=== PATIENT | female | born 1955 | race Caucasian/White ===

== ENCOUNTER 2018-06-25 13:54 | Outpatient (REF) | payer MEDICARE, MEDICAID, SELFPAY ==
[2018-06-25 14:55] LABS: ALT 45 U/L (12-78); AST 21 U/L (15-37); Albumin 3.3 g/dL (3.4-5.0); Alkaline Phosphatase 93 U/L (46-116); Anion Gap 10.5 mmol/L (3-11); BUN 16 mg/dL (7-18); Bilirubin, Total 0.2 mg/dL (0.2-1.0); CO2 22.5 mmol/L (21.0-32.0); CREATININE 0.99 mg/dL (0.55-1.02); Calcium 8.8 mg/dL (8.5-10.1); Chloride 107 mmol/L (98-107); Estimated GFR 56.84 (mL/min/1.73m2); Ferritin 245 ng/mL (8-388); Glucose 159 mg/dL (70-100); Potassium 4.2 mmol/L (3.5-5.1); Sodium 140 mmol/L (136-145); Total Protein 7.1 g/dL (6.4-8.2)
[2018-06-25 15:03] LABS: Hemoglobin A1C 7.1 % (4.5-6.2)
[2018-06-25 15:21] LABS: HCT 47.2 % (36.0-46.0); HGB 15.8 g/dL (12.0-15.5); Mean Corp. HGB Concentration 33.5 g/dL (32.0-36.0); Mean Corpuscular Volume 95.7 fL (80-95); Mean Platelet Volume 10.2 fL (8.0-11.0); Platelet Count 183 x1000/uL (130-400); RBC 4.93 m/cumm (4.00-5.20); RBC Distribution Width 14.4 % (11.7-14.6); White Blood Cell Count 6.33 k/cumm (4.4-10.8)
[2018-06-25 16:19] LABS: Iron 91 ug/dL (50-175)
[2018-06-26 10:10] LABS: Hepatitis C Ab w Rflx HCV PCR Negative (NEGAT)
== END 2018-06-25 14:14 ==
LOC: LBN 13:54
PROVIDERS: PCP Family Medicine; Visit Provider Family Medicine
DX: N39.0 Urinary tract infection, site not specified (principal); R19.7 Diarrhea, unspecified; E83.110 Hereditary hemochromatosis; R79.89 Other specified abnormal findings of blood chemistry
CPT/HCPCS: 80053; 85027; 86803; 87329; 82728; 83036; 83540; 87086; 87324

== ENCOUNTER 2018-06-27 17:35 | Outpatient (REF) | payer MEDICARE, MEDICAID, SELFPAY | END 2018-06-27 17:55 | LOC: LBN 17:35 | PROVIDERS: PCP Family Medicine; Visit Provider Family Medicine | DX: R19.7 Diarrhea, unspecified (principal) | CPT/HCPCS: 87329 ==

== ENCOUNTER 2018-09-02 11:28 | Outpatient (REF) | payer MEDICARE, MEDICAID, SELFPAY ==
[2018-09-02 13:33] LABS: Abs Immature Grans 0.01 k/cumm (0.0-0.09); Absolute Basophil Count 0.03 k/cumm (0.0-0.2); Absolute Eosinophil Count 0.15 k/cumm (0.0-0.7); Absolute Lymphocyte Count 2.46 k/cumm (1.2-3.4); Absolute Monocyte Count 0.52 k/cumm (0.11-0.7); Absolute Neutrophil Count 2.92 k/cumm (1.2-6.7); Basophils % 0.5; Eosinophils % 2.5; HCT 45.5 % (36.0-46.0); HGB 15.1 g/dL (12.0-15.5); Immature Grans % 0.2; Lymphocytes % 40.4; Mean Corp. HGB Concentration 33.2 g/dL (32.0-36.0); Mean Corpuscular Hemoglobin 31.9 pg (27.0-33.0); Mean Corpuscular Volume 96.2 fL (80-95); Monocytes % 8.5; Neutrophils % 47.9; Platelet Count 198 x1000/uL (130-400); RBC 4.73 m/cumm (4.00-5.20); RBC Distribution Width 14.2 % (11.7-14.6); White Blood Cell Count 6.09 k/cumm (4.4-10.8)
[2018-09-02 13:49] LABS: Vitamin B12 488 pg/mL (193-986)
[2018-09-02 13:57] LABS: Hemoglobin A1C 7.2 % (4.5-6.2)
== END 2018-09-02 11:48 ==
LOC: LBN 11:28
PROVIDERS: PCP Family Medicine; Visit Provider Family Medicine
DX: R53.83 Other fatigue (principal); E11.40 Type 2 diabetes mellitus with diabetic neuropathy, unspecified
CPT/HCPCS: 82607; 83036; 85025

== ENCOUNTER 2018-09-08 08:36 | Outpatient (CLI) | payer MEDICARE, MEDICAID, SELFPAY ==
--- NOTE | 2018-09-08 10:30 | DI.RAD_ITS ---
SYMPTOM/DIAGNOSIS: EVALUATE FOR ENTRAPMENT AT LOWER C SPINE. DECREASED SENSATION FINGERS CERVICAL SPINE: 09/08 Six views were obtained. The intervertebral disc spaces appear fairly well maintained. There are mild hypertrophic changes of the vertebral end plates and facet joints throughout the cervical region. Neuroforaminal appear fairly well maintained on oblique views. Mid cervical scoliosis is noted. CONCLUSION: DJD and mild cervical deformity. No other focal abnormality seen.
== END 2018-09-08 08:56 ==
PROVIDERS: PCP Family Medicine; Visit Provider Family Medicine
DX: R20.8 Other disturbances of skin sensation (principal); M47.812 Spondylosis without myelopathy or radiculopathy, cervical region; M41.82 Other forms of scoliosis, cervical region
CPT/HCPCS: 72050

== ENCOUNTER 2018-10-06 01:23 | Outpatient (CLI) | payer MEDICARE, MEDICAID, SELFPAY ==
--- NOTE | 2018-10-06 10:22 | DI.RAD_ITS ---
SYMPTOMS/DIAGNOSIS: LOW BACK PAIN LUMBAR SPINE: AP, lateral and bilateral oblique views of the lumbar spine were obtained. There is an S-type scoliosis of the thoracic and lumbar spine. There are five lumbar-type vertebral bodies. No acute fractures or subluxations are seen. Disc space narrowing is seen at L1-L2 and L2-L3. There is a vacuum disc at L4- L5. Endplate osteophytes are present throughout the lumbar spine. There are degenerative changes of the facets throughout the lumbar spine, most marked at L4-5 and L5-S1. Vascular stents are seen in the common iliac arteries bilaterally. IMPRESSION: 1. Scoliosis. 2. Moderate degenerative changes of the lumbar spine. SACROILIAC JOINTS: Three views. There are mild degenerative changes of the sacroiliac joints. No ankylosis or erosions are seen. The bones appear intact. Vascular calcifications are seen. Vascular stents are seen within the distal aorta and common iliac arteries. Surgical clips are seen in the right upper quadrant of the abdomen, likely from prior cholecystectomy. IMPRESSION: Mild degenerative changes seen at the sacroiliac joints.
== END 2018-10-06 01:43 ==
PROVIDERS: PCP Family Medicine; Visit Provider Family Medicine
DX: M54.5 Low back pain (principal); M41.35 Thoracogenic scoliosis, thoracolumbar region; M51.37 Other intervertebral disc degeneration, lumbosacral region; M53.3 Sacrococcygeal disorders, not elsewhere classified
CPT/HCPCS: 72110; 72202

== ENCOUNTER → 2018-12-10 12:08 | Outpatient (BNVA) | payer MEDICARE, MEDICAID, SELFPAY | PROVIDERS: PCP Family Medicine; Visit Provider Psychiatry & Neurology Neurology | DX: G56.03 Carpal tunnel syndrome, bilateral upper limbs (principal); G56.22 Lesion of ulnar nerve, left upper limb; J44.9 Chronic obstructive pulmonary disease, unspecified; F17.210 Nicotine dependence, cigarettes, uncomplicated | CPT/HCPCS: 95909; 99204; 99215 ==

== ENCOUNTER 2019-01-30 11:56 | Outpatient (REF) | payer MEDICARE, MEDICAID, SELFPAY ==
[2019-01-30 14:13] LABS: TSH 4.22 uIU/mL (0.358-3.74)
== END 2019-01-30 12:16 ==
LOC: LBN 11:56
PROVIDERS: PCP Family Medicine; Visit Provider Family Medicine
DX: E03.9 Hypothyroidism, unspecified (principal)
CPT/HCPCS: 84443

== ENCOUNTER 2019-02-02 10:53 | Outpatient (REF) | payer MEDICARE, MEDICAID, SELFPAY ==
[2019-02-02 16:36] LABS: T3,Free 3.2 pg/ml (2.8-5.3)
== END 2019-02-02 11:13 ==
LOC: LBN 10:53
PROVIDERS: PCP Family Medicine; Visit Provider Family Medicine
DX: E05.90 Thyrotoxicosis, unspecified without thyrotoxic crisis or storm (principal)
CPT/HCPCS: 84481

== ENCOUNTER 2019-02-04 12:33 | Outpatient (REF) | payer MEDICARE, MEDICAID, SELFPAY ==
[2019-02-04 13:23] LABS: Absolute Basophil Count 0.03 k/cumm (0.0-0.2); Absolute Eosinophil Count 0.13 k/cumm (0.0-0.7); Absolute Lymphocyte Count 2.27 k/cumm (1.2-3.4); Absolute Monocyte Count 0.37 k/cumm (0.11-0.7); Absolute Neutrophil Count 2.52 k/cumm (1.2-6.7); BUN 13 mg/dL (7-18); Basophils % 0.6; Calcium 9.4 mg/dL (8.5-10.1); Chloride 103 mmol/L (98-107); Eosinophils % 2.4; Estimated GFR 50.17 (mL/min/1.73m2); Glucose 176 mg/dL (70-100); HCT 47.5 % (36.0-46.0); HGB 15.3 g/dL (12.0-15.5); Lymphocytes % 42.7; Mean Corp. HGB Concentration 32.2 g/dL (32.0-36.0); Mean Corpuscular Hemoglobin 31.9 pg (27.0-33.0); Mean Platelet Volume 9.9 fL (8.0-11.0); Neutrophils % 47.3; Platelet Count 207 x1000/uL (130-400); Potassium 3.9 mmol/L (3.5-5.1); RBC Distribution Width 13.9 % (11.7-14.6); Sodium 140 mmol/L (136-145); White Blood Cell Count 5.32 k/cumm (4.4-10.8)
== END 2019-02-04 12:53 ==
LOC: LBN 12:33
PROVIDERS: PCP Family Medicine; Visit Provider Family Medicine
DX: K92.1 Melena (principal)
CPT/HCPCS: 80048; 85025

== ENCOUNTER → 2019-02-16 10:44 | Outpatient (BNVA) | payer MEDICARE, MEDICAID, SELFPAY | PROVIDERS: PCP Family Medicine; Referring Provider Family Medicine; Visit Provider Surgery | DX: K62.5 Hemorrhage of anus and rectum (principal); E11.9 Type 2 diabetes mellitus without complications; I10 Essential (primary) hypertension; J44.9 Chronic obstructive pulmonary disease, unspecified; F17.200 Nicotine dependence, unspecified, uncomplicated; Z79.01 Long term (current) use of anticoagulants; Z95.5 Presence of coronary angioplasty implant and graft; R45.4 Irritability and anger | CPT/HCPCS: 99203; 99214 ==

== ENCOUNTER 2019-02-23 18:03 | Outpatient (REF) | payer MEDICARE, MEDICAID, SELFPAY ==
[2019-02-23 18:34] LABS: Bilirubin Negative (Negative); Blood Negative (Negative); Clarity Clear; Glucose Negative (Negative); Ketones Negative (Negative); Leukocyte Esterase Negative (Negative); Nitrite Negative (Negative); Urobilinogen 0.2 EU/dL (Up TO 0.2); pH 7.5 (5-8)
== END 2019-02-23 18:23 ==
LOC: NCHCN 18:03
PROVIDERS: PCP Family Medicine; Visit Provider Family Medicine
DX: N39.0 Urinary tract infection, site not specified (principal)
CPT/HCPCS: 81003

== ENCOUNTER 2019-07-15 16:01 | Outpatient (REF) | payer MEDICARE, SELFPAY | END 2019-07-15 16:21 | LOC: LBN 16:01 | PROVIDERS: PCP Family Medicine; Visit Provider Family Medicine | DX: R19.7 Diarrhea, unspecified (principal) | CPT/HCPCS: 87324 ==

== ENCOUNTER 2019-07-24 12:13 | Outpatient (REF) | payer MEDICARE, SELFPAY ==
[2019-07-24 13:10] LABS: ALT 37 U/L (14-59); AST 20 U/L (15-37); Albumin 3.6 g/dL (3.4-5.0); Alkaline Phosphatase 101 U/L (46-116); Anion Gap 11.9 mmol/L (3-11); BUN 15 mg/dL (7-18); Bilirubin, Total 0.3 mg/dL (0.2-1.0); CO2 24.1 mmol/L (21.0-32.0); CREATININE 0.86 mg/dL (0.55-1.02); Chloride 106 mmol/L (98-107); Glucose 129 mg/dL (70-100); Magnesium 2.1 mg/dL (1.8-2.4); Potassium 4.1 mmol/L (3.5-5.1); Sodium 142 mmol/L (136-145); TSH (W/Ref FT4) 5.97 uIU/mL (0.36-3.74); Total Protein 7.7 g/dL (6.4-8.2)
[2019-07-24 13:40] LABS: FREE T4 0.88 ng/dL (0.76-1.46)
== END 2019-07-24 12:33 ==
LOC: LBN 12:13
PROVIDERS: PCP Family Medicine; Visit Provider Family Medicine
DX: E03.9 Hypothyroidism, unspecified (principal); E83.42 Hypomagnesemia
CPT/HCPCS: 80053; 83735; 84439; 84443

== ENCOUNTER 2019-08-07 02:15 | Outpatient (CLI) | payer MEDICARE, MEDICAID, SELFPAY ==
--- NOTE | 2019-08-07 10:20 | DI.US_ITS ---
APPROVED REPORT Conclusion Left Ventricle : The left ventricle is normal size. Borderline concentric left ventricular hypertroph y. The left ventricular ejection fraction is within the normal range. There is normal LV segmental wa ll motion. LVEF is estimated to be 60-65%. Diastolic function is indeterminate Right Ventricle : The right ventricle is normal size. Right ventricle is moderately hypokinetic. Righ t ventricle is mildly hypertrophied. Atria : The left atrium size is normal. The right atrium size is normal. Aortic Valve : Aortic valve is trileaflet. Aortic valve is mildly thickened. There is no aortic valvu lar stenosis. No aortic regurgitation is present. Mitral Valve : Mitral valve leaflets are mildly thickened. No evidence of mitral valve stenosis. Triv ial mitral regurgitation. Tricuspid Valve : The tricuspid valve is normal in structure. Mild tricuspid regurgitation. Pulmonic Valve : Pulmonic valve is not well visualized. Great Vessels : IVC is normal in size with normal collapse. Estimated RVSP is 40 mmHg Compared to echocardiogram dated 08/18/2013, the patient's estimate pulmonary artery pressures have d ecreased. EXAM: Comprehensive 2D, Doppler, and color-flow Echocardiogram Patient Location: Out-Patient Commissioner Of Conciliation: PRAFUL Villela ([place]) Rhythm: NSR Indications: pulmonary HTN i27.29 Left Ventricle The left ventricle is normal size. The left ventricular ejection fraction is within the normal range. Borderline concentric left ventricular hypertrophy. There is normal LV segmental wall motion. Diasto lic function is indeterminate LVEF is estimated to be 60-65%. Right Ventricle The right ventricle is normal size. Right ventricle is moderately hypokinetic. Right ventricle is mil dly hypertrophied. Atria The left atrium size is normal. The right atrium size is normal. Aortic Valve Aortic valve is trileaflet. Aortic valve is mildly thickened. There is no aortic valvular stenosis. N o aortic regurgitation is present. Mitral Valve Mitral valve leaflets are mildly thickened. No evidence of mitral valve stenosis. Trivial mitral regu rgitation. Tricuspid Valve The tricuspid valve is normal in structure. Mild tricuspid regurgitation. Pulmonic Valve Pulmonic valve is not well visualized. Trace pulmonic regurgitation. Great Vessels Aortic root is top normal in size. IVC is normal in size with normal collapse. Estimated RVSP is 40 m mHg Pericardium Anterior epicardial fat pad is present. 2D Dimensions IVSd 1.15 cm F: 0.6-1.0 LV EDV A2C 55.40 mL PWd 1.14 cm F: 0.6 - 1.0 LV EDV A4C 53.20 mL LVDd 4.10 cm F: 3.9 - 5.3 LA Volume Index A2C 18.21 mL/m2 LVDs 2.89 cm F: 2.2 - 3.5 LA Volume Index A4C 23.81 mL/m2 Aortic Root 3.52 cm F: 2.7 - 3.3 LA Volume Index Biplane 21.03 mL/m2 RA Area A4C 10.18 cm2 LA Area A4C 16.26 cm2 LVOT 2.11 cm (M/F) 1.5-2.5 LA Area A2C 14.08 cm2 Ascending Aorta 2.98 cm F: 2.3 - 3.1 EF AP4 67.11 % LVEF (Teich) 57.23 % EF AP2 62.64 % LVEF (Easley's) 61.02 % F: 54 - 74 EF BP 61.02 % LV Volume 41.56 mL F: 46 - 106 LV Volume Index 22.83 mL/m2 F: 29 - 61 FS 29.69 % LV Diastology E Decel Time 280.00 (160-240 msec) E/A Ratio 0.6 MED E' 0.08 (>0.07 m/s) LV E/e MED 6.84 (<14) LAT E' 0.08 (>0.1 m/s) LV E/e LAT 6.81 (<14) Aortic Valve LVOT Area 3.50 cm2 LVOT Peak Judah. 0.85 m/s LVOT Mean Judah. 0.59 m/s SATURNINO Vmax 0.00 m/s LVOT Peak Gr. 2.90 mmHg SATURNINO Vmax Index 1.31 cm2/m2 LVOT Mean Gr. 1.57 mmHg SATURNINO Mean Judah. 0.00 m/s LVOT VTI 0.19 m SATURNINO Mean Judah. Index 1.23 cm2/m2 AoV Peak Judah. 1.25 (0.5-1.3 m/s) AoV Mean Judah. 0.91 m/s AO Peak GR. 6.22 mmHg AO Mean GR. 3.56 (<5 mmHg) AO VTI 0.26 (0.18-0.25 m) SATURNINO (VTI) 2.53 (2.5-4.5 cm2) SATURNINO (VTI) Index 1.38 cm/m2 Mitral Valve MV E Max Judah. 0.56 (0.4-1.3 m/s) MV A Velocity 0.90 (0.4-1.3 m/s) E/A Ratio 0.62 MV Decel. Time 280.00 (160-240 msec) MV PHT 81.33 msec MVA PHT 2.70 cm2 Pulmonary Valve PV Peak Velocity 0.76 (0.5-1.5 m/s) Tricuspid Valve TR P. Velocity 2.92 m/s TV Regurg Vmax 2.92 m/s TR P. Gradient 34.04 mmHg
== END 2019-08-07 02:35 ==
PROVIDERS: PCP Family Medicine; Visit Provider Family Medicine
DX: I27.29 Other secondary pulmonary hypertension (principal); I51.7 Cardiomegaly; I34.8 Other nonrheumatic mitral valve disorders; I10 Essential (primary) hypertension
CPT/HCPCS: 93306

== ENCOUNTER 2019-08-25 09:50 | Outpatient (REF) | payer MEDICARE, MEDICAID, SELFPAY ==
[2019-08-25 10:57] LABS: HCT 47.6 % (36.0-46.0); HGB 15.2 g/dL (12.0-15.5); Mean Corp. HGB Concentration 31.9 g/dL (32.0-36.0); Mean Corpuscular Hemoglobin 32.1 pg (27.0-33.0); Mean Corpuscular Volume 100.4 fL (80-95); Mean Platelet Volume 9.7 fL (8.0-11.0); Platelet Count 273 x1000/uL (130-400); RBC 4.74 m/cumm (4.00-5.20); RBC Distribution Width 13.8 % (11.7-14.6); White Blood Cell Count 7.15 k/cumm (4.4-10.8)
[2019-08-25 11:13] LABS: ALT 37 U/L (14-59); AST 18 U/L (15-37); Albumin 3.4 g/dL (3.4-5.0); Alkaline Phosphatase 97 U/L (46-116); BUN 12 mg/dL (7-18); Bilirubin, Total 0.2 mg/dL (0.2-1.0); CREATININE 0.81 mg/dL (0.55-1.02); Calcium 8.9 mg/dL (8.5-10.1); Chloride 106 mmol/L (98-107); Glucose 122 mg/dL (70-100); Magnesium 2.1 mg/dL (1.8-2.4); Potassium 4.1 mmol/L (3.5-5.1); Sodium 142 mmol/L (136-145); Total Protein 7.5 g/dL (6.4-8.2)
[2019-08-25 11:30] LABS: FREE T4 0.72 ng/dL (0.76-1.46)
== END 2019-08-25 10:10 ==
LOC: LBN 09:50
PROVIDERS: PCP Family Medicine; Visit Provider Nurse Practitioner Gerontology
DX: I10 Essential (primary) hypertension (principal); E03.9 Hypothyroidism, unspecified; R53.83 Other fatigue
CPT/HCPCS: 80053; 85027; 83735; 84439; 84443

== ENCOUNTER 2019-09-01 09:11 | Outpatient (REF) | payer MEDICARE, MEDICAID, SELFPAY ==
[2019-09-01 09:45] LABS: Hemoglobin A1C 7.3 % (4.5-6.2)
== END 2019-09-01 09:31 ==
LOC: LBO 09:11
PROVIDERS: PCP Family Medicine; Visit Provider Family Medicine
DX: E11.40 Type 2 diabetes mellitus with diabetic neuropathy, unspecified (principal); E55.9 Vitamin D deficiency, unspecified; M85.80 Other specified disorders of bone density and structure, unspecified site
CPT/HCPCS: 82306; 83036

== ENCOUNTER 2020-03-02 11:20 | Outpatient (REF) | payer MEDICARE, MEDICAID, SELFPAY ==
[2020-03-02 11:55] LABS: Abs Immature Grans 0.01 k/cumm (0.0-0.09); Absolute Basophil Count 0.03 k/cumm (0.0-0.2); Absolute Eosinophil Count 0.16 k/cumm (0.0-0.7); Absolute Lymphocyte Count 2.17 k/cumm (1.2-3.4); Absolute Monocyte Count 0.51 k/cumm (0.11-0.7); Basophils % 0.5; Eosinophils % 2.6; HCT 46.2 % (36.0-46.0); HGB 15.2 g/dL (12.0-15.5); Immature Grans % 0.2 %; Lymphocytes % 35.1; Mean Corp. HGB Concentration 32.9 g/dL (32.0-36.0); Mean Corpuscular Hemoglobin 31.9 pg (27.0-33.0); Mean Corpuscular Volume 97.1 fL (80-95); Monocytes % 8.3; Neutrophils % 53.3; Platelet Count 208 x1000/uL (130-400); RBC 4.76 m/cumm (4.00-5.20); RBC Distribution Width 14.1 % (11.7-14.6); White Blood Cell Count 6.18 k/cumm (4.4-10.8)
[2020-03-02 12:08] LABS: ALT 84 U/L (14-59); AST 39 U/L (15-37); Alkaline Phosphatase 93 U/L (46-116); Anion Gap 6.9 mmol/L (3-11); BUN 9 mg/dL (7-18); Bilirubin, Total 0.3 mg/dL (0.2-1.0); CO2 27.1 mmol/L (21.0-32.0); CREATININE 1.07 mg/dL (0.55-1.02); Calcium 8.8 mg/dL (8.5-10.1); Chloride 105 mmol/L (98-107); Estimated GFR 51.63 (mL/min/1.73m2); Glucose 179 mg/dL (74-106); Sodium 139 mmol/L (136-145); TSH (W/Ref FT4) 4.24 uIU/mL (0.36-3.74)
[2020-03-02 12:30] LABS: FREE T4 0.98 ng/dL (0.76-1.46)
[2020-03-02 12:33] LABS: Hemoglobin A1C 7.9 % (3.8-5.6)
[2020-03-03 04:46] LABS: Vitamin D 25 Total 31.4 ng/ml (30-100)
== END 2020-03-02 11:40 ==
LOC: LBN 11:20
PROVIDERS: PCP Family Medicine; Visit Provider Family Medicine
DX: E11.9 Type 2 diabetes mellitus without complications (principal); E03.9 Hypothyroidism, unspecified; E55.9 Vitamin D deficiency, unspecified
CPT/HCPCS: 80053; 82306; 83036; 84439; 84443; 85025

== ENCOUNTER 2020-06-01 01:38 | Outpatient (CLI) | payer MEDICARE, MEDICAID, SELFPAY ==
--- NOTE | 2020-06-01 06:30 | DI.CTLCSR_ITS ---
EXAM: CT CHEST LUNG CANCER SCREEN CLINICAL HISTORY: Screening for lung cancer,FORMER SMOKER,Z87.891 TECHNIQUE: Imaging Protocol: Axial computed tomography images with coronal and sagittal reformatted images were created and reviewed COMPARISON: CT CHEST FOR PULMONARY EMBOLUS from 01/03/2012 CT CHEST FOR PULMONARY EMBOLUS from 09/09/2013 FINDINGS: Tracheobronchial tree: Patent where visualized. Mediastinum and Princess: Small hiatal hernia. Pulmonary parenchyma: Moderately severe centrilobular emphysema. Scarring in the right upper lobe, r ight middle lobe and lingula. Triangular density associated with the left major fissure most suggest james of of a lymph node. No focal consolidating infiltrates. Lung Nodules: None. Pleura: No effusion or pneumothorax. Heart: The heart is not dilated. Mild coronary artery calcification. No significant pericardial effu jimmie. Aorta: Thoracic aorta non-dilated.Atherosclerosis. Upper abdomen: Diffuse fatty infiltration of the liver. Bones: Minimal degenerative changes. Marked right convex scoliosis of the thoracic spine. Soft Tissues: Unremarkable. IMPRESSION: 1. No pulmonary nodules. 2. Moderately severe centrilobular emphysema. 3. Diffuse fatty infiltration of the liver. 4. Atherosclerosis and mild coronary artery disease. 5. Marked right convex scoliosis of the thoracic spine. Lung RADS Cat 1 - Negative: No nodules and definitely benign nodules Lung-RADS 1.0 CATEGORIES: Category 0 - Prior chest CT exam(s) being located for comparison. Category 1 - Annual screening in 12 months. No nodules or definitely benign nodules. Category 2 - Annual screening in 12 months. Benign appearance. Nodules with low likelihood of becomin g active cancer. Category 3 - 6-month follow-up. Probably benign. Short-term follow-up suggested. Nodules with low lik elihood of becoming active cancer. Category 4A - 3-month follow-up and CT/PET if >8 mm in size. Suspicious finding. Findings which requi re additional testing. Category 4B - Findings which require additional testing and tissue sampling. Suspicious finding. C Added to Any of the Above - History of prior lung cancer screening. S Added to Any of the Above - Significant unexpected other finding. RADIATION DOSE DELIVERED: 94.87mGy.cm Total DLP DATA REPOSITORY: All CT scans at this facility are submitted to the National Radiology Data Registry (NRDR) Dose Index Registry (DIR) with the [employer] ([employer]). RADIATION OPTIMIZATION: All CT scans at this facility use at least one of these dose optimization te chniques: automated exposure control; mA and/or kV adjustment per patient size (includes targeted exa ms where dose is matched to clinical indication); or iterative reconstruction.
--- NOTE | 2020-06-01 09:18 | DI.RAD_ITS ---
EXAM: RF BARIUM SWALLOW CLINICAL HISTORY: DYSPHAGIA,R13.10 TECHNIQUE: 2D and realtime digital imaging was performed. CONTRAST MATERIAL: Oral barium contrast was administered. COMPARISON: No exams were available for comparison FINDINGS: CHEST X-RAY: The heart is within normal limits. There is tortuosity of the thoracic aorta. The lung s are clear. No pleural effusion or pneumothorax is present. The bones are within normal limits fo th e patient's age. There is a right convex scoliosis of the thoracic spine. ESOPHAGRAM: The esophagus is patent with no evidence for erosions, fold thickening, strictures, or ma sses. With regards to the motility, there is a normal primary stripping wave. Tertiary contractions a re noted. There is a hiatal hernia present. No gastroesophageal reflux was identified during the ex amination. IMPRESSION: Small hiatal hernia without evidence of gastroesophageal reflux.
[2020-06-01] MEDS: Barium Sulfate 60% W/V 355 ML BTL PO (10:06)
== END 2020-06-01 01:58 ==
PROVIDERS: PCP Family Medicine; Visit Provider Family Medicine
DX: Z12.2 Encounter for screening for malignant neoplasm of respiratory organs (principal); Z87.891 Personal history of nicotine dependence; J43.9 Emphysema, unspecified; I25.10 Atherosclerotic heart disease of native coronary artery without angina pectoris; M41.9 Scoliosis, unspecified
CPT/HCPCS: G0297; 74221; J3490

== ENCOUNTER 2020-12-14 16:51 | Outpatient (REF) | payer MEDICARE, MEDICAID, SELFPAY ==
[2020-12-14 18:08] LABS: Abs Immature Grans 0.01 10^3/uL (0.0-0.06); Absolute Basophil Count 0.07 10^3/uL (0.0-0.2); Absolute Eosinophil Count 0.19 10^3/uL (0.0-0.7); Absolute Lymphocyte Count 2.95 10^3/uL (1.2-3.4); Absolute Monocyte Count 0.59 10^3/uL (0.1-0.8); Absolute Neutrophil Count 3.35 10^3/uL (1.2-6.7); Eosinophils % 2.7; HGB 16.8 g/dL (11.2-15.7); Immature Grans % 0.1; Lymphocytes % 41.2; MCH 32.2 pg (27.0-33.0); MCHC 33.6 % (32.0-36.0); MPV 10.5 fL (8.0-11.0); Monocytes % 8.2; Neutrophils % 46.8; Nucleated RBC 0 %; Platelet Count 177 10^3/uL (130-400); RBC 5.21 10^6/uL (3.93-5.22); RDW 13.4 % (11.7-14.6); RDW-SD 47.8 fL; WBC 7.16 10^3/uL (4.4-10.8)
[2020-12-14 18:27] LABS: ALT 100 U/L (14-59); AST 45 U/L (15-37); Albumin 3.6 g/dL (3.4-5.0); Alkaline Phosphatase 124 U/L (46-116); Anion Gap 9.1 mmol/L (3-11); BUN 15 mg/dL (7-18); Bilirubin, Total 0.4 mg/dL (0.2-1.0); CO2 25.9 mmol/L (21.0-32.0); Calcium 9.6 mg/dL (8.5-10.1); Chloride 100 mmol/L (98-107); Estimated GFR 55.64 (mL/min/1.73m2); Glucose 302 mg/dL (74-106); Potassium 4.2 mmol/L (3.5-5.1); Sodium 135 mmol/L (136-145); TSH (W/Ref FT4) 7.33 uIU/mL (0.36-3.74); Total Protein 7.9 g/dL (6.4-8.2)
[2020-12-14 19:23] LABS: Hemoglobin A1C 13.2 % (<5.7)
[2020-12-15 04:44] LABS: Vitamin D 25 Total 29.2 ng/ml (30-100)
== END 2020-12-14 16:52 | disposition home or self-care (01) ==
LOC: LBN 16:51
PROVIDERS: PCP Family Medicine; Visit Provider Family Medicine
DX: E11.9 Type 2 diabetes mellitus without complications (principal); E03.9 Hypothyroidism, unspecified; E55.9 Vitamin D deficiency, unspecified; E78.5 Hyperlipidemia, unspecified
CPT/HCPCS: 80053; 82306; 83036; 84439; 84443; 85025

== ENCOUNTER 2021-03-07 15:39 | Outpatient (REF) | payer MEDICARE, MEDICAID, SELFPAY ==
[2021-03-07 17:34] LABS: Hemoglobin A1C 7.3 % (<5.7)
== END 2021-03-07 15:40 | disposition home or self-care (01) ==
LOC: NCHCN 15:39
PROVIDERS: PCP Family Medicine; Visit Provider Family Medicine
DX: E11.9 Type 2 diabetes mellitus without complications (principal)
CPT/HCPCS: 83036

== ENCOUNTER → 2021-06-08 13:00 | Outpatient (BNVA) | payer MEDICARE, MEDICAID, SELFPAY | PROVIDERS: PCP Family Medicine; Referring Provider Family Medicine; Visit Provider Surgery | DX: R19.5 Other fecal abnormalities (principal); Z53.29 Procedure and treatment not carried out because of patient's decision for other reasons; D75.1 Secondary polycythemia; E11.9 Type 2 diabetes mellitus without complications; I10 Essential (primary) hypertension; J44.9 Chronic obstructive pulmonary disease, unspecified; Z87.891 Personal history of nicotine dependence | CPT/HCPCS: 99213; 99215 ==

== ENCOUNTER 2021-08-04 17:38 | Outpatient (REF) | payer MEDICARE, MEDICAID, SELFPAY ==
[2021-08-04 19:00] LABS: Bilirubin Negative (Negative); Blood Negative (Negative); Clarity Clear (Clear); Glucose Negative (Negative); Ketones Negative (Negative); Leukocyte Esterase Negative (Negative); Nitrite Negative (Negative); Specific Gravity 1.015 (1.005-1.025); Urobilinogen 0.2 EU/dL (Up TO 0.2)
== END 2021-08-04 17:39 | disposition home or self-care (01) ==
LOC: LBN 17:38
PROVIDERS: PCP Family Medicine; Visit Provider Family Medicine
DX: N39.0 Urinary tract infection, site not specified (principal)
CPT/HCPCS: 81003

== ENCOUNTER 2021-09-06 10:36 | Outpatient (CLI) | payer MEDICARE, SELFPAY ==
[2021-09-06 14:44] LABS: HCT 51.8 % (36.0-46.0); HGB 16.8 g/dL (11.2-15.7); MCH 31.2 pg (27.0-33.0); MCHC 32.4 % (32.0-36.0); MCV 96.3 fL (80-95); MPV 9.3 fL (8.0-11.0); Platelet Count 242 10^3/uL (130-400); RBC 5.38 10^6/uL (3.93-5.22); RDW 13.6 % (11.7-14.6); RDW-SD 48.5 fL; WBC 7.78 10^3/uL (4.4-10.8)
[2021-09-06 15:03] LABS: Hemoglobin A1C 7.2 % (<5.7)
[2021-09-06 15:54] LABS: ALT 32 U/L (14-59); AST 19 U/L (15-37); Alkaline Phosphatase 96 U/L (46-116); Anion Gap 10.3 mmol/L (3-11); BUN 14 mg/dL (7-18); Bilirubin, Total 0.3 mg/dL (0.2-1.0); CO2 27.7 mmol/L (21.0-32.0); CREATININE 0.9 mg/dL (0.55-1.02); Calcium 9.9 mg/dL (8.5-10.1); Chloride 105 mmol/L (98-107); Glucose 161 mg/dL (74-106); Potassium 4.1 mmol/L (3.5-5.1); Sodium 143 mmol/L (136-145); TSH (W/Ref FT4) 1.53 uIU/mL (0.36-3.74); Total Protein 8.4 g/dL (6.4-8.2)
== END 2021-09-06 10:37 | disposition home or self-care (01) ==
LOC: LBO 10:39
PROVIDERS: PCP Family Medicine; Visit Provider Family Medicine
DX: E11.9 Type 2 diabetes mellitus without complications; I10 Essential (primary) hypertension; E78.5 Hyperlipidemia, unspecified; J44.9 Chronic obstructive pulmonary disease, unspecified; F31.30 Bipolar disorder, current episode depressed, mild or moderate severity, unspecified; D75.1 Secondary polycythemia
CPT/HCPCS: 36415; 80053; 82306; 85027; 83036; 84443

== ENCOUNTER 2021-12-11 01:36 | Outpatient (CLI) | payer MEDICARE, MEDICAID, SELFPAY ==
--- NOTE | 2021-12-11 08:15 | DI.RAD_ITS ---
Exam(s) XR HIP PELVIS ADULT BL EXAM: XR HIP PELVIS ADULT BL CLINICAL HISTORY: b/l hip pain,M25.551,M25.552. TECHNIQUE: 2D digital imaging was performed. COMPARISON: Prior x-rays September 2018. FINDINGS: There is no evidence of pelvic nor hip fracture. There are minimal if any significant degenerative c hanges in the hips and hips appear unchanged from 2018. No osseous lesions. Stents are again noted in the common iliac arteries. IMPRESSION: DATA REPOSITORY: RADIATION DOSE DELIVERED:
== END 2021-12-11 01:56 ==
PROVIDERS: PCP Family Medicine; Visit Provider Family Medicine
DX: M25.551 Pain in right hip (principal); M25.552 Pain in left hip
CPT/HCPCS: 73521

== ENCOUNTER 2021-12-11 14:35 | Inpatient (IN) | payer MEDICARE, MEDICAID, SELFPAY ==
[2021-12-11] VITALS (40 sets, daily range): BP systolic 124–159; BP diastolic 66–106; PULSE 70–93; RESP 11–26; TEMP 35.8–36.6; O2SAT 82–94
--- NOTE | 2021-12-11 14:45 | RT.EKG_ITS ---
APPROVED REPORT Exam: Resting ECG Reason for Exam: dizzy Patient Location: E HR:88 bpm ECG Measurements Heart Rate 88 AXIS ME 147 P 47 QRSd 89 QRS 84 QT 388 T 44 QTc 469 Conclusion Sinus rhythm...normal P axis, V-rate 60- 99 Multiple ventricular premature complexes...V complexes w/ short R-R intervls Nonspecific T abnormalities, anterior leads...T <-0.10mV, V2-V4. Sinus. Normal axis. T wave inversion in anterior leads seen in previous EKG and seen new in V3. No ST KJ. I have reviewed and interpreted ECG and agree with software generated interpretation.
--- NOTE | 2021-12-11 15:06 | W.ED.GENAD ---
Discharge Plan Disposition Patient Disposition: [facility] INPATIENT Condition: Stable Discharge Details Clinical Impression: Chronic hip pain, bilateral, Ambulatory dysfunction, Abdominal pain, vomiting, and diarrhea, Pneumonia, Hypoxia Admit Date/Time: 12/11/21 20:45 Admit Provider: Ehsan Graff Attending Provider: Ehsan Graff Primary Care Provider: Ghada Henderson ED Provider: Lilliana Grider Medical Decision Making 66-year-old female with a history of COPD with oxygen saturation in the mid 80s on room air at baseline recently started on home nasal cannula oxygen of unknown liters per patient, diabetes, hypertension, hyperlipidemia, anxiety and depression presents from the [facility] for multiple complaints including bilateral hip pain and watery brown diarrhea for the past 6 months, vomiting that occurs nightly the past 2 weeks and increasing weakness with ambulating today due to hip pain. She had an outpatient hip x-ray today which noted minimal degenerative changes that do not appear significantly changed compared to imaging from 2018 per radiology. Her oxygen saturation was noted to be 75% on room air during my evaluation. Patient is repositioned on bed and her O2 sat increased to 90% on 1 L. She denies any complaint of shortness of breath and her lung sounds are clear bilaterally. Abdomen is tender throughout but she appears nontoxic without rigidity or guarding. She has normal range of motion of her bilateral lower extremities and is otherwise neurovascularly intact. Patient is seen Dr. Henderson for her pain and was concerned that her hip pain is secondary to her stent in her lower extremities as she has a history of endovascular iliac and femoral stents. Her bilateral femoral and distal lower extremity pulses are intact and her skin appears warm and pink unlikely. Discussed with patient that her hip pain can be secondary to arthritis that may be in her back or hips. Records from Dr. Henderson notes that it could potentially also be due to deconditioning. Secondary to patient's multiple complaints, will obtain screening labs, urinalysis, CT chest abdomen pelvis secondary to her hypoxia and generalized weakness and dizziness to rule out pneumonia, colitis, UTI, electrolyte abnormality, etc. Will give IV fluids, Zofran and IV Tylenol and reassess. CT chest: IMPRESSION: 1. There is heterogeneous attenuation of the pulmonary parenchyma, consistent with air trapping from underlying small airways disease. 2. There are diffuse interstitial infiltrates present. This may represent cardiogenic versus noncardiogenic edema. An acute inflammatory process and/or infectious process/pneumonia are not excluded. 3. Focal lobar consolidative changes within the right middle lobe of the lung highly suspicious for lobar pneumonia. 4. Scarring and or mass present within the lingula measuring 3 x 2.7 cm. 5. Scarring and/or atelectasis measuring 2.2 x 2.2 cm within the right lower lobe of the lung anteriorly. These findings were in not present on the prior study of 05/16/2018. For both low risk and high risk patients, consider CT Chest at 3 months, PET/CT, or biopsy. (Reference: Francoise). 6. The pulmonary artery is enlarged measuring 3.2 cm. Consider early pulmonary hypertension. 7. There is no evidence of filling defects within the pulmonary arterial circulation to suggest pulmonary embolism. CT abdomen and pelvis: IMPRESSION: There are diffuse fluid filled loops of small bowel and colon with scattered air fluid levels. The bowel loops are mildly distended. No associated bowel wall thickening or inflammatory changes. No evidence of obstruction. Findings most consistent with diffuse enterocolitis. Attempted to ambulate patient and she was able to use assistance from wheelchair to ambulate but complained of significant pain. She had difficulty transferring out of the bed start ambulation. Patient states she has not felt comfortable going home. Patient does report that she has had a cough with dorsey sputum. As patient has had lower oxygen saturation in the comparison to her baseline on arrival in addition to right lobar pneumonia, will treat with antibiotics and plan for admission. Although she lives in assisted living, will cover her for community-acquired pneumonia at this time. This was discussed with hospitalist who accepts patient for admission. Medical Records Medical records reviewed: Yes I reviewed the patient's medical records. Imaging Data Radiologic Study: Radiologist's impression: CTA Chest With Contrast Exam date and time: 12/11/2021 3:26 PM Age: 66 years old Clinical indication: Other: Dizziness, vomitting, diarrhea, hypoxic TECHNIQUE: Imaging protocol: Computed tomographic angiography of the chest with contrast. 3D rendering (Not supervised by radiologist): MIP and/or 3D reconstructed images were created by the technologist. Radiation optimization: All CT scans at this facility use at least one of these dose optimization techniques: automated exposure control; mA and/or kV adjustment per patient size (includes targeted exams where dose is matched to clinical indication); or iterative reconstruction. Contrast material: OMNIPAQUE 350; Contrast volume: 100 ml; Contrast route: INTRAVENOUS (IV);? COMPARISON: CT ABD PELVIS WITH CONTRAST 05/16/2018 10:51 AM FINDINGS: Pulmonary arteries: The pulmonary artery is enlarged measuring 3.2 cm. Consider early pulmonary hypertension. There is no evidence of filling defects within the pulmonary arterial circulation to suggest pulmonary embolism. Aorta: Unremarkable. No aortic aneurysm. No aortic dissection. Lungs: Moderate centrilobular emphysematous changes are present. There is heterogeneous attenuation of the pulmonary parenchyma, consistent with air trapping from underlying small airways disease. There are diffuse interstitial infiltrates present. This may represent cardiogenic versus noncardiogenic edema. An acute inflammatory process and/or infectious process/pneumonia are not excluded. Focal lobar consolidative changes within the right middle lobe of the lung highly suspicious for lobar pneumonia. Scarring and or mass present within the lingula measuring 3 x 2.7 cm. Scarring and/or atelectasis measuring 2.2 x 2.2 cm within the right lower lobe of the lung anteriorly. These findings were in not present on the prior study of 05/16/2018. For both low risk and high risk patients, consider CT Chest at 3 months, PET/CT, or biopsy. (Reference: Francoise). Pleural spaces: Unremarkable. No pneumothorax. No pleural effusion. Heart: No evidence of reflux of contrast into the inferior vena cava or hepatic veins to suggest right heart strain or pulmonary hypertension. There is thickening of the pericardium versus small pericardial effusion. The right ventricular to left ventricular ratio is approximately 1.0. No significant coronary calcifications are identified. Lymph nodes: Epicardial mass/adenopathy present measuring 2.3 x 11 mm. Diaphragm: A small to moderate hiatal hernia is present. Intraperitoneal space: Please see CT of the abdomen and pelvis. Bones/joints: The spine, sternum, ribs, pectoral girdle skeletal structures show no evidence of acute fracture or other acute processes. Kyphoscoliosis of the thoracolumbar spine stable compared to 06/01/2020. Soft tissues: The soft tissues of the extrathoracic region are unremarkable. The associated extrathoracic soft tissues are unremarkable. IMPRESSION: 1. There is heterogeneous attenuation of the pulmonary parenchyma, consistent with air trapping from underlying small airways disease. 2. There are diffuse interstitial infiltrates present. This may represent cardiogenic versus noncardiogenic edema. An acute inflammatory process and/or infectious process/pneumonia are not excluded. 3. Focal lobar consolidative changes within the right middle lobe of the lung highly suspicious for lobar pneumonia. 4. Scarring and or mass present within the lingula measuring 3 x 2.7 cm. 5. Scarring and/or atelectasis measuring 2.2 x 2.2 cm within the right lower lobe of the lung anteriorly. These findings were in not present on the prior study of 05/16/2018. For both low risk and high risk patients, consider CT Chest at 3 months, PET/CT, or biopsy. (Reference: Francoise). 6. The pulmonary artery is enlarged measuring 3.2 cm. Consider early pulmonary hypertension. 7. There is no evidence of filling defects within the pulmonary arterial circulation to suggest pulmonary embolism. REFERENCES: Francoise Smith et al. Guidelines for Management of Incidental Pulmonary Nodules Detected on CT Images: From the Fleischner Society 2017. Radiology. 2017;284(1):228-243. CT Abdomen And Pelvis With Contrast Exam date and time: 12/11/2021 3:26 PM Age: 66 years old Clinical indication: Other: Dizziness, vomitting, diarrhea, hypoxic TECHNIQUE: Imaging protocol: Computed tomography of the abdomen and pelvis with contrast. Radiation optimization: All CT scans at this facility use at least one of these dose optimization techniques: automated exposure control; mA and/or kV adjustment per patient size (includes targeted exams where dose is matched to clinical indication); or iterative reconstruction. Contrast material: OMNIPAQUE 350; Contrast volume: 100 ml; Contrast route: INTRAVENOUS (IV);? COMPARISON: CT ABD PELVIS WITH CONTRAST 05/16/2018 10:51 AM FINDINGS: Lungs: Please see CT of the chest and lungs. Diaphragm: A moderate hiatal hernia is present. Liver: There is a diffuse decrease in hepatic parenchymal density, consistent with moderate fatty infiltration. There are no focal liver lesions present. Gallbladder and bile ducts: There has been a cholecystectomy. There is no evidence of intrahepatic or extrahepatic biliary ductal dilation. Pancreas: The pancreas is normal. Spleen: Calcifications within the splenic parenchyma consistent with old granulomatous exposure. The spleen is otherwise normal. Adrenal glands: There is an 18 mm left adrenal adenoma unchanged compared 06/01/2020. Kidneys and ureters: The left and right kidneys are normal. No evidence of renal calculi. No hydronephrosis. Stomach and bowel: There is no evidence of intestinal obstruction. There are diffuse fluid filled loops of small bowel and colon with scattered air fluid levels. The bowel loops are mildly distended. No associated bowel wall thickening or inflammatory changes. No evidence of obstruction. Findings most consistent with diffuse enterocolitis. Colonic fatty mural change present, most often a normal variation but sometimes seen in patients with chronic inflammatory process such as ulcerative colitis or Crohn's disease. Appendix: There is no evidence of appendicitis. Intraperitoneal space: There is no free intraperitoneal air. There is no evidence of free intraperitoneal or pelvic fluid. Vasculature: The portal, mesenteric and splenic veins are patent.The inferior venacava appears normal. Severe atherosclerotic plaquing of the abdominal aorta and iliac arteries. Endovascular stents are present within the distal aorta extending into the right and left common iliac arteries. These appear widely patent. Lymph nodes: There is no evidence of lymphadenopathy. Urinary bladder: Unremarkable as visualized. Reproductive: Unremarkable as visualized. Bones/joints: Moderate to severe degenerative changes of the lumbosacral spine. Soft tissues: There is a fat-containing umbilical hernia. The extra-abdominal soft tissues are normal. IMPRESSION: There are diffuse fluid filled loops of small bowel and colon with scattered air fluid levels. The bowel loops are mildly distended. No associated bowel wall thickening or inflammatory changes. No evidence of obstruction. Findings most consistent with diffuse enterocolitis. Lab Data Lab results reviewed: Yes I reviewed the patient's lab results. Labs: Laboratory Tests Range/Units 12/11/21 12/11/21 12/11/21 15:05 15:05 16:15 WBC (4.4-10.8) 10^3/uL 6.46 RBC (3.93-5.22) 10^6/uL 5.15 Hgb (11.2-15.7) g/dL 16.1 H Hct (36.0-46.0) % 49.6 H MCV (80-95) fL 96.3 H MCH (27.0-33.0) pg 31.3 MCHC (32.0-36.0) % 32.5 RDW (11.7-14.6) % 14.1 Plt Count (130-400) 10^3/uL 195 MPV (8.0-11.0) fL 9.5 Immature Gran % 0.3 Neutrophils % 52.1 Lymphocytes % 35.6 Monocytes % 9.1 Eosinophils % 2.3 Basophils % 0.6 Nucleated RBC % % 0 Absolute Neutrophils (1.2-6.7) 10^3/uL 3.36 Absolute Lymphocytes (1.2-3.4) 10^3/uL 2.30 Absolute Monocytes (0.1-0.8) 10^3/uL 0.59 Absolute Eosinophils (0.0-0.7) 10^3/uL 0.15 Absolute Basophils (0.0-0.2) 10^3/uL 0.04 VBG Lactate (0.6-1.4) mmol/L Sodium (136-145) mmol/L 139 Potassium (3.5-5.1) mmol/L 3.5 Chloride (98-107) mmol/L 103 Carbon Dioxide (21.0-32.0) mmol/L 27.7 Anion Gap (3-11) mmol/L 8.3 BUN (7-18) mg/dL 13 Creatinine (0.55-1.02) mg/dL 1.0 Estimated GFR/1.73 m2 (mL/min/1.73m2) 55.47 Glucose (74-106) mg/dL 259 H Calcium (8.5-10.1) mg/dL 9.5 Total Bilirubin (0.2-1.0) mg/dL 0.3 AST (15-37) U/L 21 ALT (14-59) U/L 35 Alkaline Phosphatase (46-116) U/L 93 Total Protein (6.4-8.2) g/dL 8.2 Albumin (3.4-5.0) g/dL 3.3 L Lipase (73-393) U/L 91 Procalcitonin ng/mL Urine Color (Yellow) Urine Clarity (Clear) Urine pH (5-8) Ur Specific [place] (1.005-1.025) Urine Protein (Negative) mg/dL Urine Ketones (Negative) mg/dL Urine Blood (Negative) Urine Nitrite (Negative) Urine Bilirubin (Negative) Urine Urobilinogen (Up TO 0.2) EU/dL Ur Leukocyte Esterase (Negative) Urine Glucose (Negative) mg/dL COVID-19 Source Not Applicable SARS-CoV-2 (PCR) (Negative) Negative Influenza Type A (PCR) (Negative) Negative Influenza Type B (PCR) (Negative) Negative RSV (PCR) (Negative) Negative Range/Units 12/11/21 12/11/21 17:30 19:15 WBC (4.4-10.8) 10^3/uL RBC (3.93-5.22) 10^6/uL Hgb (11.2-15.7) g/dL Hct (36.0-46.0) % MCV (80-95) fL MCH (27.0-33.0) pg MCHC (32.0-36.0) % RDW (11.7-14.6) % Plt Count (130-400) 10^3/uL MPV (8.0-11.0) fL Immature Gran % Neutrophils % Lymphocytes % Monocytes % Eosinophils % Basophils % Nucleated RBC % % Absolute Neutrophils (1.2-6.7) 10^3/uL Absolute Lymphocytes (1.2-3.4) 10^3/uL Absolute Monocytes (0.1-0.8) 10^3/uL Absolute Eosinophils (0.0-0.7) 10^3/uL Absolute Basophils (0.0-0.2) 10^3/uL VBG Lactate (0.6-1.4) mmol/L 1.3 Sodium (136-145) mmol/L Potassium (3.5-5.1) mmol/L Chloride (98-107) mmol/L Carbon Dioxide (21.0-32.0) mmol/L Anion Gap (3-11) mmol/L BUN (7-18) mg/dL Creatinine (0.55-1.02) mg/dL Estimated GFR/1.73 m2 (mL/min/1.73m2) Glucose (74-106) mg/dL Calcium (8.5-10.1) mg/dL Total Bilirubin (0.2-1.0) mg/dL AST (15-37) U/L ALT (14-59) U/L Alkaline Phosphatase (46-116) U/L Total Protein (6.4-8.2) g/dL Albumin (3.4-5.0) g/dL Lipase (73-393) U/L Procalcitonin ng/mL < 0.1 Urine Color (Yellow) Yellow Urine Clarity (Clear) Clear Urine pH (5-8) 6.0 Ur Specific [place] (1.005-1.025) 1.025 Urine Protein (Negative) mg/dL Negative Urine Ketones (Negative) mg/dL Negative Urine Blood (Negative) Negative Urine Nitrite (Negative) Negative Urine Bilirubin (Negative) Negative Urine Urobilinogen (Up TO 0.2) EU/dL 0.2 Ur Leukocyte Esterase (Negative) Negative Urine Glucose (Negative) mg/dL Negative COVID-19 Source SARS-CoV-2 (PCR) (Negative) Influenza Type A (PCR) (Negative) Influenza Type B (PCR) (Negative) RSV (PCR) (Negative) ECG Data Attestation: I personally reviewed and interpreted this ECG (s) as follows: Interpretation: rate of 88, sinus, PVCs, T wave inversion in V1 to V3. T wave inversions in V1 and V2 seen previously. No significant acute change. No STEMI. HPI General Mode of arrival: wheelchair. Date/Time Provider Initiated Documentation: 12/11/21 14:37. Limitations to Documentation: physical limitation. Information obtained by: patient. HPI Narrative: Patient is a 56-year-old female with a history of COPD recently placed on nasal cannula oxygen with baseline saturations on room air in the mid 80s, diabetes, hypertension, hyperlipidemia, hypothyroidism, anxiety, depression presents from the [facility] where she lives in her living for multiple complaints including bilateral hip pain and diarrhea for the past 6 months, vomiting occurring only at night over the past 2 weeks and increased pain in her hips today with walking causing difficulty ambulating and a sensation of feeling like she was going to fall and causing generalized weakness. Patient states she receives assistance with her medications and food at the [facility] but otherwise lives independently. Patient states she has seen Dr. Henderson for her chronic hip pain recently and was referred for outpatient x-rays which she had in the hospital here today. She states she has asked Dr. Henderson to provide her with a walker with a seat so that she can rest in between walking but she states Dr. Henderson won't give me this. States she has not been taking any pain medication for her hip pain. He states that mainly occurs when walking and radiates from both hips down her thighs into her knees. She states the pain does resolve with rest. She denies any recent injury or fall. She states today she was walking to the truck to come here and felt like her legs are going to give out due to the hip pain. She denies any fall with this. She also states that she has had watery brown diarrhea occurring every day for the past 6 months. She states she had 4 episodes this morning which is more than usual. She admits to occasional blood in her stool. She also states for the past 2 weeks she has had vomiting that occurs in the middle the night and awakes her from sleep. She states the vomit is mainly like phlegm and denies any bloody or biliary emesis. She states she has had not much appetite for the past couple weeks. She denies any known fever or urinary symptoms other than decreased amount of urine. She states she has had diffuse abdominal pain over the last few weeks but only endorses this when asked. She denies any chest pain or shortness of breath at this time. She denies any significant fever, cough or known exposure to coronavirus. She states she is fully vaccinated for COVID. Related Data Home Medications Medication Instructions Recorded Confirmed acetaminophen 325 mg capsule 650 mg PO Q4H PRN cap 10/28/19 12/11/21 (Tylenol) bismuth subsalicylate 262 mg/15 mL 524 mg PO QID PRN ml 10/28/19 12/11/21 oral suspension (Bismatrol) aspirin-sod bicarb-citric acid 325 1 tab PO BID PRN tab 01/06/21 12/05/21 mg-1,916 mg-1,000 mg efferves tab (Tesha-Jeannie Original) docusate sodium 100 mg capsule 300 mg PO DAILY PRN cap 01/06/21 12/11/21 famotidine 20 mg tablet 20 mg PO BID #180 tab 01/10/21 12/11/21 guaifenesin 600 mg tablet, 600 mg PO Q12H PRN #60 tab 06/22/21 12/11/21 extended release 12 hr (Mucinex) melatonin 10 mg tablet 10 mg PO HS PRN #90 tab 07/24/21 12/11/21 clopidogrel 75 mg tablet (Plavix) 75 mg PO DAILY #90 tab-cap 09/11/21 12/11/21 glipizide 10 mg tablet, extended 10 mg PO DAILY #90 tab 09/11/21 12/11/21 release 24 hr levothyroxine 112 mcg tablet 112 mcg PO DAILY #90 tab 09/11/21 12/11/21 loperamide 2 mg tablet 2 mg PO QID PRN #10 tab 09/11/21 12/11/21 lorazepam 0.5 mg tablet (Ativan) 0.5 mg PO QID #120 tab 09/11/21 12/05/21 ondansetron 4 mg disintegrating 4 mg PO Q4H PRN #30 tab 09/11/21 12/11/21 tablet quetiapine 200 mg tablet,extended 200 mg PO HS #90 tab 11/09/21 12/11/21 release 24 hr (Seroquel XR) sertraline 100 mg tablet 100 mg PO DAILY #90 tab 11/09/21 12/11/21 sertraline 25 mg tablet 25 mg PO DAILY #90 tab MDD 175 11/09/21 12/11/21 sertraline 50 mg tablet 50 mg PO DAILY #90 tab 11/09/21 12/11/21 amoxicillin 500 mg tablet 500 mg PO QID #28 tab 11/27/21 12/05/21 clonazepam 1 mg tablet 1 mg PO TID 12/11/21 12/11/21 Previous Rx's Medication Instructions Recorded famotidine 20 mg tablet 20 mg PO BID #180 tab 01/10/21 guaifenesin 600 mg tablet, 600 mg PO Q12H PRN #60 tab 06/22/21 extended release 12 hr (Mucinex) melatonin 10 mg tablet 10 mg PO HS PRN #90 tab 07/24/21 clopidogrel 75 mg tablet (Plavix) 75 mg PO DAILY #90 tab-cap 09/11/21 glipizide 10 mg tablet, extended 10 mg PO DAILY #90 tab 09/11/21 release 24 hr levothyroxine 112 mcg tablet 112 mcg PO DAILY #90 tab 09/11/21 loperamide 2 mg tablet 2 mg PO QID PRN #10 tab 09/11/21 lorazepam 0.5 mg tablet (Ativan) 0.5 mg PO QID #120 tab 09/11/21 ondansetron 4 mg disintegrating 4 mg PO Q4H PRN #30 tab 09/11/21 tablet quetiapine 200 mg tablet,extended 200 mg PO HS #90 tab 11/09/21 release 24 hr (Seroquel XR) sertraline 100 mg tablet 100 mg PO DAILY #90 tab 11/09/21 sertraline 25 mg tablet 25 mg PO DAILY #90 tab MDD 175 11/09/21 sertraline 50 mg tablet 50 mg PO DAILY #90 tab 11/09/21 amoxicillin 500 mg tablet 500 mg PO QID #28 tab 11/27/21 Allergies Allergy/AdvReac Type Severity Reaction Status Date / Time latex Allergy Other (See Unverified 12/11/21 15:17 Comment) alendronate sodium AdvReac Intermediate Nausea Verified 06/22/21 13:27 [From Fosamax] General Stated Complaint: Nausea/Vomit/Diar LELA: 3 Review of Systems All systems reviewed & are unremarkable except as noted in HPI and below Constitutional Constitutional: Reports as per HPI, Denies chills, Reports fatigue, Denies fever(s) and Reports poor appetite Eyes Eyes: Denies blurry vision ENT Ears, Nose, Mouth, and Throat: Denies dizziness, Denies sore throat and Denies throat swelling Cardiovascular Cardiovascular: Denies chest pain and Denies dyspnea Respiratory Respiratory: Denies cough and Denies dyspnea Gastrointestinal Gastrointestinal: Reports abdominal pain, Reports diarrhea and Reports vomiting Genitourinary Genitourinary: Denies hematuria and Denies dysuria Musculoskeletal Musculoskeletal: Denies back pain, Denies numbness and Reports other (b/l hip pain) Integumentary/Breasts Skin/Breast: Denies lesions and Denies rash Neurologic Neurologic: Denies behavioral changes, Denies confusion, Denies dizziness, Denies localized weakness and Denies numbness Psychiatric Psychiatric: Denies behavioral changes, Denies confusion and Denies depression Endocrine Endocrine: Reports fatigue Hematologic/Lymphatic Hematologic/Lymphatic: Denies easy bruising and Denies lymphadenopathy Allergic/Immunologic Allergic/Immunologic: Denies throat swelling PFSH All Active Problems (Updated 12/11/21 @ 22:21 by Lilliana Grider DO) Pneumonia (Acute) Hypoxia (Acute) Pneumonia (Acute) Chronic hip pain, bilateral (Acute) Ambulatory dysfunction (Acute) Abdominal pain, vomiting, and diarrhea (Acute) Hip pain, bilateral (Acute) Bipolar affect, depressed (Acute) Skin tag (Acute) Phlegm in throat (Acute) COPD (chronic obstructive pulmonary disease) (Chronic) Positive colorectal cancer screening using Cologuard test (Acute) I scheduled 4 appts for gen surgery. She has cancelled or refuses RCT/ etc. or goes to the appt and then gets upset History of smoking (Acute) Dysphagia (Acute) Nasal mass (Acute) Dr. 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 Hyperlipidemia (Chronic) Polycythemia (Chronic) Hypothyroid (Chronic) Diabetes (Chronic) Type 2, controlled HTN (hypertension) (Chronic) Depression (Chronic) Mixed conductive and sensorineural hearing loss (Acute 01/29/14) Mixed hearing loss, bilateral (Acute 01/19/16) Sciatica (Acute 07/01/14) Sensorineural hearing loss (Acute 01/29/14) Total perforation of right tympanic membrane (Acute 01/19/16) Medical History Adrenal mass Anxiety disorder generalized Bipolar disorder Bulimia Chronic low back pain Chronic obstructive lung disease Chronic post-traumatic stress disorder Coronary arteriosclerosis Dehydration Depression Diabetes Type 2, controlled Diffuse abdominal pain Hearing loss HTN (hypertension) Hyperlipidemia Hypokalemia Hypomagnesemia Hypothyroid Interstitial lung disease Lumbar spine scoliosis Mixed conductive and sensorineural hearing loss (01/29/14) Mixed hearing loss, bilateral (01/19/16) Narcotic abuse episodic opioid dependence Osteoporosis Panic disorder Peripheral vascular disease Polycythemia Post traumatic stress disorder Pulmonary hypertension Sciatica (07/01/14) Tachycardia Tobacco abuse Total perforation of right tympanic membrane (01/19/16) Weight loss Surgical History History of tympanoplasty of right ear Failed x2 S/P cholecystectomy Spinal Surgery Laminectomies at T12/L1 due to an angioma Stent placement Bilateral iliac and femoral Family History Mother Heart disease Paternal Grandfather Kidney disease Social History Smoking/Tobacco Use Status: Former Tobacco Use Smoking risk assessment performed?: Yes Alcohol Intake: never Drug use: Current Sobriety Substance use type: former substance user Housing: senior living Additional Social history: Lives at [facility]. Exam Const General: cooperative and ill appearing chronically Orientation: alert and awake HENNC Head: normal to inspection Ears: hearing grossly normal bilaterally, external ears normal and TM's normal bilaterally General nose exam: external nose normal Face and sinus: normal facial exam Mouth: oral mucosae normal Teeth and gingiva: dentition normal Throat: posterior oropharynx normal Eyes General: appearance normal, both eyes and all related structures Eyelids: eyelids normal Pupils: PERRL EOM: EOM intact bilaterally Neck Neck: normal visual inspection Lymphatic: no lymphadenopathy noted Chest Chest: normal inspection of the chest Resp Effort & Inspection: normal respiratory effort and able to speak in complete sentences Auscultation: clear to auscultation bilaterally Cardio Rate: regular rate Rhythm: regular rhythm GI Inspection: normal to inspection and obesity Palpation: soft, not firm, no guarding, no hepatosplenomegaly, no masses and tender (diffuse) Auscultation: hypoactive bowel sounds Back/Spine/Pelvis Thoracic/Lumbar Spine: thoracic and lumbar spine normal to inspection, No thoracic spinal tenderness and No lumbar spinal tenderness Skin General skin exam: no rashes or lesions noted Neuro General: patient alert and patient awake Cognition: normal cognition Speech: speech normal Gait: normal gait Motor: muscle tone normal throughout Sensory Exam: no sensory deficits noted Extrem Other: No significant pain in hips with range of motion including internal/external rotation. Bilateral DP pulses intact. Psych Appearance: grossly normal Mental Status: mental status grossly normal Speech and Movement: speech and movement normal Affect: normal affect Thought Process: normal Course Vital Signs Vital signs: Vital Signs Temperature 97.9 F 12/11/21 14:52 Pulse 88 12/11/21 14:52 Respiratory Rate 18 12/11/21 14:52 Blood Pressure 149/97 H 12/11/21 14:52 Temperature 97.9 F 12/11/21 14:52 Temperature Source Oral 12/11/21 14:52 Pulse 88 12/11/21 14:52 Respiratory Rate 18 12/11/21 14:52 Respiratory Effort Non-Labored 12/11/21 14:58 Blood Pressure 149/97 H 12/11/21 14:52 Blood Pressure Position Sitting 12/11/21 14:52
[2021-12-11 15:26] LABS: Abs Immature Grans 0.02 10^3/uL (0.0-0.06); Absolute Basophil Count 0.04 10^3/uL (0.0-0.2); Absolute Eosinophil Count 0.15 10^3/uL (0.0-0.7); Absolute Monocyte Count 0.59 10^3/uL (0.1-0.8); Absolute Neutrophil Count 3.36 10^3/uL (1.2-6.7); Basophils % 0.6; Eosinophils % 2.3; HCT 49.6 % (36.0-46.0); HGB 16.1 g/dL (11.2-15.7); Immature Grans % 0.3; Lymphocytes % 35.6; MCH 31.3 pg (27.0-33.0); MCHC 32.5 % (32.0-36.0); MCV 96.3 fL (80-95); MPV 9.5 fL (8.0-11.0); Monocytes % 9.1; Neutrophils % 52.1; Nucleated RBC 0 %; Platelet Count 195 10^3/uL (130-400); RBC 5.15 10^6/uL (3.93-5.22); RDW 14.1 % (11.7-14.6); RDW-SD 50.5 fL; WBC 6.46 10^3/uL (4.4-10.8)
[2021-12-11] MEDS: Normal Saline 500 ML IV ×2 (15:52→17:15)
[2021-12-11] MEDS: ACETAMINOPHEN 1,000 MG/100 ML BTL 400 MG IVPB (15:53)
[2021-12-11] MEDS: Ondansetron 4 MG/2 ML VIAL IVP (15:53)
[2021-12-11 15:54] LABS: ALT 35 U/L (14-59); AST 21 U/L (15-37); Albumin 3.3 g/dL (3.4-5.0); Alkaline Phosphatase 93 U/L (46-116); Anion Gap 8.3 mmol/L (3-11); BUN 13 mg/dL (7-18); Bilirubin, Total 0.3 mg/dL (0.2-1.0); CO2 27.7 mmol/L (21.0-32.0); Calcium 9.5 mg/dL (8.5-10.1); Chloride 103 mmol/L (98-107); Estimated GFR 55.47 (mL/min/1.73m2); Glucose 259 mg/dL (74-106); Lipase 91 U/L (73-393); Potassium 3.5 mmol/L (3.5-5.1); Sodium 139 mmol/L (136-145); Total Protein 8.2 g/dL (6.4-8.2)
[2021-12-11 17:09] LABS: COVID-19 PCR Negative (Negative); Influenza A PCR Negative (Negative); Influenza B PCR Negative (Negative); RSV PCR Negative (Negative)
[2021-12-11 17:43] LABS: Bilirubin Negative (Negative); Blood Negative (Negative); Clarity Clear (Clear); Glucose Negative (Negative); Ketones Negative (Negative); Leukocyte Esterase Negative (Negative); Nitrite Negative (Negative); Specific Gravity 1.025 (1.005-1.025); Urobilinogen 0.2 EU/dL (Up TO 0.2)
[2021-12-11] MEDS: Omnipaque 350 MG/ML 100 ML BTL IJ (18:08)
[2021-12-11] MEDS: Normal Saline Flush 10 ML SYR IVP ×2 (18:10→22:37)
--- NOTE | 2021-12-11 18:11 | DI.CT_ITS ---
Exam(s) CT CHEST PE ABD PELVIS W EXAM: CT CHEST PE ABD PELVIS W CLINICAL HISTORY: dizziness, vomiting, diarrhea, hypoxic TECHNIQUE: CT examination of the chest, abdomen, and pelvis was performed with intravenous infusion of 100 cc of Omnipaque 350. COMPARISON: CT ABD PELVIS WITH CONTRAST from 05/16/2018 FINDINGS: There is diffuse septal prominence in the lungs. There are areas of atelectasis, consolidation, or m ass present in right middle lobe and lingula with areas of atelectasis also present along the minor f issure on. There is mild mosaic attenuation which is nonspecific. No gross pleural effusion seen.. No gross mediastinal or hilar adenopathy. Question of epicardial node seen anteriorly at the cardiac base period. . There is mild ectasia of the main pulmonary artery at 32 millimeters, consider pulmonary hypertension . No evidence of pulmonary embolic disease. No evidence of pulmonary embolic disease. Thoracic aorta and major branches appear intact as visualized with no evidence of aneurysm or dissect ion. No acute bony abnormality seen in the thorax. Diffuse hepatic steatosis noted. Prior cholecystectomy noted. No biliary dilatation.. No abnormality seen involving the spleen except for a couple of incidental calcifications.. Pancreas appears intact. Previously noted 18 millimeter left adrenal mass, unchanged from prior examination of May 2020.. The kidneys appear intact with no evidence of hydronephrosis or nephrolithiasis. Aortoiliac stents are noted. No abdominal aortic aneurysm. No gross occlusion of visceral branches of abdominal aorta although there is moderate atheromatous change period. No significant abdominal wall hernia seen. No significant abdominal or pelvic adenopathy. No focal bowel pathology. Appendix is not identified but there is no evidence of appendicitis or div erticulitis. Colon is essentially empty and the colonic wall is difficult to evaluate as result, mil d wall thickening not excluded, please correlate regarding any possibility enterocolitis.. IMPRESSION: Pulmonary findings which may represent areas of mass, consolidation, and/or atelectasis. Follow-up c hest CT recommended in 3-4 weeks to evaluate for acuity of these findings. If the findings do not re solve, biopsy may be considered to exclude malignancy associated with lingular and right middle lobe findings as described above. No evidence of pulmonary embolic disease. No acute intra-abdominal process. RADIATION DOSE DELIVERED: 1,518.34mGy.cm Total DLP 1,518.34mGy.cm Total DLP !Error CTDIvol
--- NOTE | 2021-12-11 18:54 | DI.VRAD_ITS ---
PROCEDURE INFORMATION: Exam: CTA Chest With Contrast Exam date and time: 12/11/2021 3:26 PM Age: 66 years old Clinical indication: Other: Dizziness, vomitting, diarrhea, hypoxic TECHNIQUE: Imaging protocol: Computed tomographic angiography of the chest with contrast. 3D rendering (Not supervised by radiologist): MIP and/or 3D reconstructed images were created by the technologist. Radiation optimization: All CT scans at this facility use at least one of these dose optimization techniques: automated exposure control; mA and/or kV adjustment per patient size (includes targeted exams where dose is matched to clinical indication); or iterative reconstruction. Contrast material: OMNIPAQUE 350; Contrast volume: 100 ml; Contrast route: INTRAVENOUS (IV); COMPARISON: CT ABD PELVIS WITH CONTRAST 05/16/2018 10:51 AM FINDINGS: Pulmonary arteries: The pulmonary artery is enlarged measuring 3.2 cm. Consider early pulmonary hypertension. There is no evidence of filling defects within the pulmonary arterial circulation to suggest pulmonary embolism. Aorta: Unremarkable. No aortic aneurysm. No aortic dissection. Lungs: Moderate centrilobular emphysematous changes are present. There is heterogeneous attenuation of the pulmonary parenchyma, consistent with air trapping from underlying small airways disease. There are diffuse interstitial infiltrates present. This may represent cardiogenic versus noncardiogenic edema. An acute inflammatory process and/or infectious process/pneumonia are not excluded. Focal lobar consolidative changes within the right middle lobe of the lung highly suspicious for lobar pneumonia. Scarring and or mass present within the lingula measuring 3 x 2.7 cm. Scarring and/or atelectasis measuring 2.2 x 2.2 cm within the right lower lobe of the lung anteriorly. These findings were in not present on the prior study of 05/16/2018. For both low risk and high risk patients, consider CT Chest at 3 months, PET/CT, or biopsy. (Reference: [facility]). Pleural spaces: Unremarkable. No pneumothorax. No pleural effusion. Heart: No evidence of reflux of contrast into the inferior vena cava or hepatic veins to suggest right heart strain or pulmonary hypertension. There is thickening of the pericardium versus small pericardial effusion. The right ventricular to left ventricular ratio is approximately 1.0. No significant coronary calcifications are identified. Lymph nodes: Epicardial mass/adenopathy present measuring 2.3 x 11 mm. Diaphragm: A small to moderate hiatal hernia is present. Intraperitoneal space: Please see CT of the abdomen and pelvis. Bones/joints: The spine, sternum, ribs, pectoral girdle skeletal structures show no evidence of acute fracture or other acute processes. Kyphoscoliosis of the thoracolumbar spine stable compared to 06/01/2020. Soft tissues: The soft tissues of the extrathoracic region are unremarkable. The associated extrathoracic soft tissues are unremarkable. IMPRESSION: 1. There is heterogeneous attenuation of the pulmonary parenchyma, consistent with air trapping from underlying small airways disease. 2. There are diffuse interstitial infiltrates present. This may represent cardiogenic versus noncardiogenic edema. An acute inflammatory process and/or infectious process/pneumonia are not excluded. 3. Focal lobar consolidative changes within the right middle lobe of the lung highly suspicious for lobar pneumonia. 4. Scarring and or mass present within the lingula measuring 3 x 2.7 cm. 5. Scarring and/or atelectasis measuring 2.2 x 2.2 cm within the right lower lobe of the lung anteriorly. These findings were in not present on the prior study of 05/16/2018. For both low risk and high risk patients, consider CT Chest at 3 months, PET/CT, or biopsy. (Reference: Francoise). 6. The pulmonary artery is enlarged measuring 3.2 cm. Consider early pulmonary hypertension. 7. There is no evidence of filling defects within the pulmonary arterial circulation to suggest pulmonary embolism. REFERENCES: Francoise Smith, et al. Guidelines for Management of Incidental Pulmonary Nodules Detected on CT Images: From the Fleischner Society 2017. Radiology. 2017;284(1):228-243. PROCEDURE INFORMATION: Exam: CT Abdomen And Pelvis With Contrast Exam date and time: 12/11/2021 3:26 PM Age: 66 years old Clinical indication: Other: Dizziness, vomitting, diarrhea, hypoxic TECHNIQUE: Imaging protocol: Computed tomography of the abdomen and pelvis with contrast. Radiation optimization: All CT scans at this facility use at least one of these dose optimization techniques: automated exposure control; mA and/or kV adjustment per patient size (includes targeted exams where dose is matched to clinical indication); or iterative reconstruction. Contrast material: OMNIPAQUE 350; Contrast volume: 100 ml; Contrast route: INTRAVENOUS (IV); COMPARISON: CT ABD PELVIS WITH CONTRAST 05/16/2018 10:51 AM FINDINGS: Lungs: Please see CT of the chest and lungs. Diaphragm: A moderate hiatal hernia is present. Liver: There is a diffuse decrease in hepatic parenchymal density, consistent with moderate fatty infiltration. There are no focal liver lesions present. Gallbladder and bile ducts: There has been a cholecystectomy. There is no evidence of intrahepatic or extrahepatic biliary ductal dilation. Pancreas: The pancreas is normal. Spleen: Calcifications within the splenic parenchyma consistent with old granulomatous exposure. The spleen is otherwise normal. Adrenal glands: There is an 18 mm left adrenal adenoma unchanged compared 06/01/2020. Kidneys and ureters: The left and right kidneys are normal. No evidence of renal calculi. No hydronephrosis. Stomach and bowel: There is no evidence of intestinal obstruction. There are diffuse fluid filled loops of small bowel and colon with scattered air fluid levels. The bowel loops are mildly distended. No associated bowel wall thickening or inflammatory changes. No evidence of obstruction. Findings most consistent with diffuse enterocolitis. Colonic fatty mural change present, most often a normal variation but sometimes seen in patients with chronic inflammatory process such as ulcerative colitis or Crohn's disease. Appendix: There is no evidence of appendicitis. Intraperitoneal space: There is no free intraperitoneal air. There is no evidence of free intraperitoneal or pelvic fluid. Vasculature: The portal, mesenteric and splenic veins are patent.The inferior venacava appears normal. Severe atherosclerotic plaquing of the abdominal aorta and iliac arteries. Endovascular stents are present within the distal aorta extending into the right and left common iliac arteries. These appear widely patent. Lymph nodes: There is no evidence of lymphadenopathy. Urinary bladder: Unremarkable as visualized. Reproductive: Unremarkable as visualized. Bones/joints: Moderate to severe degenerative changes of the lumbosacral spine. Soft tissues: There is a fat-containing umbilical hernia. The extra-abdominal soft tissues are normal. IMPRESSION: There are diffuse fluid filled loops of small bowel and colon with scattered air fluid levels. The bowel loops are mildly distended. No associated bowel wall thickening or inflammatory changes. No evidence of obstruction. Findings most consistent with diffuse enterocolitis. Dictated and Authenticated by: Pito Issa MD. Ordering:TABATHA Tijerina MD
[2021-12-11 19:26] LABS: Lactate 1.3 mmol/L (0.6-1.4)
[2021-12-11] MEDS: cefTRIAXone 1 GM/50 ML BAG IVPB (19:49)
[2021-12-11 19:59] LABS: Procalcitonin < 0.1 ng/mL
[2021-12-11] MEDS: AZITHROMYCIN 500 MG in Normal Saline 250 ML 250 MG IVPB (20:27)
--- NOTE | 2021-12-11 20:53 | W.PM.HP.N ---
Assessment and Plan Assessment and plan (1) Chronic hip pain, bilateral: Status: Acute (2) Ambulatory dysfunction: Status: Acute Assessment and plan: He is not clear why she cannot walk. Her labs appear normal. I did not get her up to walk in the room today. (3) Abdominal pain, vomiting, and diarrhea: Status: Acute Assessment and plan: Abdominal CT scan did not show enterocolitis. Studies are pending on her stool. (4) Pneumonia: Status: Acute Assessment and plan: She has had an infiltrate on her chest CT. She will be started on ceftriaxone and azithromycin. Her oxygen will be continued at this time. I do not think she needs steroids or inhalers currently. History of Present Illness History of Present Illness Chief Complaint: Vomiting.Weakness, diarrhea Narrative: This 66-year-old female came to the emergency department today complaining of weakness, diarrhea and vomiting. She says she has been falling frequently. She tells me she was having a problem with falling saw specialist about 15 years ago who prescribed some stents which improved her walking. She says she can walk and all her legs feel like to get a. She presented today with low oxygen saturations in the 70s with a new cough. She was found to have a pneumonia in the emergency department and admission was recommended. She does live in assisted living at the [facility] in [place] but says she cannot take care of herself now because of her weakness of her legs. She has had chronic hip pain and she is known to have arthritis. She says she has had colon cancer that was diagnosed with a Cologuard but I do not believe she has had any biopsy but I could be wrong about this. She says she has had diarrhea for 6 months and has been having vomiting every night for the last 2 weeks. She complains of chest pain back pain and abdominal pain. She amoxicillin on her record for her medicines but I am not sure why she is taking that. She says that she had 3 children and her sons only live. She had a daughter murdered and a another daughter of pneumonia. Her lives at [facility] and she has been living at the [facility]. She said she has been immunized for Covid. She said she not been around anyone else that has been sick. She did quit smoking about 6 years ago and quit drinking alcohol about 10 years ago. Review of Systems Constitutional Constitutional: Denies chills, Denies fever(s), Denies headache(s), Reports lethargy and Reports weakness ENT Ears, Nose, Mouth, and Throat: Reports dizziness, Denies headache(s) and Reports disequilibrium Cardiovascular Cardiovascular: Denies chest pain, Denies leg edema, Denies radiating jaw, neck or arm pain, Denies palpitations and Reports dyspnea Respiratory Respiratory: Reports cough and Reports dyspnea Gastrointestinal Gastrointestinal: Reports abdominal pain, Reports diarrhea, Reports loose stools, Reports nausea and Reports vomiting Genitourinary Genitourinary: Denies hematuria, Denies difficulty voiding and Denies dysuria Neurologic Neurologic: Reports dizziness, Denies headache(s), Denies localized weakness, Denies sensory deficit, Reports disequilibrium and Reports weakness Endocrine Endocrine: Denies palpitations PFSH All Active Problems (Updated 12/11/21 @ 21:06 by Ehsan Graff MD) Pneumonia (Acute) Chronic hip pain, bilateral (Acute) Ambulatory dysfunction (Acute) Abdominal pain, vomiting, and diarrhea (Acute) Hip pain, bilateral (Acute) Bipolar affect, depressed (Acute) Skin tag (Acute) Phlegm in throat (Acute) COPD (chronic obstructive pulmonary disease) (Chronic) Positive colorectal cancer screening using Cologuard test (Acute) I scheduled 4 appts for gen surgery. She has cancelled or refuses RCT/ etc. or goes to the appt and then gets upset History of smoking (Acute) Dysphagia (Acute) Nasal mass (Acute) Dr. 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 Hyperlipidemia (Chronic) Polycythemia (Chronic) Hypothyroid (Chronic) Diabetes (Chronic) Type 2, controlled HTN (hypertension) (Chronic) Depression (Chronic) Mixed conductive and sensorineural hearing loss (Acute 01/29/14) Mixed hearing loss, bilateral (Acute 01/19/16) Sciatica (Acute 07/01/14) Sensorineural hearing loss (Acute 01/29/14) Total perforation of right tympanic membrane (Acute 01/19/16) Medical History Adrenal mass Anxiety disorder generalized Bipolar disorder Bulimia Chronic low back pain Chronic obstructive lung disease Chronic post-traumatic stress disorder Coronary arteriosclerosis Dehydration Depression Diabetes Type 2, controlled Diffuse abdominal pain Hearing loss HTN (hypertension) Hyperlipidemia Hypokalemia Hypomagnesemia Hypothyroid Interstitial lung disease Lumbar spine scoliosis Mixed conductive and sensorineural hearing loss (01/29/14) Mixed hearing loss, bilateral (01/19/16) Narcotic abuse episodic opioid dependence Osteoporosis Panic disorder Peripheral vascular disease Polycythemia Post traumatic stress disorder Pulmonary hypertension Sciatica (07/01/14) Tachycardia Tobacco abuse Total perforation of right tympanic membrane (01/19/16) Weight loss Surgical History History of tympanoplasty of right ear Failed x2 S/P cholecystectomy Spinal Surgery Laminectomies at T12/L1 due to an angioma Stent placement Bilateral iliac and femoral Family History Mother Heart disease Paternal Grandfather Kidney disease Social History Smoking/Tobacco Use Status: Former Tobacco Use Smoking risk assessment performed?: Yes Alcohol Intake: never Drug use: Current Sobriety Substance use type: former substance user Housing: care home Additional Social history: Lives at [facility]. Meds Allergies and Home Medications Allergies Allergy/AdvReac Type Severity Reaction Status Date / Time latex Allergy Other (See Unverified 12/11/21 15:17 Comment) alendronate sodium AdvReac Intermediate Nausea Verified 06/22/21 13:27 [From Fosamax] Home Medications Medication Instructions Recorded Confirmed Type acetaminophen 325 mg capsule 650 mg PO Q4H PRN cap 10/28/19 12/11/21 History (Tylenol) bismuth subsalicylate 262 mg/15 mL 524 mg PO QID PRN ml 10/28/19 12/11/21 History oral suspension (Bismatrol) aspirin-sod bicarb-citric acid 325 1 tab PO BID PRN tab 01/06/21 12/05/21 History mg-1,916 mg-1,000 mg efferves tab ([place] Original) docusate sodium 100 mg capsule 300 mg PO DAILY PRN cap 01/06/21 12/11/21 History famotidine 20 mg tablet 20 mg PO BID #180 tab 01/10/21 12/11/21 Rx guaifenesin 600 mg tablet, 600 mg PO Q12H PRN #60 tab 06/22/21 12/11/21 Rx extended release 12 hr (Mucinex) melatonin 10 mg tablet 10 mg PO HS PRN #90 tab 07/24/21 12/11/21 Rx clopidogrel 75 mg tablet (Plavix) 75 mg PO DAILY #90 tab-cap 09/11/21 12/11/21 Rx glipizide 10 mg tablet, extended 10 mg PO DAILY #90 tab 09/11/21 12/11/21 Rx release 24 hr levothyroxine 112 mcg tablet 112 mcg PO DAILY #90 tab 09/11/21 12/11/21 Rx loperamide 2 mg tablet 2 mg PO QID PRN #10 tab 09/11/21 12/11/21 Rx lorazepam 0.5 mg tablet (Ativan) 0.5 mg PO QID #120 tab 09/11/21 12/05/21 Rx ondansetron 4 mg disintegrating 4 mg PO Q4H PRN #30 tab 09/11/21 12/11/21 Rx tablet quetiapine 200 mg tablet,extended 200 mg PO HS #90 tab 11/09/21 12/11/21 Rx release 24 hr (Seroquel XR) sertraline 100 mg tablet 100 mg PO DAILY #90 tab 11/09/21 12/11/21 Rx sertraline 25 mg tablet 25 mg PO DAILY #90 tab MDD 175 11/09/21 12/11/21 Rx sertraline 50 mg tablet 50 mg PO DAILY #90 tab 11/09/21 12/11/21 Rx amoxicillin 500 mg tablet 500 mg PO QID #28 tab 11/27/21 12/05/21 Rx clonazepam 1 mg tablet 1 mg PO TID 12/11/21 12/11/21 History Exam Const General: cooperative, comfortable, no acute distress, not disheveled and not ill appearing Orientation: alert, awake and oriented x3 Neck Neck: normal visual inspection, no lymphadenopathy and no meningeal signs Thyroid: thyroid normal Resp Auscultation: clear to auscultation bilaterally, no crackles, no rales and no wheezes Cardio Rate: regular rate Rhythm: regular rhythm Heart Sounds: S1 normal, S2 normal, no gallops and no murmurs GI Palpation: soft, hepatosplenomegaly present, not firm, no masses and nontender Neuro General: patient alert, patient awake, patient oriented x3, no focal motor deficits, CN's II-XI intact bilaterally and unable to assess gait Motor: strength 5/5 throughout Coordination: [id number] test normal Extrem General: normal to inspection, no cyanosis and no edema Results Labs Result diagrams: 12/11/21 15:05 12/11/21 15:05 Labs: Laboratory Results - last 24 hr 12/11/21 12/11/21 12/11/21 15:05 15:05 16:15 WBC 6.46 RBC 5.15 Hgb 16.1 H Hct 49.6 H MCV 96.3 H MCH 31.3 MCHC 32.5 RDW 14.1 Plt Count 195 MPV 9.5 Immature Gran % 0.3 Neutrophils % 52.1 Lymphocytes % 35.6 Monocytes % 9.1 Eosinophils % 2.3 Basophils % 0.6 Nucleated RBC % 0 Absolute Neutrophils 3.36 Absolute Lymphocytes 2.30 Absolute Monocytes 0.59 Absolute Eosinophils 0.15 Absolute Basophils 0.04 VBG Lactate Sodium 139 Potassium 3.5 Chloride 103 Carbon Dioxide 27.7 Anion Gap 8.3 BUN 13 Creatinine 1.0 Estimated GFR/1.73 m2 55.47 Glucose 259 H Calcium 9.5 Total Bilirubin 0.3 AST 21 ALT 35 Alkaline Phosphatase 93 Total Protein 8.2 Albumin 3.3 L Lipase 91 Procalcitonin Urine Color Urine Clarity Urine pH Ur Specific [place] Urine Protein Urine Ketones Urine Blood Urine Nitrite Urine Bilirubin Urine Urobilinogen Ur Leukocyte Esterase Urine Glucose COVID-19 Source Not Applicable SARS-CoV-2 (PCR) Negative Influenza Type A (PCR) Negative Influenza Type B (PCR) Negative RSV (PCR) Negative 12/11/21 12/11/21 17:30 19:15 WBC RBC Hgb Hct MCV MCH MCHC RDW Plt Count MPV Immature Gran % Neutrophils % Lymphocytes % Monocytes % Eosinophils % Basophils % Nucleated RBC % Absolute Neutrophils Absolute Lymphocytes Absolute Monocytes Absolute Eosinophils Absolute Basophils VBG Lactate 1.3 Sodium Potassium Chloride Carbon Dioxide Anion Gap BUN Creatinine Estimated GFR/1.73 m2 Glucose Calcium Total Bilirubin AST ALT Alkaline Phosphatase Total Protein Albumin Lipase Procalcitonin < 0.1 Urine Color Yellow Urine Clarity Clear Urine pH 6.0 Ur Specific [place] 1.025 Urine Protein Negative Urine Ketones Negative Urine Blood Negative Urine Nitrite Negative Urine Bilirubin Negative Urine Urobilinogen 0.2 Ur Leukocyte Esterase Negative Urine Glucose Negative COVID-19 Source SARS-CoV-2 (PCR) Influenza Type A (PCR) Influenza Type B (PCR) RSV (PCR) Last Vital Signs Temp 35.8 C L 12/11/21 18:42 Pulse 81 12/11/21 19:15 Resp 26 H 12/11/21 18:50 BP 142/75 H 12/11/21 18:46 Pulse Ox 89 L 12/11/21 19:15
[2021-12-11] MEDS: Melatonin 3 MG TAB 9 MG PO (22:36)
[2021-12-11] MEDS: Enoxaparin 40 MG/0.4 ML SYR SC (22:40)
[2021-12-12] VITALS (8 sets, daily range): BP systolic 120–140; BP diastolic 74–96; PULSE 73–95; RESP 16–20; TEMP 36–37.3; O2SAT 89–93
--- NOTE | 2021-12-12 | DI.US_ITS ---
APPROVED REPORT EXAM: Comprehensive 2D, Doppler, and color-flow Echocardiogram Patient Location: In-Patient Room/Bed: [address] Cutter: Doreen Hughes RDCS (AE) Indications: Dyspnea,PA Enlargement on CTA, Evaluate for PHTN Other Information Study Quality: Fair. Technically limited study due to body habitus. Conclusion Mild concentric left ventricular hypertrophy. Estimated ejection fraction is 60%. Wall motion is norm al Normal right ventricular size and systolic function Both atria are normal in size There is no structural or hemodynamically significant valvular disease Estimated right ventricular systolic pressure is 22.8 mmHg Wall motion Left Ventricle The left ventricle is normal size. The left ventricular systolic function is normal. The left ventric ular ejection fraction is within the normal range. Mild concentric left ventricular hypertrophy. Ther e is normal LV segmental wall motion. There is no ventricular septal defect visualized. LVEF is 60%. Right Ventricle The right ventricle is normal size. The right ventricular systolic function is normal. The RVSP is 22 .8 mmHg. Atria The left atrium size is normal. The right atrium size is normal. The interatrial septum is intact wit h no evidence for an atrial septal defect. Aortic Valve The aortic valve is normal in structure. Aortic valve is trileaflet. There is no aortic valvular sten osis. No aortic regurgitation is present. Mitral Valve The mitral valve is normal in structure. No evidence of mitral valve stenosis. Trace mitral regurgita tion. Tricuspid Valve The tricuspid valve is normal in structure. There is no tricuspid valve stenosis. Trace tricuspid reg urgitation. Pulmonic Valve The pulmonary valve is normal in structure. There is no pulmonic valvular stenosis. There is no pulmo salome valvular regurgitation. Great Vessels The aortic root is normal in size. The ascending aorta is normal in size. Aortic arch is not well vis ualized. Due to poor image quality, the IVC could not be assessed. Pericardium Prominent anterior epicardial fat pad is present. 2D Dimensions IVSD d PLAX 1.11 cm F: 0.6-1.0 LV Vol A2C d MOD 45.6 mL LVPW d PLAX 1.11 cm F: 0.6 - 1.0 LV Vol A4C d MOD 46.1 mL LVID d PLAX 4.20 cm F: 3.8 - 5.2 LA vol/ BSA A2C s A-L 12.6 mL/m2 LVDs 2.75 cm F: 2.2 - 3.5 LA vol/ BSA A4C s A-L 15.5 mL/m2 Ao Root d 3.26 cm F: 2.7 - 3.3 LA Vol/ BSA Biplane s A-L 14.4 mL/m2 RA Area A4C 11.84 cm2 LA Area A4C s MOD 11.38 cm2 RA Vol/ BSA A4C s A-L 16.6 mL/m2 LA Area A2C s MOD 10.62 cm2 Ao Asc Diam d 3.14 cm F: 2.3 - 3.1 LV EF A4C MOD 60.7 % LV EF Teichholz 62.9 % LV EF A2C MOD 59.4 % LVEF (Easley's) 59.93 % F: 54 - 74 LV EF Biplane MOD 59.9 % LV Volume 35.52 mL F: 46 - 106 SV 27.65 mL LV Volume Index 19.20 mL/m2 F: 29 - 61 SV Index 14.92 mL/m2 LV Vol Biplane MOD 46.1 mL FS 33.70 % M-Mode TAPSE 2.36 cm (M/F) >1.7 LV Diastology MV E' medial 0.062 (>0.07 m/s) E/A Ratio 0.7 LV E/e MED 8.25 (<14) MV E Vmax 0.51 (0.4-1.3 m/s) MV E' lateral 0.051 (>0.1 m/s) MV A Vmax 0.75 (0.4-1.3 m/s) LV E/e LAT 10.10 (<14) MV E/A Ratio 0.67 MV E/E' medial 8.26 MV E/E' lateral 10.12 Aortic Valve LVOT Area 3.02 cm2 AoV Area Vmax 2.60 cm2 LVOT Vmax 0.81 m/s AoV Area/ BSA (Vmax) 1.40 cm2/m2 LVOT Mean Judah. 0.55 m/s SATURNINO Mean Judah. 2.36 cm2 LVOT Peak Grad 2.6 mmHg SATURNINO Mean Judah. Index 1.27 cm2/m2 LVOT Mean Grad 1.4 mmHg LVOT VTI 0.138 m LVOT Diam s 1.95 cm AoV Vmax 0.94 m/s Velocity Ratio 0.86 AoV Mean Judah. 0.70 m/s AoV Peak Grad 3.6 mmHg LVOT SV 41.79 mL AoV Mean Grad 2.1 mmHg AoV VTI 0.162 m AoV Area VTI 2.57 cm2 AoV Area/ BSA (VTI) 1.39 cm/m2 Mitral Valve MV DT 322 (160-240 msec) MV PHT 93 msec MV Area PHT 2.36 cm2 MV VTI 0.230 m MV Area VTI 1.81 (4.0-6.0 cm2) Pulmonary Valve PV Vmax 0.68 (0.5-1.5 m/s) RVOT Peak Gr. 1.18 mmHg PV Peak Grad 1.8 mmHg RVOT Mean Gr. 0.70 mmHg PV Mean Grad 1.0 mmHg RVOT VTI 0.111 m PV VTI 0.116 m RVOT Vmax 0.54 m/s Tricuspid Valve TR Peak Grad 19.7 mmHg TR Vmax 2.22 m/s RA Pressure 3.00 mmHg RVSP (TR) 22.8 mmHg
[2021-12-12] MEDS: Levothyroxine 112 MCG TAB PO (05:35)
--- NOTE | 2021-12-12 06:30 | DI.RAD_ITS ---
Exam(s) XR PORTABLE CHEST AP EXAM: XR PORTABLE CHEST AP CLINICAL HISTORY: decreased saturations TECHNIQUE: COMPARISON: CR,RF RF BARIUM SWALLOW from 06/01/2020 FINDINGS: The heart is not enlarged. There are streaky and patchy increased radiodensities at the lung bases, no gross consolidation seen. Please note, however, that on last night's chest CT, there were areas o f apparent consolidation, atelectasis, or possible mass lesions. Appropriate follow-up films request ed. IMPRESSION: RADIATION DOSE DELIVERED: Total DLP
[2021-12-12 06:54] LABS: Abs Immature Grans 0.01 10^3/uL (0.0-0.06); Absolute Basophil Count 0.03 10^3/uL (0.0-0.2); Absolute Lymphocyte Count 3.06 10^3/uL (1.2-3.4); Absolute Monocyte Count 0.54 10^3/uL (0.1-0.8); Absolute Neutrophil Count 2.94 10^3/uL (1.2-6.7); Basophils % 0.4; Eosinophils % 2.9; HCT 46.4 % (36.0-46.0); Immature Grans % 0.1; Lymphocytes % 45.1; MCH 31.2 pg (27.0-33.0); MCHC 32.3 % (32.0-36.0); MCV 96.5 fL (80-95); MPV 9.4 fL (8.0-11.0); Neutrophils % 43.5; Nucleated RBC 0 %; Platelet Count 195 10^3/uL (130-400); RBC 4.81 10^6/uL (3.93-5.22); RDW 14.3 % (11.7-14.6); RDW-SD 51.2 fL; WBC 6.78 10^3/uL (4.4-10.8)
[2021-12-12 07:06] LABS: Creatine Kinase 50 U/L (26-192)
[2021-12-12 07:15] LABS: NT-proBNP 92 pg/mL (<300); Troponin I < 50 ng/L (<or=60)
[2021-12-12 07:18] LABS: ALT 30 U/L (14-59); AST 19 U/L (15-37); Alkaline Phosphatase 77 U/L (46-116); Anion Gap 8.1 mmol/L (3-11); BUN 9 mg/dL (7-18); Bilirubin, Total 0.3 mg/dL (0.2-1.0); CO2 25.9 mmol/L (21.0-32.0); CREATININE 0.8 mg/dL (0.55-1.02); Chloride 107 mmol/L (98-107); Glucose 150 mg/dL (74-106); Potassium 3.8 mmol/L (3.5-5.1); Sodium 141 mmol/L (136-145); TSH (W/Ref FT4) 5.72 uIU/mL (0.36-3.74); Total Protein 7.4 g/dL (6.4-8.2)
--- NOTE | 2021-12-12 07:22 | DI.VRAD_ITS ---
PROCEDURE INFORMATION: Exam: XR Chest Exam date and time: 12/12/2021 6:43 AM Age: 66 years old Clinical indication: Other: Decreased sat TECHNIQUE: Imaging protocol: XR of the chest. Views: 1 view. COMPARISON: CT CHEST PE ABD PELVIS W 12/11/2021 6:08 PM FINDINGS: Lungs: Mild interstitial prominence. No consolidation. Pleural spaces: No pleural effusion. No pneumothorax. Heart/Mediastinum: Grossly stable. Bones/joints: Grossly stable scoliosis. IMPRESSION: No focal consolidation Grossly stable interstitial prominence Dictated and Authenticated by: Behzad Gonzalez MD. Ordering:JOSE ALEJANDRO Moser MD
[2021-12-12 07:24] LABS: ESR 56 mm/hr (0-30)
[2021-12-12 07:35] LABS: FREE T4 0.86 ng/dL (0.76-1.46)
[2021-12-12] MEDS: Clopidogrel 75 MG TAB PO (07:47)
[2021-12-12] MEDS: Famotidine 20 MG TAB PO ×2 (07:47→19:31)
[2021-12-12] MEDS: clonazePAM 1 MG TAB PO ×3 (07:47→19:31)
[2021-12-12] MEDS: Sertraline 50 MG TAB 100 MG PO (07:49)
[2021-12-12] MEDS: Sertraline 25 MG TAB PO (07:50)
[2021-12-12] MEDS: Sertraline 50 MG TAB PO (07:50)
[2021-12-12 08:37] LABS: BE 1 mmol/L (-2-3); HCO3 26 mmol/L (22-26); pCO2 42 mmHg (35-45); pO2 48 mmHg (80-105); sO2 85 % (95-98); tCO2 23 mmol/L (23-27)
[2021-12-12 08:46] LABS: FIO2L 5 L; Site Right Radial
--- NOTE | 2021-12-12 09:05 | IN_ITS ---
Date of service: 12/12/21 Time of Service: 09:05 PT Notes Visit Reasons: Pneumonia,Weakness,Diarrhea Physical Therapy Inpatient Initial Evaluation Date: 12/12/2021 Referring Doctor: Ehsan Riddle MD PT Orders: PT CONSULT: Eval/treat Precautions: Fall. Standard. Activity as tolerated. Patient Profile/Admitting Diagnosis: Celia is a 66-year-old female who presented to the ED on 12/11/2021 from the assisted living facility at the [facility] in [place], [place] due to watery brown diarrhea that has happened for the past 6 months, vomiting, increasing bilateral lower extremity weakness and bilateral hip pain. Patient is diagnosed with pneumonia, frequent falls, chronic hip pain, ambulatory dysfunction, abdominal pain, vomiting, and diarrhea. PMHX: All Active Problems?(Updated 12/11/21 @ 21:06 by Ehsan Graff MD) Pneumonia (Acute) Chronic hip pain, bilateral (Acute) Ambulatory dysfunction (Acute) Abdominal pain, vomiting, and diarrhea (Acute) Hip pain, bilateral (Acute) Bipolar affect, depressed (Acute) Skin tag (Acute) Phlegm in throat (Acute) COPD (chronic obstructive pulmonary disease) (Chronic) Positive colorectal cancer screening using Cologuard test (Acute) I scheduled 4 appts for gen surgery. ? She has cancelled or refuses RCT/ etc. or goes to the appt and then gets upsetHistory of smoking (Acute) Dysphagia (Acute) Nasal mass (Acute) Dr. 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 Adrenal mass Anxiety disorder generalizedBipolar disorder Bulimia Chronic low back pain Chronic obstructive lung disease Chronic post-traumatic stress disorder Coronary arteriosclerosis Dehydration Depression Diabetes Type 2, controlledDiffuse abdominal pain Hearing loss HTN (hypertension) Hyperlipidemia Hypokalemia Hypomagnesemia Hypothyroid Interstitial lung disease Lumbar spine scoliosis Mixed conductive and sensorineural hearing loss (01/29/14) Mixed hearing loss, bilateral (01/19/16) Narcotic abuse episodic opioid dependenceOsteoporosis Panic disorder Peripheral vascular disease Polycythemia Post traumatic stress disorder Pulmonary hypertension Sciatica (07/01/14) Tachycardia Tobacco abuse Total perforation of right tympanic membrane (01/19/16) Weight loss Surgical History? History of tympanoplasty of right ear Failed x2S/P cholecystectomy Spinal Surgery Laminectomies at T12/L1 due to an angiomaStent placement Bilateral iliac and femoral Social History/Home Situation: Lives in the assisted living facility at the [facility] for over 3 years now. Independent with the use of a front wheeled walker but then states that for the past several weeks has had lower extremity weakness and has not been walking. Equipment Owned/DME: [employer] Subjective: I want a wheelchair, I have a 45 degree scoliosis and it is really making my hips hurt that I cannot walk Objective: General Observation: [place] sitting (B legs and feet crossed)on the edge of the bed with no complaint of pain in B hips and back Mental Status: Alert and oriented as to person, place, time, and purpose. Able to pay attention, focus, and respond appropriately. Pain: Did not report any pain during PT consult Vital Signs: Desatuarted to 85% with just bed to chair transfer. ROM: Right Upper Extremity: Shoulder Flexion WFL. Shoulder abduction WFL. Elbow flexion WFL. Wrist flexion WFL. Functional opening and closing of hand WFL. Left Upper Extremity: Shoulder Flexion WFL. Shoulder abduction WFL. Elbow flexion WFL. Wrist flexion WFL. Functional opening and closing of hand WFL. Right Lower Extremity: Hip flexion WFL. Hip abduction WFL. Knee flexion WFL. Ankle dorsiflexion WFL. Ankle plantarflexion WFL. Left Lower Extremity: Hip flexion WFL. Hip abduction WFL. Knee flexion WFL. Ankle dorsiflexion WFL. Ankle plantarflexion WFL. Strength: Right Upper Extremity: Shoulder flexors 4/5. Shoulder abductors 4/5. Elbow flexors 4/5. Elbow extensors 5/5. Bundling Machine Operator strong. Left Upper Extremity: Shoulder flexors 4/5. Shoulder abductors 4/5. Elbow flexors 4/5. Elbow extensors 5/5. Bundling Machine Operator strong. Right Lower Extremity: Hip flexors 4-/5. Hip abductors 4-/5. Knee flexors 4-/5. Knee extensors 4-/5. Ankle dorsiflexors 4-/5. Ankle plantarflexors 4-/5. Left Lower Extremity: Hip flexors 4-/5. Hip abductors 4-/5. Knee flexors 4-/5. Knee extensors 4-/5. Ankle dorsiflexors 4-/5. Ankle plantarflexors 4-/5. Sensation: Denies numbness and tingling in B LE. Bed Mobility/Transfers: Sit to stand with contact-guard assist Stand to sit with standby assist Bed to reclining chair contact-guard assist Reclining chair to transfer chair contact-guard assist Gait: Tolerated short distance ambulation of 5 feet +5 feet using front wheel walker with full weight bearing on BLE requiring contact-guard assist. Small hesitant steps. Anxious about falling. Did not report increasing pain. No loss of balance. Minimal shortness of breath with desaturation to 85% with oxygen supplementation. Balance: Static Sitting: Normal Dynamic Sitting: Normal Static Standing: Fair Dynamic Standing: Fair Special Tests: Mobility Limitations Standardized Measure [facility] 6 clicks Basic Mobility Inpatient Short Form: Raw Score: 18 CMS Score: 47% deficit 4-Stage balance test: Unable to do any of the 4 positions signifying high risk for falls. Informed Consent/Education: Patient was instructed in purpose of PT consult and plan of care. Agreeable to proceed with established PT POC to achieve personal goals. Assessment: Repeated falls. Anxious about falling. May benefit from physical therapy services in order to work on strengthening B LE, may not need a wheelchair as of yet. Patient presents with clinical signs and symptoms consistent with current/admitting diagnoses that have resulted to mobility limitations, gait instability, generalized weakness, and overall ADL decline as demonstrated by the following impairment level findings: 1. Decreased strength to BLEmajor muscle groups 2. Impaired standing balance 3. Impaired activity tolerance 4. Shortness of breath 5. Fearfulness of falling Impairments are contributing to the following functional limitations: 1. Decline in bed mobility skills 2. Decline in transfer skills 3. Difficulty with ambulation without assistive device and physical assistance 4. Increased completion time for mobility ADL performance 5. Increased risk for falls 6. Difficulty with managing steps alone safely Patient is assessed as a 62627 moderate complexity based on the following: History: 66-year-old femalewith past medical history as indicated above Examination: Demonstrable impairment in strength, balance, and mobility level with underlying impairments and functional limitations as exhibited above as well as deficit score of 47% utilizing the [facility] Mobility Inpatient Short Form Presentation: Evolving Decision Makin moderatecomplexity Goals: Goals X1 week 1. Supine-Sit independent 2. Sit-Supine independent 3. Sit-Stand independent 4. Stand-Sit independent with FWW 5. Bed-Chair independent with FWW 6. Chair-Bed independent with FWW 7. Independent gait on level surface with use of FWW for at least 50 feet without report of pain nor dyspnea 8. Good static and dynamic standing balance/tolerance Plan of Care/Treatment Plan: 1-2x/day, 7 days/week x 1 week. Plan of care has been reviewed with the NOTCHING PRESS OPERATOR providing the service under Physical Therapy direction. Initiate Physical Therapy intervention for pain management as needed, strengthening, bed mobility, transfers, gait, stairs, balance training, and use of assistive device. DISCHARGE RECOMMENDATIONS: [] Home with no services [] [] Home with services [specify] [] Home with outpatient PT [] [X] SNF for continued rehabilitation. Patient will benefit [facility] for continued skilled physical therapy services in order to progress mobility level, strength, and balance in preparation for a safe discharge to home. [] [facility] [] [] SNF versus LTC based on ability to participate and progress [] TREATMENT CODE/TIME: 40197 x 20 minutes, 60729 x 23 minutes beginning at 9:05 AM. Thank you for the opportunity to participate in the care of this patient. Iris Murray PT, DPT, CLT [facility] [place], [place]
--- NOTE | 2021-12-12 09:16 | W.PULMCON ---
General Date Of Service Date of service: 12/12/21 Time of Service: 14:30 Reason for Consult: Hypoxia, Pneumonia Assessment and Plan Assessment and plan (1) Pneumonia: Status: Acute (2) Respiratory failure with hypoxia: Status: Acute (3) COPD (chronic obstructive pulmonary disease): Status: Chronic (4) History of smoking: Status: Acute Assessment and plan: This is a 66 yo female with COPD and who was recently started on oxygen is admitted with a multilobar pneumonia seen on chest CT. He is not being treated for her COPD, and although not in exacerbation will benefit from LABA.LAMA therapy with Stiolto and prn albuterol. She clearly has infiltrates on her chest CT involving multiple lobes, despite her procalcitonin being negative. She had an ABG which found hypoxemia, no further ABG testing is necessary. I will also set her up to see me in follow up for her COPD. She should be enrolled in LDCT for lung cancer screening. Multilobar Pneumonia - PO Levaquin for 5 days recommended - recommend incentive spirometry COPD - recommend Stiolto - recommend prn albuterol - will set up follow up with me as an outpatient Hypoxic respiratory failure - titration as able to sat goal of 88-92% - IS as above History of Present Illness Narrative: This is a 66 yo female with COPD and former smoking (quit 6 years ago, 50 pack years) [facility] who is [facility] for hypoxia. Her chest CT obtained in the ED is concerning for multilobar pneumonia. She tells me that she was just started on oxygen 1 week prior to her admission. She is not on any inhalers for her COPD. She tell mes that she used to be but that she stopped them because she didnt like them. She had an echocardiogram today as well that was normal with no signs of pulmonary hypertension. She tells me she is not having a hard time breathing now but prior to admission she was having difficulty. She denies pain, rashes or leg swelling. Review of Systems All systems reviewed & are unremarkable except as noted in HPI and below PFSH All Active Problems (Updated 12/12/21 @ 17:58 by Julia Willett MD) Respiratory failure with hypoxia (Acute) Pneumonia (Acute) Chronic hip pain, bilateral (Chronic) Ambulatory dysfunction (Acute) Abdominal pain, vomiting, and diarrhea (Acute) Hip pain, bilateral (Acute) Bipolar affect, depressed (Acute) Skin tag (Acute) Phlegm in throat (Acute) COPD (chronic obstructive pulmonary disease) (Chronic) Positive colorectal cancer screening using Cologuard test (Acute) I scheduled 4 appts for gen surgery. She has cancelled or refuses RCT/ etc. or goes to the appt and then gets upset History of smoking (Acute) Dysphagia (Acute) Nasal mass (Acute) Dr. 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 Hyperlipidemia (Chronic) Polycythemia (Chronic) Hypothyroid (Chronic) Diabetes (Chronic) Type 2, controlled HTN (hypertension) (Chronic) Depression (Chronic) Mixed conductive and sensorineural hearing loss (Acute 01/29/14) Mixed hearing loss, bilateral (Acute 01/19/16) Sciatica (Acute 07/01/14) Sensorineural hearing loss (Acute 01/29/14) Total perforation of right tympanic membrane (Acute 01/19/16) Medical History (Updated 12/12/21 @ 17:58 by Julia Willett MD) Adrenal mass Bulimia Chronic low back pain Chronic obstructive lung disease Chronic post-traumatic stress disorder Coronary arteriosclerosis Dehydration Diffuse abdominal pain Hearing loss Hypokalemia Hypomagnesemia Hypoxia Interstitial lung disease Lumbar spine scoliosis Narcotic abuse episodic opioid dependence Osteoporosis Panic disorder Peripheral vascular disease Pneumonia Post traumatic stress disorder Pulmonary hypertension Tachycardia Tobacco abuse Weight loss Surgical History History of tympanoplasty of right ear Failed x2 S/P cholecystectomy Spinal Surgery Laminectomies at T12/L1 due to an angioma Stent placement Bilateral iliac and femoral Family History Mother Heart disease Paternal Grandfather Kidney disease Social History Smoking/Tobacco Use Status: Former Tobacco Use Smoking risk assessment performed?: Yes Alcohol Intake: never Drug use: Current Sobriety Substance use type: former substance user Housing: skilled nursing Additional Social history: Lives at [facility]. Visit Medication and Allergies Active Medications Generic Name Dose Route Start Last Admin Trade Name Freq PRN Reason Stop Dose Admin Acetaminophen 650 mg 12/11/21 21:47 Acetaminophen 325 Mg Tab PO Q4H PRN PRN Clonazepam 1 mg 12/12/21 08:30 12/12/21 07:47 Clonazepam 1 Mg Tab PO 1 mg TID DANI Administration Clopidogrel Bisulfate 75 mg 12/12/21 08:30 12/12/21 07:47 Clopidogrel 75 Mg Tab PO 75 mg DAILY DANI Administration Dextrose 0 gm 12/11/21 20:45 Glucose 40% Oral Solution 15 Gm/37.5 Gm Tube PO DIRECTED PRN Dextrose/Water 0 gm 12/11/21 20:45 Dextrose 50%-Water 25 Gm/50 Ml Syr IVP DIRECTED PRN Dimethicone/Zinc Oxide 0 gm 12/11/21 20:45 Marifer Protect Cream 142 Gm Tube TP PRN PRN Docusate Sodium 300 mg 12/11/21 20:50 Docusate Sodium 100 Mg Cap PO DAILY PRN Enoxaparin Sodium 40 mg 12/11/21 22:00 12/11/21 22:40 Enoxaparin 40 Mg/0.4 Ml Syr SC 40 mg Q24H DANI Administration Famotidine 20 mg 12/12/21 08:30 12/12/21 07:47 Famotidine 20 Mg Tab PO 20 mg BID [facility] Administration Glipizide 10 mg 12/12/21 08:30 12/12/21 07:48 Glipizide Cr 10 Mg Tabcr PO 10 mg DAILY [facility] Administration IV Miscellaneous Supplies 1 each 12/11/21 15:15 Iv Access IV DIRECTED [facility] Insulin Aspart 0 units 12/12/21 08:00 12/12/21 07:48 Insulin Aspart 300 Units/3 Ml Pen SC Not Given 0800,1200,1700 [facility] Protocol Levothyroxine Sodium 112 mcg 12/12/21 06:00 12/12/21 05:35 Levothyroxine 112 Mcg Tab PO 112 mcg 0600 [facility] Administration Loperamide HCl 2 mg 12/11/21 21:48 Loperamide 2 Mg Cap PO QID PRN Melatonin 9 mg 12/11/21 21:48 12/11/21 22:36 Melatonin 3 Mg Tab PO 9 mg HS PRN Administration sleep Ondansetron HCl 4 mg 12/11/21 20:50 Ondansetron O.D.T. 4 Mg Tabef PO Q4H PRN nausea and vomiting Quetiapine Fumarate 200 mg 12/11/21 22:00 12/11/21 22:36 Quetiapine 50 Mg Tabcr PO 200 mg HS DANI Administration Sertraline HCl 100 mg 12/12/21 08:30 12/12/21 07:49 Sertraline 50 Mg Tab PO 100 mg DAILY DANI Administration Sertraline HCl 25 mg 12/12/21 08:30 12/12/21 07:50 Sertraline 25 Mg Tab PO 25 mg DAILY DANI Administration Sertraline HCl 50 mg 12/12/21 08:30 12/12/21 07:50 Sertraline 50 Mg Tab PO 50 mg DAILY DANI Administration Sodium Chloride 0 ml 12/11/21 18:10 12/11/21 22:37 Normal Saline Flush 10 Ml Syr IVP 10 ml PRN PRN Administration Allergies latex Allergy (Unverified 12/11/21 15:17) Other (See Comment) alendronate sodium [From Fosamax] Adverse Reaction (Intermediate, Verified 06/22/21 13:27) Nausea Exam Narrative Exam Narrative: Gen: NAD, normal respiratory effort, obese HENT: PERRL, nasal turbinates normal without erythema or inflammation, moist oral mucosa, Mallampati 2, No LAD or JVD Chest: No respiratory distress, normal appearance of chest, bibasilar crackles, normal inspiratory effort Heart: regular rate and rhythym, no murmurs, rubs or gallops Abdomen: Non-distended, soft, non tender Extremities: No clubbing, edema, cyanosis, rashes Neuro: AAOx3 , non focal Psych: cooperative, appropriate mental affect Results Last Vital Signs Temp 36.6 C 12/12/21 08:16 Pulse 73 12/12/21 08:16 Resp 20 12/12/21 08:16 BP 137/79 12/12/21 08:16 Pulse Ox 90 L 12/12/21 08:16 Labs Result diagrams: 12/12/21 06:30 12/12/21 06:30 Labs: Laboratory Results - last 24 hr 12/11/21 12/11/21 12/11/21 15:05 15:05 16:15 WBC 6.46 RBC 5.15 Hgb 16.1 H Hct 49.6 H MCV 96.3 H MCH 31.3 MCHC 32.5 RDW 14.1 Plt Count 195 MPV 9.5 Immature Gran % 0.3 Neutrophils % 52.1 Lymphocytes % 35.6 Monocytes % 9.1 Eosinophils % 2.3 Basophils % 0.6 Nucleated RBC % 0 Absolute Neutrophils 3.36 Absolute Lymphocytes 2.30 Absolute Monocytes 0.59 Absolute Eosinophils 0.15 Absolute Basophils 0.04 ESR VBG Lactate Sodium 139 Potassium 3.5 Chloride 103 Carbon Dioxide 27.7 Anion Gap 8.3 BUN 13 Creatinine 1.0 Estimated GFR/1.73 m2 55.47 Glucose 259 H Calcium 9.5 Total Bilirubin 0.3 AST 21 ALT 35 Alkaline Phosphatase 93 Creatine Kinase Troponin I C-Reactive Protein NT-Pro-B Natriuret Pep Total Protein 8.2 Albumin 3.3 L Lipase 91 Procalcitonin TSH Free T4 Urine Color Urine Clarity Urine pH Ur Specific [place] Urine Protein Urine Ketones Urine Blood Urine Nitrite Urine Bilirubin Urine Urobilinogen Ur Leukocyte Esterase Urine Glucose COVID-19 Source Not Applicable SARS-CoV-2 (PCR) Negative Influenza Type A (PCR) Negative Influenza Type B (PCR) Negative RSV (PCR) Negative 12/11/21 12/11/21 12/12/21 17:30 19:15 06:30 WBC RBC Hgb Hct MCV MCH MCHC RDW Plt Count MPV Immature Gran % Neutrophils % Lymphocytes % Monocytes % Eosinophils % Basophils % Nucleated RBC % Absolute Neutrophils Absolute Lymphocytes Absolute Monocytes Absolute Eosinophils Absolute Basophils ESR VBG Lactate 1.3 Sodium 141 Potassium 3.8 Chloride 107 Carbon Dioxide 25.9 Anion Gap 8.1 BUN 9 Creatinine 0.8 Estimated GFR/1.73 m2 >= 60.00 Glucose 150 H D Calcium 9.0 Total Bilirubin 0.3 AST 19 ALT 30 Alkaline Phosphatase 77 Creatine Kinase Troponin I C-Reactive Protein NT-Pro-B Natriuret Pep Total Protein 7.4 Albumin 3.0 L Lipase Procalcitonin < 0.1 TSH 5.72 H Free T4 0.86 Urine Color Yellow Urine Clarity Clear Urine pH 6.0 Ur Specific [place] 1.025 Urine Protein Negative Urine Ketones Negative Urine Blood Negative Urine Nitrite Negative Urine Bilirubin Negative Urine Urobilinogen 0.2 Ur Leukocyte Esterase Negative Urine Glucose Negative COVID-19 Source SARS-CoV-2 (PCR) Influenza Type A (PCR) Influenza Type B (PCR) RSV (PCR) 12/12/21 12/12/21 12/12/21 06:30 06:30 06:30 WBC 6.78 RBC 4.81 Hgb 15.0 Hct 46.4 H MCV 96.5 H MCH 31.2 MCHC 32.3 RDW 14.3 Plt Count 195 MPV 9.4 Immature Gran % 0.1 Neutrophils % 43.5 Lymphocytes % 45.1 Monocytes % 8.0 Eosinophils % 2.9 Basophils % 0.4 Nucleated RBC % 0 Absolute Neutrophils 2.94 Absolute Lymphocytes 3.06 Absolute Monocytes 0.54 Absolute Eosinophils 0.20 Absolute Basophils 0.03 ESR 56 H VBG Lactate Sodium Potassium Chloride Carbon Dioxide Anion Gap BUN Creatinine Estimated GFR/1.73 m2 Glucose Calcium Total Bilirubin AST ALT Alkaline Phosphatase Creatine Kinase 50 Troponin I C-Reactive Protein 0.90 H NT-Pro-B Natriuret Pep Total Protein Albumin Lipase Procalcitonin TSH Free T4 Urine Color Urine Clarity Urine pH Ur Specific [place] Urine Protein Urine Ketones Urine Blood Urine Nitrite Urine Bilirubin Urine Urobilinogen Ur Leukocyte Esterase Urine Glucose COVID-19 Source SARS-CoV-2 (PCR) Influenza Type A (PCR) Influenza Type B (PCR) RSV (PCR) 12/12/21 06:30 WBC RBC Hgb Hct MCV MCH MCHC RDW Plt Count MPV Immature Gran % Neutrophils % Lymphocytes % Monocytes % Eosinophils % Basophils % Nucleated RBC % Absolute Neutrophils Absolute Lymphocytes Absolute Monocytes Absolute Eosinophils Absolute Basophils ESR VBG Lactate Sodium Potassium Chloride Carbon Dioxide Anion Gap BUN Creatinine Estimated GFR/1.73 m2 Glucose Calcium Total Bilirubin AST ALT Alkaline Phosphatase Creatine Kinase Troponin I < 50 C-Reactive Protein NT-Pro-B Natriuret Pep 92 Total Protein Albumin Lipase Procalcitonin TSH Free T4 Urine Color Urine Clarity Urine pH Ur Specific [place] Urine Protein Urine Ketones Urine Blood Urine Nitrite Urine Bilirubin Urine Urobilinogen Ur Leukocyte Esterase Urine Glucose COVID-19 Source SARS-CoV-2 (PCR) Influenza Type A (PCR) Influenza Type B (PCR) RSV (PCR) Imaging Chest x-ray: image reviewed Abdomen CT scan report/results: image reviewed EKG: report reviewed Additional studies: Echo report reviwed
--- NOTE | 2021-12-12 11:18 | PDOC.CMIN ---
- If Service Date Differs Date of service: 12/12/21 Time of Service: 11:18 Care Management Initial Assess REASON FOR HOSPITALIZATION:: Pneumonia, weakness, and diarrhea. PAST MEDICAL HISTORY/PAST SURGICAL HISTORY:: All Active Problems: Pneumonia (Acute), Chronic hip pain, bilateral (Acute), Ambulatory dysfunction (Acute), Abdominal pain, vomiting, and diarrhea (Acute), Hip pain, bilateral (Acute), Bipolar affect, depressed (Acute), Skin tag (Acute), Phlegm in throat (Acute), COPD (chronic obstructive pulmonary disease) (Chronic), Positive colorectal cancer screening using Cologuard test (Acute) - I scheduled 4 appts for gen surgery. She has cancelled or refuses RCT/ etc. or goes to the appt and then gets upset, History of smoking (Acute), Dysphagia (Acute), Nasal mass (Acute) - Dr. Casillas-The right perceived nasal mass represents a bow in her nasal cartilage., Hyperlipidemia (Chronic), Polycythemia (Chronic), Hypothyroid (Chronic), Diabetes (Chronic) - Type 2, controlled,. HTN (hypertension) (Chronic), Depression (Chronic), Mixed conductive and sensorineural hearing loss (Acute 01/29/14), Mixed hearing loss, bilateral (Acute 01/19/16), Sciatica (Acute 07/01/14), Sensorineural hearing loss (Acute 01/29/14), and Total perforation of right tympanic membrane (Acute 01/19/16). Medical History: Adrenal mass, Anxiety disorder - generalized, Bipolar disorder, Bulimia, Chronic low back pain, Chronic obstructive lung disease,. Chronic post-traumatic stress disorder, Coronary arteriosclerosis,. Dehydration, Depression, Diabetes - Type 2, controlled, Diffuse abdominal pain, Hearing loss, HTN (hypertension), Hyperlipidemia, Hypokalemia,. Hypomagnesemia, Hypothyroid, Interstitial lung disease, Lumbar spine scoliosis, Mixed conductive and sensorineural hearing loss (01/29/14),. Mixed hearing loss, bilateral (01/19/16), Narcotic abuse - episodic opioid dependence, Osteoporosis, Panic disorder, Peripheral vascular disease,. Polycythemia, Post traumatic stress disorder, Pulmonary hypertension,. Sciatica (07/01/14), Tachycardia, Tobacco abuse, Total perforation of right tympanic membrane (01/19/16), and Weight loss. Surgical History: History of tympanoplasty of right ear - Failed x2,. S/P cholecystectomy, Spinal Surgery - Laminectomies at T12/L1 due to an angioma, and Stent placement - Bilateral iliac and femoral. PREVIOUS FUNCTIONAL STATUS/SOCIAL/FAMILY SUPPORTS:: Celia is a 66-year-old female who resides in assisted living at the [facility] and [facility] in [place]. She has three children; two of whom are . 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 CURRENT FUNCTIONAL STATUS:: Celia is laying in bed when CM comes to meet with her. She is pleasant, talkative, and she shares at great length some of the difficulties she is experiencing with staff at the [facility]. ADVANCE DIRECTIVES:: On file; Lilliana Murguia ( daughter) is appointed as Health Care Agent and Jim Guadalupe (son) as Alternate Agent. Has patient been provided with info about the portal/API?: No Did the patient sign up for the portal?: No CODE STATUS:: DNR/DNI INSURANCE COVERAGE / FINANCIAL ISSUES:: Medicare and Medicaid. CURRENT HOME/COMMUNITY SERVICES/EQUIPMENT:: Celia has a rollator walker with seat and she lives in an assisted living facility ([facility]). She also reports being on 1L of O2 at baseline. PRIMARY CARE PHYSICIAN:: Ghada Henderson MD ([facility]). POTENTIAL DISCHARGE NEEDS:: Follow up appointment with PCP, skilled physical therapy services, and plan of care. PATIENT/FAMILY EDUCATION NEEDS:: Review discharge instructions including limitations, medications, and follow up plan of care; discuss Ask Me Three and self management. ANTICIPATED BARRIERS TO DISCHARGE:: No anticipated barriers to discharge at this time. TRANSPORTATION:: Via [facility]; may require wheelchair van if she continues to have difficulty walking. PLAN:: Celia will discharge back to the [facility] when medically cleared by provider. She will follow up with her PCP and discharge plan of care as instructed. She will be transported by [facility] and may require a wheelchair van when ready, if she continues to have difficulty walking. CM will continue to follow.
--- NOTE | 2021-12-12 11:24 | DM INPTCON_ITS ---
Date of service: 12/12/21 Time of Service: 11:24 Diabetes Inpatient Consult Reason for Visit: Diabetes DESCRIPTION/ASSESSMENT: Celia is a resident of [facility] admitted with PNA, weakness with hx of diarrhea/vomitting. PMH: DM2, COPD, class 1 obesity. Most recent A1C: 09/06/21: 7.2% indicating good glycemic control. DM meds while in house: glipizide 10 mg qd, aspart meal correction per sliding scale. Blood sugars well controlled. Following diabetic diet with adequate po intake. INTERVENTION: Diabetic Diet PLAN: No education needed at this time in view of well controlled DM, will continue to follow and support. Time Spent in Nutritional Counseling and Treatment: 0
[2021-12-12] MEDS: Insulin Aspart 300 UNITS/3 ML PEN SC ×2 (12:34→17:03)
[2021-12-12 13:11] LABS: C Diff PCR Negative (Negative)
--- NOTE | 2021-12-12 13:32 | PT.INTREAT ---
PT Notes Visit Reasons: Pneumonia,Weakness,Diarrhea 12/12/2021 SUBJECTIVE: Does not want to walk anymore due to pain. She states she falls a lot at the [place] and gets dizzy with ambulation and just doesn't want to be an ambulater. She wants a wheel chair. OBJECTIVE: TRANSFERS Sit to stand: SBA Stand to sit: SBA GAIT: declines. THEREX: Standing hip exercises performed. Stands in place for greater than 5 minutes discussing her medical problems. She also performs seated LE strengthening exercises . ASSESSMENT: Pt initially sways when standing up but when talking with her and she is distracted she stands perfectly steady. We discuss goals of short distance ambulation to perform functional tasks such as going to the bathroom and she is in agreement with this. PLAN: Continue LE strengthening, short distance ambulation as she tolerates. Treatment time: [id number] Patti Ray PTA Clinic location: [facility] [place], [place]
--- NOTE | 2021-12-12 16:17 | CHAPLAIN ---
I have visited Celia a few times at the [facility] where she lives, so we know each other. Right away she told me about how much she doesn't like living at the [facility], and violations she said she has seen there. She calls the [facility] to report these things. She said she is here because she can't walk. She did not want to talk about PT, she told me. If PT is so good, why are so many people in wheelchairs, she said. Celia had three children. Her two daughters have , one was murdered. She is currently estranged from her son. She said she wrote him a letter, tried to be supportive but also gave him some advice and he has since not communicated with her, and he has blocked Celia on his phone. Celia said Dr. Henderson, her PCP, said she would try and help Celia find another place to live.
--- NOTE | 2021-12-12 16:32 | W.PM.PROGNOT ---
Date of Service Date of service: 12/12/21 Time of Service: 16:32 Assessment and Plan Assessment and plan (1) Hypoxia: Start date: 12/12/21 Start time: 16:40 Status: Acute Assessment and plan: Patient came in hypoxic. Xray with no focal consolidation. Seen by pulmonology, recommends levaquin, likely bronchitis. Continue oxygen admits perez sputum updrafts prn IS (2) Bronchitis: Start date: 12/12/21 Start time: 16:52 Status: Acute Assessment and plan: as above. Clinically no signs of pnuemonia, not febrile, no leukocytosis, no cough (3) Chronic hip pain, bilateral: Start date: 12/12/21 Start time: 16:53 Status: Chronic Assessment and plan: PT nucynta for pain (4) Ambulatory dysfunction: Start date: 12/12/21 Start time: 16:53 Status: Acute Assessment and plan: He is not clear why she cannot walk. Her labs appear normal. As above PT (5) Abdominal pain, vomiting, and diarrhea: Start date: 12/12/21 Start time: 16:54 Status: Acute Assessment and plan: Abdominal CT scan did not show enterocolitis. Studies are pending on her stool. discussed with Dr. Santa Subjective Subjective Patient reports: no new complaints Interval history since last seen: patient resting in bed no new complaints. 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 patient did admit to having sputum that was perez colored however she states no longer having this issue. Likely bronchitis as she is afebrile no white count. no wheezing. Oxygen dependent. Exam Const General: cooperative, comfortable, no acute distress, not disheveled and not ill appearing Orientation: alert, awake and oriented x3 Neck Neck: normal visual inspection, no lymphadenopathy and no meningeal signs Thyroid: thyroid normal Resp Auscultation: clear to auscultation bilaterally, no crackles, no rales and no wheezes Cardio Rate: regular rate Rhythm: regular rhythm Heart Sounds: S1 normal, S2 normal, no gallops and no murmurs GI Palpation: soft, hepatosplenomegaly present, not firm, no masses and nontender Neuro General: patient alert, patient awake, patient oriented x3, no focal motor deficits, CN's II-XI intact bilaterally and unable to assess gait Motor: strength 5/5 throughout Coordination: [id number] test normal Extrem General: normal to inspection, no cyanosis and no edema Objective Last Vital Signs Temp 36.5 C 12/12/21 15:13 Pulse 81 12/12/21 15:13 Resp 18 12/12/21 15:13 BP 123/79 12/12/21 15:13 Pulse Ox 89 L 12/12/21 15:13 Laboratory Results - last 24 hr 12/11/21 12/11/21 12/11/21 16:15 17:30 19:15 WBC RBC Hgb Hct MCV MCH MCHC RDW Plt Count MPV Immature Gran % Neutrophils % Lymphocytes % Monocytes % Eosinophils % Basophils % Nucleated RBC % Absolute Neutrophils Absolute Lymphocytes Absolute Monocytes Absolute Eosinophils Absolute Basophils ESR ABG Sample Site ABG pH ABG pCO2 ABG pO2 ABG HCO3 ABG Total CO2 ABG O2 Saturation ABG Base Excess VBG Lactate 1.3 Oxygen Liter Flow Sodium Potassium Chloride Carbon Dioxide Anion Gap BUN Creatinine Estimated GFR/1.73 m2 Glucose Calcium Total Bilirubin AST ALT Alkaline Phosphatase Creatine Kinase Troponin I C-Reactive Protein NT-Pro-B Natriuret Pep Total Protein Albumin Procalcitonin < 0.1 TSH Free T4 Urine Color Yellow Urine Clarity Clear Urine pH 6.0 Ur Specific [place] 1.025 Urine Protein Negative Urine Ketones Negative Urine Blood Negative Urine Nitrite Negative Urine Bilirubin Negative Urine Urobilinogen 0.2 Ur Leukocyte Esterase Negative Urine Glucose Negative Stl C.difficile Tox PCR COVID-19 Source Not Applicable SARS-CoV-2 (PCR) Negative Influenza Type A (PCR) Negative Influenza Type B (PCR) Negative RSV (PCR) Negative 12/12/21 12/12/21 12/12/21 06:30 06:30 06:30 WBC 6.78 RBC 4.81 Hgb 15.0 Hct 46.4 H MCV 96.5 H MCH 31.2 MCHC 32.3 RDW 14.3 Plt Count 195 MPV 9.4 Immature Gran % 0.1 Neutrophils % 43.5 Lymphocytes % 45.1 Monocytes % 8.0 Eosinophils % 2.9 Basophils % 0.4 Nucleated RBC % 0 Absolute Neutrophils 2.94 Absolute Lymphocytes 3.06 Absolute Monocytes 0.54 Absolute Eosinophils 0.20 Absolute Basophils 0.03 ESR ABG Sample Site ABG pH ABG pCO2 ABG pO2 ABG HCO3 ABG Total CO2 ABG O2 Saturation ABG Base Excess VBG Lactate Oxygen Liter Flow Sodium 141 Potassium 3.8 Chloride 107 Carbon Dioxide 25.9 Anion Gap 8.1 BUN 9 Creatinine 0.8 Estimated GFR/1.73 m2 >= 60.00 Glucose 150 H D Calcium 9.0 Total Bilirubin 0.3 AST 19 ALT 30 Alkaline Phosphatase 77 Creatine Kinase 50 Troponin I C-Reactive Protein 0.90 H NT-Pro-B Natriuret Pep Total Protein 7.4 Albumin 3.0 L Procalcitonin TSH 5.72 H Free T4 0.86 Urine Color Urine Clarity Urine pH Ur Specific [place] Urine Protein Urine Ketones Urine Blood Urine Nitrite Urine Bilirubin Urine Urobilinogen Ur Leukocyte Esterase Urine Glucose Stl C.difficile Tox PCR COVID-19 Source SARS-CoV-2 (PCR) Influenza Type A (PCR) Influenza Type B (PCR) RSV (PCR) 12/12/21 12/12/21 12/12/21 06:30 06:30 08:30 WBC RBC Hgb Hct MCV MCH MCHC RDW Plt Count MPV Immature Gran % Neutrophils % Lymphocytes % Monocytes % Eosinophils % Basophils % Nucleated RBC % Absolute Neutrophils Absolute Lymphocytes Absolute Monocytes Absolute Eosinophils Absolute Basophils ESR 56 H ABG Sample Site Right Radial ABG pH 7.40 ABG pCO2 42 ABG pO2 48 L ABG HCO3 26 ABG Total CO2 23 ABG O2 Saturation 85 L ABG Base Excess 1 VBG Lactate Oxygen Liter Flow 5 Sodium Potassium Chloride Carbon Dioxide Anion Gap BUN Creatinine Estimated GFR/1.73 m2 Glucose Calcium Total Bilirubin AST ALT Alkaline Phosphatase Creatine Kinase Troponin I < 50 C-Reactive Protein NT-Pro-B Natriuret Pep 92 Total Protein Albumin Procalcitonin TSH Free T4 Urine Color Urine Clarity Urine pH Ur Specific [place] Urine Protein Urine Ketones Urine Blood Urine Nitrite Urine Bilirubin Urine Urobilinogen Ur Leukocyte Esterase Urine Glucose Stl C.difficile Tox PCR COVID-19 Source SARS-CoV-2 (PCR) Influenza Type A (PCR) Influenza Type B (PCR) RSV (PCR) 12/12/21 11:49 WBC RBC Hgb Hct MCV MCH MCHC RDW Plt Count MPV Immature Gran % Neutrophils % Lymphocytes % Monocytes % Eosinophils % Basophils % Nucleated RBC % Absolute Neutrophils Absolute Lymphocytes Absolute Monocytes Absolute Eosinophils Absolute Basophils ESR ABG Sample Site ABG pH ABG pCO2 ABG pO2 ABG HCO3 ABG Total CO2 ABG O2 Saturation ABG Base Excess VBG Lactate Oxygen Liter Flow Sodium Potassium Chloride Carbon Dioxide Anion Gap BUN Creatinine Estimated GFR/1.73 m2 Glucose Calcium Total Bilirubin AST ALT Alkaline Phosphatase Creatine Kinase Troponin I C-Reactive Protein NT-Pro-B Natriuret Pep Total Protein Albumin Procalcitonin TSH Free T4 Urine Color Urine Clarity Urine pH Ur Specific [place] Urine Protein Urine Ketones Urine Blood Urine Nitrite Urine Bilirubin Urine Urobilinogen Ur Leukocyte Esterase Urine Glucose Stl C.difficile Tox PCR Negative COVID-19 Source SARS-CoV-2 (PCR) Influenza Type A (PCR) Influenza Type B (PCR) RSV (PCR)
[2021-12-12] MEDS: levoFLOXacin 500 MG, levoFLOXacin 250 MG 750 MG PO (17:04)
[2021-12-12] MEDS: Melatonin 3 MG TAB 9 MG PO (20:56)
[2021-12-12] MEDS: Normal Saline Flush 10 ML SYR IVP (20:57)
[2021-12-12] MEDS: Enoxaparin 40 MG/0.4 ML SYR SC (20:57)
[2021-12-13] VITALS (8 sets, daily range): BP systolic 105–130; BP diastolic 72–87; PULSE 65–88; RESP 8–20; TEMP 36.2–36.6; O2SAT 83–91
--- NOTE | 2021-12-13 | DI.RAD_ITS ---
Exam(s) XR PORTABLE CHEST AP EXAM: XR PORTABLE CHEST AP CLINICAL HISTORY: dropping sats. TECHNIQUE: 2D digital imaging was performed. COMPARISON: CR,XR XR PORTABLE CHEST AP from 12/12/2021 FINDINGS: Heart size normal. Mediastinum is not widened. Scoliosis again noted. Increased interstitial markings are again noted. There is some infiltrate in the right lateral right lung now evident. No obvious pleural effusions. IMPRESSION: Peripheral right lung infiltrate DATA REPOSITORY: RADIATION DOSE DELIVERED: All CT scans at this facility use at least one of these dose optimization techniques: automated exposure control; mA and/or kV adjustment per patient size (includes targeted e xams where dose is matched to clinical indication); or iterative reconstruction.
--- NOTE | 2021-12-13 03:17 | NUR.NOTE ---
received pt at 1909, pt called and went for rounds, pt asking for pain medicine. outgoing RN prepared the medicine and informed pt that the outgoing RN is getting the medicine to be given to her immediately, while I monitor her O2 saturations on O2 at 4L via high flow NC. 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 me and the outgoing nurse gave the medication and explained to her fully each of the medications given to her to prevent her from complaining that meds were not given to her on time florencia the pain meds. Pt asked for coffee at 2129, I explained to her that I just gave her her sleeping meds and would refrain from taking anymore coffee, but pt insisted, so I gave a decaffeinated coffee upon her request despite telling her that we need her to rest so that in the morning she will have the strength to do PT exercises and meet the doctors in the morning. She said that she does not care if she rested or not because she has insomnia, and again asked for another cup of coffee. I hesitated to give in to another cup of coffee and told her that she should be sleeping since it is 130 in the morning and it is not advisable to have coffee at this hour. but then pt refused to listen and demanded for another cup. I gave her another cup of decaf coffee at 2am and told her that this will be her last cup since she has not rested yet. pt complained about me not giving in to her request and need to call back to be able to get it, she does not care if she does not sleep and all and seems to be fixated on she being upset about me of not giving her coffee at all and claimed it was just a warner request and I could not give in to her. I explained the rationale but she does not seem to understand and claimed that I dont know her and understand her and don't care about her at all. I explained to her that even if I dont know her that much, I do care for her because I was the one who monitored her sats since last night, informing the DR that I was worried of her oxygenation that was why the MD ordered for a stat xray at 6am, given her all of her meds and making sure that she has pain meds on time upon her request. pt stated that I am too over the edge, and told stories about that she has complained and fired a number of employees in [facility] because of their attitude. Charge nurse was informed of the incident
[2021-12-13] MEDS: Levothyroxine 112 MCG TAB PO (06:06)
[2021-12-13] MEDS: Insulin Aspart 300 UNITS/3 ML PEN SC ×3 (08:19→17:10)
[2021-12-13] MEDS: Sertraline 25 MG TAB PO (08:20)
[2021-12-13] MEDS: Acetaminophen 325 MG TAB 650 MG PO ×2 (08:20→21:20)
[2021-12-13] MEDS: Clopidogrel 75 MG TAB PO (08:20)
[2021-12-13] MEDS: Famotidine 20 MG TAB PO ×2 (08:20→21:06)
[2021-12-13] MEDS: Sertraline 50 MG TAB PO (08:20)
[2021-12-13] MEDS: clonazePAM 1 MG TAB PO ×3 (08:21→21:06)
[2021-12-13] MEDS: levoFLOXacin 500 MG, levoFLOXacin 250 MG 750 MG PO (08:21)
[2021-12-13] MEDS: Sertraline 50 MG TAB 100 MG PO (08:22)
--- NOTE | 2021-12-13 10:03 | W.PULMPROG ---
Assessment and Plan Assessment and plan (1) Pneumonia: Status: Acute (2) Respiratory failure with hypoxia: Status: Acute (3) COPD (chronic obstructive pulmonary disease): Status: Chronic (4) History of smoking: Status: Acute Assessment and plan: This is a 66 yo female with COPD and who was recently started on oxygen is admitted with a multilobar pneumonia seen on chest CT. He is not being treated for her COPD, and although not in exacerbation will benefit from LABA.LAMA therapy with Stiolto and prn albuterol. She clearly has infiltrates on her chest CT involving multiple lobes, despite her procalcitonin being negative. She had an ABG which found hypoxemia, no further ABG testing is necessary. Multilobar Pneumonia - PO Levaquin for 5 days - incentive spirometry COPD - continue Stiolto - continue prn albuterol - patient unable to come to outpatient f/u visit so will cancel it Hypoxic respiratory failure - titration as able to sat goal of 88-92% - IS as above General Date Of Service Date of service: 12/13/21 Time of Service: 08:10 Reason for Consult: Hypoxi, pneumonia Subjective Note Note: Celia is doing well today. She is up in the chair at the time of our encounter. She feels as though she is getting better with time. I discussed with her seeing me in clinic and she told me that she is agoraphobic and will not go to my clinic. She says she spends all her time in her room at the [facility]. Exam Narrative Exam Narrative: Gen:?NAD, normal respiratory effort, obese HENT:?PERRL, nasal turbinates normal without erythema or inflammation, moist oral? mucosa, Mallampati 2, No LAD or JVD Chest:?No respiratory distress, normal appearance of chest, bibasilar crackles, normal inspiratory effort Heart:?regular rate and rhythym, no murmurs, rubs or gallops Abdomen:?Non-distended, soft, non tender Extremities:?No clubbing, edema, cyanosis, rashes Neuro:?AAOx3 , non focal Psych:?cooperative, appropriate mental affect Objective Last Vital Signs Temp 36.2 C L 12/13/21 08:13 Pulse 77 12/13/21 08:13 Resp 20 12/13/21 08:13 BP 128/72 12/13/21 08:13 Pulse Ox 91 L 12/13/21 08:13 Laboratory Results - last 24 hr 12/12/21 12/12/21 08:30 11:49 ABG Sample Site Right Radial ABG pH 7.40 ABG pCO2 42 ABG pO2 48 L ABG HCO3 26 ABG Total CO2 23 ABG O2 Saturation 85 L ABG Base Excess 1 Oxygen Liter Flow 5 Stl C.difficile Tox PCR Negative Results Medications Medications: Active Medications Generic Name Dose Route Start Last Admin Trade Name Freq PRN Reason Stop Dose Admin Acetaminophen 650 mg 12/11/21 21:47 12/13/21 08:20 Acetaminophen 325 Mg Tab PO 650 mg Q4H PRN PRN Administration Clonazepam 1 mg 12/12/21 08:30 12/13/21 08:21 Clonazepam 1 Mg Tab PO 1 mg TID DANI Administration Clopidogrel Bisulfate 75 mg 12/12/21 08:30 12/13/21 08:20 Clopidogrel 75 Mg Tab PO 75 mg DAILY DANI Administration Dextrose 0 gm 12/11/21 20:45 Glucose 40% Oral Solution 15 Gm/37.5 Gm Tube PO DIRECTED PRN Dextrose/Water 0 gm 12/11/21 20:45 Dextrose 50%-Water 25 Gm/50 Ml Syr IVP DIRECTED PRN Dimethicone/Zinc Oxide 0 gm 12/11/21 20:45 Marifer Protect Cream 142 Gm Tube TP PRN PRN Docusate Sodium 300 mg 12/11/21 20:50 Docusate Sodium 100 Mg Cap PO DAILY PRN Enoxaparin Sodium 40 mg 12/11/21 22:00 12/12/21 20:57 Enoxaparin 40 Mg/0.4 Ml Syr SC 40 mg Q24H DANI Administration Famotidine 20 mg 12/12/21 08:30 12/13/21 08:20 Famotidine 20 Mg Tab PO 20 mg BID DANI Administration Glipizide 10 mg 12/12/21 08:30 12/13/21 08:20 Glipizide Cr 10 Mg Tabcr PO 10 mg DAILY DANI Administration IV Miscellaneous Supplies 1 each 12/11/21 15:15 Iv Access IV DIRECTED [facility] Insulin Aspart 0 units 12/12/21 08:00 12/13/21 08:19 Insulin Aspart 300 Units/3 Ml Pen SC 2 units 0800,1200,1700 DANI Administration Protocol Levofloxacin 500 mg/ 750 mg 12/12/21 16:25 12/13/21 08:21 Levofloxacin 250 mg PO 750 mg QAM DANI Administration Levothyroxine Sodium 112 mcg 12/12/21 06:00 12/13/21 06:06 Levothyroxine 112 Mcg Tab PO 112 mcg 0600 DANI Administration Loperamide HCl 2 mg 12/11/21 21:48 Loperamide 2 Mg Cap PO QID PRN Melatonin 9 mg 12/11/21 21:48 12/12/21 20:56 Melatonin 3 Mg Tab PO 9 mg HS PRN Administration sleep Ondansetron HCl 4 mg 12/11/21 20:50 Ondansetron O.D.T. 4 Mg Tabef PO Q4H PRN nausea and vomiting Quetiapine Fumarate 200 mg 12/11/21 22:00 12/12/21 20:56 Quetiapine 50 Mg Tabcr PO 200 mg HS DANI Administration Sertraline HCl 100 mg 12/12/21 08:30 12/13/21 08:22 Sertraline 50 Mg Tab PO 100 mg DAILY DANI Administration Sertraline HCl 25 mg 12/12/21 08:30 12/13/21 08:20 Sertraline 25 Mg Tab PO 25 mg DAILY DANI Administration Sertraline HCl 50 mg 12/12/21 08:30 12/13/21 08:20 Sertraline 50 Mg Tab PO 50 mg DAILY DANI Administration Sodium Chloride 0 ml 12/11/21 18:10 12/12/21 20:57 Normal Saline Flush 10 Ml Syr IVP 10 ml PRN PRN Administration Tapentadol 50 mg 12/12/21 11:26 12/13/21 00:21 Tapentadol I.R. 50 Mg Tab PO 50 mg Q4H PRN PRN Administration Allergies latex Allergy (Unverified 12/11/21 15:17) Other (See Comment) alendronate sodium [From Fosamax] Adverse Reaction (Intermediate, Verified 06/22/21 13:27) Nausea Labs Result Diagrams: 12/12/21 06:30 12/12/21 06:30 Labs: 12/11/21 21:05 Nose MRSA Screen - Final Laboratory Tests Range/Units 12/11/21 12/11/21 12/11/21 15:05 15:05 16:15 WBC (4.4-10.8) 10^3/uL 6.46 RBC (3.93-5.22) 10^6/uL 5.15 Hgb (11.2-15.7) g/dL 16.1 H Hct (36.0-46.0) % 49.6 H MCV (80-95) fL 96.3 H MCH (27.0-33.0) pg 31.3 MCHC (32.0-36.0) % 32.5 RDW (11.7-14.6) % 14.1 Plt Count (130-400) 10^3/uL 195 MPV (8.0-11.0) fL 9.5 Immature Gran % 0.3 Neutrophils % 52.1 Lymphocytes % 35.6 Monocytes % 9.1 Eosinophils % 2.3 Basophils % 0.6 Nucleated RBC % % 0 Absolute Neutrophils (1.2-6.7) 10^3/uL 3.36 Absolute Lymphocytes (1.2-3.4) 10^3/uL 2.30 Absolute Monocytes (0.1-0.8) 10^3/uL 0.59 Absolute Eosinophils (0.0-0.7) 10^3/uL 0.15 Absolute Basophils (0.0-0.2) 10^3/uL 0.04 ESR (0-30) mm/hr ABG Sample Site ABG pH (7.35-7.45) ABG pCO2 (35-45) mmHg ABG pO2 (80-105) mmHg ABG HCO3 (22-26) mmol/L ABG Total CO2 (23-27) mmol/L ABG O2 Saturation (95-98) % ABG Base Excess (-2-3) mmol/L VBG Lactate (0.6-1.4) mmol/L Oxygen Liter Flow L Sodium (136-145) mmol/L 139 Potassium (3.5-5.1) mmol/L 3.5 Chloride (98-107) mmol/L 103 Carbon Dioxide (21.0-32.0) mmol/L 27.7 Anion Gap (3-11) mmol/L 8.3 BUN (7-18) mg/dL 13 Creatinine (0.55-1.02) mg/dL 1.0 Estimated GFR/1.73 m2 (mL/min/1.73m2) 55.47 Glucose (74-106) mg/dL 259 H Calcium (8.5-10.1) mg/dL 9.5 Total Bilirubin (0.2-1.0) mg/dL 0.3 AST (15-37) U/L 21 ALT (14-59) U/L 35 Alkaline Phosphatase (46-116) U/L 93 Creatine Kinase (26-192) U/L Troponin I (<or=60) ng/L C-Reactive Protein (0.0-0.3) mg/dL NT-Pro-B Natriuret Pep (<300) pg/mL Total Protein (6.4-8.2) g/dL 8.2 Albumin (3.4-5.0) g/dL 3.3 L Lipase (73-393) U/L 91 Procalcitonin ng/mL TSH (0.36-3.74) uIU/mL Free T4 (0.76-1.46) ng/dL Urine Color (Yellow) Urine Clarity (Clear) Urine pH (5-8) Ur Specific [place] (1.005-1.025) Urine Protein (Negative) mg/dL Urine Ketones (Negative) mg/dL Urine Blood (Negative) Urine Nitrite (Negative) Urine Bilirubin (Negative) Urine Urobilinogen (Up TO 0.2) EU/dL Ur Leukocyte Esterase (Negative) Urine Glucose (Negative) mg/dL Stl C.difficile Tox PCR (Negative) COVID-19 Source Not Applicable SARS-CoV-2 (PCR) (Negative) Negative Influenza Type A (PCR) (Negative) Negative Influenza Type B (PCR) (Negative) Negative RSV (PCR) (Negative) Negative Range/Units 12/11/21 12/11/21 12/12/21 17:30 19:15 06:30 WBC (4.4-10.8) 10^3/uL RBC (3.93-5.22) 10^6/uL Hgb (11.2-15.7) g/dL Hct (36.0-46.0) % MCV (80-95) fL MCH (27.0-33.0) pg MCHC (32.0-36.0) % RDW (11.7-14.6) % Plt Count (130-400) 10^3/uL MPV (8.0-11.0) fL Immature Gran % Neutrophils % Lymphocytes % Monocytes % Eosinophils % Basophils % Nucleated RBC % % Absolute Neutrophils (1.2-6.7) 10^3/uL Absolute Lymphocytes (1.2-3.4) 10^3/uL Absolute Monocytes (0.1-0.8) 10^3/uL Absolute Eosinophils (0.0-0.7) 10^3/uL Absolute Basophils (0.0-0.2) 10^3/uL ESR (0-30) mm/hr ABG Sample Site ABG pH (7.35-7.45) ABG pCO2 (35-45) mmHg ABG pO2 (80-105) mmHg ABG HCO3 (22-26) mmol/L ABG Total CO2 (23-27) mmol/L ABG O2 Saturation (95-98) % ABG Base Excess (-2-3) mmol/L VBG Lactate (0.6-1.4) mmol/L 1.3 Oxygen Liter Flow L Sodium (136-145) mmol/L 141 Potassium (3.5-5.1) mmol/L 3.8 Chloride (98-107) mmol/L 107 Carbon Dioxide (21.0-32.0) mmol/L 25.9 Anion Gap (3-11) mmol/L 8.1 BUN (7-18) mg/dL 9 Creatinine (0.55-1.02) mg/dL 0.8 Estimated GFR/1.73 m2 (mL/min/1.73m2) >= 60.00 Glucose (74-106) mg/dL 150 H D Calcium (8.5-10.1) mg/dL 9.0 Total Bilirubin (0.2-1.0) mg/dL 0.3 AST (15-37) U/L 19 ALT (14-59) U/L 30 Alkaline Phosphatase (46-116) U/L 77 Creatine Kinase (26-192) U/L Troponin I (<or=60) ng/L C-Reactive Protein (0.0-0.3) mg/dL NT-Pro-B Natriuret Pep (<300) pg/mL Total Protein (6.4-8.2) g/dL 7.4 Albumin (3.4-5.0) g/dL 3.0 L Lipase (73-393) U/L Procalcitonin ng/mL < 0.1 TSH (0.36-3.74) uIU/mL 5.72 H Free T4 (0.76-1.46) ng/dL 0.86 Urine Color (Yellow) Yellow Urine Clarity (Clear) Clear Urine pH (5-8) 6.0 Ur Specific [place] (1.005-1.025) 1.025 Urine Protein (Negative) mg/dL Negative Urine Ketones (Negative) mg/dL Negative Urine Blood (Negative) Negative Urine Nitrite (Negative) Negative Urine Bilirubin (Negative) Negative Urine Urobilinogen (Up TO 0.2) EU/dL 0.2 Ur Leukocyte Esterase (Negative) Negative Urine Glucose (Negative) mg/dL Negative Stl C.difficile Tox PCR (Negative) COVID-19 Source SARS-CoV-2 (PCR) (Negative) Influenza Type A (PCR) (Negative) Influenza Type B (PCR) (Negative) RSV (PCR) (Negative) Range/Units 12/12/21 12/12/21 12/12/21 06:30 06:30 06:30 WBC (4.4-10.8) 10^3/uL 6.78 RBC (3.93-5.22) 10^6/uL 4.81 Hgb (11.2-15.7) g/dL 15.0 Hct (36.0-46.0) % 46.4 H MCV (80-95) fL 96.5 H MCH (27.0-33.0) pg 31.2 MCHC (32.0-36.0) % 32.3 RDW (11.7-14.6) % 14.3 Plt Count (130-400) 10^3/uL 195 MPV (8.0-11.0) fL 9.4 Immature Gran % 0.1 Neutrophils % 43.5 Lymphocytes % 45.1 Monocytes % 8.0 Eosinophils % 2.9 Basophils % 0.4 Nucleated RBC % % 0 Absolute Neutrophils (1.2-6.7) 10^3/uL 2.94 Absolute Lymphocytes (1.2-3.4) 10^3/uL 3.06 Absolute Monocytes (0.1-0.8) 10^3/uL 0.54 Absolute Eosinophils (0.0-0.7) 10^3/uL 0.20 Absolute Basophils (0.0-0.2) 10^3/uL 0.03 ESR (0-30) mm/hr 56 H ABG Sample Site ABG pH (7.35-7.45) ABG pCO2 (35-45) mmHg ABG pO2 (80-105) mmHg ABG HCO3 (22-26) mmol/L ABG Total CO2 (23-27) mmol/L ABG O2 Saturation (95-98) % ABG Base Excess (-2-3) mmol/L VBG Lactate (0.6-1.4) mmol/L Oxygen Liter Flow L Sodium (136-145) mmol/L Potassium (3.5-5.1) mmol/L Chloride (98-107) mmol/L Carbon Dioxide (21.0-32.0) mmol/L Anion Gap (3-11) mmol/L BUN (7-18) mg/dL Creatinine (0.55-1.02) mg/dL Estimated GFR/1.73 m2 (mL/min/1.73m2) Glucose (74-106) mg/dL Calcium (8.5-10.1) mg/dL Total Bilirubin (0.2-1.0) mg/dL AST (15-37) U/L ALT (14-59) U/L Alkaline Phosphatase (46-116) U/L Creatine Kinase (26-192) U/L 50 Troponin I (<or=60) ng/L C-Reactive Protein (0.0-0.3) mg/dL 0.90 H NT-Pro-B Natriuret Pep (<300) pg/mL Total Protein (6.4-8.2) g/dL Albumin (3.4-5.0) g/dL Lipase (73-393) U/L Procalcitonin ng/mL TSH (0.36-3.74) uIU/mL Free T4 (0.76-1.46) ng/dL Urine Color (Yellow) Urine Clarity (Clear) Urine pH (5-8) Ur Specific [place] (1.005-1.025) Urine Protein (Negative) mg/dL Urine Ketones (Negative) mg/dL Urine Blood (Negative) Urine Nitrite (Negative) Urine Bilirubin (Negative) Urine Urobilinogen (Up TO 0.2) EU/dL Ur Leukocyte Esterase (Negative) Urine Glucose (Negative) mg/dL Stl C.difficile Tox PCR (Negative) COVID-19 Source SARS-CoV-2 (PCR) (Negative) Influenza Type A (PCR) (Negative) Influenza Type B (PCR) (Negative) RSV (PCR) (Negative) Range/Units 12/12/21 12/12/21 12/12/21 06:30 08:30 11:49 WBC (4.4-10.8) 10^3/uL RBC (3.93-5.22) 10^6/uL Hgb (11.2-15.7) g/dL Hct (36.0-46.0) % MCV (80-95) fL MCH (27.0-33.0) pg MCHC (32.0-36.0) % RDW (11.7-14.6) % Plt Count (130-400) 10^3/uL MPV (8.0-11.0) fL Immature Gran % Neutrophils % Lymphocytes % Monocytes % Eosinophils % Basophils % Nucleated RBC % % Absolute Neutrophils (1.2-6.7) 10^3/uL Absolute Lymphocytes (1.2-3.4) 10^3/uL Absolute Monocytes (0.1-0.8) 10^3/uL Absolute Eosinophils (0.0-0.7) 10^3/uL Absolute Basophils (0.0-0.2) 10^3/uL ESR (0-30) mm/hr ABG Sample Site Right Radial ABG pH (7.35-7.45) 7.40 ABG pCO2 (35-45) mmHg 42 ABG pO2 (80-105) mmHg 48 L ABG HCO3 (22-26) mmol/L 26 ABG Total CO2 (23-27) mmol/L 23 ABG O2 Saturation (95-98) % 85 L ABG Base Excess (-2-3) mmol/L 1 VBG Lactate (0.6-1.4) mmol/L Oxygen Liter Flow L 5 Sodium (136-145) mmol/L Potassium (3.5-5.1) mmol/L Chloride (98-107) mmol/L Carbon Dioxide (21.0-32.0) mmol/L Anion Gap (3-11) mmol/L BUN (7-18) mg/dL Creatinine (0.55-1.02) mg/dL Estimated GFR/1.73 m2 (mL/min/1.73m2) Glucose (74-106) mg/dL Calcium (8.5-10.1) mg/dL Total Bilirubin (0.2-1.0) mg/dL AST (15-37) U/L ALT (14-59) U/L Alkaline Phosphatase (46-116) U/L Creatine Kinase (26-192) U/L Troponin I (<or=60) ng/L < 50 C-Reactive Protein (0.0-0.3) mg/dL NT-Pro-B Natriuret Pep (<300) pg/mL 92 Total Protein (6.4-8.2) g/dL Albumin (3.4-5.0) g/dL Lipase (73-393) U/L Procalcitonin ng/mL TSH (0.36-3.74) uIU/mL Free T4 (0.76-1.46) ng/dL Urine Color (Yellow) Urine Clarity (Clear) Urine pH (5-8) Ur Specific [place] (1.005-1.025) Urine Protein (Negative) mg/dL Urine Ketones (Negative) mg/dL Urine Blood (Negative) Urine Nitrite (Negative) Urine Bilirubin (Negative) Urine Urobilinogen (Up TO 0.2) EU/dL Ur Leukocyte Esterase (Negative) Urine Glucose (Negative) mg/dL Stl C.difficile Tox PCR (Negative) Negative COVID-19 Source SARS-CoV-2 (PCR) (Negative) Influenza Type A (PCR) (Negative) Influenza Type B (PCR) (Negative) RSV (PCR) (Negative)
[2021-12-13 11:06] LABS: Campylobacter PCR Negative (Negative); Salmonella PCR Negative (Negative); Shiga Toxin PCR Negative (Negative); Shigella/Enteroinvasive Ecoli Negative (Negative)
[2021-12-13] MEDS: Tiotropium/Olodaterol 10 PUFF INHALER 2 PUFF IH (12:19)
--- NOTE | 2021-12-13 13:44 | PTTR_ITS ---
Date of service: 12/13/21 Time of Service: 13:44 PT Notes Visit Reasons: Pneumonia,Weakness,Diarrhea Physical Therapy Inpatient Treatment Note Date: 12/13/2021 SUBJECTIVE: Agreeable to both AM and PM sessions. Did report some mild increase in low back pain with ambulation. Hopeful that she could continue to have PT at the [facility]. She is agreeable to going to the SNF before going back to the [facility] at the [facility]. Did verbalize that she does not care whether she loses the function of her B LE by sticking with the wheelchair if she is not working with the PT at the [facility] but is willing to improve on the safety of her walking. OBJECTIVE: Pain: Reports 3-4/10 pain in her low back with ambulation TRANSFERS: Supine to sit: Independent Sit to supine: Independent Sit to stand: Standby assist Stand to sit: Standby assist Bed to chair. Standby assist GAIT: Instructed patient with level surface ambulation of 5 steps in the morning and 40 feet +40 feet in the afternoon using front wheeled walker with wheelchair follow. Patient desaturated to 82% on 4 L but desaturated back up to 90% on 6 L. Mildly unsteady towards the end requiring seated rest. Continues to be anxious of falling. Step height and length diminished. THEREX: Continued with seated level exercises to increase knee flexion and extension, ankle DF and PF, and hip flexion. ASSESSMENT: Patient has the potential to improve bilateral lower extremity strength as well as mobility level using front wheeled walker with continued PT services. May only benefit from the use of wheelchair for ambulation of more than 50 feet. DISCHARGE RECOMMENDATIONS: [] Home with no services [] [] Home with services [specify] [] Home with outpatient PT [] [X] SNF for continued rehabilitation. Discharge when medically cleared by hospitalist. Patient will benefit from long-term facility placement for continued skilled physical therapy services in order to progress mobility level, strength, and balance risk for re-hospitalization. [] [facility] Care [] [] SNF versus LTC based on ability to participate and progress [] Treatment Time/Code: Session 1??60605 x 15 minutes beginning at 11:57 AM. Session 2??33050 x 30 minutes, 55179 x 16 minutes beginning at 13:44 PM.
--- NOTE | 2021-12-13 14:20 | PGE_ITS ---
Date of Service Date of service: 12/13/21 Time of Service: 14:20 Assessment and Plan Assessment and plan (1) Hypoxia: Assessment and plan: Patient came in hypoxic. Xray with no focal consolidation. Seen by pulmonology, recommends krisaquin, likely bronchitis. Continue oxygen admits perez sputum updrafts prn IS (2) Bronchitis: Status: Deleted Assessment and plan: as above. Clinically no signs of pnuemonia, not febrile, no leukocytosis, no cough (3) Chronic hip pain, bilateral: Status: Chronic Assessment and plan: PT nucynta for pain (4) Ambulatory dysfunction: Status: Acute Assessment and plan: likely at her baseline (5) Abdominal pain, vomiting, and diarrhea: Status: Resolved Assessment and plan: no further symptoms (6) Discharge planning issues: Status: Acute Assessment and plan: plan to discharge back to the [facility] tomorrow. discussed with Dr. Santa Subjective Subjective Patient reports: no new complaints, tolerating liquids well, tolerating a regular diet and afebrile; denies shortness of breath Exam Const General: cooperative, comfortable and no acute distress Orientation: alert, awake and oriented x3 Neck Neck: normal visual inspection Resp Auscultation: clear to auscultation bilaterally, no crackles, no rales and no wheezes Cardio Rate: regular rate Rhythm: regular rhythm GI Palpation: soft and nontender Neuro General: patient alert, patient awake, patient oriented x3, no focal motor deficits and CN's II-XI intact bilaterally Motor: strength 5/5 throughout Extrem General: normal to inspection, no cyanosis and no edema Objective Last Vital Signs Temp 36.5 C 12/13/21 11:33 Pulse 75 12/13/21 11:33 Resp 16 12/13/21 11:33 BP 105/72 12/13/21 11:33 Pulse Ox 90 L 12/13/21 11:33
--- NOTE | 2021-12-13 16:37 | PDOC.CMPRO ---
- If Service Date Differs Date of service: 12/13/21 Time of Service: 16:37 Care Management Progress Note S/O: Celia was sitting in her chair when CM met with her. She reported that she is feeling ok. CM asked if she understood her plan of care, and how long she would likely remain at [facility], to which she replied the people at the hospital should know that. CM reviewed her plan, stating that per provider, she will likely return to the [facility] in the next day or two, if she continues to improve. CM will continue to follow. A: Celia is a 66 year old female admitted to [facility] on 12/11/21 for pneumonia, weakness, diarrhea. P: Celia will discharge back to the [facility] when medically cleared by provider. She will follow up with her PCP and discharge plan of care as instructed. She will be transported by [facility] and may require a wheelchair van when ready, if she continues to have difficulty walking. CM will continue to follow.
[2021-12-13] MEDS: Albuterol HFA 8 GM 60 PUFF INH IH (21:01)
[2021-12-13] MEDS: Melatonin 3 MG TAB 9 MG PO (21:03)
[2021-12-13] MEDS: Enoxaparin 40 MG/0.4 ML SYR SC (21:09)
[2021-12-13 21:33] LABS: Legionella Ag Detection Urine Negative (Negative)
[2021-12-13] MEDS: Albuterol/Ipratropium 3 ML UPD VIAL UPD (23:13)
[2021-12-13] MEDS: methylPREDNISolone SUCC 125 MG VIAL 80 MG IVP (23:23)
--- NOTE | 2021-12-13 23:27 | DI.VRAD_ITS ---
PROCEDURE INFORMATION: Exam: XR Chest Exam date and time: 12/13/2021 22:33 Age: 66 years old Clinical indication: Other: Dropping sats TECHNIQUE: Imaging protocol: XR of the chest. Views: 1 view. COMPARISON: XR PORTABLE CHEST AP 12/12/2021 06:44 FINDINGS: Lungs: The basilar predominant interstitial thickening is mild to moderate in similar. The lungs appear hyperinflated similar to prior. Pleural spaces: No pleural effusion. No pneumothorax. Heart/Mediastinum: No significant cardiomegaly. Vasculature: Tortuous aorta. Bones/joints: Thoracic dextroscoliosis again seen. No displaced fracture. IMPRESSION: Stable interstitial disease may reflect bronchitis, atypical infection and or fibrosis. Dictated and Authenticated by: Jeanna Man MD. Ordering:SNOW Yost MD
--- NOTE | 2021-12-13 23:37 | W.PM.PROGNOT ---
Date of Service Date of service: 12/13/21 Time of Service: 23:38 Subjective Subjective Interval history since last seen: Called for declining O2 sats. Case reviewed. briefly, patient with COPD exacerbation with pneumonitis (by CT) or clinical bronchitis, on Levaquin. Recent sats 80s-low 90s. Staff note sats approx 80 (I confirm with separate oximeters in separate locations). Patient denies SOB. Exam shows few wheezes, diminished BS. CXR unchanged from earlier in day. A/P: I think this is likely continued COPD exacerbation, perhaps some element of mucus plugging as well. I have ordered Duoneb now and scheduled q6; single dose Solumedrol 80 now; Acapella; and increase O2 6L (immediate increase sats mid 80s noted). No change antibiotics. Objective Last Vital Signs Temp 36.4 C L 12/13/21 20:30 Pulse 85 12/13/21 20:30 Resp 16 12/13/21 20:30 BP 130/83 12/13/21 20:30 Pulse Ox 84 L 12/13/21 21:23 Laboratory Results - last 24 hr 12/12/21 11:49 Stool Campylobacter PCR Negative Stool Salmonella PCR Negative Stool Shigella PCR Negative Shiga Toxin (PCR) Negative
[2021-12-14] MEDS: Melatonin 3 MG TAB 9 MG PO (02:11)
[2021-12-14] MEDS: Acetaminophen 325 MG TAB 650 MG PO (02:11)
[2021-12-14] MEDS: Albuterol/Ipratropium 3 ML UPD VIAL UPD ×2 (04:11→11:37)
[2021-12-14] MEDS: Levothyroxine 112 MCG TAB PO (06:18)
[2021-12-14 07:14] VITALS: BP 139/81; PULSE 96; RESP 18; TEMP 36.2; O2SAT 91
[2021-12-14] MEDS: Tiotropium/Olodaterol 10 PUFF INHALER 2 PUFF IH (07:25)
[2021-12-14] MEDS: Sertraline 25 MG TAB PO (08:49)
[2021-12-14] MEDS: clonazePAM 1 MG TAB PO ×2 (08:49→13:52)
[2021-12-14] MEDS: Famotidine 20 MG TAB PO (08:49)
[2021-12-14] MEDS: Sertraline 50 MG TAB 100 MG PO (08:49)
[2021-12-14] MEDS: Clopidogrel 75 MG TAB PO (08:50)
[2021-12-14] MEDS: Sertraline 50 MG TAB PO (08:50)
[2021-12-14] MEDS: levoFLOXacin 500 MG, levoFLOXacin 250 MG 750 MG PO (08:50)
[2021-12-14] MEDS: Insulin Aspart 300 UNITS/3 ML PEN SC ×2 (08:55→12:00)
[2021-12-14 11:11] VITALS: BP 115/71; PULSE 91; RESP 14; TEMP 36; O2SAT 92
[2021-12-14 11:37] VITALS: PULSE 89; RESP 18; RESP 8; O2SAT 94
--- NOTE | 2021-12-14 14:09 | DSE_ITS ---
Date of service: 12/14/21 Time of Service: 14:09 DS: Diagnosis Discharge Diagnosis (1) Pneumonia: Status: Acute Asessment and Plan: multilobar pneumonia seen on chest CT - PO Levaquin for 5 days - incentive spirometry (2) COPD (chronic obstructive pulmonary disease): Status: Chronic Asessment and Plan: - continue Stiolto - continue prn albuterol (3) Chronic hip pain, bilateral: Status: Chronic Asessment and Plan: per outpatient team (4) Ambulatory dysfunction: Status: Acute Asessment and Plan: PT/OT (5) Abdominal pain, vomiting, and diarrhea: Status: Resolved Asessment and Plan: resolved. Discharge Plan Disposition Patient Disposition: SNF (LEVEL 1) [facility] Condition: Stable Discharge Details Reason For Visit: Pneumonia,Weakness,Diarrhea Admit Date/Time: 12/11/21 20:45 Admit Provider: Ehsan Graff Attending Provider: Ehsan Graff Primary Care Provider: Ghada Henderson [facility] Hospital Course: This is a Home Meds and New Rx's Prescriptions: New levofloxacin 750 mg Tablet 750 mg PO QAM Qty: 3 0RF Stiolto Respimat 2.5-2.5 mcg/actuation Mist 2 puff inhalation DAILY Qty: 4 0RF Continued guaifenesin [Mucinex] 600 mg tablet extended release 12hr 600 mg PO Q12H PRN (Reason: congestion) Qty: 60 4RF acetaminophen [Tylenol] 325 mg capsule 650 mg PO Q4H PRN0RF bismuth subsalicylate [Bismatrol] 262 mg/15 mL suspension 524 mg PO QID PRN0RF Tes[place] Original 325-1,916-1,000 mg tablet, effervescent 1 tab PO BID PRN0RF docusate sodium 100 mg capsule 300 mg PO DAILY PRN0RF famotidine 20 mg tablet 20 mg PO BID Qty: 180 4RF melatonin 10 mg tablet 10 mg PO HS PRN (Reason: sleep) Qty: 90 5RF ondansetron 4 mg tablet,disintegrating 4 mg PO Q4H PRN (Reason: nausea and vomiting) Qty: 30 1RF clopidogrel [Plavix] 75 mg tablet 75 mg PO DAILY Qty: 90 12RF glipizide 10 mg tablet extended release 24hr 10 mg PO DAILY Qty: 90 4RF levothyroxine 112 mcg tablet 112 mcg PO DAILY Qty: 90 12RF loperamide 2 mg tablet 2 mg PO QID PRN (Reason: loose stool) Qty: 10 0RF Rx Instructions: Take one tablet by mouth after each loose stool not to exceed 8mg/24 hrs lorazepam [Ativan] 0.5 mg tablet 0.5 mg PO QID Qty: 120 5RF sertraline 100 mg tablet 100 mg PO DAILY Qty: 90 12RF Rx Instructions: total 175mg daily sertraline 50 mg tablet 50 mg PO DAILY Qty: 90 5RF sertraline 25 mg tablet 25 mg PO DAILY MDD 175 Qty: 90 12RF quetiapine [Seroquel XR] 200 mg tablet extended release 24 hr 200 mg PO HS Qty: 90 12RF clonazepam 1 mg Tablet 1 mg PO TID 0RF Discontinued amoxicillin 500 mg tablet 500 mg PO QID Qty: 28 0RF Discharge Instructions Instructions: Pneumonia (DC) Stand Alone Forms: Nursing Discharge Form Referrals: Julia Willett MD [ [facility] STAFF PHYSICIAN] - 03/02/22 10:30 am Activity:: Activity as Tolerated Equipment/Supplies:: Oxygen (L/min Below) Diet:: Carb Counting Discharge Orders Discharge Orders: Discharge Order (Routine); Ordered 12/14/21 Ordered By: Stephie Bonilla Discharge Data Discharge Date/Time-TO BE ENTERED AT DEPARTURE: 12/14/21 15:20 DS: Summary Time Spent with Patient providing and/or coordinating discharge services: Less than 30 minutes Status at Discharge Functional status at discharge: uses cane/walker Overall status at discharge: patient is not back to baseline Mental Status: mental status grossly normal Speech and Movement: speech and movement normal Mood: congruent mood Affect: normal affect Exam Const General: cooperative, comfortable and no acute distress Orientation: alert, awake and oriented x3 Neck Neck: normal visual inspection Resp Auscultation: clear to auscultation bilaterally, no crackles, no rales and no wheezes Cardio Rate: regular rate Rhythm: regular rhythm GI Palpation: soft and nontender Neuro General: patient alert, patient awake, patient oriented x3, no focal motor deficits and CN's II-XI intact bilaterally Motor: strength 5/5 throughout Extrem General: normal to inspection, no cyanosis and no edema Psych Mental Status: mental status grossly normal Speech and Movement: speech and movement normal Mood: congruent mood Affect: normal affect DS: Data Vitals/I&O Vitals and I&O: Vital Signs Temperature 36 C L 12/14/21 11:11 Temperature Source Tympanic 12/14/21 11:11 Pulse 89 12/14/21 11:37 Pulse Rhythm Regular 12/14/21 09:15 Pulse 72 12/11/21 19:00 Respiratory Rate 18 12/14/21 11:37 Respiratory Effort Non-Labored 12/14/21 09:15 Respiratory Depth Normal 12/14/21 09:15 Respiratory Pattern Normal 12/14/21 09:15 Blood Pressure 115/71 12/14/21 11:11 Blood Pressure Mean 135 12/11/21 19:15 Blood Pressure Position Sitting 12/11/21 14:52 Pulse Oximetry 94 12/14/21 11:37 Oxygen Delivery Method Nasal Cannula 12/14/21 11:37 Oxygen Flow Rate 6 12/14/21 11:37 Fraction of Inspired Oxygen (FIO2) 24 12/11/21 16:41 Pain Level 0 12/14/21 11:11 Comment 12/14/21 00:28 Intake & Output 12/13/21 12/14/21 12/14/21 23:59 11:59 23:59 Intake Total 420 / 880 720 / 720 Output Total 1400 / 1800 1450 / 1675 225 / 1675 Balance -980 / -920 -730 / -955 -225 / -955 Intake: Oral 420 / 870 720 / 720 Output: Urine 1400 / 1800 1450 / 1675 225 / 1675 Other: Urine Color Yellow Yellow Yellow Urine Appearance Clear Clear Clear Urine Odor Normal Normal None Comment unmeasured Voiding Methods Toilet Bedside Commode Toilet Data Completed and Pending Labs on day of discharge: Labs from last 24 hours 12/13/21 12/12/21 11:30 11:49 Stool Campylobacter PCR Negative Stool Salmonella PCR Negative Stool Shigella PCR Negative Urine Legionella Ag Negative Shiga Toxin (PCR) Negative PFSH All Active Problems (Updated 12/13/21 @ 16:42 by Stephie Bonilla NP) Discharge planning issues (Acute) Respiratory failure with hypoxia (Acute) Pneumonia (Acute) Chronic hip pain, bilateral (Chronic) Ambulatory dysfunction (Acute) Hip pain, bilateral (Acute) Bipolar affect, depressed (Acute) Skin tag (Acute) Phlegm in throat (Acute) COPD (chronic obstructive pulmonary disease) (Chronic) Positive colorectal cancer screening using Cologuard test (Acute) I scheduled 4 appts for gen surgery. She has cancelled or refuses RCT/ etc. or goes to the appt and then gets upset History of smoking (Acute) Dysphagia (Acute) Nasal mass (Acute) Dr. 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 Hyperlipidemia (Chronic) Polycythemia (Chronic) Hypothyroid (Chronic) Diabetes (Chronic) Type 2, controlled HTN (hypertension) (Chronic) Depression (Chronic) Mixed conductive and sensorineural hearing loss (Acute 01/29/14) Mixed hearing loss, bilateral (Acute 01/19/16) Sciatica (Acute 07/01/14) Sensorineural hearing loss (Acute 01/29/14) Total perforation of right tympanic membrane (Acute 01/19/16) Medical History (Updated 12/13/21 @ 16:42 by Stephie Bonilla NP) Adrenal mass Bulimia Chronic low back pain Chronic obstructive lung disease Chronic post-traumatic stress disorder Coronary arteriosclerosis Dehydration Diffuse abdominal pain Hearing loss Hypokalemia Hypomagnesemia Hypoxia Interstitial lung disease Lumbar spine scoliosis Narcotic abuse episodic opioid dependence Osteoporosis Panic disorder Peripheral vascular disease Pneumonia Post traumatic stress disorder Pulmonary hypertension Tachycardia Tobacco abuse Weight loss Surgical History History of tympanoplasty of right ear Failed x2 S/P cholecystectomy Spinal Surgery Laminectomies at T12/L1 due to an angioma Stent placement Bilateral iliac and femoral Family History Mother Heart disease Paternal Grandfather Kidney disease Social History Smoking/Tobacco Use Status: Former Tobacco Use Smoking risk assessment performed?: Yes Alcohol Intake: never Drug use: Current Sobriety Substance use type: former substance user Housing: [facility] Additional Social history: Lives at [facility].
--- NOTE | 2021-12-14 14:43 | CMDISCH_ITS ---
- If Service Date Differs Date of service: 12/14/21 Time of Service: 15:28 LACE Index Scoring Tool - Questions: Length of Stay (in days): 3 Acuity (Admit via E.D.?): Yes Comorbidities: Diabetes w/o Complication, Chronic Pulmonary Disease, Any Tumor E.D. Visits: 1 - Answers: Total Score: 12 Risk of Readmission: High Risk Care Management Discharge Reason for Hospitalization: Pneumonia, weakness, and diarrhea. Discharge Plan: Celia will return to the [facility] to have short term rehab prior to transitioning back to level three at the [facility]. She was transported via [facility] wheelchair van, coordinated by CM. She will follow up with facility providers and her discharge plan of care. Patient/Family Education Needs: Review discharge instructions regarding activity levels and medications, discussion of self care needs including ask me three. Services Needed at Discharge: [facility] Facility ([facility]), Transportation ([facility] w/c van)
--- NOTE | 2021-12-14 15:46 | CHAPLAIN ---
I had a long visit with Celia this afternoon. She had complaints about being treated poorly and disrespectfully by a nurse last night, she also didn't like being woken up for finger sticks during the night. Celia said that PT has encouraged her to walk and she doesn't want to want to walk, she said she is fine with just using a wheelchair. She talked about her children, a daughter who was killed (from sounded like domestic violence), another , and her son who is 38 is very paranoid and tells Celia that the government is after him and things like that. Celia believes that he is a paranoid schizophrenic and thinks he needs counseling for his mental health, but he refused to speak to anyone. She recently wrote him a letter, and he has not responded. Celia worries about her grandchildren as well. She said she is often anxious and doesn't like people, and wants to just stay in her room. She was told she would be discharged today or tomorrow, and was upset that she was told two different things. She will return to the [facility] when she is discharged.
--- NOTE | 2021-12-14 16:41 | INDS_ITS ---
Date of service: 12/14/21 PT Notes Visit Reasons: Pneumonia,Weakness,Diarrhea Physical Therapy Discharge Summary Date: 12/14/2021 Referring Doctor: Ehsan Graff MD PT Orders: PT CONSULT: Eval/treat Precautions: Fall. Standard. Activity as tolerated.? Patient Profile/Admitting Diagnosis: Celia is a 66-year-old female who presented to the ED on 12/11/2021 from the assisted living facility at the [facility] in [place], [place] due to watery brown diarrhea that has happened for the past 6 months, vomiting, increasing bilateral lower extremity weakness and bilateral hip pain.? Patient is diagnosed with pneumonia, frequent falls, chronic hip pain, ambulatory dysfunction, abdominal pain, vomiting, and diarrhea. PMHX: All Active Problems?(Updated 12/11/21 @ 21:06 by Ehsan Graff MD) Pneumonia (Acute) Chronic hip pain, bilateral (Acute) Ambulatory dysfunction (Acute) Abdominal pain, vomiting, and diarrhea (Acute) Hip pain, bilateral (Acute) Bipolar affect, depressed (Acute) Skin tag (Acute) Phlegm in throat (Acute) COPD (chronic obstructive pulmonary disease) (Chronic) Positive colorectal cancer screening using Cologuard test (Acute) I scheduled 4 appts for gen surgery. ? She has cancelled or refuses RCT/ etc. or goes to the appt and then gets upsetHistory of smoking (Acute) Dysphagia (Acute) Nasal mass (Acute) Dr. 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 Adrenal mass Anxiety disorder generalizedBipolar disorder Bulimia Chronic low back pain Chronic obstructive lung disease Chronic post-traumatic stress disorder Coronary arteriosclerosis Dehydration Depression Diabetes Type 2, controlledDiffuse abdominal pain Hearing loss HTN (hypertension) Hyperlipidemia Hypokalemia Hypomagnesemia Hypothyroid Interstitial lung disease Lumbar spine scoliosis Mixed conductive and sensorineural hearing loss (01/29/14) Mixed hearing loss, bilateral (01/19/16) Narcotic abuse episodic opioid dependenceOsteoporosis Panic disorder Peripheral vascular disease Polycythemia Post traumatic stress disorder Pulmonary hypertension Sciatica (07/01/14) Tachycardia Tobacco abuse Total perforation of right tympanic membrane (01/19/16) Weight loss Surgical History? History of tympanoplasty of right ear Failed x2S/P cholecystectomy Spinal Surgery Laminectomies at T12/L1 due to an angiomaStent placement Bilateral iliac and femoral Social History/Home Situation: Lives in the assisted living facility at the [facility] for over 3 years now.? Independent with the use of a front wheeled walker but then states that for the past several weeks has had lower extremity weakness and has not been walking. Equipment Owned/DME: [facility] Subjective: NT. See most recent [facility]FFER notes. Objective: General Observation: NT. See most recent [facility]FFER notes. Mental Status: NT. See most recent [facility]FFER notes. Pain: NT. See most recent [facility]FFER notes. Vital Signs: NT. See most recent [facility]FFER notes. ROM: Right Upper Extremity: ? Shoulder Flexion WFL. Shoulder abduction WFL. Elbow flexion WFL. Wrist flexion WFL. Functional opening and closing of hand WFL. Left Upper Extremity:? Shoulder Flexion WFL. Shoulder abduction WFL. Elbow flexion WFL. Wrist flexion WFL. Functional opening and closing of hand WFL. Right Lower Extremity: Hip flexion WFL. Hip abduction WFL. Knee flexion WFL. Ankle dorsiflexion WFL. Ankle plantarflexion WFL. Left Lower Extremity: Hip flexion WFL. Hip abduction WFL. Knee flexion WFL. Ankle dorsiflexion WFL. Ankle plantarflexion WFL. Strength: Right Upper Extremity: Shoulder flexors 4/5. Shoulder abductors 4/5. Elbow flexors 4/5. Elbow extensors 5/5. Box Blank Machine Feeder strong. Left Upper Extremity: Shoulder flexors 4/5. Shoulder abductors 4/5. Elbow flex ors 4/5. Elbow extensors 5/5. Box Blank Machine Feeder strong. Right Lower Extremity: Hip flexors 4-/5. Hip abductors 4-/5. Knee flexors 4-/5. Knee extensors 4-/5. Ankle dorsiflexors 4-/5. Ankle plantarflexors 4-/5. Left Lower Extremity: Hip flexors 4-/5. Hip abductors 4-/5. Knee flexors 4-/5. Knee extensors 4-/5. Ankle dorsiflexors 4-/5. Ankle plantarflexors 4-/5. Sensation: Denies numbness and tingling in B LE. Bed Mobility/Transfers: Sit to stand with contact-guard assist Stand to sit with standby assist Bed to reclining chair contact-guard assist Reclining chair to transfer chair contact-guard assist Gait: Up to 40 feet + 40 feet with report of back pain at 5-03/30 using front wheel walker with full weight bearing on BLE requiring contact-guard assist.? Small hesitant steps.? Anxious about falling.? Did not report increasing pain.? No loss of balance.? Minimal shortness of breath with desaturation to 85% with oxygen supplementation. Balance: Static Sitting: Normal Dynamic Sitting: Normal Static Standing: Fair Dynamic Standing: Fair Assessment: Repeated falls.? Anxious about falling.? May benefit from physical therapy services at the SNF in order to work on strengthening B LE, may not need a wheelchair as of yet. ? Patient presents with clinical signs and symptoms consistent with current/admitting diagnoses that have resulted to mobility limitations, gait instability, generalized weakness, and overall ADL decline as demonstrated by the following impairment level findings: 1.? Decreased strength to BLEmajor muscle groups 2.? Impaired standing balance 3.? Impaired activity tolerance 4.? Shortness of breath 5.? Fearfulness of falling Impairments are contributing to the following functional limitations: 1.? Decline in bed mobility skills 2.? Decline in transfer skills 3.? Difficulty with ambulation without assistive device and physical assistance 4.? Increased completion time for mobility ADL performance 5.? Increased risk for falls 6.? Difficulty with managing steps alone safely Goals: Goals X1 week 1. Supine-Sit independent 2. Sit-Supine independent 3. Sit-Stand independent 4. Stand-Sit independent with FWW 5. Bed-Chair independent with FWW 6. Chair-Bed independent with FWW 7. Independent gait on level surface with use of FWW for at least 50 feet without report of pain nor dyspnea 8. Good static and dynamic standing balance/tolerance DISCHARGE RECOMMENDATIONS: [] ? Home with no services [] [] ? Home with services [specify] [] ? Home with outpatient PT [] [X] ? SNF for continued rehabilitation.? Patient will benefit [facility] for continued skilled physical therapy services in order to progress mobility level, strength, and balance in preparation for a safe discharge to home. [] ? Detention Care [] [] ? SNF versus LTC based on ability to participate and progress [] TREATMENT CODE/TIME: [place] Thank you for the opportunity to participate in the care of this patient. Iris Murray PT, DPT, CLT [facility] [place], [place]
== END 2021-12-14 15:20 | disposition skilled nursing facility (03) | DRG 193 ==
LOC: ER 20:58 → MS 21:18
PROVIDERS: Internal Medicine; Admitting Provider Family Medicine; Emergency Provider Physician Assistant; PCP Family Medicine; Visit Provider Family Medicine
DX: J18.9 Pneumonia, unspecified organism (principal); J96.01 Acute respiratory failure with hypoxia; J44.0 Chronic obstructive pulmonary disease with (acute) lower respiratory infection; J84.9 Interstitial pulmonary disease, unspecified; J44.1 Chronic obstructive pulmonary disease with (acute) exacerbation; G89.29 Other chronic pain; M25.552 Pain in left hip; M25.551 Pain in right hip; R26.2 Difficulty in walking, not elsewhere classified; R10.9 Unspecified abdominal pain; R19.7 Diarrhea, unspecified; R11.10 Vomiting, unspecified; F31.9 Bipolar disorder, unspecified; Z87.891 Personal history of nicotine dependence; E78.5 Hyperlipidemia, unspecified; D75.1 Secondary polycythemia; E03.9 Hypothyroidism, unspecified; E11.9 Type 2 diabetes mellitus without complications; I10 Essential (primary) hypertension; I25.10 Atherosclerotic heart disease of native coronary artery without angina pectoris; F11.10 Opioid abuse, uncomplicated; I27.20 Pulmonary hypertension, unspecified; F41.0 Panic disorder [episodic paroxysmal anxiety]; R29.6 Repeated falls; F43.12 Post-traumatic stress disorder, chronic; M54.40 Lumbago with sciatica, unspecified side
CPT/HCPCS: 36415; 71275; 73521; 74177; 80053; 82550; 82805; 83690; 84145; 85652; 87081; 87449; 87493; 87505; 87637; 93005; 93306; 94640; 96361; 96365; 96367; 96375; 97110; 97162; 97530; 99285; J1650; 36600; 71045; 81003; 83605; 83880; 84439; 84443; 84484; 85025; 86140; 93010; 99222; 99233; 99238; J0131; J0456; J0696; J2405; J2930; J3490; J7620

== ENCOUNTER 2021-12-19 14:24 | Outpatient (REF) | payer MEDICARE, MEDICAID, SELFPAY ==
[2021-12-19 15:53] LABS: Abs Immature Grans 0.05 10^3/uL (0.0-0.06); Absolute Basophil Count 0.05 10^3/uL (0.0-0.2); Absolute Eosinophil Count 0.17 10^3/uL (0.0-0.7); Absolute Lymphocyte Count 3.53 10^3/uL (1.2-3.4); Absolute Monocyte Count 0.75 10^3/uL (0.1-0.8); Absolute Neutrophil Count 3.45 10^3/uL (1.2-6.7); Basophils % 0.6; Eosinophils % 2.1; HCT 50.6 % (36.0-46.0); HGB 16.3 g/dL (11.2-15.7); Immature Grans % 0.6; Lymphocytes % 44.1; MCH 30.7 pg (27.0-33.0); MCHC 32.2 % (32.0-36.0); MCV 95.3 fL (80-95); MPV 9.9 fL (8.0-11.0); Monocytes % 9.4; Neutrophils % 43.2; Nucleated RBC 0 %; Platelet Count 233 10^3/uL (130-400); RBC 5.31 10^6/uL (3.93-5.22); RDW 14.6 % (11.7-14.6); RDW-SD 51.1 fL
[2021-12-19 16:00] LABS: Iron 79 ug/dL (50-170)
[2021-12-19 16:27] LABS: Hemoglobin A1C 9.6 % (<5.7)
[2021-12-19 16:40] LABS: ALT 30 U/L (14-59); AST 20 U/L (15-37); Albumin 3.6 g/dL (3.4-5.0); Alkaline Phosphatase 81 U/L (46-116); Anion Gap 10.1 mmol/L (3-11); BUN 12 mg/dL (7-18); Bilirubin, Total 0.4 mg/dL (0.2-1.0); CO2 24.9 mmol/L (21.0-32.0); CREATININE 1.1 mg/dL (0.55-1.02); Calcium 9.5 mg/dL (8.5-10.1); Chloride 103 mmol/L (98-107); Estimated GFR 49.69 (mL/min/1.73m2); Ferritin 315 ng/mL (8-252); Folate 9.4 ng/mL (8.6-20.0); Glucose 164 mg/dL (74-106); Magnesium 2.2 mg/dL (1.8-2.4); Potassium 4.1 mmol/L (3.5-5.1); Sodium 138 mmol/L (136-145); TSH (W/Ref FT4) 4.32 uIU/mL (0.36-3.74); Total Protein 7.8 g/dL (6.4-8.2); Vitamin B12 451 pg/mL (193-986)
[2021-12-19 17:00] LABS: FREE T4 1.08 ng/dL (0.76-1.46)
[2021-12-21 05:48] LABS: Vitamin D 25 Total 72.9 ng/mL (30-100)
== END 2021-12-19 14:25 | disposition home or self-care (01) ==
LOC: LBN 14:24
PROVIDERS: PCP Family Medicine; Visit Provider Internal Medicine
DX: E11.9 Type 2 diabetes mellitus without complications (principal); E03.9 Hypothyroidism, unspecified; J96.91 Respiratory failure, unspecified with hypoxia
CPT/HCPCS: 80053; 82306; 82607; 82728; 82746; 83036; 83540; 83735; 84439; 84443; 85025

== ENCOUNTER 2022-01-30 16:02 | Outpatient (REF) | payer MEDICARE, MEDICAID, SELFPAY ==
[2022-01-30 19:19] LABS: Abs Immature Grans 0.02 10^3/uL (0.0-0.06); Absolute Basophil Count 0.05 10^3/uL (0.0-0.2); Absolute Eosinophil Count 0.07 10^3/uL (0.0-0.7); Absolute Lymphocyte Count 2.89 10^3/uL (1.2-3.4); Absolute Neutrophil Count 5.41 10^3/uL (1.2-6.7); Basophils % 0.6; Eosinophils % 0.8; HCT 49.7 % (36.0-46.0); HGB 15.8 g/dL (11.2-15.7); Immature Grans % 0.2; MCH 31.6 pg (27.0-33.0); MCHC 31.8 % (32.0-36.0); MCV 99.4 fL (80-95); MPV 10.3 fL (8.0-11.0); Monocytes % 6.6; Neutrophils % 59.8; Nucleated RBC 0 %; Platelet Count 252 10^3/uL (130-400); RDW 15.9 % (11.7-14.6); RDW-SD 57.9 fL; WBC 9.04 10^3/uL (4.4-10.8)
[2022-01-30 19:55] LABS: ALT 29 U/L (14-59); AST 22 U/L (15-37); Albumin 3.8 g/dL (3.4-5.0); Alkaline Phosphatase 101 U/L (46-116); Anion Gap 9.8 mmol/L (3-11); BUN 15 mg/dL (7-18); Bilirubin, Total 0.4 mg/dL (0.2-1.0); CO2 29.2 mmol/L (21.0-32.0); Calcium 9.6 mg/dL (8.5-10.1); Chloride 102 mmol/L (98-107); Estimated GFR 55.47 (mL/min/1.73m2); Glucose 158 mg/dL (74-106); Potassium 4.4 mmol/L (3.5-5.1); Sodium 141 mmol/L (136-145); Total Protein 8.3 g/dL (6.4-8.2)
[2022-01-31 10:08] LABS: Lab Add On Test DONE
[2022-01-31 10:31] LABS: FREE T4 1.14 ng/dL (0.76-1.46)
[2022-01-31 12:40] LABS: Hemoglobin A1C 8.6 % (<5.7)
[2022-02-01 05:39] LABS: Vitamin D 25 Total 55.3 ng/mL (30-100)
== END 2022-01-30 16:03 | disposition home or self-care (01) ==
LOC: LBN 16:02
PROVIDERS: PCP Family Medicine; Visit Provider Family Medicine
DX: E03.9 Hypothyroidism, unspecified (principal); I10 Essential (primary) hypertension; E11.9 Type 2 diabetes mellitus without complications; Z79.84 Long term (current) use of oral hypoglycemic drugs; J18.9 Pneumonia, unspecified organism; R53.1 Weakness
CPT/HCPCS: 80053; 82306; 83036; 84439; 84443; 85025

== ENCOUNTER 2022-02-26 16:21 | Emergency (ER) | payer MEDICARE, MEDICAID, SELFPAY ==
[2022-02-26] VITALS (34 sets, daily range): BP systolic 114–151; BP diastolic 52–104; PULSE 75–105; RESP 14–32; TEMP 36.9; O2SAT 85–94
[2022-02-26] MEDS: Ondansetron 4 MG/2 ML VIAL (16:49)
[2022-02-26] MEDS: Normal Saline 1,000 ML 1000 ML IV ×2 (17:28→18:59)
[2022-02-26] MEDS: MORPHine 4 MG/ML SYR (17:39)
[2022-02-26 17:40] LABS: Abs Immature Grans 0.05 10^3/uL (0.0-0.06); Absolute Basophil Count 0.05 10^3/uL (0.0-0.2); Absolute Lymphocyte Count 0.55 10^3/uL (1.2-3.4); Absolute Monocyte Count 0.31 10^3/uL (0.1-0.8); Basophils % 0.4; Eosinophils % 0.3; HCT 56.8 % (36.0-46.0); HGB 18.3 g/dL (11.2-15.7); Immature Grans % 0.4; Lymphocytes % 4.7; MCH 32.2 pg (27.0-33.0); MCHC 32.2 % (32.0-36.0); MCV 100 fL (80-95); Monocytes % 2.7; Neutrophils % 91.5; Platelet Count 200 10^3/uL (130-400); RBC 5.69 10^6/uL (3.93-5.22); RDW 14.7 % (11.7-14.6); RDW-SD 55.3 fL; WBC 11.65 10^3/uL (4.4-10.8)
[2022-02-26 17:50] LABS: Absolute Eosinophil Count 0.03 10^3/uL (0.0-0.7); Absolute Neutrophil Count 10.66 10^3/uL (1.2-6.7)
[2022-02-26 17:52] LABS: ALT 30 U/L (14-59); AST 17 U/L (15-37); Albumin 3.6 g/dL (3.4-5.0); Alkaline Phosphatase 103 U/L (46-116); Anion Gap 9.9 mmol/L (3-11); BUN 24 mg/dL (7-18); Bilirubin, Total 0.4 mg/dL (0.2-1.0); CO2 24.1 mmol/L (21.0-32.0); CREATININE 1.3 mg/dL (0.55-1.02); Calcium 8.9 mg/dL (8.5-10.1); Chloride 102 mmol/L (98-107); Estimated GFR 40.98 (mL/min/1.73m2); Glucose 204 mg/dL (74-106); Lipase 76 U/L (73-393); Potassium 4.3 mmol/L (3.5-5.1); Sodium 136 mmol/L (136-145); Total Protein 8.7 g/dL (6.4-8.2)
--- NOTE | 2022-02-26 17:57 | ED.GENADUL_ITS ---
Discharge Plan Disposition Patient Disposition: SNF (LEVEL 1) [facility] Condition: Improving Discharge Details Clinical Impression: Abdominal pain, Nausea vomiting and diarrhea Primary Care Provider: Ghada Henderson ED Provider: Rolando Rowe [place] Meds and New Rx's Prescriptions: New cephalexin 500 mg capsule 500 mg PO BID Qty: 14 0RF Continued acetaminophen [Tylenol] 325 mg capsule 650 mg PO Q4H PRN0RF lorazepam [Ativan] 0.5 mg tablet 0.5 mg PO BID PRN (Reason: anxiety) Qty: 60 5RF Tesha-Santaquin Original 325-1,916-1,000 mg tablet, effervescent 2 tab PO BID PRN (Reason: indigestion) Qty: 60 3RF bismuth subsalicylate 262 mg/15 mL suspension 524 mg PO QID PRN (Reason: diarrhea) Qty: 30 3RF clonazepam 1 mg tablet 1 mg PO TID Qty: 270 5RF clopidogrel [Plavix] 75 mg tablet 75 mg PO DAILY Qty: 90 12RF docusate sodium 100 mg capsule 300 mg PO DAILY PRN (Reason: constipation) Qty: 30 3RF famotidine 20 mg tablet 20 mg PO BID Qty: 180 4RF guaifenesin [Mucinex] 600 mg tablet extended release 12hr 600 mg PO Q12H PRN (Reason: congestion) Qty: 60 4RF loperamide 2 mg tablet 2 mg PO QID PRN (Reason: loose stool) Qty: 10 0RF Rx Instructions: Take one tablet by mouth after each loose stool not to exceed 8mg/24 hrs melatonin 10 mg tablet 10 mg PO HS PRN (Reason: sleep) Qty: 90 5RF ondansetron 4 mg tablet,disintegrating 4 mg PO Q4H PRN (Reason: nausea and vomiting) Qty: 30 1RF sertraline 25 mg tablet 25 mg PO DAILY MDD 175 Qty: 90 12RF Anoro Ellipta 62.5-25 mcg/actuation blister with device 1 inh inhalation Q24H Qty: 90 4RF Rx Instructions: dispense Anoro sertraline 100 mg tablet 100 mg PO DAILY Qty: 90 3RF Rx Instructions: total 175mg daily sertraline 50 mg tablet 50 mg PO DAILY Qty: 90 3RF levothyroxine 112 mcg tablet 112 mcg PO DAILY Qty: 90 3RF Jardiance 25 mg tablet 25 mg PO QAM Qty: 90 5RF glipizide 10 mg tablet extended release 24hr 10 mg PO DAILY Qty: 90 4RF quetiapine [Seroquel XR] 200 mg tablet extended release 24 hr 200 mg PO HS Qty: 90 12RF Discharge Instructions Instructions: Urinary Tract Infection in Women (ED), Acute Nausea and Vomiting (ED), Acute Diarrhea (ED), Abdominal Pain (ED) Additional Instructions: Keflex as directed. Zofran and Percocet as directed, remember Percocet may cause drowsiness and/or constipation. Plenty of fluids to avoid dehydration. Please watch for new or worsening symptoms and return to the ER for any concerns. Lastly, I would like you to reach out to your primary care provider tomorrow to discuss your ER visit, ongoing symptoms, need for outpatient reevaluation. Medical Decision Making 66-year-old female, palliative care patient, DNR, DNI, presents for acute on chronic abdominal pain, nausea, vomiting, diarrhea started around noon today. Clinically she appears chronically ill but nontoxic. Abdomen with diffuse mild discomfort but certainly nonsurgical. She has chronic hypoxemia, chooses not to be compliant with any oxygen requirements. She states that she was recently diagnosed with some sort of GI cancer but is chosen not to pursue therapy or treatment. She would like to overall feel better but does not want excessive work-up. Plan is to obtain IV access, give IV Zofran, fluids, morphine and obtain routine screening laboratories Laboratory values reveal that she does appear slightly dry, white blood cell count of 11.5 hemoglobin 18.3 hematocrit 56.8 platelet count 200, electrolytes unremarkable but her creatinine is 1.3, GFR of 40.98. Glucose 204 LFTs are unremarkable, lipase 76. Overall patient reports that she is feeling improvement but would like another dose of IV pain medication and IV fluid. She is tolerating p.o. intake without difficulty. Clinically she appears well, nontoxic. Urinalysis reveals positive nitrates, 5-10 white cells, many bacteria. Given this, will treat for UTI. Her C. difficile test is negative. COVID and flu also negative. Patient was able to stand and pivot to get to the commode, reports this is her baseline. We discussed her overall presentation, work-up, and response to medications. She is tolerating p.o. intake and overall feels better, would prefer to be discharged home. I did reach out to the provider on-call, opal it is Dr. Snow. I made her aware of the patient's ER visit and need for close outpatient follow-up. Her palliative care provider appears to be Dr. Henderson, and given the patient's diagnosis of GI cancer, ongoing acute on chronic abdominal pain, nausea, vomiting, diarrhea I do believe it would be in the patient's best interest to be seen by her in the very near future. Prior to discharge we rechecked her vital signs 1 last time, O2 sat went as high as 89% on room air when she was taking deep breaths. Standard discharge and return precautions were provided. Patient understands, is agreeable to this plan, and has no additional questions or concerns upon discharge. This documentation was generated using [employer] system, please disregard any oddities of phrase or misspellings. Plan is to provide her a first dose of Keflex now, a prescription for Keflex, and a take-home pack for Zofran and hydrocodone. Medical Records Medical records reviewed: Yes I reviewed the patient's medical records. Lab Data Lab results reviewed: Yes I reviewed the patient's lab results. Labs: 02/26/22 20:12 Urine - Reflex from Ua Urine Culture - Pending Laboratory Tests Range/Units 02/26/22 02/26/22 02/26/22 17:26 17:26 17:28 WBC (4.4-10.8) 10^3/uL 11.65 H RBC (3.93-5.22) 10^6/uL 5.69 H Hgb (11.2-15.7) g/dL 18.3 H Hct (36.0-46.0) % 56.8 H MCV (80-95) fL 100 H MCH (27.0-33.0) pg 32.2 MCHC (32.0-36.0) % 32.2 RDW (11.7-14.6) % 14.7 H Plt Count (130-400) 10^3/uL 200 MPV (8.0-11.0) fL 10.0 Immature Gran % 0.4 Neutrophils % 91.5 Lymphocytes % 4.7 Monocytes % 2.7 Eosinophils % 0.3 Basophils % 0.4 Nucleated RBC % (0.0-0.3) % 0.0 Absolute Neutrophils (1.2-6.7) 10^3/uL 10.66 H Absolute Lymphocytes (1.2-3.4) 10^3/uL 0.55 L Absolute Monocytes (0.1-0.8) 10^3/uL 0.31 Absolute Eosinophils (0.0-0.7) 10^3/uL 0.03 Absolute Basophils (0.0-0.2) 10^3/uL 0.05 Sodium (136-145) mmol/L 136 Potassium (3.5-5.1) mmol/L 4.3 Chloride (98-107) mmol/L 102 Carbon Dioxide (21.0-32.0) mmol/L 24.1 Anion Gap (3-11) mmol/L 9.9 BUN (7-18) mg/dL 24 H Creatinine (0.55-1.02) mg/dL 1.3 H Estimated GFR/1.73 m2 (mL/min/1.73m2) 40.98 Glucose (74-106) mg/dL 204 H Calcium (8.5-10.1) mg/dL 8.9 Total Bilirubin (0.2-1.0) mg/dL 0.4 AST (15-37) U/L 17 ALT (14-59) U/L 30 Alkaline Phosphatase (46-116) U/L 103 Total Protein (6.4-8.2) g/dL 8.7 H Albumin (3.4-5.0) g/dL 3.6 Lipase (73-393) U/L 76 Urine Color (Yellow) Urine Clarity (Clear) Urine pH (5-8) Ur Specific [place] (1.005-1.025) Urine Protein (Negative) mg/dL Urine Ketones (Negative) mg/dL Urine Blood (Negative) Urine Nitrite (Negative) Urine Bilirubin (Negative) Urine Urobilinogen (Up TO 0.2) EU/dL Ur Leukocyte Esterase (Negative) Urine RBC (0-2) HPF Urine WBC (0-5) HPF Ur Epithelial Cells (Negative) HPF Urine Crystals (Negative) HPF Urine Bacteria (Negative) HPF Urine Casts (Negative) LPF Urine Mucus (Negative) Urine Other (Negative) Ur Culture Indicated? Urine Glucose (Negative) mg/dL Stl C.difficile Tox PCR (Negative) COVID-19 Source Nasopharynx SARS-CoV-2 (PCR) (Negative) Negative Influenza Type A (PCR) (Negative) Negative Influenza Type B (PCR) (Negative) Negative RSV (PCR) (Negative) Negative Range/Units 02/26/22 02/26/22 18:48 20:12 WBC (4.4-10.8) 10^3/uL RBC (3.93-5.22) 10^6/uL Hgb (11.2-15.7) g/dL Hct (36.0-46.0) % MCV (80-95) fL MCH (27.0-33.0) pg MCHC (32.0-36.0) % RDW (11.7-14.6) % Plt Count (130-400) 10^3/uL MPV (8.0-11.0) fL Immature Gran % Neutrophils % Lymphocytes % Monocytes % Eosinophils % Basophils % Nucleated RBC % (0.0-0.3) % Absolute Neutrophils (1.2-6.7) 10^3/uL Absolute Lymphocytes (1.2-3.4) 10^3/uL Absolute Monocytes (0.1-0.8) 10^3/uL Absolute Eosinophils (0.0-0.7) 10^3/uL Absolute Basophils (0.0-0.2) 10^3/uL Sodium (136-145) mmol/L Potassium (3.5-5.1) mmol/L Chloride (98-107) mmol/L Carbon Dioxide (21.0-32.0) mmol/L Anion Gap (3-11) mmol/L BUN (7-18) mg/dL Creatinine (0.55-1.02) mg/dL Estimated GFR/1.73 m2 (mL/min/1.73m2) Glucose (74-106) mg/dL Calcium (8.5-10.1) mg/dL Total Bilirubin (0.2-1.0) mg/dL AST (15-37) U/L ALT (14-59) U/L Alkaline Phosphatase (46-116) U/L Total Protein (6.4-8.2) g/dL Albumin (3.4-5.0) g/dL Lipase (73-393) U/L Urine Color (Yellow) Yellow Urine Clarity (Clear) Sl Cloudy Urine pH (5-8) 5.5 Ur Specific [place] (1.005-1.025) 1.025 Urine Protein (Negative) mg/dL 30 H Urine Ketones (Negative) mg/dL Negative Urine Blood (Negative) Negative Urine Nitrite (Negative) Positive H Urine Bilirubin (Negative) Negative Urine Urobilinogen (Up TO 0.2) EU/dL 0.2 Ur Leukocyte Esterase (Negative) Negative Urine RBC (0-2) HPF Negative Urine WBC (0-5) HPF 5-10 Ur Epithelial Cells (Negative) HPF Negative Urine Crystals (Negative) HPF Negative Urine Bacteria (Negative) HPF Many Urine Casts (Negative) LPF Negative Urine Mucus (Negative) Negative Urine Other (Negative) Negative Ur Culture Indicated? Yes Urine Glucose (Negative) mg/dL >=1000 H Stl C.difficile Tox PCR (Negative) Negative COVID-19 Source SARS-CoV-2 (PCR) (Negative) Influenza Type A (PCR) (Negative) Influenza Type B (PCR) (Negative) RSV (PCR) (Negative) HPI General Mode of arrival: EMS . Date/Time Provider Initiated Documentation: 02/26/22 17:06 . Limitations to Documentation: no limitations . Information obtained by: patient and EMS . HPI Narrative: This is a 66-year-old female palliative care patient, DNR, DNI, presenting to the ER via the [facility] via EMS, past medical history that includes ambulatory dysfunction, chronic low back pain, COPD, reports supposed to use O2 but chooses not to, as a result of chronic hypoxia, anxiety, PVD, pulmonary hypertension, current smoker, anxiety, depression, hypertension, diabetes, hypothyroidism, bipolar disorder, with a chief complaint of nausea, vomiting, diarrhea that began around noon today, associated with generalized weakness. Patient reports that she was feeling well prior to that. Denies any bad food exposure or recent sick contacts. Patient states that she would prefer to go home if at all possible and avoid any hospitalizations. She tells me that most recently she was diagnosed with some sort of GI cancer, has chosen not to pursue therapy or potential treatment, and does not want any excessive treatment this evening. Her O2 sat was noted to be 78% via EMS however here in the ER I have removed her 4 L nasal cannula, had her take good deep breaths, and her O2 sat hovered between 87 and 92% and when reviewing previous records this would appear near her baseline. She denies any fever, chest pain, worsening cough or shortness of breath this evening. Related Data Home Medications Medication Instructions Recorded Confirmed acetaminophen 325 mg capsule 650 mg PO Q4H PRN cap 10/28/19 02/26/22 (Tylenol) lorazepam 0.5 mg tablet (Ativan) 0.5 mg PO BID PRN #60 tab 12/21/21 02/26/22 aspirin-sod bicarb-citric acid 325 2 tab PO BID PRN #60 tab 01/15/22 02/26/22 mg-1,916 mg-1,000 mg efferves tab (Tesha-Santaquin Original) bismuth subsalicylate 262 mg/15 mL 524 mg (30 mL) PO QID PRN #30 ml 01/15/22 02/26/22 oral suspension clonazepam 1 mg tablet 1 mg PO TID #270 tab 01/15/22 02/26/22 clopidogrel 75 mg tablet (Plavix) 75 mg PO DAILY #90 tab-cap 01/15/22 02/26/22 docusate sodium 100 mg capsule 300 mg PO DAILY PRN #30 cap 01/15/22 02/26/22 famotidine 20 mg tablet 20 mg PO BID #180 tab 01/15/22 02/26/22 guaifenesin 600 mg tablet, 600 mg PO Q12H PRN #60 tab 01/15/22 02/26/22 extended release 12 hr (Mucinex) loperamide 2 mg tablet 2 mg PO QID PRN #10 tab 01/15/22 02/26/22 melatonin 10 mg tablet 10 mg PO HS PRN #90 tab 01/15/22 02/26/22 ondansetron 4 mg disintegrating 4 mg PO Q4H PRN #30 tab 01/15/22 02/26/22 tablet sertraline 25 mg tablet 25 mg PO DAILY #90 tab MDD 175 01/15/22 02/26/22 umeclidinium 62.5 mcg-vilanterol 1 inh INHALATION Q24H #90 ea 01/18/22 02/26/22 25 mcg/actuation powdr for inhalation (Anoro Ellipta) empagliflozin 25 mg tablet 25 mg PO QAM #90 tab 02/19/22 02/26/22 (Jardiance) glipizide 10 mg tablet, extended 10 mg PO DAILY #90 tab 02/19/22 02/26/22 release 24 hr levothyroxine 112 mcg tablet 112 mcg PO DAILY #90 tab 02/19/22 02/26/22 quetiapine 200 mg tablet,extended 200 mg PO HS #90 tab 02/19/22 02/26/22 release 24 hr (Seroquel XR) sertraline 100 mg tablet 100 mg PO DAILY #90 tab 02/19/22 02/26/22 sertraline 50 mg tablet 50 mg PO DAILY #90 tab 02/19/22 02/26/22 cephalexin 500 mg capsule 500 mg PO BID #14 cap 02/26/22 Previous Rx's Medication Instructions Recorded lorazepam 0.5 mg tablet (Ativan) 0.5 mg PO BID PRN #60 tab 12/21/21 aspirin-sod bicarb-citric acid 325 2 tab PO BID PRN #60 tab 01/15/22 mg-1,916 mg-1,000 mg efferves tab (Tesha-Santaquin Original) bismuth subsalicylate 262 mg/15 mL 524 mg (30 mL) PO QID PRN #30 ml 01/15/22 oral suspension clonazepam 1 mg tablet 1 mg PO TID #270 tab 01/15/22 clopidogrel 75 mg tablet (Plavix) 75 mg PO DAILY #90 tab-cap 01/15/22 docusate sodium 100 mg capsule 300 mg PO DAILY PRN #30 cap 01/15/22 famotidine 20 mg tablet 20 mg PO BID #180 tab 01/15/22 guaifenesin 600 mg tablet, 600 mg PO Q12H PRN #60 tab 01/15/22 extended release 12 hr (Mucinex) loperamide 2 mg tablet 2 mg PO QID PRN #10 tab 01/15/22 melatonin 10 mg tablet 10 mg PO HS PRN #90 tab 01/15/22 ondansetron 4 mg disintegrating 4 mg PO Q4H PRN #30 tab 01/15/22 tablet sertraline 25 mg tablet 25 mg PO DAILY #90 tab MDD 175 01/15/22 umeclidinium 62.5 mcg-vilanterol 1 inh INHALATION Q24H #90 ea 01/18/22 25 mcg/actuation powdr for inhalation (Anoro Ellipta) empagliflozin 25 mg tablet 25 mg PO QAM #90 tab 02/19/22 (Jardiance) glipizide 10 mg tablet, extended 10 mg PO DAILY #90 tab 02/19/22 release 24 hr levothyroxine 112 mcg tablet 112 mcg PO DAILY #90 tab 02/19/22 quetiapine 200 mg tablet,extended 200 mg PO HS #90 tab 02/19/22 release 24 hr (Seroquel XR) sertraline 100 mg tablet 100 mg PO DAILY #90 tab 02/19/22 sertraline 50 mg tablet 50 mg PO DAILY #90 tab 02/19/22 cephalexin 500 mg capsule 500 mg PO BID #14 cap 02/26/22 Allergies Allergy/AdvReac Type Severity Reaction Status Date / Time latex Allergy Other (See Unverified 02/26/22 19:17 Comment) alendronate sodium AdvReac Intermediate Nausea Verified 02/26/22 19:17 [From Fosamax] General Stated Complaint: Nausea/Vomit/Diar LELA: 3 Review of Systems Constitutional Constitutional: Denies fatigue, Denies fever(s), Denies headache(s) and Reports weakness (Generalized) Eyes Eyes: Denies change in vision ENT Ears, Nose, Mouth, and Throat: Denies headache(s) and Denies neck pain Cardiovascular Cardiovascular: Denies chest pain and Reports dyspnea (Chronic, baseline) Respiratory Respiratory: Reports cough (Chronic, baseline) and Reports dyspnea (Chronic, baseline) Gastrointestinal Gastrointestinal: Denies abdominal pain, Denies melena, Denies hematochezia, Reports diarrhea, Reports nausea and Reports vomiting Genitourinary Genitourinary: Denies dysuria Musculoskeletal Musculoskeletal: Reports back pain (Chronic) and Denies neck pain Integumentary/Breasts Skin/Breast: Denies rash Neurologic Neurologic: Denies headache(s) and Reports weakness (Generalized) Endocrine Endocrine: Denies fatigue Hematologic/Lymphatic Hematologic/Lymphatic: Reports easy bleeding and Reports easy bruising PFSH All Active Problems Abdominal pain (Acute) Nausea vomiting and diarrhea (Acute) Pneumonia (Acute) Hip pain, bilateral (Acute) Bipolar affect, depressed (Acute) Skin tag (Acute) Phlegm in throat (Acute) Positive colorectal cancer screening using Cologuard test (Acute) I scheduled 4 appts for gen surgery. She has cancelled or refuses RCT/ etc. or goes to the appt and then gets upset Dysphagia (Acute) Nasal mass (Acute) Dr. 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 Hyperlipidemia (Chronic) Polycythemia (Chronic) Hypothyroid (Chronic) Diabetes (Chronic) Type 2, controlled HTN (hypertension) (Chronic) Depression (Chronic) Mixed conductive and sensorineural hearing loss (Acute 01/29/14) Mixed hearing loss, bilateral (Acute 01/19/16) Sciatica (Acute 07/01/14) Sensorineural hearing loss (Acute 01/29/14) Total perforation of right tympanic membrane (Acute 01/19/16) Medical History Adrenal mass Ambulatory dysfunction Bulimia Chronic hip pain, bilateral Chronic low back pain Chronic obstructive lung disease Chronic post-traumatic stress disorder COPD (chronic obstructive pulmonary disease) Coronary arteriosclerosis Dehydration Diffuse abdominal pain Hearing loss History of smoking Hypokalemia Hypomagnesemia Hypoxia Interstitial lung disease Lumbar spine scoliosis Narcotic abuse episodic opioid dependence Osteoporosis Panic disorder Peripheral vascular disease Pneumonia Post traumatic stress disorder Pulmonary hypertension Tachycardia Tobacco abuse Weight loss Surgical History History of tympanoplasty of right ear Failed x2 S/P cholecystectomy Spinal Surgery Laminectomies at T12/L1 due to an angioma Stent placement Bilateral iliac and femoral Family History Mother Heart disease Paternal Grandfather Kidney disease Social History Smoking/Tobacco Use Status: Current every day Smoking risk assessment performed?: Yes Alcohol Intake: never Drug use: Current Sobriety Substance use type: former substance user Housing: long-term Additional Social history: Lives at [facility]. Exam Const General: cooperative, comfortable, no acute distress and ill appearing chronically Orientation: alert, awake and oriented x3 HENMT Head: normal to inspection, normocephalic and atraumatic Face and sinus: normal facial exam Mouth: moist mucous membranes abnormal (Slightly dry) Eyes General: appearance normal, both eyes and all related structures Conjunctivae: conjunctivae normal Neck Neck: normal visual inspection, full ROM, no meningeal signs, trachea midline and supple Resp Effort & Inspection: normal respiratory effort and able to speak in complete sentences Auscultation: diminished lung sounds bilaterally in the lower lung jean Cardio Rate: regular rate Rhythm: regular rhythm GI Inspection: normal to inspection and obesity Palpation: soft, not firm, no guarding, no pulsatile masses and tender (Diffuse, mild) Negative for with no rebound tenderness Auscultation: normal bowel sounds Back/Spine/Pelvis Back: back tenderness (Diffuse, mild lumbar) Skin General skin exam: no rashes or lesions noted Neuro General: patient alert, patient awake, moves all extremities and no focal motor deficits Cognition: normal cognition Speech: speech normal Motor: muscle tone normal throughout Sensory Exam: no sensory deficits noted Extrem General: normal to inspection, full ROM and capillary refill normal Psych Appearance: grossly normal Mental Status: mental status grossly normal Course Vital Signs Vital signs: Vital Signs Temperature 36.9 C 02/26/22 16:39 Pulse 92 H 02/26/22 16:39 Respiratory Rate 32 H 02/26/22 16:39 Blood Pressure 151/89 H 02/26/22 16:39 Pulse Oximetry 90 L 02/26/22 16:39 Temperature 36.9 C 02/26/22 16:39 Temperature Source Temporal Artery Scan 02/26/22 16:39 Pulse 92 H 02/26/22 16:39 Respiratory Rate 32 H 02/26/22 16:39 Respiratory Effort 02/26/22 16:39 Blood Pressure 151/89 H 02/26/22 16:39 Blood Pressure Position Supine 02/26/22 16:39 Pulse Oximetry 90 L 02/26/22 16:39 Oxygen Delivery Method Nasal Cannula 02/26/22 16:39 Oxygen Flow Rate 4 02/26/22 16:39 Pain Level 5 02/26/22 17:39 Lab/Test Results Lab/Test Results: Laboratory Tests Range/Units 02/26/22 17:26 WBC (4.4-10.8) 10^3/uL 11.65 H RBC (3.93-5.22) 10^6/uL 5.69 H Hgb (11.2-15.7) g/dL 18.3 H Hct (36.0-46.0) % 56.8 H MCV (80-95) fL 100 H MCH (27.0-33.0) pg 32.2 MCHC (32.0-36.0) % 32.2 RDW (11.7-14.6) % 14.7 H Plt Count (130-400) 10^3/uL 200 MPV (8.0-11.0) fL 10.0 Immature Gran % 0.4 Neutrophils % 91.5 Lymphocytes % 4.7 Monocytes % 2.7 Eosinophils % 0.3 Basophils % 0.4 Nucleated RBC % (0.0-0.3) % 0.0 Absolute Neutrophils (1.2-6.7) 10^3/uL 10.66 H Absolute Lymphocytes (1.2-3.4) 10^3/uL 0.55 L Absolute Monocytes (0.1-0.8) 10^3/uL 0.31 Absolute Eosinophils (0.0-0.7) 10^3/uL 0.03 Absolute Basophils (0.0-0.2) 10^3/uL 0.05
[2022-02-26 18:18] LABS: COVID-19 PCR Negative (Negative); Influenza A PCR Negative (Negative); Influenza B PCR Negative (Negative); RSV PCR Negative (Negative)
[2022-02-26 18:20] LABS: Source Nasopharynx
[2022-02-26 19:46] LABS: C Diff PCR Negative (Negative)
[2022-02-26] MEDS: MORPHine 4 MG/ML SYR IVP (20:00)
[2022-02-26] MEDS: Ondansetron 4 MG/2 ML VIAL IVP (20:00)
[2022-02-26] MEDS: Ondansetron O.D.T. 4 MG TABEF, 3 TABS/BTL PO (20:33)
[2022-02-26 20:40] LABS: Bilirubin Negative (Negative); Blood Negative (Negative); Clarity Sl Cloudy (Clear); Glucose >=1000 mg/dL (Negative); Ketones Negative (Negative); Leukocyte Esterase Negative (Negative); Nitrite Positive (Negative); Specific Gravity 1.025 (1.005-1.025); Urobilinogen 0.2 EU/dL (Up TO 0.2); pH 5.5 (5-8)
[2022-02-26 20:49] LABS: Bacteria Many HPF (Negative); C & S Indicated? Yes; Casts Negative LPF (Negative); Crystals Negative HPF (Negative); Epithelial Cells Negative HPF (Negative); Mucus Negative (Negative); Other Cells Negative (Negative); RBC Negative HPF (0-2)
[2022-02-26] MEDS: Cephalexin 500 MG CAP PO (21:38)
[2022-02-27 23:10] LABS: Campylobacter PCR Negative (Negative); Salmonella PCR Negative (Negative); Shiga Toxin PCR Negative (Negative); Shigella/Enteroinvasive Ecoli Negative (Negative)
== END 2022-02-26 21:47 | disposition skilled nursing facility (03) ==
PROVIDERS: Emergency Provider Physician Assistant; PCP Family Medicine
DX: R11.2 Nausea with vomiting, unspecified (principal); R10.9 Unspecified abdominal pain; N39.0 Urinary tract infection, site not specified; B96.89 Other specified bacterial agents as the cause of diseases classified elsewhere
CPT/HCPCS: 80053; 83690; 87077; 87493; 87505; 87637; 99283; 81003; 81015; 85025; 87086; 87186; J2270; J2405

== ENCOUNTER 2022-03-05 16:21 | Emergency (ER) | payer MEDICARE, MEDICAID, SELFPAY ==
[2022-03-05] VITALS (21 sets, daily range): BP systolic 106–146; BP diastolic 58–99; PULSE 62–88; RESP 18–21; TEMP 37.1; O2SAT 73–92
--- NOTE | 2022-03-05 17:15 | DI.CT_ITS ---
Exam(s) CT ABDOMEN PELVIS WO EXAM: CT ABDOMEN PELVIS WO CLINICAL HISTORY: hx of colon cancer, abd pain, constipation. TECHNIQUE: Imaging Protocol: Axial computed tomography images with coronal and sagittal reformatted images were created and reviewed CONTRAST MATERIAL: Intravenous: none Oral: None COMPARISON: CT CT CHEST PE ABD PELVIS W from 12/11/2021 FINDINGS: VISUALIZED LUNG BASES: Uppermost images of this abdominal study reveal persist infiltrate in the medi al segment of the right middle lobe as well as in the basal segments of the left lower lobe. No pleu ral effusions. Scoliosis noted. ABDOMEN: There is no ascites. LIVER: There are no obvious focal hepatic lesions evident of this noninfused study. GALLBLADDER/BILIARY: Gallbladder surgically absent. CBD is not dilated. PANCREAS: No evidence of pancreatic mass nor dilatation of the pancreatic duct. SPLEEN: Spleen size is normal. Splenic calcified granulomas again noted. ADRENALS: Right adrenal gland unremarkable. There is a solid nodule again noted in the left adrenal gland which measures 1.9 by 1.0 cm, unchanged KIDNEYS:No cysts evident. No solid renal masses. No calculi nor hydronephrosis. . ABDOMINAL AORTA: There are endovascular stents again noted extending across the aortic bifurcation in to the common iliac arteries. Mild aneurysmal dilatation of the distal abdominal aorta is again note d, unchanged. Maximum diameter 2.5 cm. No aneurysmal dilatation of the iliac arteries. LYMPH NODES: There is no retroperitoneal nor paraaortic adenopathy. ABDOMINAL WALL: There are few anterior abdominal wall supraumbilical hernias again noted. These cont ain fat and no bowel loops. There are no anterior abdominal hernia is below the level of umbilicus a nd is no inguinal hernia. GI: There is no evidence of bowel obstruction, free air, nor abscess. Cecum is mobile, in the midline. Some fluid-filled but not significantly dilated jejunal loops are n oted in left side of the abdomen. PELVIS: LYMPH NODES: There is no intrapelvic nor inguinal adenopathy. GI: Appendix not identified. No evidence of acute appendicitis.No evidence of sigmoid diverticulitis . URINARY BLADDER: No calculi nor obvious masses evident REPRODUCTIVE: Uterus is surgically absent. There are no abnormal adnexal masses nor free fluid in th e pelvis OSSEOUS: No significant osseous lesions. Scoliosis noted. T9 compression fracture again noted. Compression fractures predominantly on the le ft side of this vertebral body. No new fractures evident the field of view of this study. IMPRESSION: 1. There are fluid-filled but not significantly dilated small bowel loops in left side of the abdomen , mostly jejunal. No obvious bowel obstruction. 2. Fat containing anterior abdominal wall hernias again noted. No bowel loops therein. No bowel obs truction. No free air. 3. Gallbladder surgically absent. The biliary tree is not dilated. There are kissing endovascular stents across the aortic bifurcation again noted. RADIATION DOSE DELIVERED: 1,022.59mGy.cm Total DLP DATA REPOSITORY: All CT scans at this facility are submitted to the National Radiology Data Registry (NRDR) Dose Index Registry (DIR) with the [employer] (ACR). RADIATION OPTIMIZATION: All CT scans at this facility use at least one of these dose optimization te chniques: automated exposure control; mA and/or kV adjustment per patient size (includes targeted exa ms where dose is matched to clinical indication); or iterative reconstruction.
--- NOTE | 2022-03-05 17:29 | ED.GENADUL_ITS ---
Discharge Plan Disposition Patient Disposition: HOME Condition: Improving Discharge Details Chief Complaint: Abd Prob Clinical Impression: Enteritis, Ileus Primary Care Provider: Ghada Henderson ED Provider: Kai Salomon Home Meds and New Rx's Prescriptions: No Action acetaminophen [Tylenol] 325 mg capsule 650 mg PO Q4H PRN lorazepam [Ativan] 0.5 mg tablet 0.5 mg PO BID PRN (Reason: anxiety) Qty: 60 5RF Tesha-Anaconda Original 325-1,916-1,000 mg tablet, effervescent 2 tab PO BID PRN (Reason: indigestion) Qty: 60 3RF bismuth subsalicylate 262 mg/15 mL suspension 524 mg PO QID PRN (Reason: diarrhea) Qty: 30 3RF clonazepam 1 mg tablet 1 mg PO TID Qty: 270 5RF clopidogrel [Plavix] 75 mg tablet 75 mg PO DAILY Qty: 90 12RF docusate sodium 100 mg capsule 300 mg PO DAILY PRN (Reason: constipation) Qty: 30 3RF famotidine 20 mg tablet 20 mg PO BID Qty: 180 4RF guaifenesin [Mucinex] 600 mg tablet extended release 12hr 600 mg PO Q12H PRN (Reason: congestion) Qty: 60 4RF loperamide 2 mg tablet 2 mg PO QID PRN (Reason: loose stool) Qty: 10 0RF Rx Instructions: Take one tablet by mouth after each loose stool not to exceed 8mg/24 hrs melatonin 10 mg tablet 10 mg PO HS PRN (Reason: sleep) Qty: 90 5RF sertraline 25 mg tablet 25 mg PO DAILY MDD 175 Qty: 90 12RF Anoro Ellipta 62.5-25 mcg/actuation blister with device 1 inh inhalation Q24H Qty: 90 4RF Rx Instructions: dispense Anoro sertraline 100 mg tablet 100 mg PO DAILY Qty: 90 3RF Rx Instructions: total 175mg daily sertraline 50 mg tablet 50 mg PO DAILY Qty: 90 3RF levothyroxine 112 mcg tablet 112 mcg PO DAILY Qty: 90 3RF Jardiance 25 mg tablet 25 mg PO QAM Qty: 90 5RF glipizide 10 mg tablet extended release 24hr 10 mg PO DAILY Qty: 90 4RF quetiapine [Seroquel XR] 200 mg tablet extended release 24 hr 200 mg PO HS Qty: 90 12RF ondansetron 4 mg tablet,disintegrating 4 mg PO Q4H PRN (Reason: nausea and vomiting) Qty: 30 1RF cephalexin 500 mg capsule 500 mg PO BID Qty: 14 0RF Discharge Instructions Instructions: Ileus (ED) Additional Instructions: Please ensure that you are eating and drinking appropriately, please return to emergency department if you have any worsening abdominal pain distention vomiting Medical Decision Making 66-year-old female history of diabetes COPD, GI malignancy, no current radiation or chemotherapy, presents with nausea abdominal distention constipation abdominal pain over the past several days, tympanic distended abdomen nonperitoneal, appears slightly dry on examination, oxygen saturation ranging from 78% to 87% on room air, speaking full sentences no cyanosis no respiratory distress, patient refusing supplemental oxygen use, concern for small bowel obstruction versus constipation versus gas versus less likely perforation versus unlikely colitis or enteritis. Screening labs imaging close reassessment 19: 41 patient resting comfortably no vomiting department abdomen soft, passing flatus, evidence less likely enteritis with ileus, will be discharged home, given return precautions HPI General Date/Time Provider Initiated Documentation: 03/05/22 16:28 . HPI Narrative: 66-year-old female history of colon cancer no chemotherapy or radiation, history of prior bowel obstructions, presents with abdominal discomfort distention nausea and constipation for the past 5 days, endorses passing flatus without issue no vomiting. Chronic COPD is not on home oxygen however endorses that she run low and does not need/want supplemental oxygen. Denies outpatient pain medi cation use at this time. Related Data Home Medications Medication Instructions Recorded Confirmed acetaminophen 325 mg capsule 650 mg PO Q4H PRN 10/28/19 03/05/22 (Tylenol) lorazepam 0.5 mg tablet (Ativan) 0.5 mg PO BID PRN anxiety #60 tabs 12/21/21 03/05/22 aspirin-sod bicarb-citric acid 325 2 tab PO BID PRN indigestion #60 01/15/22 03/05/22 mg-1,916 mg-1,000 mg efferves tab tabs (Tesha-Anaconda Original) bismuth subsalicylate 262 mg/15 mL 524 mg (30 mL) PO QID PRN diarrhea 01/15/22 03/05/22 oral suspension #30 mL clonazepam 1 mg tablet 1 mg PO TID #270 tabs 01/15/22 03/05/22 clopidogrel 75 mg tablet (Plavix) 75 mg PO DAILY #90 tab-caps 01/15/22 03/05/22 docusate sodium 100 mg capsule 300 mg PO DAILY PRN constipation 01/15/22 03/05/22 #30 caps famotidine 20 mg tablet 20 mg PO BID #180 tabs 01/15/22 03/05/22 guaifenesin 600 mg tablet, 600 mg PO Q12H PRN congestion #60 01/15/22 03/05/22 extended release 12 hr (Mucinex) tabs loperamide 2 mg tablet 2 mg PO QID PRN loose stool #10 01/15/22 03/05/22 tabs melatonin 10 mg tablet 10 mg PO HS PRN sleep #90 tabs 01/15/22 03/05/22 sertraline 25 mg tablet 25 mg PO DAILY #90 tabs 01/15/22 03/05/22 umeclidinium 62.5 mcg-vilanterol 1 inh inhalation Q24H #90 ea 01/18/22 03/05/22 25 mcg/actuation powdr for inhalation (Anoro Ellipta) empagliflozin 25 mg tablet 25 mg PO QAM #90 tabs 02/19/22 03/05/22 (Jardiance) glipizide 10 mg tablet, extended 10 mg PO DAILY #90 tabs 02/19/22 03/05/22 release 24 hr levothyroxine 112 mcg tablet 112 mcg PO DAILY #90 tabs 02/19/22 03/05/22 quetiapine 200 mg tablet,extended 200 mg PO HS #90 tabs 02/19/22 03/05/22 release 24 hr (Seroquel XR) sertraline 100 mg tablet 100 mg PO DAILY #90 tabs 02/19/22 03/05/22 sertraline 50 mg tablet 50 mg PO DAILY #90 tabs 02/19/22 03/05/22 cephalexin 500 mg capsule 500 mg PO BID #14 caps 02/26/22 03/05/22 ondansetron 4 mg disintegrating 4 mg PO Q4H PRN nausea and 03/02/22 03/05/22 tablet vomiting #30 tabs Previous Rx's Medication Instructions Recorded lorazepam 0.5 mg tablet (Ativan) 0.5 mg PO BID PRN anxiety #60 tabs 12/21/21 aspirin-sod bicarb-citric acid 325 2 tab PO BID PRN indigestion #60 01/15/22 mg-1,916 mg-1,000 mg efferves tab tabs (Tesha-Anaconda Original) bismuth subsalicylate 262 mg/15 mL 524 mg (30 mL) PO QID PRN diarrhea 01/15/22 oral suspension #30 mL clonazepam 1 mg tablet 1 mg PO TID #270 tabs 01/15/22 clopidogrel 75 mg tablet (Plavix) 75 mg PO DAILY #90 tab-caps 01/15/22 docusate sodium 100 mg capsule 300 mg PO DAILY PRN constipation 01/15/22 #30 caps famotidine 20 mg tablet 20 mg PO BID #180 tabs 01/15/22 guaifenesin 600 mg tablet, 600 mg PO Q12H PRN congestion #60 01/15/22 extended release 12 hr (Mucinex) tabs loperamide 2 mg tablet 2 mg PO QID PRN loose stool #10 01/15/22 tabs melatonin 10 mg tablet 10 mg PO HS PRN sleep #90 tabs 01/15/22 sertraline 25 mg tablet 25 mg PO DAILY #90 tabs 01/15/22 umeclidinium 62.5 mcg-vilanterol 1 inh inhalation Q24H #90 ea 01/18/22 25 mcg/actuation powdr for inhalation (Anoro Ellipta) empagliflozin 25 mg tablet 25 mg PO QAM #90 tabs 02/19/22 (Jardiance) glipizide 10 mg tablet, extended 10 mg PO DAILY #90 tabs 02/19/22 release 24 hr levothyroxine 112 mcg tablet 112 mcg PO DAILY #90 tabs 02/19/22 quetiapine 200 mg tablet,extended 200 mg PO HS #90 tabs 02/19/22 release 24 hr (Seroquel XR) sertraline 100 mg tablet 100 mg PO DAILY #90 tabs 02/19/22 sertraline 50 mg tablet 50 mg PO DAILY #90 tabs 02/19/22 cephalexin 500 mg capsule 500 mg PO BID #14 caps 02/26/22 ondansetron 4 mg disintegrating 4 mg PO Q4H PRN nausea and 03/02/22 tablet vomiting #30 tabs Allergies Allergy/AdvReac Type Severity Reaction Status Date / Time latex Allergy Other (See Unverified 02/26/22 19:17 Comment) alendronate sodium AdvReac Intermediate Nausea Verified 02/26/22 19:17 [From Fosamax] General Stated Complaint: Abd Prob LELA: 3 Review of Systems Narrative: Review of Systems Constitutional: negative Eyes: negative ENT: negative Cardiovascular: negative Respiratory: negative Gastrointestinal: Abdominal pain, nausea, distention, constipation : negative Musculoskeletal: negative Skin: negative Neurologic: negative Psych: negative PFSH All Active Problems (Updated 03/05/22 @ 19:43 by Kai Salomon MD) Abdominal pain (Acute) Nausea vomiting and diarrhea (Acute) Enteritis (Acute) Ileus (Acute) Pneumonia (Acute) Hip pain, bilateral (Acute) Bipolar affect, depressed (Acute) Skin tag (Acute) Phlegm in throat (Acute) Positive colorectal cancer screening using Cologuard test (Acute) I scheduled 4 appts for gen surgery. She has cancelled or refuses RCT/ etc. or goes to the appt and then gets upset Dysphagia (Acute) Nasal mass (Acute) Dr. 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 Hyperlipidemia (Chronic) Polycythemia (Chronic) Hypothyroid (Chronic) Diabetes (Chronic) Type 2, controlled HTN (hypertension) (Chronic) Depression (Chronic) Mixed conductive and sensorineural hearing loss (Acute 01/29/14) Mixed hearing loss, bilateral (Acute 01/19/16) Sciatica (Acute 07/01/14) Sensorineural hearing loss (Acute 01/29/14) Total perforation of right tympanic membrane (Acute 01/19/16) Medical History Adrenal mass Ambulatory dysfunction Bulimia Chronic hip pain, bilateral Chronic low back pain Chronic obstructive lung disease Chronic post-traumatic stress disorder COPD (chronic obstructive pulmonary disease) Coronary arteriosclerosis Dehydration Diffuse abdominal pain Hearing loss History of smoking Hypokalemia Hypomagnesemia Hypoxia Interstitial lung disease Lumbar spine scoliosis Narcotic abuse episodic opioid dependence Osteoporosis Panic disorder Peripheral vascular disease Pneumonia Post traumatic stress disorder Pulmonary hypertension Tachycardia Tobacco abuse Weight loss Surgical History History of tympanoplasty of right ear Failed x2 S/P cholecystectomy Spinal Surgery Laminectomies at T12/L1 due to an angioma Stent placement Bilateral iliac and femoral Family History Mother Heart disease Paternal Grandfather Kidney disease Social History Smoking/Tobacco Use Status: Current every day Smoking risk assessment performed?: Yes Alcohol Intake: never Drug use: Current Sobriety Substance use type: former substance user Housing: care home Do you feel safe at home: Yes Do you feel safe in your relationship?: Yes Additional Social history: Lives at [facility]. Exam Narrative Exam Narrative: Physical Examination General: alert, awake, cooperative, resting comfortably, no acute distress HEENT: Slight drying of oral mucosa; normocephalic, atraumatic; PERRL, EOM intact, conjunctiva normal; no nasal discharge Neck: supple, trachea midline; full ROM Chest: normal to inspection Respiratory: normal respiratory effort, speaking in full sentences, clear to auscultation, no wheezing, rales or rhonchi Cardiac: regular rate, regular rhythm, S1S2 intact, no murmurs rubs or gallops GI: Distended slightly tympanic abdomen, nontender nonperitoneal Skin: no lesions, rashes or trauma appreciated Neuro: AAOx3, normal speech, moving all extremities Extremities: Warm well perfused no edema Psych: Appropriate mood and affect Course Vital Signs Vital signs: Vital Signs Temperature 37.1 C 03/05/22 16:26 Pulse 88 03/05/22 16:26 Respiratory Rate 18 03/05/22 16:26 Blood Pressure 127/58 L 03/05/22 16:26 Pulse Oximetry 78 L 03/05/22 16:26 Temperature 37.1 C 03/05/22 16:26 Temperature Source Tympanic 03/05/22 16:26 Pulse 88 03/05/22 16:26 Respiratory Rate 18 03/05/22 16:26 Respiratory Effort 03/05/22 16:33 Blood Pressure 127/58 L 03/05/22 16:26 Blood Pressure Position Supine 03/05/22 16:26 Pulse Oximetry 78 L 03/05/22 16:26 Oxygen Delivery Method Room Air 03/05/22 16:26 Oxygen Flow Rate 0 03/05/22 16:26 Pain Level 8 03/05/22 16:26
[2022-03-05 17:37] LABS: HGB 17.1 g/dL (11.2-15.7); Immature Grans % 0.3; MCHC 32.9 % (32.0-36.0); MCV 97 fL (80-95); MPV 9.5 fL (8.0-11.0); Platelet Count 221 10^3/uL (130-400); RBC 5.35 10^6/uL (3.93-5.22); RDW-SD 53.7 fL; WBC 7.58 10^3/uL (4.4-10.8)
[2022-03-05 17:49] LABS: ALT 37 U/L (14-59); AST 18 U/L (15-37); Albumin 3.3 g/dL (3.4-5.0); Alkaline Phosphatase 102 U/L (46-116); Anion Gap 8.5 mmol/L (3-11); BUN 10 mg/dL (7-18); Bilirubin, Total 0.3 mg/dL (0.2-1.0); CO2 28.5 mmol/L (21.0-32.0); CREATININE 0.8 mg/dL (0.55-1.02); Calcium 8.9 mg/dL (8.5-10.1); Chloride 106 mmol/L (98-107); Glucose 76 mg/dL (74-106); Potassium 3.1 mmol/L (3.5-5.1); Sodium 143 mmol/L (136-145); Total Protein 8.1 g/dL (6.4-8.2)
[2022-03-05 17:52] LABS: Absolute Eosinophil Count 0.15 10^3/uL (0.0-0.7); Absolute Lymphocyte Count 2.43 10^3/uL (1.2-3.4); Absolute Monocyte Count 0.61 10^3/uL (0.1-0.8); Diff Comment Manual Differential; RBC Morphology Normal
--- NOTE | 2022-03-05 19:01 | DI.VRAD_ITS ---
PROCEDURE INFORMATION: Exam: CT Abdomen And Pelvis Without Contrast Exam date and time: 03/05/2022 6:20 PM Age: 66 years old Clinical indication: Other: HX of colon cancer, abd pain, constipation TECHNIQUE: Imaging protocol: Computed tomography of the abdomen and pelvis without contrast. COMPARISON: CT CHEST PE ABD PELVIS W 12/11/2021 6:08 PM FINDINGS: Lungs: Again noted are regions of subpleural ground-glass opacity within both lung bases suggesting mild interstitial pulmonary fibrosis. There are more focal airspace opacities within both lung bases, which appear overall improved, suggesting multifocal atelectasis. Diaphragm: There is a small sliding hiatal hernia, as on prior study. Liver: The liver parenchyma demonstrates diffusely decreased attenuation, suggesting fatty infiltration. Gallbladder and bile ducts: There has been a cholecystectomy. Pancreas: The pancreas is moderately atrophic but appears otherwise unremarkable without focal lesion or evidence of acute inflammation. Spleen: The spleen demonstrates punctate calcifications, consistent with remote granulomatous organism exposure. Adrenal glands: There is a 1.9 x 1.2 cm left adrenal nodule, stable since 12/11/2021, which demonstrates a density less than 0 Hounsfield units, consistent with a benign adenoma. Kidneys and ureters: No renal or ureteral stones are identified. There is no hydronephrosis or hydroureter. Stomach and bowel: There are a few mildly dilated loops of proximal small bowel with multiple prominent fluid-filled loops of distal small bowel, increased from prior study. There is no transition point. Findings suggest mild fat stranding around some of the jejunal loops, as seen around image 329, series 5. Overall, findings are suggestive of ileus associated with mild enteritis. Colon appears unremarkable with a moderate amount of stool within the proximal colon, increased from prior study. Appendix: No evidence of appendicitis. Intraperitoneal space: Unremarkable. No free air. No significant fluid collection. Vasculature: The aorta and iliac arteries demonstrate severe atherosclerotic calcification without aneurysm formation. Again noted is an aorto bi-iliac stent in place, without change since prior study. Lymph nodes: Unremarkable. No enlarged lymph nodes. Urinary bladder: No bladder stones are identified. Reproductive: There has been a hysterectomy. Bones/joints: There is moderate to severe facet arthrosis of the lower lumbar spine as well as moderate spondylosis at L3-L4 with more mild spondylosis at other levels. There is moderate lumbar levoscoliosis. Soft tissues: Again noted is a 2.0 x 2.9 cm fat containing anterior midline abdominal wall hernia superior to the umbilicus as well as a smaller fat containing umbilical hernia, without change. IMPRESSION: 1. Findings suggest mild enteritis involving loops of proximal small bowel. There are a few mildly dilated loops of proximal small bowel with multiple prominent fluid-filled loops more distal small bowel, without transition point, increased from prior study, suggesting ileus. 2. Multiple stable incidental findings as described above. Dictated and Authenticated by: Ehsan Portillo MD. Ordering:OLIVER Quinn MD
== END 2022-03-05 19:50 | disposition home or self-care (01) ==
PROVIDERS: Emergency Provider Emergency Medicine; PCP Family Medicine
DX: K52.9 Noninfective gastroenteritis and colitis, unspecified (principal); K56.7 Ileus, unspecified; K59.00 Constipation, unspecified
CPT/HCPCS: 80053; 99284; 74176; 85025

== ENCOUNTER → 2022-04-24 00:55 | Outpatient (CLI) | payer MEDICARE, MEDICAID, SELFPAY ==
--- NOTE | 2022-04-24 10:26 | DI.RAD_ITS ---
Exam(s) XR LUMBAR SPINE COMPLETE EXAM: XR LUMBAR SPINE COMPLETE CLINICAL HISTORY: low back pain on right side,m54.9. TECHNIQUE: 2D digital imaging was performed. COMPARISON: CT CT ABDOMEN PELVIS WO from 03/05/2022 FINDINGS: Five views There is a scoliosis convex left. [place] of the scoliosis is on the right side of the L3-4 disc space where there is asymmetric narrowing. No evidence of acute fracture or listhesis. Other disc spaces exhibit relatively normal height with the exception of mild narrowing of the right side of L2-3 disc space. Sacroiliac joints appear unremarkable. Kissing endovascular stents at the level of the aortic bifurcation and common iliac arteries are note d. IMPRESSION: Degenerative scoliosis convex left. Kissing aortic bifurcation common iliac artery stents evident DATA REPOSITORY: RADIATION DOSE DELIVERED:
== END ==
PROVIDERS: PCP Family Medicine; Visit Provider Family Medicine
DX: M41.86 Other forms of scoliosis, lumbar region (principal); Z95.820 Peripheral vascular angioplasty status with implants and grafts
CPT/HCPCS: 72110

== ENCOUNTER 2022-05-16 15:16 | Outpatient (REF) | payer MEDICARE, MEDICAID, SELFPAY ==
[2022-05-16 17:34] LABS: Hemoglobin A1C 7.8 % (<5.7)
== END 2022-05-16 15:17 | disposition home or self-care (01) ==
LOC: LBN 15:16
PROVIDERS: PCP Family Medicine; Visit Provider Family Medicine
DX: E11.9 Type 2 diabetes mellitus without complications (principal); E03.9 Hypothyroidism, unspecified
CPT/HCPCS: 83036

== ENCOUNTER → 2022-06-12 01:32 | Outpatient (CLI) | payer MEDICARE, MEDICAID, SELFPAY ==
--- NOTE | 2022-06-12 13:20 | DI.MRI_ITS ---
Exam(s) MR LUMBAR SPINE WO EXAM: MR LUMBAR SPINE WO CLINICAL HISTORY: low back pain,m54.50. TECHNIQUE: Multiplanar multisequence MRI was performed. COMPARISON: MR MRI - LUMBAR SPINE WO CONTRAST from 09/03/2014 FINDINGS: MR examination lumbosacral spine was performed according to the usual protocol. There is a moderate to severe left convex lumbar scoliosis. There are Gita discal vertebral signal c hanges at multiple levels, most marked at L3-4 and L5-S1. There is apparent neural foraminal narrowi ng at the L3-4 level on the right secondary to spinal curvature and secondary hypertrophic degenerati ve changes. No significant findings at T12-L1, L1-2, or L2-3. No central canal spinal stenosis, neural foraminal stenosis, or disc herniation at these levels. At L3-4, there is the aforementioned right-sided neural foraminal narrowing. No significant central canal spinal stenosis. Moderate disc bulge without focal disc herniation. At L4-5, there is no evidence of central canal spinal stenosis, neural foraminal stenosis, or disc he rniation. At L5-S1, there is a small left lateral disc herniation which may impinge the exiting left S1 nerve r oot. There is mild left-sided neural foraminal narrowing. No central canal spinal stenosis. IMPRESSION: Right-sided neural foraminal narrowing at L3-4. Left lateral disc herniation, possibly impinging left S1 nerve root, and left neural foraminal stenos is at L5-S1. DATA REPOSITORY:
== END ==
PROVIDERS: PCP Family Medicine; Visit Provider Family Medicine
DX: M48.061 Spinal stenosis, lumbar region without neurogenic claudication (principal); M48.07 Spinal stenosis, lumbosacral region
CPT/HCPCS: 72148

== ENCOUNTER 2022-07-10 01:30 | Outpatient (CLI) | payer MEDICARE, MEDICAID, SELFPAY ==
[2022-07-10 12:33] LABS: HCT 56.2 % (36.0-46.0); HGB 17.8 g/dL (11.2-15.7); MCH 31.8 pg (27.0-33.0); MCHC 31.7 % (32.0-36.0); MCV 100 fL (80-95); MPV 10.4 fL (8.0-11.0); Platelet Count 217 10^3/uL (130-400); RDW 16.6 % (11.7-14.6); WBC 7.84 10^3/uL (4.4-10.8)
[2022-07-10 13:04] LABS: ALT 18 U/L (14-59); AST 8 U/L (15-37); Albumin 3.4 g/dL (3.4-5.0); Alkaline Phosphatase 109 U/L (46-116); Anion Gap 10.6 mmol/L (3-11); BUN 20 mg/dL (7-18); Bilirubin, Total 0.3 mg/dL (0.2-1.0); CO2 24.4 mmol/L (21.0-32.0); CREATININE 0.9 mg/dL (0.55-1.02); Calcium 9.4 mg/dL (8.5-10.1); Calculated LDL 179 mg/dL (<100); Chloride 105 mmol/L (98-107); Cholesterol 272 mg/dL (<200); Estimated GFR 70.51 (mL/min/1.73m2); Glucose 185 mg/dL (74-106); HDL Cholesterol 53 mg/dL (40-60); Potassium 4.2 mmol/L (3.5-5.1); Sodium 140 mmol/L (136-145); Total Protein 8.4 g/dL (6.4-8.2); Triglyceride 203 mg/dL (<150)
== END 2022-07-10 01:31 | disposition home or self-care (01) ==
LOC: LOS 01:30
PROVIDERS: PCP Family Medicine; Visit Provider Family Medicine
DX: D75.1 Secondary polycythemia (principal); E03.9 Hypothyroidism, unspecified; E11.9 Type 2 diabetes mellitus without complications; E78.5 Hyperlipidemia, unspecified; I10 Essential (primary) hypertension
CPT/HCPCS: 36415; 80053; 80061; 85027; 83036; 84443

== ENCOUNTER 2022-07-25 09:53 | Outpatient (CLI) | payer MEDICARE, MEDICAID, SELFPAY ==
--- NOTE | 2022-07-25 06:00 | DI.RAD_ITS ---
Exam(s) XR PAIN CLINIC LUMBAR SP 2V EXAM: XR PAIN CLINIC LUMBAR SP 2V CLINICAL HISTORY: Dx: Lumbar Radiculopathy. TECHNIQUE: Fluoroscopy was provided for the referring physician for guidance with performing pain cl inic injection procedure. COMPARISON: No exams were available for comparison FINDINGS: Please see procedure note for details. Fluoro time: 21.2 seconds RADIATION DOSE DELIVERED: Ka,r=10.2 mGy
[2022-07-25 09:52] VITALS: BP 122/71; PULSE 90; RESP 20; TEMP 36.9; O2SAT 70
--- NOTE | 2022-07-25 10:27 | PDOC.PAIN ---
Pain Clinic Procedure Note Procedure Note Procedure Note: Lumbar Epidural Steroid Injection Procedure Note COMMENTS: She is currently seeing Dr. Berrios. She has low back pain radiating down the right leg (lateral and anterior thigh). She has a recent lumbar spine MRI revealing foraminal compression at L3-L4. Pre-procedure pain VAS was 9/10 Dx: Lumbosacral radiculopathy Celia Rg has been referred to the [facility] for lumbar epidural steroid injection. The patient was greeted by the nurse who verified patients name and . Patient was then taken to the fluoroscopy suite. The patient was interviewed and the medial record reviewed. There were no medical, pharmacologic, radiographic, or other structural contraindications to attempting fluoroscopically guided lumbar epidural steroid injection. Risks and expected side effects as well as potential benefits of the procedure were reviewed and voiced concerns expressed. The patient consent form was signed and witnessed. Standard patient time-out procedure was performed. The patient was placed in the prone position on the fluoroscopy table and automated blood pressure cuff and pulse oximeter applied. The skin entry point for entering/approaching the epidural space at L5-S1 and marked. Following thorough chlorhexadine preparation of the skin and draping and 1% lidocaine infiltration of the skin entry point and subcutaneous tissues, a 18 gauge Touhy needle was placed under fluoroscopic guidance and with loss of resistance technique into the epidural space. Needle tip placement and depth were aided and confirmed by fluoroscopy. There was no paresthesia or return of blood or CSF through the needle. 1 cc's of Omnipaque 240 was injected with clear epidural spread confirmed with fluoroscopy. 40mg depomedrol was injected. There was not any unusual discomfort expressed by Celia Rg. Patient's vital signs were stable throughout the procedure and were as recorded in nursing records. Follow up plans and appointments were discussed with patient. Post procedure instruction was given as documented in nursing records and having met discharge criteria and was discharged from the [facility] Management [facility]. COMMENTS: If this procedure is helpful, it can be completed up to 3 times per 12 months. Post-procedure pain VAS was 3/10. Priyank Sage DO, MPH [facility]-Pain Management [facility]
[2022-07-25] MEDS: methylPREDNISolone ACETATE 40 MG/ML VIAL (10:30)
[2022-07-25] MEDS: Omnipaque 240 MG/ML 50 ML BTL IJ (10:30)
[2022-07-25 10:38] VITALS: BP 114/93; PULSE 89; RESP 14; O2SAT 88
== END 2022-07-25 09:54 | disposition home or self-care (01) ==
LOC: PC 09:54
PROVIDERS: PCP Family Medicine; Visit Provider Preventive Medicine Occupational Medicine
DX: M54.17 Radiculopathy, lumbosacral region (principal); M54.50 Low back pain, unspecified
CPT/HCPCS: 62323; 72100; J1030; Q9967

== ENCOUNTER 2022-08-14 09:15 | Inpatient (IN) | payer MEDICARE, MEDICAID, SELFPAY ==
[2022-08-14] VITALS (22 sets, daily range): BP systolic 99–125; BP diastolic 59–73; PULSE 69–87; RESP 8–24; TEMP 36.1–37; O2SAT 70–93
--- NOTE | 2022-08-14 08:45 | RT.EKG_ITS ---
APPROVED REPORT Exam: Resting ECG Reason for Exam: sob Patient Location: E HR:82 bpm ECG Measurements Heart Rate 82 AXIS MD 155 P 51 QRSd 97 QRS 104 QT 379 T 62 QTc 443 Conclusion Sinus rhythm...normal P axis, V-rate 60- 99 Right axis deviation...QRS axis ( 91,269) Abnormal T, consider ischemia, anterior leads...T <-0.20mV, V2-V4. Sinus. Normal axis. T wave inversion and Less than 1mm ST depression in anterior leads, seen in previ ous EKG. No STEMI. I have reviewed and interpreted ECG and agree with software generated interpretation.
--- NOTE | 2022-08-14 09:00 | DI.CT_ITS ---
Exam(s) CT CHEST PE CTA EXAM: CT CHEST PE CTA CLINICAL HISTORY: Hemoptysis. TECHNIQUE: Imaging Protocol: CT angiography of the chest was performed using pulmonary embolus mikal col. Multi planar reconstructions were performed. CONTRAST MATERIAL: Intravenous: Omnipaque 350 Contrast volume: 100 cc COMPARISON: CR,XR XR PORTABLE CHEST AP from 12/13/[address] ABDOMEN PELVIS WO from 03/05/2022 FINDINGS: CHEST: PULMONARY ARTERIES: Somewhat less than optimal bolus injection. However, there are no obvious intral uminal filling defects to suggest acute pulmonary emboli. LUNGS: COPD findings again noted.. However, there is also prominent area of infiltrate in the right upper lobe and extending into the right lower lobe, with some involvement of the basal segments also noted. There is some milder infiltrate in the posterior basal segment of the opposite-left lower lob e. There are no pleural effusions on either side. No significant focal findings in trachea and main stem bronchi. MEDIASTINUM: There is no hilar nor mediastinal adenopathy. Visualized thyroid unremarkable. CARDIAC: Heart size is enlarged. There is no pericardial effusion.Caliber of the thoracic aorta is w ithin normal limits. No dissection. LV/RV ratio is 1/1. PARTIALLY VISUALIZED UPPERMOST ABDOMEN: No contrast reflux into the intrahepatic IVC. The gallbladde r is noted to be surgically absent. Right adrenal gland unremarkable. There is a nodule in the left adrenal gland measuring 2.7 by 1.3 cm. This is unchanged from CT scan of 03/05/2022. Calcified spl enic granulomas noted. OSSEOUS: No significant osseous lesions.Bidirectional thoracolumbar scoliosis.. IMPRESSION: 1. No evidence of obvious acute pulmonary emboli. However, there is large infiltrate in the right nader ng involving the right upper and right lower lobes and there is small amount of infiltrate in the opp osite-left lung in the left lower lobe..There are no pleural effusions. No adenopathy. 2. Left adrenal gland mass again noted, unchanged 3. RADIATION DOSE DELIVERED: 381.25mGy.cm Total DLP DATA REPOSITORY: All CT scans at this facility are submitted to the National Radiology Data Registry (NRDR) Dose Index Registry (DIR) with the [employer] ([employer]). RADIATION OPTIMIZATION: All CT scans at this facility use at least one of these dose optimization te chniques: automated exposure control; mA and/or kV adjustment per patient size (includes targeted exa ms where dose is matched to clinical indication); or iterative reconstruction.
--- NOTE | 2022-08-14 09:30 | W.ED.GENAD ---
Discharge Plan Disposition Patient Disposition: [facility] INPATIENT Condition: Stable Discharge Details Chief Complaint: RespSymp Clinical Impression: Pneumonia, Chronic pain Primary Care Provider: Martínez Berrios ED Provider: Rolando Rowe Home Meds and New Rx's Prescriptions: No Action omeprazole 40 mg capsule,delayed release(DR/EC) 40 mg PO DAILY Qty: 90 3RF aspirin 81 mg tablet,delayed release (DR/EC) 81 mg PO DAILY Qty: 90 3RF Fleet Bisacodyl 10 mg/30 mL enema 10 mg MA DAILY PRN (Reason: constipation) Qty: 37 2RF bupropion HCl 150 mg tablet extended release 24 hr 150 mg PO QAM Qty: 90 4RF [place] Original 325-1,916-1,000 mg tablet, effervescent 2 tab PO BID PRN (Reason: indigestion) Qty: 60 3RF bismuth subsalicylate 262 mg/15 mL suspension 524 mg PO QID PRN (Reason: diarrhea) Qty: 30 3RF docusate sodium 100 mg capsule 300 mg PO DAILY PRN (Reason: constipation) Qty: 30 3RF guaifenesin [Mucinex] 600 mg tablet extended release 12hr 600 mg PO Q12H PRN (Reason: congestion) Qty: 60 4RF loperamide 2 mg tablet 2 mg PO QID PRN (Reason: loose stool) Qty: 10 0RF Rx Instructions: Take one tablet by mouth after each loose stool not to exceed 8mg/24 hrs melatonin 10 mg tablet 10 mg PO HS PRN (Reason: sleep) Qty: 90 5RF sertraline 25 mg tablet 25 mg PO DAILY MDD 175 Qty: 90 12RF Anoro Ellipta 62.5-25 mcg/actuation blister with device 1 inh inhalation Q24H Qty: 90 4RF Rx Instructions: dispense Anoro sertraline 100 mg tablet 100 mg PO DAILY Qty: 90 3RF Rx Instructions: total 175mg daily sertraline 50 mg tablet 50 mg PO DAILY Qty: 90 3RF levothyroxine 112 mcg tablet 112 mcg PO DAILY Qty: 90 3RF Jardiance 25 mg tablet 25 mg PO QAM Qty: 90 5RF glipizide 10 mg tablet extended release 24hr 10 mg PO DAILY Qty: 90 4RF quetiapine [Seroquel XR] 200 mg tablet extended release 24 hr 200 mg PO HS Qty: 90 12RF ondansetron 4 mg tablet,disintegrating 4 mg PO Q4H PRN (Reason: nausea and vomiting) Qty: 30 1RF lorazepam [Ativan] 0.5 mg tablet 0.5 mg PO BID PRN (Reason: anxiety) Qty: 60 5RF clonazepam 1 mg tablet 1 mg PO TID Qty: 270 5RF varenicline 0.5 mg (11)- 1 mg (42) tablets,dose pack See Rx Instructions PO PER PKG DIR Qty: 53 0RF Rx Instructions: PO PER PKG DIR gabapentin 300 mg capsule 300 mg PO TID Qty: 90 4RF Rx Instructions: dose increase 06/04/22 Rybelsus 7 mg tablet 7 mg PO DAILY Qty: 30 2RF Rx Instructions: start after 3mg Rx finishes Rybelsus 3 mg tablet 3 mg PO DAILY 30 Days Qty: 30 0RF atorvastatin 20 mg tablet 20 mg PO QPM Qty: 90 3RF famotidine 20 mg tablet 20 mg PO BID Qty: 180 4RF meloxicam 7.5 mg tablet 7.5 mg PO DAILY Qty: 30 5RF Medical Decision Making 67-year-old female DNR, DNI, palliative care patient, past medical history of COPD, refuses to wear home O2, continues to smoke, presents to the ER reporting right-sided chest pain when coughing, worsening cough over the past few days, hemoptysis. Also reports acute on chronic right hip pain. Patient tells me that she would like to have a procedure to help with her chronic hip pain. Clinically she appears chronically ill, O2 sats in the 70s but when looking at her baseline from previous visits this is not far from her baseline. She is agreeable to wearing O2, fibrinogen nasal cannula given, O2 sats now in the high 80s, low 90s. I did have respiratory therapy come speak with the patient as well. Plan is to initiate a cardiac work-up and will obtain a CTA of her chest given her hemoptysis. Laboratory values do not reveal any obvious leukocytosis. Hemoglobin 18.8 hematocrit 58.2 which is slightly elevated when compared to her baseline. She is receiving IV fluid. D-dimer was elevated at 956. Lactate 1.0. Electrolytes unremarkable. Creatinine 0.9 with a GFR of 70.07. Troponin less than 50, BNP 119. Procalcitonin less than 0.01. COVID, flu negative. Patient received a DuoNeb and albuterol neb, subjectively reports some improvement, O2 sats now in the low 90s, we were able to lower her 5 L nasal cannula down to 3 L nasal cannula. CTA reveals no PE. Multifocal pneumonia present Patient given 2 g IV Rocephin and 500 mg IV azithromycin. Given her multiple comorbidities, O2 sats in the 70s, and multifocal pneumonia, will discuss the case with our hospitalist team for admission. Case discussed with Dr. Santa and [employer]PERATIONS [employer] Chad who are agreeable for admission and will write admission orders. This documentation was generated using [employer] system, please disregard any oddities of phrase or misspellings. Medical Records Medical records reviewed: Yes I reviewed the patient's medical records. Imaging Data Radiologic Study: Attestation: I personally reviewed and interpreted this imaging study as follows: Imaging: CT Scan Radiologist's impression: Exam(s) CT CHEST PE CTA EXAM: CT CHEST PE CTA CLINICAL HISTORY: Hemoptysis. TECHNIQUE: Imaging Protocol: CT angiography of the chest was performed using pulmonary embolus protocol. Multi planar reconstructions were performed. CONTRAST MATERIAL: Intravenous: Omnipaque 350 Contrast volume: 100 cc COMPARISON: CR,XR XR PORTABLE CHEST AP from 12/13/[address] ABDOMEN PELVIS WO from 03/05/2022 FINDINGS: CHEST: PULMONARY ARTERIES: Somewhat less than optimal bolus injection. However, there are no obvious intraluminal filling defects to suggest acute pulmonary emboli. LUNGS: COPD findings again noted.. However, there is also prominent area of infiltrate in the right upper lobe and extending into the right lower lobe, with some involvement of the basal segments also noted. There is some milder infiltrate in the posterior basal segment of the opposite-left lower lobe. There are no pleural effusions on either side. No significant focal findings in trachea and mainstem bronchi. MEDIASTINUM: There is no hilar nor mediastinal adenopathy. Visualized thyroid unremarkable. CARDIAC: Heart size is enlarged. There is no pericardial effusion.Caliber of the thoracic aorta is within normal limits. No dissection. LV/RV ratio is 1/1. PARTIALLY VISUALIZED UPPERMOST ABDOMEN: No contrast reflux into the intrahepatic IVC. The gallbladder is noted to be surgically absent. Right adrenal gland unremarkable. There is a nodule in the left adrenal gland measuring 2.7 by 1.3 cm. This is unchanged from CT scan of 03/05/2022. Calcified splenic granulomas noted. OSSEOUS: No significant osseous lesions.Bidirectional thoracolumbar scoliosis.. IMPRESSION: 1. No evidence of obvious acute pulmonary emboli. However, there is large infiltrate in the right lung involving the right upper and right lower lobes and there is small amount of infiltrate in the opposite-left lung in the left lower lobe..There are no pleural effusions. No adenopathy. 2. Left adrenal gland mass again noted, unchanged Lab Data Lab results reviewed: Yes I reviewed the patient's lab results. Labs: 08/14/22 11:12 Blood Blood Culture - Pending 08/14/22 10:49 Blood Blood Culture - Pending Laboratory Tests Range/Units 08/14/22 08/14/22 08/14/22 09:33 09:33 09:33 WBC (4.4-10.8) 10^3/uL RBC (3.93-5.22) 10^6/uL Hgb (11.2-15.7) g/dL Hct (36.0-46.0) % MCV (80-95) fL MCH (27.0-33.0) pg MCHC (32.0-36.0) % RDW (11.7-14.6) % Plt Count (130-400) 10^3/uL MPV (8.0-11.0) fL Immature Gran % Neutrophils % Lymphocytes % Monocytes % Eosinophils % Basophils % Nucleated RBC % (0.0-0.3) % Absolute Neutrophils (1.2-6.7) 10^3/uL Absolute Lymphocytes (1.2-3.4) 10^3/uL Absolute Monocytes (0.1-0.8) 10^3/uL Absolute Eosinophils (0.0-0.7) 10^3/uL Absolute Basophils (0.0-0.2) 10^3/uL PT (9.3-11.0) sec 11.1 H INR (0.9-1.1) 1.1 APTT (21.0-27.5) sec 24.6 D-Dimer (<500) ng/mlFEU 956 H VBG Lactate (0.6-1.4) mmol/L Sodium (136-145) mmol/L 139 Potassium (3.5-5.1) mmol/L 4.1 Chloride (98-107) mmol/L 103 Carbon Dioxide (21.0-32.0) mmol/L 26.4 Anion Gap (3-11) mmol/L 9.6 BUN (7-18) mg/dL 17 Creatinine (0.55-1.02) mg/dL 0.9 Est GFR (CKD-EPI 2020) (mL/min/1.73m2) 70.07 Glucose (74-106) mg/dL 152 H Calcium (8.5-10.1) mg/dL 9.9 Magnesium (1.8-2.4) mg/dL 1.9 Total Bilirubin (0.2-1.0) mg/dL 0.6 AST (15-37) U/L 13 L ALT (14-59) U/L 15 Alkaline Phosphatase (46-116) U/L 103 Troponin I (<or=60) ng/L < 50 NT-Pro-B Natriuret Pep (<300) pg/mL 119 Total Protein (6.4-8.2) g/dL 9.2 H Albumin (3.4-5.0) g/dL 3.9 COVID-19 Source SARS-CoV-2 (PCR) (Negative) Influenza Type A (PCR) (Negative) Influenza Type B (PCR) (Negative) RSV (PCR) (Negative) Range/Units 08/14/22 08/14/22 08/14/22 09:33 09:33 11:12 WBC (4.4-10.8) 10^3/uL 10.61 RBC (3.93-5.22) 10^6/uL 5.86 H Hgb (11.2-15.7) g/dL 18.8 H Hct (36.0-46.0) % 58.2 H* MCV (80-95) fL 99 H MCH (27.0-33.0) pg 32.1 MCHC (32.0-36.0) % 32.3 RDW (11.7-14.6) % 15.0 H Plt Count (130-400) 10^3/uL 172 MPV (8.0-11.0) fL 10.1 Immature Gran % 0.3 Neutrophils % 78.8 Lymphocytes % 13.3 Monocytes % 5.8 Eosinophils % 1.2 Basophils % 0.6 Nucleated RBC % (0.0-0.3) % 0.0 Absolute Neutrophils (1.2-6.7) 10^3/uL 8.36 H Absolute Lymphocytes (1.2-3.4) 10^3/uL 1.41 Absolute Monocytes (0.1-0.8) 10^3/uL 0.62 Absolute Eosinophils (0.0-0.7) 10^3/uL 0.13 Absolute Basophils (0.0-0.2) 10^3/uL 0.06 PT (9.3-11.0) sec INR (0.9-1.1) APTT (21.0-27.5) sec D-Dimer (<500) ng/mlFEU VBG Lactate (0.6-1.4) mmol/L 1.0 Sodium (136-145) mmol/L Potassium (3.5-5.1) mmol/L Chloride (98-107) mmol/L Carbon Dioxide (21.0-32.0) mmol/L Anion Gap (3-11) mmol/L BUN (7-18) mg/dL Creatinine (0.55-1.02) mg/dL Est GFR (CKD-EPI 2020) (mL/min/1.73m2) Glucose (74-106) mg/dL Calcium (8.5-10.1) mg/dL Magnesium (1.8-2.4) mg/dL Total Bilirubin (0.2-1.0) mg/dL AST (15-37) U/L ALT (14-59) U/L Alkaline Phosphatase (46-116) U/L Troponin I (<or=60) ng/L NT-Pro-B Natriuret Pep (<300) pg/mL Total Protein (6.4-8.2) g/dL Albumin (3.4-5.0) g/dL COVID-19 Source Not Applicable SARS-CoV-2 (PCR) (Negative) Negative Influenza Type A (PCR) (Negative) Negative Influenza Type B (PCR) (Negative) Negative RSV (PCR) (Negative) Negative ECG Data Attestation: I personally reviewed and interpreted this ECG (s) as follows: Interpretation: Sinus rhythm, ventricular rate of 82. Nonspecific T wave changes. No STEMI. No dynamic changes when compared to EKG on 12-11-2021 HPI General Mode of arrival: EMS. Date/Time Provider Initiated Documentation: 08/14/22 09:30. Limitations to Documentation: no limitations. Information obtained by: patient and EMS. HPI Narrative: This is a 67-year-old female presenting from the [facility] via EMS, past medical history of COPD, refuses to wear any supplemental oxygen, hypertension, hyperlipidemia, polycythemia, bipolar disorder, continues to smoke, chronic back and hip pain, diabetes, anxiety, depression, presents to the ER with multiple complaints, worsening cough, hemoptysis, x5 days, right-sided chest pain when coughing, and worsening back pain-hip pain for the past 9 months, denies trauma. Patient states that initially her PCP told her to take Tylenol for her right hip so she fired her. She has subsequently followed up with a new PCP and pain specialist for injections although this is not really helping. Patient states that she has a tough time with ambulation at baseline given her chronic shortness of breath however now with her increase in chronic hip pain ambulation is even more challenging. Patient is a palliative care, DNR, DNI patient. Patient is very adamant that she will not wear oxygen long-term. Related Data Home Medications Medication Instructions Recorded Confirmed aspirin-sod bicarb-citric acid 325 2 tab PO BID PRN indigestion #60 01/15/22 08/14/22 mg-1,916 mg-1,000 mg efferves tab tabs (T[place]ha-[place] Original) bismuth subsalicylate 262 mg/15 mL 524 mg (30 mL) PO QID PRN diarrhea 01/15/22 08/14/22 oral suspension #30 mL docusate sodium 100 mg capsule 300 mg PO DAILY PRN constipation 01/15/22 08/14/22 #30 caps guaifenesin 600 mg tablet, 600 mg PO Q12H PRN congestion #60 01/15/22 08/14/22 extended release 12 hr (Mucinex) tabs loperamide 2 mg tablet 2 mg PO QID PRN loose stool #10 01/15/22 08/14/22 tabs melatonin 10 mg tablet 10 mg PO HS PRN sleep #90 tabs 01/15/22 08/14/22 sertraline 25 mg tablet 25 mg PO DAILY #90 tabs 01/15/22 08/14/22 umeclidinium 62.5 mcg-vilanterol 1 inh inhalation Q24H #90 ea 01/18/22 08/14/22 25 mcg/actuation powdr for inhalation (Anoro Ellipta) empagliflozin 25 mg tablet 25 mg PO QAM #90 tabs 02/19/22 08/14/22 (Jardiance) glipizide 10 mg tablet, extended 10 mg PO DAILY #90 tabs 02/19/22 08/14/22 release 24 hr levothyroxine 112 mcg tablet 112 mcg PO DAILY #90 tabs 02/19/22 08/14/22 quetiapine 200 mg tablet,extended 200 mg PO HS #90 tabs 02/19/22 08/14/22 release 24 hr (Seroquel XR) sertraline 100 mg tablet 100 mg PO DAILY #90 tabs 02/19/22 08/14/22 sertraline 50 mg tablet 50 mg PO DAILY #90 tabs 02/19/22 08/14/22 ondansetron 4 mg disintegrating 4 mg PO Q4H PRN nausea and 03/02/22 08/14/22 tablet vomiting #30 tabs bisacodyl 10 mg/30 mL enema (Fleet 10 mg (30 mL) MA DAILY PRN 03/22/22 08/14/22 Bisacodyl) constipation #37 mL bupropion HCl 150 mg 24 hr tablet, 150 mg PO QAM #90 tabs 03/22/22 08/14/22 extended release lorazepam 0.5 mg tablet (Ativan) 0.5 mg PO BID PRN anxiety #60 tabs 03/27/22 08/14/22 clonazepam 1 mg tablet 1 mg PO TID #270 tabs 04/18/22 08/14/22 varenicline 0.5 mg (11)-1 mg (42) See Rx Instructions PO PER PKG DIR 04/26/22 08/14/22 tablets in a dose pack #53 dose pk gabapentin 300 mg capsule 300 mg PO TID #90 caps 06/04/22 08/14/22 aspirin 81 mg tablet,delayed 81 mg PO DAILY #90 tabs 06/19/22 08/14/22 release omeprazole 40 mg capsule,delayed 40 mg PO DAILY #90 caps 06/19/22 08/14/22 release atorvastatin 20 mg tablet 20 mg PO QPM #90 tabs 07/18/22 08/14/22 semaglutide 3 mg tablet (Rybelsus) 3 mg PO DAILY 30 days #30 tabs 07/18/22 08/14/22 semaglutide 7 mg tablet (Rybelsus) 7 mg PO DAILY #30 tabs 07/18/22 08/14/22 famotidine 20 mg tablet 20 mg PO BID #180 tabs 08/10/22 08/14/22 meloxicam 7.5 mg tablet 7.5 mg PO DAILY #30 tabs 08/11/22 08/14/22 Previous Rx's Medication Instructions Recorded aspirin-sod bicarb-citric acid 325 2 tab PO BID PRN indigestion #60 01/15/22 mg-1,916 mg-1,000 mg efferves tab tabs ([place]ha-[place] Original) bismuth subsalicylate 262 mg/15 mL 524 mg (30 mL) PO QID PRN diarrhea 01/15/22 oral suspension #30 mL docusate sodium 100 mg capsule 300 mg PO DAILY PRN constipation 01/15/22 #30 caps guaifenesin 600 mg tablet, 600 mg PO Q12H PRN congestion #60 01/15/22 extended release 12 hr (Mucinex) tabs loperamide 2 mg tablet 2 mg PO QID PRN loose stool #10 01/15/22 tabs melatonin 10 mg tablet 10 mg PO HS PRN sleep #90 tabs 01/15/22 sertraline 25 mg tablet 25 mg PO DAILY #90 tabs 01/15/22 umeclidinium 62.5 mcg-vilanterol 1 inh inhalation Q24H #90 ea 01/18/22 25 mcg/actuation powdr for inhalation (Anoro Ellipta) empagliflozin 25 mg tablet 25 mg PO QAM #90 tabs 02/19/22 (Jardiance) glipizide 10 mg tablet, extended 10 mg PO DAILY #90 tabs 02/19/22 release 24 hr levothyroxine 112 mcg tablet 112 mcg PO DAILY #90 tabs 02/19/22 quetiapine 200 mg tablet,extended 200 mg PO HS #90 tabs 02/19/22 release 24 hr (Seroquel XR) sertraline 100 mg tablet 100 mg PO DAILY #90 tabs 02/19/22 sertraline 50 mg tablet 50 mg PO DAILY #90 tabs 02/19/22 ondansetron 4 mg disintegrating 4 mg PO Q4H PRN nausea and 03/02/22 tablet vomiting #30 tabs bisacodyl 10 mg/30 mL enema (Fleet 10 mg (30 mL) MA DAILY PRN 03/22/22 Bisacodyl) constipation #37 mL bupropion HCl 150 mg 24 hr tablet, 150 mg PO QAM #90 tabs 03/22/22 extended release lorazepam 0.5 mg tablet (Ativan) 0.5 mg PO BID PRN anxiety #60 tabs 03/27/22 clonazepam 1 mg tablet 1 mg PO TID #270 tabs 04/18/22 varenicline 0.5 mg (11)-1 mg (42) See Rx Instructions PO PER PKG DIR 04/26/22 tablets in a dose pack #53 dose pk gabapentin 300 mg capsule 300 mg PO TID #90 caps 06/04/22 aspirin 81 mg tablet,delayed 81 mg PO DAILY #90 tabs 06/19/22 release omeprazole 40 mg capsule,delayed 40 mg PO DAILY #90 caps 06/19/22 release atorvastatin 20 mg tablet 20 mg PO QPM #90 tabs 07/18/22 semaglutide 3 mg tablet (Rybelsus) 3 mg PO DAILY 30 days #30 tabs 07/18/22 semaglutide 7 mg tablet (Rybelsus) 7 mg PO DAILY #30 tabs 07/18/22 famotidine 20 mg tablet 20 mg PO BID #180 tabs 08/10/22 meloxicam 7.5 mg tablet 7.5 mg PO DAILY #30 tabs 08/11/22 Allergies Allergy/AdvReac Type Severity Reaction Status Date / Time alendronate sodium AdvReac Intermediate Nausea Verified 08/14/22 09:12 [From Fosamax] General Stated Complaint: RespSymp LELA: 3 Review of Systems Constitutional Constitutional: Denies fatigue, Denies fever(s), Denies headache(s) and Reports weakness (Generalized) Eyes Eyes: Denies change in vision ENT Ears, Nose, Mouth, and Throat: Denies headache(s) and Denies neck pain Cardiovascular Cardiovascular: Reports chest pain and Reports dyspnea Respiratory Respiratory: Reports cough and Reports dyspnea Gastrointestinal Gastrointestinal: Denies abdominal pain, Denies nausea and Denies vomiting Musculoskeletal Musculoskeletal: Reports back pain, Denies neck pain, Denies numbness and Denies tingling Integumentary/Breasts Skin/Breast: Denies rash Neurologic Neurologic: Denies headache(s), Denies numbness, Denies tingling and Reports weakness (Generalized) Endocrine Endocrine: Denies fatigue Hematologic/Lymphatic Hematologic/Lymphatic: Denies easy bleeding and Denies easy bruising PFSH All Active Problems GERD with esophagitis (Acute) Low back pain (Acute) Pneumonia (Acute) Hip pain, bilateral (Acute) Bipolar affect, depressed (Acute) Skin tag (Acute) Phlegm in throat (Acute) Positive colorectal cancer screening using Cologuard test (Acute) I scheduled 4 appts for gen surgery. She has cancelled or refuses RCT/ etc. or goes to the appt and then gets upset Dysphagia (Acute) Nasal mass (Acute) Dr. 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 Hyperlipidemia (Chronic) Polycythemia (Chronic) Hypothyroid (Chronic) Diabetes (Chronic) Type 2, controlled HTN (hypertension) (Chronic) Depression (Chronic) Mixed conductive and sensorineural hearing loss (Acute 01/29/14) Mixed hearing loss, bilateral (Acute 01/19/16) Sciatica (Acute 07/01/14) Sensorineural hearing loss (Acute 01/29/14) Total perforation of right tympanic membrane (Acute 01/19/16) Medical History Adrenal mass Ambulatory dysfunction Bulimia Chronic hip pain, bilateral Chronic low back pain Chronic obstructive lung disease Chronic post-traumatic stress disorder COPD (chronic obstructive pulmonary disease) Coronary arteriosclerosis Dehydration Diffuse abdominal pain Hearing loss History of smoking Hypokalemia Hypomagnesemia Hypoxia Interstitial lung disease Lumbar spine scoliosis Narcotic abuse episodic opioid dependence Osteoporosis Panic disorder Peripheral vascular disease Pneumonia Post traumatic stress disorder Pulmonary hypertension Tachycardia Tobacco abuse Weight loss Surgical History History of tympanoplasty of right ear Failed x2 S/P cholecystectomy Spinal Surgery Laminectomies at T12/L1 due to an angioma Stent placement Bilateral iliac and femoral Family History Mother Heart disease Paternal Grandfather Kidney disease Social History Smoking/Tobacco Use Status: Current every day Tobacco Type: cigarettes Smoking risk assessment performed?: Yes Alcohol Intake: never Drug use: Current Sobriety Substance use type: former substance user Housing: [facility] Do you feel safe at home: Yes Do you feel safe in your relationship?: Yes Additional Social history: Lives at [facility]. Exam Const General: cooperative, comfortable, no acute distress and ill appearing chronically Orientation: alert, awake and oriented x3 HENMT Head: normal to inspection, normocephalic and atraumatic Face and sinus: normal facial exam Mouth: moist mucous membranes abnormal (dry) Throat: posterior oropharynx normal Eyes General: appearance normal, both eyes and all related structures Conjunctivae: conjunctivae normal Neck Neck: normal visual inspection, full ROM, no meningeal signs, trachea midline, supple and nontender Resp Effort & Inspection: normal respiratory effort, able to speak in complete sentences and cough Auscultation: diminished lung sounds bilaterally throughout and wheezes (Scattered throughout, partially clear with cough) Cardio Rate: regular rate Rhythm: regular rhythm GI Palpation: soft, not firm, no guarding and nontender Auscultation: normal bowel sounds Back/Spine/Pelvis Back: no CVA tenderness and back tenderness (Diffuse lumbar) Skin General skin exam: no rashes or lesions noted Neuro General: patient alert, patient awake, patient oriented x3, moves all extremities and no focal motor deficits Cognition: normal cognition Speech: speech normal Gait: antalgic Motor: muscle tone normal throughout Sensory Exam: no sensory deficits noted Extrem General: normal to inspection, full ROM, capillary refill normal, no pedal edema and no calf tenderness Other: Diffuse right hip discomfort to palpation Psych Appearance: grossly normal Mental Status: mental status grossly normal Course Vital Signs Vital signs: Vital Signs Temperature 36.1 C L 08/14/22 09:05 Pulse 84 08/14/22 09:05 Respiratory Rate 24 08/14/22 09:05 Blood Pressure 103/68 08/14/22 09:05 Pulse Oximetry 70 L 08/14/22 09:05 Temperature 36.1 C L 08/14/22 09:05 Temperature Source Tympanic 08/14/22 09:05 Pulse 84 08/14/22 09:05 Respiratory Rate 24 08/14/22 09:05 Blood Pressure 103/68 08/14/22 09:05 Blood Pressure Position Supine 08/14/22 09:05 Pulse Oximetry 70 L 08/14/22 09:05 Oxygen Delivery Method Room Air 08/14/22 09:05 Oxygen Flow Rate 0 08/14/22 09:05
[2022-08-14 09:47] LABS: Abs Immature Grans 0.03 10^3/uL (0.0-0.06); Absolute Basophil Count 0.06 10^3/uL (0.0-0.2); Absolute Eosinophil Count 0.13 10^3/uL (0.0-0.7); Absolute Lymphocyte Count 1.41 10^3/uL (1.2-3.4); Absolute Monocyte Count 0.62 10^3/uL (0.1-0.8); Absolute Neutrophil Count 8.36 10^3/uL (1.2-6.7); Basophils % 0.6; Eosinophils % 1.2; HGB 18.8 g/dL (11.2-15.7); Immature Grans % 0.3; Lymphocytes % 13.3; MCH 32.1 pg (27.0-33.0); MCHC 32.3 % (32.0-36.0); MCV 99 fL (80-95); MPV 10.1 fL (8.0-11.0); Monocytes % 5.8; Neutrophils % 78.8; Platelet Count 172 10^3/uL (130-400); RBC 5.86 10^6/uL (3.93-5.22); RDW-SD 55.7 fL; WBC 10.61 10^3/uL (4.4-10.8)
[2022-08-14] MEDS: Normal Saline - Diluent 50 ML VIAL IJ (09:47)
[2022-08-14] MEDS: Omnipaque 350 MG/ML 500 ML BTL-Imaging package IJ (09:48)
[2022-08-14] MEDS: Normal Saline Flush 10 ML SYR IVP ×2 (09:49→13:19)
[2022-08-14 09:58] LABS: INR 1.1 (0.9-1.1); PTT Activated 24.6 sec (21.0-27.5); Prothrombin Time 11.1 sec (9.3-11.0)
[2022-08-14 10:02] LABS: ALT 15 U/L (14-59); AST 13 U/L (15-37); Albumin 3.9 g/dL (3.4-5.0); Alkaline Phosphatase 103 U/L (46-116); Anion Gap 9.6 mmol/L (3-11); BUN 17 mg/dL (7-18); Bilirubin, Total 0.6 mg/dL (0.2-1.0); CO2 26.4 mmol/L (21.0-32.0); CREATININE 0.9 mg/dL (0.55-1.02); Calcium 9.9 mg/dL (8.5-10.1); Chloride 103 mmol/L (98-107); Estimated GFR 70.07 (mL/min/1.73m2); Glucose 152 mg/dL (74-106); Magnesium 1.9 mg/dL (1.8-2.4); Potassium 4.1 mmol/L (3.5-5.1); Sodium 139 mmol/L (136-145); Total Protein 9.2 g/dL (6.4-8.2); Troponin I < 50 ng/L (<or=60)
[2022-08-14 10:09] LABS: NT-proBNP 119 pg/mL (<300)
[2022-08-14 10:11] LABS: HCT 58.2 % (36.0-46.0)
[2022-08-14 10:27] LABS: COVID-19 PCR Negative (Negative); Influenza A PCR Negative (Negative); Influenza B PCR Negative (Negative); RSV PCR Negative (Negative)
[2022-08-14 10:30] LABS: D-Dimer 956 ng/mlFEU (<500)
[2022-08-14] MEDS: Normal Saline 1,000 ML 1000 ML IV (11:18)
[2022-08-14] MEDS: Albuterol 2.5 MG/3 ML INH SOLN VIAL UPD (11:18)
[2022-08-14] MEDS: Albuterol/Ipratropium 3 ML UPD VIAL UPD ×3 (11:18→19:23)
[2022-08-14] MEDS: AZITHROMYCIN 500 MG in Normal Saline 250 ML 250 MG IVPB (11:33)
[2022-08-14] MEDS: cefTRIAXone 2 GM/50 ML BAG IVPB (11:50)
[2022-08-14] MEDS: cefTRIAXone 2 GM/50 ML BAG 100 GM (11:50)
--- NOTE | 2022-08-14 11:51 | SUR.PHASEI ---
pt o2 saturation 95% on 5 liters pt o2 decreased to 3l
[2022-08-14 11:53] LABS: Procalcitonin < 0.1 ng/mL
--- NOTE | 2022-08-14 11:58 | W.PM.HP.N ---
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 (7) Discharge planning issues: Status: Acute Assessment and plan: plan to discharge back to the [facility] when medically stable discussed with DR Santa History of Present Illness History of Present Illness Chief Complaint: shortness of breath Narrative: 67 year old who resides at the [facility], COPD history, refuses oxygen who presents with respiratory distress and hypoxia with room air sats in the 70's. PE is ruled out and patient is found to have bilateral pneumonia. she is given rocephin and azithromycin in the ED. she is agreeable to wearing oxygen at this time and sats improved to high 80's which is her baseline. she is being admitted for further management PFSH All Active Problems (Updated 08/14/22 @ 12:06 by Stephie Bonilla NP) Discharge planning issues (Acute) DVT prophylaxis (Acute) GERD with esophagitis (Acute) Low back pain (Acute) Pneumonia (Acute) Hip pain, bilateral (Acute) Bipolar affect, depressed (Acute) Skin tag (Acute) Phlegm in throat (Acute) Positive colorectal cancer screening using Cologuard test (Acute) I scheduled 4 appts for gen surgery. She has cancelled or refuses RCT/ etc. or goes to the appt and then gets upset Dysphagia (Acute) Nasal mass (Acute) Dr. 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 Hyperlipidemia (Chronic) Polycythemia (Chronic) Hypothyroid (Chronic) Diabetes (Chronic) Type 2, controlled HTN (hypertension) (Chronic) Depression (Chronic) Mixed conductive and sensorineural hearing loss (Acute 01/29/14) Mixed hearing loss, bilateral (Acute 01/19/16) Sciatica (Acute 07/01/14) Sensorineural hearing loss (Acute 01/29/14) Total perforation of right tympanic membrane (Acute 01/19/16) Medical History Adrenal mass Ambulatory dysfunction Bulimia Chronic hip pain, bilateral Chronic low back pain Chronic obstructive lung disease Chronic post-traumatic stress disorder COPD (chronic obstructive pulmonary disease) Coronary arteriosclerosis Dehydration Diffuse abdominal pain Hearing loss History of smoking Hypokalemia Hypomagnesemia Hypoxia Interstitial lung disease Lumbar spine scoliosis Narcotic abuse episodic opioid dependence Osteoporosis Panic disorder Peripheral vascular disease Pneumonia Post traumatic stress disorder Pulmonary hypertension Tachycardia Tobacco abuse Weight loss Surgical History History of tympanoplasty of right ear Failed x2 S/P cholecystectomy Spinal Surgery Laminectomies at T12/L1 due to an angioma Stent placement Bilateral iliac and femoral Family History Mother Heart disease Paternal Grandfather Kidney disease Social History Smoking/Tobacco Use Status: Current every day Tobacco Type: cigarettes Smoking risk assessment performed?: Yes Alcohol Intake: never Drug use: Current Sobriety Substance use type: former substance user [facility] Do you feel safe at home: Yes Do you feel safe in your relationship?: Yes Additional Social history: Lives at [facility]. Meds Allergies and Home Medications Allergies Allergy/AdvReac Type Severity Reaction Status Date / Time alendronate sodium AdvReac Intermediate Nausea Verified 08/14/22 09:12 [From Fosamax] Home Medications Medication Instructions Recorded Confirmed Type aspirin-sod bicarb-citric acid 325 2 tab PO BID PRN indigestion #60 01/15/22 08/14/22 Rx mg-1,916 mg-1,000 mg efferves tab tabs (Tesha-Jeannie Original) bismuth subsalicylate 262 mg/15 mL 524 mg (30 mL) PO QID PRN diarrhea 01/15/22 08/14/22 Rx oral suspension #30 mL docusate sodium 100 mg capsule 300 mg PO DAILY PRN constipation 01/15/22 08/14/22 Rx #30 caps guaifenesin 600 mg tablet, 600 mg PO Q12H PRN congestion #60 01/15/22 08/14/22 Rx extended release 12 hr (Mucinex) tabs loperamide 2 mg tablet 2 mg PO QID PRN loose stool #10 01/15/22 08/14/22 Rx tabs melatonin 10 mg tablet 10 mg PO HS PRN sleep #90 tabs 01/15/22 08/14/22 Rx sertraline 25 mg tablet 25 mg PO DAILY #90 tabs 01/15/22 08/14/22 Rx umeclidinium 62.5 mcg-vilanterol 1 inh inhalation Q24H #90 ea 01/18/22 08/14/22 Rx 25 mcg/actuation powdr for inhalation (Anoro Ellipta) empagliflozin 25 mg tablet 25 mg PO QAM #90 tabs 02/19/22 08/14/22 Rx (Jardiance) glipizide 10 mg tablet, extended 10 mg PO DAILY #90 tabs 02/19/22 08/14/22 Rx release 24 hr levothyroxine 112 mcg tablet 112 mcg PO DAILY #90 tabs 02/19/22 08/14/22 Rx quetiapine 200 mg tablet,extended 200 mg PO HS #90 tabs 02/19/22 08/14/22 Rx release 24 hr (Seroquel XR) sertraline 100 mg tablet 100 mg PO DAILY #90 tabs 02/19/22 08/14/22 Rx sertraline 50 mg tablet 50 mg PO DAILY #90 tabs 02/19/22 08/14/22 Rx ondansetron 4 mg disintegrating 4 mg PO Q4H PRN nausea and 03/02/22 08/14/22 Rx tablet vomiting #30 tabs bisacodyl 10 mg/30 mL enema (Fleet 10 mg (30 mL) AL DAILY PRN 03/22/22 08/14/22 Rx Bisacodyl) constipation #37 mL bupropion HCl 150 mg 24 hr tablet, 150 mg PO QAM #90 tabs 03/22/22 08/14/22 Rx extended release lorazepam 0.5 mg tablet (Ativan) 0.5 mg PO BID PRN anxiety #60 tabs 03/27/22 08/14/22 Rx clonazepam 1 mg tablet 1 mg PO TID #270 tabs 04/18/22 08/14/22 Rx varenicline 0.5 mg (11)-1 mg (42) See Rx Instructions PO PER PKG DIR 04/26/22 08/14/22 Rx tablets in a dose pack #53 dose pk gabapentin 300 mg capsule 300 mg PO TID #90 caps 06/04/22 08/14/22 Rx aspirin 81 mg tablet,delayed 81 mg PO DAILY #90 tabs 06/19/22 08/14/22 Rx release omeprazole 40 mg capsule,delayed 40 mg PO DAILY #90 caps 06/19/22 08/14/22 Rx release atorvastatin 20 mg tablet 20 mg PO QPM #90 tabs 07/18/22 08/14/22 Rx semaglutide 3 mg tablet (Rybelsus) 3 mg PO DAILY 30 days #30 tabs 07/18/22 08/14/22 Rx semaglutide 7 mg tablet (Rybelsus) 7 mg PO DAILY #30 tabs 07/18/22 08/14/22 Rx famotidine 20 mg tablet 20 mg PO BID #180 tabs 08/10/22 08/14/22 Rx meloxicam 7.5 mg tablet 7.5 mg PO DAILY #30 tabs 08/11/22 08/14/22 Rx amoxicillin 875 mg-potassium 1 tab PO BID #7 tabs 08/15/22 Rx clavulanate 125 mg tablet Results Labs Result diagrams: 08/15/22 06:25 08/15/22 06:25 Labs: Laboratory Results - last 24 hr 08/14/22 08/14/22 08/14/22 09:33 09:33 09:33 WBC RBC Hgb Hct MCV MCH MCHC RDW Plt Count MPV Immature Gran % Neutrophils % Lymphocytes % Monocytes % Eosinophils % Basophils % Nucleated RBC % Absolute Neutrophils Absolute Lymphocytes Absolute Monocytes Absolute Eosinophils Absolute Basophils PT 11.1 H INR 1.1 APTT 24.6 D-Dimer 956 H VBG Lactate Sodium 139 Potassium 4.1 Chloride 103 Carbon Dioxide 26.4 Anion Gap 9.6 BUN 17 Creatinine 0.9 Est GFR (CKD-EPI 2020) 70.07 Glucose 152 H Calcium 9.9 Magnesium 1.9 Total Bilirubin 0.6 AST 13 L ALT 15 Alkaline Phosphatase 103 Troponin I < 50 NT-Pro-B Natriuret Pep 119 Total Protein 9.2 H Albumin 3.9 Procalcitonin COVID-19 Source SARS-CoV-2 (PCR) Influenza Type A (PCR) Influenza Type B (PCR) RSV (PCR) 08/14/22 08/14/22 08/14/22 09:33 09:33 11:12 WBC 10.61 RBC 5.86 H Hgb 18.8 H Hct 58.2 H* MCV 99 H MCH 32.1 MCHC 32.3 RDW 15.0 H Plt Count 172 MPV 10.1 Immature Gran % 0.3 Neutrophils % 78.8 Lymphocytes % 13.3 Monocytes % 5.8 Eosinophils % 1.2 Basophils % 0.6 Nucleated RBC % 0.0 Absolute Neutrophils 8.36 H Absolute Lymphocytes 1.41 Absolute Monocytes 0.62 Absolute Eosinophils 0.13 Absolute Basophils 0.06 PT INR APTT D-Dimer VBG Lactate 1.0 Sodium Potassium Chloride Carbon Dioxide Anion Gap BUN Creatinine Est GFR (CKD-EPI 2020) Glucose Calcium Magnesium Total Bilirubin AST ALT Alkaline Phosphatase Troponin I NT-Pro-B Natriuret Pep Total Protein Albumin Procalcitonin < 0.1 COVID-19 Source Not Applicable SARS-CoV-2 (PCR) Negative Influenza Type A (PCR) Negative Influenza Type B (PCR) Negative RSV (PCR) Negative Last Vital Signs Temp 36.1 C L 08/14/22 09:05 Pulse 79 08/14/22 11:45 Resp 18 08/14/22 10:01 BP 99/59 L 08/14/22 11:45 Pulse Ox 90 L 08/14/22 11:46
[2022-08-14] MEDS: Gabapentin 300 MG CAP PO ×2 (14:28→19:22)
[2022-08-14] MEDS: clonazePAM 1 MG TAB PO ×2 (14:28→19:22)
[2022-08-14 16:38] LABS: Troponin I < 50 ng/L (<or=60)
[2022-08-14] MEDS: Tiotropium/Olodaterol 10 PUFF INHALER 2 PUFF IH (17:05)
[2022-08-14] MEDS: Lidocaine 5% Patch 1 PATCH TP (17:30)
[2022-08-14] MEDS: Atorvastatin 20 MG TAB PO (19:22)
[2022-08-14] MEDS: Amoxicillin 875/Clav. 125 TAB PO (19:22)
[2022-08-14] MEDS: Famotidine 20 MG TAB PO (19:22)
[2022-08-15] MEDS: Lidocaine Patch Removal 1 EACH TP (06:39)
[2022-08-15 07:07] VITALS: BP 102/63; PULSE 79; RESP 18; TEMP 36.6; O2SAT 86
[2022-08-15 07:07] LABS: Abs Immature Grans 0.02 10^3/uL (0.0-0.06); Absolute Basophil Count 0.05 10^3/uL (0.0-0.2); Absolute Eosinophil Count 0.24 10^3/uL (0.0-0.7); Absolute Monocyte Count 0.66 10^3/uL (0.1-0.8); Absolute Neutrophil Count 4.67 10^3/uL (1.2-6.7); Basophils % 0.6; HCT 55.1 % (36.0-46.0); HGB 18.4 g/dL (11.2-15.7); Immature Grans % 0.3; MCH 32.8 pg (27.0-33.0); MCHC 33.4 % (32.0-36.0); MCV 98 fL (80-95); MPV 9.5 fL (8.0-11.0); Monocytes % 8.3; Neutrophils % 58.8; Platelet Count 170 10^3/uL (130-400); RBC 5.61 10^6/uL (3.93-5.22); RDW-SD 55.3 fL; WBC 7.94 10^3/uL (4.4-10.8)
[2022-08-15 07:21] LABS: Anion Gap 8.5 mmol/L (3-11); BUN 13 mg/dL (7-18); CO2 27.5 mmol/L (21.0-32.0); CREATININE 0.9 mg/dL (0.55-1.02); Calcium 9.7 mg/dL (8.5-10.1); Chloride 104 mmol/L (98-107); Estimated GFR 70.07 (mL/min/1.73m2); Glucose 113 mg/dL (74-106); Potassium 3.9 mmol/L (3.5-5.1); Sodium 140 mmol/L (136-145)
[2022-08-15 08:05] VITALS: PULSE 79; RESP 18; RESP 8; O2SAT 86
[2022-08-15] MEDS: Albuterol/Ipratropium 3 ML UPD VIAL UPD ×2 (08:05→12:03)
[2022-08-15] MEDS: Enoxaparin 40 MG/0.4 ML SYR SC (08:05)
[2022-08-15] MEDS: Omeprazole 20 MG CAPCR 40 MG PO (08:06)
[2022-08-15] MEDS: Amoxicillin 875/Clav. 125 TAB PO (08:06)
[2022-08-15] MEDS: buPROPion-XL 150 MG TABCR PO (08:06)
[2022-08-15] MEDS: Acetaminophen 500 MG TAB 1000 MG PO (08:06)
[2022-08-15] MEDS: Sertraline 25 MG TAB PO (08:06)
[2022-08-15] MEDS: clonazePAM 1 MG TAB PO (08:07)
[2022-08-15] MEDS: Empaglifozin 25 MG TAB PO (08:07)
[2022-08-15] MEDS: Sertraline 50 MG TAB PO (08:07)
[2022-08-15] MEDS: Sertraline 100 MG TAB PO (08:07)
[2022-08-15] MEDS: Meloxicam 15 MG TAB 7.5 MG PO (08:07)
[2022-08-15] MEDS: Aspirin E.C. 81 MG TABEC PO (08:07)
[2022-08-15] MEDS: Gabapentin 300 MG CAP PO (08:07)
[2022-08-15] MEDS: Famotidine 20 MG TAB PO (08:07)
[2022-08-15] MEDS: Levothyroxine 112 MCG TAB PO (08:07)
[2022-08-15 08:35] VITALS: RESP 18; RESP 8; O2SAT 92
--- NOTE | 2022-08-15 08:44 | PDOC.CMIN ---
- If Service Date Differs Date of service: 08/15/22 Time of Service: 08:44 Care Management Initial Assess REASON FOR HOSPITALIZATION:: Pneumonia PAST MEDICAL HISTORY/PAST SURGICAL HISTORY:: All Active Problems (Updated 08/14/22 @ 12:06 by Stephie Bonilla NP). Discharge planning issues (Acute). DVT prophylaxis (Acute). GERD with esophagitis (Acute). Low back pain (Acute). Pneumonia (Acute). Hip pain, bilateral (Acute). Bipolar affect, depressed (Acute). Skin tag (Acute). Phlegm in throat (Acute). Positive colorectal cancer screening using Cologuard test (Acute). I scheduled 4 appts for gen surgery. She has cancelled or refuses RCT/ etc. or goes to the appt and then gets upset. Dysphagia (Acute). Nasal mass (Acute). Dr. 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 Hyperlipidemia (Chronic). Polycythemia (Chronic). Hypothyroid (Chronic). Diabetes (Chronic). Type 2, controlled. HTN (hypertension) (Chronic). Depression (Chronic). Mixed conductive and sensorineural hearing loss (Acute 01/29/14). Mixed hearing loss, bilateral (Acute 01/19/16). Sciatica (Acute 07/01/14). Sensorineural hearing loss (Acute 01/29/14). Total perforation of right tympanic membrane (Acute 01/19/16). Medical History . Adrenal mass. Ambulatory dysfunction. Bulimia. Chronic hip pain, bilateral. Chronic low back pain. Chronic obstructive lung disease. Chronic post-traumatic stress disorder. COPD (chronic obstructive pulmonary disease). Coronary arteriosclerosis. Dehydration. Diffuse abdominal pain. Hearing loss. History of smoking. Hypokalemia. Hypomagnesemia. Hypoxia. Interstitial lung disease. Lumbar spine scoliosis. Narcotic abuse. episodic opioid dependence. Osteoporosis. Panic disorder. Peripheral vascular disease. Pneumonia. Post traumatic stress disorder. Pulmonary hypertension. Tachycardia. Tobacco abuse. Weight loss. Surgical History . History of tympanoplasty of right ear. Failed x2. S/P cholecystectomy. Spinal Surgery. Laminectomies at T12/L1 due to an angioma. Stent placement. Bilateral iliac and femoral PREVIOUS FUNCTIONAL STATUS/SOCIAL/FAMILY SUPPORTS:: Celia is a 67-year-old female who resides in assisted living at the [facility] in [place]. She has three children; two of whom are . 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 CURRENT FUNCTIONAL STATUS:: Celia was lying in bed when CM met with her. She is alert and oriented and easily engages in conversation. She c/o SOB with exertion and chronic right hip pain. Celia shares that her O2 sats usually run low. ADVANCE DIRECTIVES:: On file; Jim Guadalupe (son) is Alternate Agent. (Lilliana Murguia ( daughter) is appointed as Health Care Agent) Has patient been provided with info about the portal/API?: Yes Did the patient sign up for the portal?: No CODE STATUS:: DNR/DNI INSURANCE COVERAGE / FINANCIAL ISSUES:: Medicare and Medicaid. CURRENT HOME/COMMUNITY SERVICES/EQUIPMENT:: Celia has a rollator walker with seat and she lives in an assisted living facility ([facility]). PRIMARY CARE PHYSICIAN:: Dr. Berrios POTENTIAL DISCHARGE NEEDS:: Follow up appointment with PCP, skilled physical therapy services, and plan of care. PATIENT/FAMILY EDUCATION NEEDS:: Review discharge instructions including limitations, medications, and follow up plan of care; discuss Ask Me Three and self management. TRANSPORTATION:: Via RCT; may require wheelchair van depending on mobility. PLAN:: Celia will discharge back to the [facility] when medically cleared by provider. She will follow up with her PCP and discharge plan of care as instructed. She will be transported by [facility] and may require a wheelchair van depending on mobility. CM will continue to follow.
[2022-08-15] MEDS: LORazepam 0.5 MG TAB PO (09:00)
[2022-08-15 11:20] VITALS: O2SAT 67
[2022-08-15 11:25] VITALS: O2SAT 82
[2022-08-15 11:40] VITALS: O2SAT 80
--- NOTE | 2022-08-15 11:47 | DSE_ITS ---
Date of service: 08/15/22 Time of Service: 11:47 DS: Diagnosis Discharge Diagnosis (1) Pneumonia: Status: Acute Asessment and Plan: patient refuses oxygen no cough or shortness of breath complete 5 day course of augmentin was trying to set her up for home oxygen and she abruptly refused walk test and demanded to be discharged back to the [facility]. AMA paperwork completed. 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 will defer further intervention to outpatient team. prescription for augmentin sent to pharmacy. (2) Diabetes: Status: Chronic (3) Hypothyroid: Status: Chronic (4) Bipolar disorder: Status: None (5) Anxiety disorder: Status: None Discharge Plan Disposition Patient Disposition: SNF (LEVEL 1) [facility] Condition: Stable Discharge Details Reason For Visit: Pneumonia Admit Date/Time: 08/14/22 11:46 Admit Provider: Rolando Santa Attending Provider: Rolando Santa Primary Care Provider: Martínez Berrios Home Meds and New Rx's Prescriptions: New amoxicillin-pot clavulanate 875-125 mg Tablet 1 tab PO BID Qty: 7 0RF Continued omeprazole 40 mg capsule,delayed release(DR/EC) 40 mg PO DAILY Qty: 90 3RF aspirin 81 mg tablet,delayed release (DR/EC) 81 mg PO DAILY Qty: 90 3RF Fleet Bisacodyl 10 mg/30 mL enema 10 mg [place] DAILY PRN (Reason: constipation) Qty: 37 2RF bupropion HCl 150 mg tablet extended release 24 hr 150 mg PO QAM Qty: 90 4RF Tesha-Bolivar Original 325-1,916-1,000 mg tablet, effervescent 2 tab PO BID PRN (Reason: indigestion) Qty: 60 3RF bismuth subsalicylate 262 mg/15 mL suspension 524 mg PO QID PRN (Reason: diarrhea) Qty: 30 3RF docusate sodium 100 mg capsule 300 mg PO DAILY PRN (Reason: constipation) Qty: 30 3RF guaifenesin [Mucinex] 600 mg tablet extended release 12hr 600 mg PO Q12H PRN (Reason: congestion) Qty: 60 4RF loperamide 2 mg tablet 2 mg PO QID PRN (Reason: loose stool) Qty: 10 0RF Rx Instructions: Take one tablet by mouth after each loose stool not to exceed 8mg/24 hrs melatonin 10 mg tablet 10 mg PO HS PRN (Reason: sleep) Qty: 90 5RF sertraline 25 mg tablet 25 mg PO DAILY MDD 175 Qty: 90 12RF Anoro Ellipta 62.5-25 mcg/actuation blister with device 1 inh inhalation Q24H Qty: 90 4RF Rx Instructions: dispense Anoro sertraline 100 mg tablet 100 mg PO DAILY Qty: 90 3RF Rx Instructions: total 175mg daily sertraline 50 mg tablet 50 mg PO DAILY Qty: 90 3RF levothyroxine 112 mcg tablet 112 mcg PO DAILY Qty: 90 3RF Jardiance 25 mg tablet 25 mg PO QAM Qty: 90 5RF glipizide 10 mg tablet extended release 24hr 10 mg PO DAILY Qty: 90 4RF quetiapine [Seroquel XR] 200 mg tablet extended release 24 hr 200 mg PO HS Qty: 90 12RF ondansetron 4 mg tablet,disintegrating 4 mg PO Q4H PRN (Reason: nausea and vomiting) Qty: 30 1RF lorazepam [Ativan] 0.5 mg tablet 0.5 mg PO BID PRN (Reason: anxiety) Qty: 60 5RF clonazepam 1 mg tablet 1 mg PO TID Qty: 270 5RF varenicline 0.5 mg (11)- 1 mg (42) tablets,dose pack See Rx Instructions PO PER PKG DIR Qty: 53 0RF Rx Instructions: PO PER PKG DIR gabapentin 300 mg capsule 300 mg PO TID Qty: 90 4RF Rx Instructions: dose increase 06/04/22 Rybelsus 7 mg tablet 7 mg PO DAILY Qty: 30 2RF Rx Instructions: start after 3mg Rx finishes Rybelsus 3 mg tablet 3 mg PO DAILY 30 Days Qty: 30 0RF atorvastatin 20 mg tablet 20 mg PO QPM Qty: 90 3RF famotidine 20 mg tablet 20 mg PO BID Qty: 180 4RF meloxicam 7.5 mg tablet 7.5 mg PO DAILY Qty: 30 5RF Discharge Instructions Referrals: Martínez Berrios MD [Primary Care Provider] - Activity:: Activity as Tolerated Equipment/Supplies:: No Equipment Needed Diet:: As Tolerated Discharge Orders Discharge Orders: Discharge Order (Routine); Ordered 08/15/22 Ordered By: Stephie Bonilla Discharge Data Discharge Date/Time-TO BE ENTERED AT DEPARTURE: 08/15/22 12:45 Discharge Comment: NEETA DS: Summary Time Spent with Patient providing and/or coordinating discharge services: Less than 30 minutes Status at Discharge Functional status at discharge: independent ambulation Overall status at discharge: patient is back to baseline Mental Status: mental status grossly normal Speech and Movement: speech and movement normal Mood: labile mood and irritable mood Affect: irritable affect Exam Const General: cooperative, comfortable, no acute distress and ill appearing chronically Orientation: alert, awake and oriented x3 HENMT Head: normal to inspection, normocephalic and atraumatic Face and sinus: normal facial exam Mouth: moist mucous membranes abnormal (dry) Eyes General: appearance normal, both eyes and all related structures Conjunctivae: conjunctivae normal Neck Neck: normal visual inspection, full ROM, trachea midline, supple and nontender Resp Effort & Inspection: normal respiratory effort, able to speak in complete sentences and cough Auscultation: diminished lung sounds bilaterally throughout and wheezes (Scattered throughout, partially clear with cough) Cardio Rate: regular rate Rhythm: regular rhythm GI Palpation: soft and nontender Auscultation: normal bowel sounds Back/Spine/Pelvis Back: back tenderness (Diffuse lumbar) Skin General skin exam: no rashes or lesions noted Neuro General: patient alert, patient awake, patient oriented x3, moves all extremities and no focal motor deficits Cognition: normal cognition Speech: speech normal Motor: muscle tone normal throughout Sensory Exam: no sensory deficits noted Extrem General: normal to inspection, full ROM, capillary refill normal, no pedal edema and no calf tenderness Other: Diffuse right hip discomfort to palpation Psych Appearance: grossly normal Mental Status: mental status grossly normal Speech and Movement: speech and movement normal Mood: labile mood and irritable mood Affect: irritable affect DS: Data Vitals/I&O Vitals and I&O: Vital Signs Temperature 36.6 C 08/15/22 07:07 Temperature Source Tympanic 08/15/22 07:07 Pulse 79 08/15/22 08:05 Pulse Rhythm Regular 08/15/22 09:11 Pulse 73 08/14/22 10:01 Respiratory Rate 18 08/15/22 08:35 Respiratory Effort 08/15/22 09:11 Respiratory Depth Normal 08/15/22 09:11 Respiratory Pattern Normal 08/15/22 09:11 Blood Pressure 102/63 08/15/22 07:07 Blood Pressure Mean 68 08/14/22 11:45 Blood Pressure Position Supine 08/14/22 09:05 Pulse Oximetry 92 08/15/22 08:35 Oxygen Delivery Method Nasal Cannula 08/15/22 08:05 Oxygen Flow Rate 2 08/15/22 08:05 Pain Level 5 08/15/22 09:06 Comment 08/15/22 07:07 Intake & Output 08/14/22 08/14/22 08/15/22 11:59 23:59 11:59 Intake Total 1800 / 1800 Balance 1800 / 1800 Weight 78 kg Intake: IV 1300 / 1300 Oral 500 / 500 Other: Urine Appearance Clear Clear Comment Patient using toilet independently Voiding Methods Toilet Data Completed and Pending Labs on day of discharge: Labs from last 24 hours 08/15/22 08/15/22 08/14/22 06:25 06:25 15:30 WBC 7.94 RBC 5.61 H Hgb 18.4 H Hct 55.1 H MCV 98 H MCH 32.8 MCHC 33.4 RDW 15.0 H Plt Count 170 MPV 9.5 Immature Gran % 0.3 Neutrophils % 58.8 Lymphocytes % 29.0 Monocytes % 8.3 Eosinophils % 3.0 Basophils % 0.6 Nucleated RBC % 0.0 Absolute Neutrophils 4.67 Absolute Lymphocytes 2.30 Absolute Monocytes 0.66 Absolute Eosinophils 0.24 Absolute Basophils 0.05 Sodium 140 Potassium 3.9 Chloride 104 Carbon Dioxide 27.5 Anion Gap 8.5 BUN 13 Creatinine 0.9 Est GFR (CKD-EPI 2020) 70.07 Glucose 113 H Calcium 9.7 Troponin I < 50 Procalcitonin 08/14/22 11:12 WBC RBC Hgb Hct MCV MCH MCHC RDW Plt Count MPV Immature Gran % Neutrophils % Lymphocytes % Monocytes % Eosinophils % Basophils % Nucleated RBC % Absolute Neutrophils Absolute Lymphocytes Absolute Monocytes Absolute Eosinophils Absolute Basophils Sodium Potassium Chloride Carbon Dioxide Anion Gap BUN Creatinine Est GFR (CKD-EPI 2020) Glucose Calcium Troponin I Procalcitonin < 0.1 08/14/22 12:10 Nose MRSA Screen - Pending 08/14/22 11:30 Blood Blood Culture - Pending 08/14/22 11:12 Blood Blood Culture - Pending Preliminary micro results at discharge 08/14/22 12:10 MRSA Screen - Pending Nose 08/14/22 11:30 Blood Culture - Pending Blood 08/14/22 11:12 Blood Culture - Pending Blood PFSH All Active Problems (Updated 08/14/22 @ 12:06 by Stephie Bonilla NP) Discharge planning issues (Acute) DVT prophylaxis (Acute) GERD with esophagitis (Acute) Low back pain (Acute) Pneumonia (Acute) Hip pain, bilateral (Acute) Bipolar affect, depressed (Acute) Skin tag (Acute) Phlegm in throat (Acute) Positive colorectal cancer screening using Cologuard test (Acute) I scheduled 4 appts for gen surgery. She has cancelled or refuses RCT/ etc. or goes to the appt and then gets upset Dysphagia (Acute) Nasal mass (Acute) Dr. 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 Hyperlipidemia (Chronic) Polycythemia (Chronic) Hypothyroid (Chronic) Diabetes (Chronic) Type 2, controlled HTN (hypertension) (Chronic) Depression (Chronic) Mixed conductive and sensorineural hearing loss (Acute 01/29/14) Mixed hearing loss, bilateral (Acute 01/19/16) Sciatica (Acute 07/01/14) Sensorineural hearing loss (Acute 01/29/14) Total perforation of right tympanic membrane (Acute 01/19/16) Medical History Adrenal mass Ambulatory dysfunction Bulimia Chronic hip pain, bilateral Chronic low back pain Chronic obstructive lung disease Chronic post-traumatic stress disorder COPD (chronic obstructive pulmonary disease) Coronary arteriosclerosis Dehydration Diffuse abdominal pain Hearing loss History of smoking Hypokalemia Hypomagnesemia Hypoxia Interstitial lung disease Lumbar spine scoliosis Narcotic abuse episodic opioid dependence Osteoporosis Panic disorder Peripheral vascular disease Pneumonia Post traumatic stress disorder Pulmonary hypertension Tachycardia Tobacco abuse Weight loss Surgical History History of tympanoplasty of right ear Failed x2 S/P cholecystectomy Spinal Surgery Laminectomies at T12/L1 due to an angioma Stent placement Bilateral iliac and femoral Family History Mother Heart disease Paternal Grandfather Kidney disease Social History Smoking/Tobacco Use Status: Current every day Tobacco Type: cigarettes Smoking risk assessment performed?: Yes Alcohol Intake: never Drug use: Current Sobriety Substance use type: former substance user [facility]: [facility] Do you feel safe at home: Yes Do you feel safe in your relationship?: Yes Additional Social history: Lives at [facility].
--- NOTE | 2022-08-15 11:54 | PDOC.CMDIS ---
- If Service Date Differs Date of service: 08/15/22 Time of Service: 11:54 LACE Index Scoring Tool - Questions: Length of Stay (in days): 1 Acuity (Admit via E.D.?): Yes Comorbidities: Diabetes w/o Complication, Chronic Pulmonary Disease E.D. Visits: 4 - Answers: Total Score: 11 Risk of Readmission: High Risk Care Management Discharge Reason for Hospitalization: Pneumonia Discharge Plan: Celia refuses supplimental O2 and medical care and left AMA. She is driven back to the [facility] via [facility] private vehicle. New RX for Augmentin is transmitted to [facility]. CM notified Laurie and Anel at the [facility]. Per Anel, Ceila's O2 Sats run around 68 at baseline. CM will send Anel discharge report when it's complete. Celia should follow up with her community providers and return to the ER if she developes any new, worsening or concerning symptoms. Patient/Family Education Needs: Review discharge instructions, limitations, medications and plan to follow up with community providers. Discuss ask me three and goals of self care. Services Needed at Discharge: Retirement Facility (Celia discharged AMA, and is transported back to the [facility] where she is a level 3 resident.), Transportation ([facility] private vehicle, coordinated by CM)
== END 2022-08-15 12:45 | disposition skilled nursing facility (03) | DRG 195 ==
LOC: ER 12:13 → MS 12:39
PROVIDERS: Nurse Practitioner Acute Care; Admitting Provider Internal Medicine; Emergency Provider Physician Assistant; PCP Family Medicine; Visit Provider Internal Medicine
DX: J18.9 Pneumonia, unspecified organism (principal); K21.00 Gastro-esophageal reflux disease with esophagitis, without bleeding; D75.1 Secondary polycythemia; E03.9 Hypothyroidism, unspecified; E11.9 Type 2 diabetes mellitus without complications; I27.20 Pulmonary hypertension, unspecified; I10 Essential (primary) hypertension; I73.9 Peripheral vascular disease, unspecified; E78.5 Hyperlipidemia, unspecified; F41.0 Panic disorder [episodic paroxysmal anxiety]; F32.A Depression, unspecified; G89.29 Other chronic pain; F17.210 Nicotine dependence, cigarettes, uncomplicated; M54.50 Low back pain, unspecified; M25.551 Pain in right hip; M25.552 Pain in left hip; Z79.84 Long term (current) use of oral hypoglycemic drugs
CPT/HCPCS: 36415; 71275; 80048; 80053; 84145; 87040; 87081; 87637; 93005; 94640; 96361; 96365; 96368; 99285; J1650; 83605; 83735; 83880; 84484; 85025; 85379; 85610; 85730; 93010; 99223; 99238; J0456; J0696; J3490; J7613; J7620

== ENCOUNTER 2022-11-07 09:54 | Outpatient (CLI) | payer MEDICARE, MEDICAID, SELFPAY ==
[2022-11-08 14:33] LABS: Hemoglobin A1C 7.3 % (<5.7)
[2022-11-08 15:02] LABS: Albumin 48.6 % (55.8-66.1); Total Protein 8.3 g/dL (6.3-8.2)
== END 2022-11-07 09:55 | disposition home or self-care (01) ==
LOC: LBO 09:54
PROVIDERS: PCP Family Medicine; Visit Provider Family Medicine
DX: E88.09 Other disorders of plasma-protein metabolism, not elsewhere classified (principal); R73.9 Hyperglycemia, unspecified
CPT/HCPCS: 36415; 83036; 84165

== ENCOUNTER 2022-11-12 19:32 | Inpatient (IN) | payer MEDICARE, MEDICAID, SELFPAY ==
[2022-11-12] VITALS (40 sets, daily range): BP systolic 89–150; BP diastolic 50–102; PULSE 65–163; RESP 9–33; TEMP 36.6; O2SAT 30–98
--- NOTE | 2022-11-12 19:30 | DI.RAD_ITS ---
Exam(s) XR PORTABLE CHEST AP EXAM: XR PORTABLE CHEST AP CLINICAL HISTORY: sob, hypoxic. TECHNIQUE: 2D digital imaging was performed. COMPARISON: CR,XR XR PORTABLE CHEST AP from 12/13/2021 FINDINGS: Single AP portable view. Heart size is upper normal. The mediastinum is not widened. Bidirectional thoracolumbar scoliosis n oted. There are now bilateral infiltrates. Most confluent in the right lower lobe abutting the minor fissu re. Also evident in the lingular segment of the left lung and both lower lobes. No large pleural ef fusions. IMPRESSION: Bilateral infiltrates as described above. DATA REPOSITORY: RADIATION DOSE DELIVERED:
--- NOTE | 2022-11-12 19:43 | DI.CT_ITS ---
Exam(s) CT CHEST PE ABD PELVIS W EXAM: CT CHEST PE ABD PELVIS W CLINICAL HISTORY: hypoxic, sob, o2 is 45%. TECHNIQUE: Imaging Protocol: Axial CT angiography was performed with multi-slice acquisition and m ulti-planar and/or 3D reconstructions. CONTRAST MATERIAL: Intravenous: Omnipaque 350 Contrast volume:100 ml Oral: None COMPARISON: CT ABD PELVIS WITH CONTRAST from 05/16/[address] ABDOMEN PELVIS WO from 03/05/[address] CHEST PE CTA from 08/14/2022 FINDINGS: CHEST: PULMONARY ARTERIES: There are no intra-arterial filling defects to suggest the presence of acute pulm onary emboli. LUNGS: There is infiltrate in the right lower lobe. Also some volume loss in the basal segments of b oth lower lobes evident. No pleural effusions. No pneumothorax.. MEDIASTINUM: There is no hilar nor mediastinal adenopathy. CARDIAC: Heart size upper normal. No pericardial effusion. Diameter of the intrathoracic abdominal aorta is within normal limits. No dissection. Some atherosclerotic disease in the ascending thoraci c aorta is noted. OSSEOUS: Bidirectional thoracolumbar scoliosis. There is a nonacute appearing compression fracture o f T9 vertebral body which is unchanged from prior study of 08/14/2022. No additional fractures ident ified. No lytic osseous lesion. ABDOMEN: There is no ascites. LIVER: There are no focal hepatic lesions nor dilatation of intrahepatic ducts. GALLBLADDER/BILIARY: Gallbladder is again noted be surgically absent. No dilated intrahepatic ducts. CBD diameter is normal. PANCREAS: No evidence of pancreatic mass nor dilatation of the pancreatic duct. SPLEEN: Spleen size upper normal. Splenic calcified granulomas are again noted. No concerning splen ic lesions evident. Splenic and portal veins are patent. ADRENALS: Right adrenal gland unremarkable. There is again noted an abnormal nodule in the left adre nal gland measuring 2 x 1.8 cm, stable since at least April 2018. KIDNEYS:zz No calculi nor hydronephrosis. No solid renal masses. ABDOMINAL AORTA: Atherosclerotic. Aortobifem grafts are and noted in place. Superior mesenteric and celiac arteries are patent. LYMPH NODES: There is no retroperitoneal or para-aortic adenopathy. ABDOMINAL WALL/GI: There is streaking in the anterior subcutaneous tissues around a supraumbilical fa t containing hernia sac and there is overlying skin thickening-cellulitis pattern. These findings do not continue below the level of the umbilicus. There is slightly dilated and edematous small bowel loops evident in the pelvis. The cecum is mobile, being above the right iliac crest. The distal mos t terminal ileum appears collapsed but there is no distinct transition point. Enteritis pattern here , possibly ischemic given the vascular history here. Left side of the colon is collapsed. The right -side of the colon is not collapsed. Appendix is not seen. No free fluid. PELVIS: LYMPH NODES: There is no intrapelvic nor inguinal adenopathy. GI: No evidence of sigmoid diverticulitis. URINARY BLADDER: No calculi nor masses evident REPRODUCTIVE: Uterus is surgically absent. No abnormal adnexal masses. No free fluid in the pelvis. OSSEOUS: No significant osseous lesions. Degenerative disc disease. No fractures of the lumbar vert ebrae. T9 is the only compression fracture seen on is not new. IMPRESSION: 1. No evidence of acute pulmonary emboli nor pulmonary infarction. 2. Significant lung findings as described above, including infiltrate in the right lower lobe and den se volume loss in posterior basal segments of both lower lobes. No pleural effusions. 3. Vasculopath with bilateral aorto bifem grafts. 4. Abnormal small bowel loops which appear enlarged and edematous consistent with enteritis possibly ischemic given the vasculopath history here. There does not appear to be occlusion or obvious emboli zation of the superior mesenteric artery. The AUBRIE is not opacified. Uterus surgically absent. Stable appearing mass in the left adrenal gland. T9 compression fracture again noted. No new additional compression fractures. First read by [facility]. Final report called by myself to ER physician 11/13/2022 9:40 a.m.. RADIATION DOSE DELIVERED: 1,670.33mGy.cm Total DLP DATA REPOSITORY: All CT scans at this facility are submitted to the National Radiology Data Registry (NRDR) Dose Index Registry (DIR) with the [employer] ([employer]). RADIATION OPTIMIZATION: All CT scans at this facility use at least one of these dose optimization te chniques: automated exposure control; mA and/or kV adjustment per patient size (includes targeted exa ms where dose is matched to clinical indication); or iterative reconstruction.
--- NOTE | 2022-11-12 19:45 | RT.EKG_ITS ---
APPROVED REPORT Exam: Resting ECG Reason for Exam: weakness Patient Location: E HR:77 bpm ECG Measurements Heart Rate 77 AXIS [place] 148 P 45 QRSd 90 QRS 99 QT 401 T 44 QTc 453 Conclusion Sinus rhythm...normal P axis, V-rate 60- 99 Right axis deviation...QRS axis ( 91,269) Abnormal T, consider ischemia, anterior leads...T <-0.20mV, V2-V4 sinus rhythm, normal axis, normal intervals, t wave inversions anterior leads
[2022-11-12 20:02] LABS: BE (Venous) 0 mmol/L (-2-3); HCO3 (Venous) 26 mmol/L (23-28); O2 Sat (Venous) 64 %; TCO2 (Venous) 23 mmol/L (24-29); pCO2 (Venous) 53 mmHg (41-51); pO2 (Venous) 36 mmHg
[2022-11-12] MEDS: Albuterol/Ipratropium 3 ML UPD VIAL 6 ML UPD (20:02)
[2022-11-12] MEDS: Albuterol/Ipratropium 3 ML UPD VIAL (20:03)
[2022-11-12 20:06] LABS: Abs Immature Grans 0.05 10^3/uL (0.0-0.06); Absolute Basophil Count 0.06 10^3/uL (0.0-0.2); Absolute Eosinophil Count 0.13 10^3/uL (0.0-0.7); Absolute Lymphocyte Count 2.69 10^3/uL (1.2-3.4); Absolute Monocyte Count 0.82 10^3/uL (0.1-0.8); Absolute Neutrophil Count 5.88 10^3/uL (1.2-6.7); Basophils % 0.6; Eosinophils % 1.3; HGB 17.7 g/dL (11.2-15.7); Immature Grans % 0.5; Lymphocytes % 27.9; MCH 31.2 pg (27.0-33.0); MCHC 31.7 % (32.0-36.0); MCV 98 fL (80-95); MPV 10.1 fL (8.0-11.0); Monocytes % 8.5; Neutrophils % 61.2; Platelet Count 218 10^3/uL (130-400); RBC 5.67 10^6/uL (3.93-5.22); RDW-SD 54.8 fL; WBC 9.63 10^3/uL (4.4-10.8)
--- NOTE | 2022-11-12 20:09 | W.ED.GENAD ---
Discharge Plan Disposition Patient Disposition: Admit to [facility] Condition: Serious Discharge Details Chief Complaint: RespSymp Clinical Impression: Aspiration pneumonia, Acute respiratory failure, Hypoxemia Primary Care Provider: Martínez Berrios ED Provider: Stewart George Home Meds and New Rx's Prescriptions: No Action Fleet Bisacodyl 10 mg/30 mL enema 10 mg ME DAILY PRN (Reason: constipation) Qty: 37 2RF bupropion HCl 150 mg tablet extended release 24 hr 150 mg PO BID Qty: 180 2RF [place] Original 325-1,916-1,000 mg tablet, effervescent 2 tab PO BID PRN (Reason: indigestion) Qty: 60 3RF bismuth subsalicylate 262 mg/15 mL suspension 524 mg PO QID PRN (Reason: diarrhea) Qty: 30 3RF docusate sodium 100 mg capsule 300 mg PO DAILY PRN (Reason: constipation) Qty: 30 3RF guaifenesin [Mucinex] 600 mg tablet extended release 12hr 600 mg PO Q12H PRN (Reason: congestion) Qty: 60 4RF loperamide 2 mg tablet 2 mg PO QID PRN (Reason: loose stool) Qty: 10 0RF Rx Instructions: Take one tablet by mouth after each loose stool not to exceed 8mg/24 hrs melatonin 10 mg tablet 10 mg PO HS PRN (Reason: sleep) Qty: 90 5RF quetiapine [Seroquel XR] 200 mg tablet extended release 24 hr 200 mg PO HS Qty: 90 12RF ondansetron 4 mg tablet,disintegrating 4 mg PO Q4H PRN (Reason: nausea and vomiting) Qty: 30 1RF atorvastatin 20 mg tablet 20 mg PO QPM Qty: 90 3RF famotidine 20 mg tablet 20 mg PO BID Qty: 180 4RF meloxicam 7.5 mg tablet 7.5 mg PO DAILY Qty: 30 5RF tramadol 50 mg tablet 100 mg PO DAILY Qty: 30 0RF aspirin 81 mg tablet,delayed release (DR/EC) 81 mg PO DAILY Qty: 90 2RF Jardiance 25 mg tablet 25 mg PO QAM Qty: 90 2RF glipizide 10 mg tablet extended release 24hr 10 mg PO DAILY Qty: 90 2RF levothyroxine 112 mcg tablet 112 mcg PO DAILY Qty: 90 2RF omeprazole 40 mg capsule,delayed release(DR/EC) 40 mg PO DAILY Qty: 90 2RF lorazepam [Ativan] 0.5 mg tablet 0.5 mg PO BID PRN (Reason: anxiety) Qty: 60 5RF Anoro Ellipta 62.5-25 mcg/actuation blister with device 1 inh inhalation Q24H Qty: 90 4RF Rx Instructions: dispense Anoro clonazepam 1 mg tablet 1 mg PO TID Qty: 270 5RF sertraline 100 mg tablet 100 mg PO DAILY Qty: 90 3RF Rx Instructions: total 175mg daily gabapentin 300 mg capsule 300 mg PO TID Qty: 90 5RF Rx Instructions: dose increase 06/04/22 Rybelsus 7 mg tablet 7 mg PO DAILY Qty: 90 3RF Rx Instructions: start after 3mg Rx finishes Medical Decision Making This is a 67-year-old female who is DNR/DNI limited, with a past medical history of COPD, coronary artery disease, pulmonary hypertension, peripheral vascular disease, previous adrenal mass, who resides at the [facility], who presents today for vomiting and diarrhea for the past few days. She has been weak because of this, but has not fallen per EMS or the [facility]. She has been too weak to stand and has been lowered to the ground but has not fallen or hit her head. She admits that mild abdominal achiness. No blood in her stool. No hematemesis. Per EMS she had no complaints otherwise. She did have a mild cough when they got her and brought her here but otherwise had stable vital signs and was saturating well for oxygen. No other complaints at this time. No other modifying factors. EMS report was given, at which time the patient appeared quite dorsey and blue in color. Pulse oximeter was placed and her oxygen saturation was 42% with an excellent Plath. Nonrebreather at maximum oxygen therapy was immediately started. Patient was DNR/DNI. Exam demonstrates crackles bilaterally, and mild wheeze on the left. EMS reports that the patient was notably stable with good oxygenation on the ride over. I have a high concern that the patient may have aspirated during the trip from the [facility] to here, or a large mucous plug occurred. Patient's oxygen came up to 90% on maximum nonrebreather oxygen therapy. We will call RT, start BiPAP, evaluate for aspiration pneumonia, evaluate for her GI symptoms as well for the potential etiology, monitor closely and reassess. 10 PM Laboratory work-up has returned, no white count, hematocrit and hemoglobin notably elevated, potential hemoconcentration however platelets are normal. pH is relatively unremarkable at 7.3, electrolytes stable, renal function stable. proBNP elevated at 1400, troponin normal. Lipase normal. Flu Elmer is negative. Patient is still on BiPAP, she was transitioned to a nonrebreather and she remained saturating at around 91% on 15 L. We transition back to BiPAP. Review of the patient's CT scan shows notable infiltrate in the right middle lobe, I suspect aspiration. Unasyn was started when she first arrived here, and we will continue this. Discussed the case with hospitalist Dr. Temple, he agrees with the assessment and plan. I have extensively reviewed the treatment plan with the patient. I have addressed all patient concerns at this time. I have also discussed the plan with the admitting physician and they agree with the current assessment and plan and have agreed to assume responsibility for the patient. All parties demonstrate verbal understanding and agreement with our assessment and plan at this time. The documentation in this chart was dictated using [employer] dictation software. Please excuse any dictation errors. FINDINGS: VASCULATURE: Pulmonary arteries: Normal. No pulmonary emboli. Aorta: Ectatic, calcified thoracic aorta is normal in caliber. High-grade stenosis in infrarenal aorta. No abdominal aortic dissection. Celiac trunk and mesenteric arteries: No occlusion or significant stenosis. Renal arteries: No occlusion or significant stenosis. Right iliac arteries: Patent, stented right common iliac artery. Left iliac arteries: Patent, stented left common iliac artery CHEST: Lungs: Bilateral lower lobe subsegmental atelectasis and more inferiorly, dense parenchymal infiltrates with air bronchograms. Pleural spaces: No pneumothorax or pleural effusion. Heart: Cardiomegaly. No coronary artery calcification. Heart RV/LV ratio: RV/LV ratio is 0.95. Diaphragm: Small hiatal hernia. ABDOMEN AND PELVIS: Liver: 2 cm hypoenhancing area or lesion inferiorly in medial segment of left lobe measures 2 cm, unchanged. Gallbladder and bile ducts: Prior cholecystectomy. No biliary ductal dilatation. Pancreas: Unremarkable. No mass. No ductal dilation. Spleen: Parenchymal calcifications. No splenomegaly. Adrenal glands: Stable 2 cm left adrenal lesion. The right is normal in appearance. Kidneys and ureters: Unremarkable. No solid mass. No hydronephrosis. Stomach and bowel: No dilated loops of small bowel or colonic dilatation. Intraperitoneal space: No free intraperitoneal gas or ascites. Reproductive: Prior hysterectomy. Lymph nodes: No adenopathy. Bones/joints: Severe convex right scoliosis of thoracolumbar spine. Left lateral wedging of T9 vertebral body, unchanged. Soft tissues: Hazy increased density in and about fat containing supraumbilical hernia. IMPRESSION: 1. No pulmonary artery embolism demonstrated. 2. High-grade stenosis in distal abdominal aorta, status post stent placement. 3. Patent, stented common iliac arteries. 4. No high-grade mesenteric or renal arterial occlusive disease. 5. No aortic dissection. 6. Bilateral lower lobe subsegmental atelectasis and dense parenchymal consolidation. 7. Hazy increased density in and about fat containing supraumbilical hernia could be due to scarring or superimposed inflammatory or infectious process. 8. 2 cm lesion inferiorly in medial segment of left lobe of liver. Correlate with hepatic ultrasound. 9. Several non emergent findings. Thank you for allowing us to participate in the care of your patient. Dictated and Authenticated by: Adithya Skaggs DO 11/12/2022 10:17 PM Eastern Time ([place] & [place]) HPI General Date/Time Provider Initiated Documentation: 11/12/22 19:41. HPI Narrative: This is a 67-year-old female who is DNR/DNI limited, with a past medical history of COPD, coronary artery disease, pulmonary hypertension, peripheral vascular disease, previous adrenal mass, who resides at the [facility], who presents today for vomiting and diarrhea for the past few days. She has been weak because of this, but has not fallen per EMS or the [facility]. She has been too weak to stand and has been lowered to the ground but has not fallen or hit her head. She admits that mild abdominal achiness. No blood in her stool. No hematemesis. Per EMS she had no complaints otherwise. She did have a mild cough when they got her and brought her here but otherwise had stable vital signs and was saturating well for oxygen. No other complaints at this time. No other modifying factors. Related Data Home Medications Medication Instructions Recorded Confirmed aspirin-sod bicarb-citric acid 325 2 tab PO BID PRN indigestion #60 01/15/22 11/12/22 mg-1,916 mg-1,000 mg efferves tab tabs (Tesha-[place] Original) bismuth subsalicylate 262 mg/15 mL 524 mg (30 mL) PO QID PRN diarrhea 01/15/22 11/12/22 oral suspension #30 mL docusate sodium 100 mg capsule 300 mg PO DAILY PRN constipation 01/15/22 11/12/22 #30 caps guaifenesin 600 mg tablet, 600 mg PO Q12H PRN congestion #60 01/15/22 11/12/22 extended release 12 hr (Mucinex) tabs loperamide 2 mg tablet 2 mg PO QID PRN loose stool #10 01/15/22 11/12/22 tabs melatonin 10 mg tablet 10 mg PO HS PRN sleep #90 tabs 01/15/22 11/12/22 quetiapine 200 mg tablet,extended 200 mg PO HS #90 tabs 02/19/22 11/12/22 release 24 hr (Seroquel XR) ondansetron 4 mg disintegrating 4 mg PO Q4H PRN nausea and 03/02/22 11/12/22 tablet vomiting #30 tabs bisacodyl 10 mg/30 mL enema (Fleet 10 mg (30 mL) ME DAILY PRN 03/22/22 11/12/22 Bisacodyl) constipation #37 mL atorvastatin 20 mg tablet 20 mg PO QPM #90 tabs 07/18/22 11/12/22 famotidine 20 mg tablet 20 mg PO BID #180 tabs 08/10/22 11/12/22 meloxicam 7.5 mg tablet 7.5 mg PO DAILY #30 tabs 08/11/22 11/12/22 tramadol 50 mg tablet 100 mg PO DAILY #30 tabs 09/05/22 11/12/22 aspirin 81 mg tablet,delayed 81 mg PO DAILY #90 tabs 09/17/22 11/12/22 release empagliflozin 25 mg tablet 25 mg PO QAM #90 tabs 09/17/22 11/12/22 (Jardiance) glipizide 10 mg tablet, extended 10 mg PO DAILY #90 tabs 09/17/22 11/12/22 release 24 hr levothyroxine 112 mcg tablet 112 mcg PO DAILY #90 tabs 09/17/22 11/12/22 omeprazole 40 mg capsule,delayed 40 mg PO DAILY #90 caps 09/17/22 11/12/22 release lorazepam 0.5 mg tablet (Ativan) 0.5 mg PO BID PRN anxiety #60 tabs 10/02/22 11/12/22 umeclidinium 62.5 mcg-vilanterol 1 inh inhalation Q24H #90 ea 10/17/22 11/12/22 25 mcg/actuation powdr for inhalation (Anoro Ellipta) clonazepam 1 mg tablet 1 mg PO TID #270 tabs 10/18/22 11/12/22 sertraline 100 mg tablet 100 mg PO DAILY #90 tabs 10/18/22 11/12/22 gabapentin 300 mg capsule 300 mg PO TID #90 caps 10/19/22 11/12/22 bupropion HCl 150 mg 24 hr tablet, 150 mg PO BID #180 tabs 10/30/22 11/12/22 extended release semaglutide 7 mg tablet (Rybelsus) 7 mg PO DAILY #90 tabs 10/30/22 11/12/22 Previous Rx's Medication Instructions Recorded aspirin-sod bicarb-citric acid 325 2 tab PO BID PRN indigestion #60 01/15/22 mg-1,916 mg-1,000 mg efferves tab tabs ([place] Original) bismuth subsalicylate 262 mg/15 mL 524 mg (30 mL) PO QID PRN diarrhea 01/15/22 oral suspension #30 mL docusate sodium 100 mg capsule 300 mg PO DAILY PRN constipation 01/15/22 #30 caps guaifenesin 600 mg tablet, 600 mg PO Q12H PRN congestion #60 01/15/22 extended release 12 hr (Mucinex) tabs loperamide 2 mg tablet 2 mg PO QID PRN loose stool #10 01/15/22 tabs melatonin 10 mg tablet 10 mg PO HS PRN sleep #90 tabs 01/15/22 quetiapine 200 mg tablet,extended 200 mg PO HS #90 tabs 02/19/22 release 24 hr (Seroquel XR) ondansetron 4 mg disintegrating 4 mg PO Q4H PRN nausea and 03/02/22 tablet vomiting #30 tabs bisacodyl 10 mg/30 mL enema (Fleet 10 mg (30 mL) ME DAILY PRN 03/22/22 Bisacodyl) constipation #37 mL atorvastatin 20 mg tablet 20 mg PO QPM #90 tabs 07/18/22 famotidine 20 mg tablet 20 mg PO BID #180 tabs 08/10/22 meloxicam 7.5 mg tablet 7.5 mg PO DAILY #30 tabs 08/11/22 tramadol 50 mg tablet 100 mg PO DAILY #30 tabs 09/05/22 aspirin 81 mg tablet,delayed 81 mg PO DAILY #90 tabs 09/17/22 release empagliflozin 25 mg tablet 25 mg PO QAM #90 tabs 09/17/22 (Jardiance) glipizide 10 mg tablet, extended 10 mg PO DAILY #90 tabs 09/17/22 release 24 hr levothyroxine 112 mcg tablet 112 mcg PO DAILY #90 tabs 09/17/22 omeprazole 40 mg capsule,delayed 40 mg PO DAILY #90 caps 09/17/22 release lorazepam 0.5 mg tablet (Ativan) 0.5 mg PO BID PRN anxiety #60 tabs 10/02/22 umeclidinium 62.5 mcg-vilanterol 1 inh inhalation Q24H #90 ea 10/17/22 25 mcg/actuation powdr for inhalation (Anoro Ellipta) clonazepam 1 mg tablet 1 mg PO TID #270 tabs 10/18/22 sertraline 100 mg tablet 100 mg PO DAILY #90 tabs 10/18/22 gabapentin 300 mg capsule 300 mg PO TID #90 caps 10/19/22 bupropion HCl 150 mg 24 hr tablet, 150 mg PO BID #180 tabs 10/30/22 extended release semaglutide 7 mg tablet (Rybelsus) 7 mg PO DAILY #90 tabs 10/30/22 Allergies Allergy/AdvReac Type Severity Reaction Status Date / Time alendronate sodium AdvReac Intermediate Nausea Verified 10/30/22 11:51 [From Fosamax] General Stated Complaint: RespSymp LELA: 1 Review of Systems All systems reviewed & are unremarkable except as noted in HPI and below PFSH All Active Problems (Updated 11/12/22 @ 22:46 by Stewart George DO) Aspiration pneumonia (Acute) Acute respiratory failure (Acute) Hypoxemia (Acute) Hyperproteinemia (Acute) Chronic hip pain (Acute) GERD with esophagitis (Acute) Low back pain (Acute) Pneumonia (Acute) Hip pain, bilateral (Acute) Bipolar affect, depressed (Acute) Skin tag (Acute) Phlegm in throat (Acute) Positive colorectal cancer screening using Cologuard test (Acute) I scheduled 4 appts for gen surgery. She has cancelled or refuses RCT/ etc. or goes to the appt and then gets upset Dysphagia (Acute) Nasal mass (Acute) Dr. 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 Hyperlipidemia (Chronic) Polycythemia (Chronic) Hypothyroid (Chronic) Diabetes (Chronic) Type 2, controlled HTN (hypertension) (Chronic) Depression (Chronic) Mixed conductive and sensorineural hearing loss (Acute 01/29/14) Mixed hearing loss, bilateral (Acute 01/19/16) Sciatica (Acute 07/01/14) Sensorineural hearing loss (Acute 01/29/14) Total perforation of right tympanic membrane (Acute 01/19/16) Medical History Adrenal mass Ambulatory dysfunction Bulimia Chronic hip pain, bilateral Chronic low back pain Chronic obstructive lung disease Chronic post-traumatic stress disorder COPD (chronic obstructive pulmonary disease) Coronary arteriosclerosis Dehydration Diffuse abdominal pain Hearing loss History of smoking Hypokalemia Hypomagnesemia Hypoxia Interstitial lung disease Lumbar spine scoliosis Narcotic abuse episodic opioid dependence Osteoporosis Panic disorder Peripheral vascular disease Pneumonia Post traumatic stress disorder Pulmonary hypertension Tachycardia Tobacco abuse Weight loss Surgical History History of tympanoplasty of right ear Failed x2 S/P cholecystectomy Spinal Surgery Laminectomies at T12/L1 due to an angioma Stent placement Bilateral iliac and femoral Family History Mother Heart disease Paternal Grandfather Kidney disease Social History Smoking/Tobacco Use Status: Current every day Tobacco Type: cigarettes Smoking risk assessment performed?: Yes Alcohol Intake: never Drug use: Current Sobriety Substance use type: former substance user Housing: prison Do you feel safe at home: Yes Do you feel safe in your relationship?: Yes Additional Social history: Lives at [facility]. Exam Narrative Exam Narrative: 1.Const: Well-nourished, Well-developed, appearing stated age 2.Eyes: PERRL, no conjunctival injection, and symmetrical lids. 3.ENT: Atraumatic external nose and ears. Moist MM. Neck: Symmetric, trachea midline, No thyromegaly. 4.CVS: +S1/S2, No murmurs or gallops. Peripheral pulses 2+ and equal in all extremities. Brisk capillary refill in all extremities. 5.RESP: Crackles in the left and on the right, mild wheezes in the left. 6.GI: Soft, Nondistended, No hepatosplenomegaly. No guarding or rebound. Mild abdominal achiness. 7.MSK: Normocephalic/Atraumatic, Extremities w/o deformity or ttp Normal movement of all extremities 8.Skin: Warm, Dry. 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 Sensation grossly intact, no focal neurologic deficits. 10.Psych: (AAO) x2. Slightly confused Course Vital Signs Vital signs: Vital Signs Temperature 36.6 C 11/12/22 19:34 Pulse 81 11/12/22 19:34 Respiratory Rate 19 11/12/22 19:34 Blood Pressure 119/71 11/12/22 19:34 Pulse Oximetry 40 L 11/12/22 19:34 Temperature 36.6 C 11/12/22 19:34 Temperature Source Temporal Artery Scan 11/12/22 19:34 Pulse 81 11/12/22 19:34 Respiratory Rate 19 11/12/22 19:34 Blood Pressure 119/71 11/12/22 19:34 Pulse Oximetry 40 L 11/12/22 19:34 Oxygen Delivery Method Room Air 11/12/22 19:34 Oxygen Flow Rate 0 11/12/22 19:34 Lab/Test Results Lab/Test Results: Laboratory Tests Range/Units 11/12/22 19:45 VBG pH (7.31-7.41) 7.30 L VBG pCO2 (41-51) mmHg 53 H VBG pO2 mmHg 36 VBG HCO3 (23-28) mmol/L 26 VBG Total CO2 (24-29) mmol/L 23 L VBG O2 Saturation % 64 VBG Base Excess (-2-3) mmol/L 0 Critical Care Time Critical Care Time Critical Care Time: Yes Total Critical Care Time: 45 Attestation: Upon my evaluation, this patient had a high probability of imminent or life-threatening deterioration, which required my direct attention, intervention, and personal management. I have personally provided 45 minutes of critical care time exclusive of time spent on separately billable procedures. Time includes review of laboratory data, radiology results, discussion with consultants, and monitoring for potential decompensation. Interventions were performed as documented.
[2022-11-12 20:15] LABS: HCT 55.8 % (36.0-46.0)
--- NOTE | 2022-11-12 20:21 | DI.VRAD_ITS ---
PROCEDURE INFORMATION: Exam: XR Chest Exam date and time: 11/12/2022 7:27 PM Age: 67 years old Clinical indication: Shortness of breath; Patient HX: SOB, hypoxic TECHNIQUE: Imaging protocol: Radiologic exam of the chest. Views: 1 view. COMPARISON: CT CHEST PE CTA 08/14/2022 9:48 AM FINDINGS: Lungs: Bilateral lung infiltrates. Pleural spaces: Unremarkable. No pleural effusion. No pneumothorax. Heart/Mediastinum: Unremarkable. No cardiomegaly. Bones/joints: Unremarkable. IMPRESSION: Bilateral lung infiltrates. Dictated and Authenticated by: Adithya Skaggs MD. Ordering:SHANTEL William MD
[2022-11-12 20:35] LABS: ALT 15 U/L (14-59); AST 14 U/L (15-37); Albumin 3.5 g/dL (3.4-5.0); Alkaline Phosphatase 111 U/L (46-116); Anion Gap 9.9 mmol/L (3-11); BUN 35 mg/dL (7-18); Bilirubin, Total 0.3 mg/dL (0.2-1.0); CO2 26.1 mmol/L (21.0-32.0); CREATININE 1.2 mg/dL (0.55-1.02); Calcium 9.1 mg/dL (8.5-10.1); Chloride 102 mmol/L (98-107); Estimated GFR 49.61 (mL/min/1.73m2); Glucose 182 mg/dL (74-106); NT-proBNP 1458 pg/mL (<300); Sodium 138 mmol/L (136-145); Total Protein 8.2 g/dL (6.4-8.2); Troponin I < 50 ng/L (<or=60)
[2022-11-12 20:45] LABS: Lipase 106 U/L (73-393)
[2022-11-12 20:49] LABS: COVID-19 PCR Negative (Negative); Influenza A PCR Negative (Negative); Influenza B PCR Negative (Negative); RSV PCR Negative (Negative)
[2022-11-12 20:51] LABS: Source Nasopharynx
[2022-11-12] MEDS: AMPICILLIN/SULBACTAM 3 GM in Normal Saline 100 ML IVPB (20:53)
[2022-11-12 21:39] LABS: INR 1.2 (0.9-1.1); PTT Activated 23.1 sec (21.0-27.5); Prothrombin Time 11.6 sec (9.3-11.0)
[2022-11-12] MEDS: Normal Saline - Diluent 50 ML VIAL IV (21:42)
[2022-11-12] MEDS: Omnipaque 350 MG/ML 100 ML BTL IJ (21:43)
[2022-11-12] MEDS: Normal Saline Flush 10 ML SYR IVP (21:44)
--- NOTE | 2022-11-12 21:46 | NUR.NOTE ---
Nursing Note: Patient transported to CT on nonrebreather 15L O2, maintained SAT around 90%. Placed back on bipap upon returning to room in ER. RT now in room with patient.
--- NOTE | 2022-11-12 21:59 | NUR.NOTE ---
Nursing Note: [facility] states the staff noted the pt was not feeling well, and had c/o weakness and dizziness. UPON arrival to the ED the pt was alert and answering questions. Pt lips cyanotic and SpO2 40% with good wave capture. Hypotensive, MD at bedside. Placed on NRM at 10L, pt color improved, RT called and placed the pt on bi-pap. Pt states she normally has a los SpO2 at the assisted living and that she does not require any O2 supplementation. EKG done X2 IV sites
--- NOTE | 2022-11-12 22:17 | DI.VRAD_ITS ---
PROCEDURE INFORMATION: Exam: CTA Chest With Contrast CTA Abdomen With Contrast Exam date and time: 11/12/2022 9:26 PM Age: 67 years old Clinical indication: Other: Hypoxic, SOB, low o2, vomitting, diarrhea TECHNIQUE: Imaging protocol: Computed tomographic angiography of the chest with contrast. Computed tomographic angiography of the abdomen with contrast. 3D rendering (Not supervised by radiologist): MIP and/or 3D reconstructed images were created by the technologist. Radiation optimization: All CT scans at this facility use at least one of these dose optimization techniques: automated exposure control; mA and/or kV adjustment per patient size (includes targeted exams where dose is matched to clinical indication); or iterative reconstruction. Contrast material: OMNIPAQUE 350; Contrast volume: 100 ml; Contrast route: INTRAVENOUS (IV); COMPARISON: CT CHEST PE CTA 08/14/2022 9:48 AM, CT of abdomen pelvis from March 05, 2022 FINDINGS: VASCULATURE: Pulmonary arteries: Normal. No pulmonary emboli. Aorta: Ectatic, calcified thoracic aorta is normal in caliber. High-grade stenosis in infrarenal aorta. No abdominal aortic dissection. Celiac trunk and mesenteric arteries: No occlusion or significant stenosis. Renal arteries: No occlusion or significant stenosis. Right iliac arteries: Patent, stented right common iliac artery. Left iliac arteries: Patent, stented left common iliac artery. CHEST: Lungs: Bilateral lower lobe subsegmental atelectasis and more inferiorly, dense parenchymal infiltrates with air bronchograms. Pleural spaces: No pneumothorax or pleural effusion. Heart: Cardiomegaly. No coronary artery calcification. Heart RV/LV ratio: RV/LV ratio is 0.95. Diaphragm: Small hiatal hernia. ABDOMEN AND PELVIS: Liver: 2 cm hypoenhancing area or lesion inferiorly in medial segment of left lobe measures 2 cm, unchanged. Gallbladder and bile ducts: Prior cholecystectomy. No biliary ductal dilatation. Pancreas: Unremarkable. No mass. No ductal dilation. Spleen: Parenchymal calcifications. No splenomegaly. Adrenal glands: Stable 2 cm left adrenal lesion. The right is normal in appearance. Kidneys and ureters: Unremarkable. No solid mass. No hydronephrosis. Stomach and bowel: No dilated loops of small bowel or colonic dilatation. Intraperitoneal space: No free intraperitoneal gas or ascites. Reproductive: Prior hysterectomy. Lymph nodes: No adenopathy. Bones/joints: Severe convex right scoliosis of thoracolumbar spine. Left lateral wedging of T9 vertebral body, unchanged. Soft tissues: Hazy increased density in and about fat containing supraumbilical hernia. IMPRESSION: 1. No pulmonary artery embolism demonstrated. 2. High-grade stenosis in distal abdominal aorta, status post stent placement. 3. Patent, stented common iliac arteries. 4. No high-grade mesenteric or renal arterial occlusive disease. 5. No aortic dissection. 6. Bilateral lower lobe subsegmental atelectasis and dense parenchymal consolidation. 7. Hazy increased density in and about fat containing supraumbilical hernia could be due to scarring or superimposed inflammatory or infectious process. 8. 2 cm lesion inferiorly in medial segment of left lobe of liver. Correlate with hepatic ultrasound. 9. Several non emergent findings. Dictated and Authenticated by: Adithya Skaggs MD. Ordering:SHANTEL William MD
--- NOTE | 2022-11-12 23:24 | HPE_ITS ---
Date of service: 11/12/22 Time of Service: 23:25 Assessment and Plan Assessment and plan (1) Aspiration pneumonia: Start date: 11/12/22 Status: Acute Assessment and plan: 67-year-old lady with recent worsening GI symptoms. To have aspiration pneumonia at this time started on Unasyn in the ED. She is chronically on O2 supplementation and required much higher levels of oxygen and positive pressure treatment for hypoxemia and acute respiratory failure with aspiration. She is a DNR/DNI. Aggressive treatment of pneumonia without additional treatment for exacerbation COPD which does not appear to be a problem at this time. She is debilitated and very and active chronically. She is a DNR/DNI. (2) Acute respiratory failure with hypoxia: Start date: 11/12/22 Status: Acute Assessment and plan: Severe hypoxemia with patient's aspiration pneumonia. O2 supplementation with BiPAP as needed. Patient was not on BiPAP at the time I saw her and intermittently refused during the night but stated that she would wear it and it was not uncomfortable. Stated that she was stressing her body that she could and this seemed to impress her. She is a DNR/DNI but not wanting comfort measures only at this time. (3) Chronic obstructive lung disease: Assessment and plan: Continue aggressive nebulizer treatments. No indication for steroids at this time but this could be entertained if patient continues to have severe hypoxemia with her pneumonia. (4) Polycythemia: Status: Chronic Assessment and plan: This appears chronic and patient also appears slightly dry at even though her BNP is up with a history of an echocardiogram revealing increased PA pressures in 2013. Gentle IV hydration with observation for fluid overload. (5) Diabetes: Status: Chronic Assessment and plan: While inpatient we will hold usual outpatient treatment and cover with glucometer measurement short acting insulin coverage. Qualifiers: Diabetes mellitus retirement insulin use: without retirement use Diabetes mellitus type: type 2 (6) GERD with esophagitis: Status: Chronic Assessment and plan: Patient is on Pepcid and Prilosec which will be continued for now. She does have many GI symptoms with multiple as needed cathartics and medications for diarrhea. History of Present Illness History of Present Illness Chief Complaint: Weakness with nausea and vomiting Narrative: This is a 67-year-old female patient who resides at the [facility] with extensive medical history including CAD, pulmonary hypertension with peripheral vascular disease and extensive vascular interventions as seen by CT in the ED, and GI symptoms chronically with recent nausea and vomiting over the last couple of d ays. She was very weak and EMS was called to transport her to the ED. She did not have any falls and during her transport may have had aspiration with her emesis. She was found to be severely hypoxemic with pulse oximeter in the 45% range in the ED with O2 supplementation initiated and patient responded eventually to BiPAP. At the time I saw the patient she was off BiPAP but still slightly hypoxemic on O2 supplementation. She was speaking clearly though somewhat agitated with conversation. Patient also has had dry cough but no tachypnea or respiratory distress. She does not complain of abdominal pain at this time. She has had no peripheral edema. She denies any chest pain. She is a DNR/DNI. Review of Systems Narrative: 13 point review of systems otherwise unrevealing or stable. PFSH All Active Problems Acute respiratory failure with hypoxia (Acute) Aspiration pneumonia (Acute) Acute respiratory failure (Acute) Hypoxemia (Acute) Hyperproteinemia (Acute) Chronic hip pain (Acute) GERD with esophagitis (Chronic) Low back pain (Acute) Pneumonia (Acute) Hip pain, bilateral (Acute) Bipolar affect, depressed (Acute) Skin tag (Acute) Phlegm in throat (Acute) Positive colorectal cancer screening using Cologuard test (Acute) I scheduled 4 appts for gen surgery. She has cancelled or refuses RCT/ etc. or goes to the appt and then gets upset Dysphagia (Acute) Nasal mass (Acute) Dr. 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 Hyperlipidemia (Chronic) Polycythemia (Chronic) Hypothyroid (Chronic) Diabetes (Chronic) Type 2, controlled HTN (hypertension) (Chronic) Depression (Chronic) Mixed conductive and sensorineural hearing loss (Acute 01/29/14) Mixed hearing loss, bilateral (Acute 01/19/16) Sciatica (Acute 07/01/14) Sensorineural hearing loss (Acute 01/29/14) Total perforation of right tympanic membrane (Acute 01/19/16) Medical History Adrenal mass Ambulatory dysfunction Bulimia Chronic hip pain, bilateral Chronic low back pain Chronic obstructive lung disease Chronic post-traumatic stress disorder COPD (chronic obstructive pulmonary disease) Coronary arteriosclerosis Dehydration Diffuse abdominal pain Hearing loss History of smoking Hypokalemia Hypomagnesemia Hypoxia Interstitial lung disease Lumbar spine scoliosis Narcotic abuse episodic opioid dependence Osteoporosis Panic disorder Peripheral vascular disease Pneumonia Post traumatic stress disorder Pulmonary hypertension Tachycardia Tobacco abuse Weight loss Surgical History History of tympanoplasty of right ear Failed x2 S/P cholecystectomy Spinal Surgery Laminectomies at T12/L1 due to an angioma Stent placement Bilateral iliac and femoral Family History Mother Heart disease Paternal Grandfather Kidney disease Social History Smoking/Tobacco Use Status: Current every day Tobacco Type: cigarettes Smoking risk assessment performed?: Yes Alcohol Intake: never Drug use: Current Sobriety Substance use type: former substance user Housing: shelter Do you feel safe at home: Yes Do you feel safe in your relationship?: Yes Additional Social history: Lives at [facility]. Meds Allergies and Home Medications Allergies Allergy/AdvReac Type Severity Reaction Status Date / Time alendronate sodium AdvReac Intermediate Nausea Verified 10/30/22 11:51 [From Fosamax] Home Medications Medication Instructions Recorded Confirmed Type aspirin-sod bicarb-citric acid 325 2 tab PO BID PRN indigestion #60 01/15/22 11/12/22 Rx mg-1,916 mg-1,000 mg efferves tab tabs (Tesha-Jeannie Original) bismuth subsalicylate 262 mg/15 mL 524 mg (30 mL) PO QID PRN diarrhea 01/15/22 11/12/22 Rx oral suspension #30 mL docusate sodium 100 mg capsule 300 mg PO DAILY PRN constipation 01/15/22 11/12/22 Rx #30 caps guaifenesin 600 mg tablet, 600 mg PO Q12H PRN congestion #60 01/15/22 11/12/22 Rx extended release 12 hr (Mucinex) tabs loperamide 2 mg tablet 2 mg PO QID PRN loose stool #10 01/15/22 11/12/22 Rx tabs melatonin 10 mg tablet 10 mg PO HS PRN sleep #90 tabs 01/15/22 11/12/22 Rx quetiapine 200 mg tablet,extended 200 mg PO HS #90 tabs 02/19/22 11/12/22 Rx release 24 hr (Seroquel XR) ondansetron 4 mg disintegrating 4 mg PO Q4H PRN nausea and 03/02/22 11/12/22 Rx tablet vomiting #30 tabs bisacodyl 10 mg/30 mL enema (Fleet 10 mg (30 mL) KS DAILY PRN 03/22/22 11/12/22 Rx Bisacodyl) constipation #37 mL atorvastatin 20 mg tablet 20 mg PO QPM #90 tabs 07/18/22 11/12/22 Rx famotidine 20 mg tablet 20 mg PO BID #180 tabs 08/10/22 11/12/22 Rx meloxicam 7.5 mg tablet 7.5 mg PO DAILY #30 tabs 08/11/22 11/12/22 Rx tramadol 50 mg tablet 100 mg PO DAILY #30 tabs 09/05/22 11/12/22 Rx aspirin 81 mg tablet,delayed 81 mg PO DAILY #90 tabs 09/17/22 11/12/22 Rx release empagliflozin 25 mg tablet 25 mg PO QAM #90 tabs 09/17/22 11/12/22 Rx (Jardiance) glipizide 10 mg tablet, extended 10 mg PO DAILY #90 tabs 09/17/22 11/12/22 Rx release 24 hr levothyroxine 112 mcg tablet 112 mcg PO DAILY #90 tabs 09/17/22 11/12/22 Rx omeprazole 40 mg capsule,delayed 40 mg PO DAILY #90 caps 09/17/22 11/12/22 Rx release lorazepam 0.5 mg tablet (Ativan) 0.5 mg PO BID PRN anxiety #60 tabs 10/02/22 11/12/22 Rx umeclidinium 62.5 mcg-vilanterol 1 inh inhalation Q24H #90 ea 10/17/22 11/12/22 Rx 25 mcg/actuation powdr for inhalation (Anoro Ellipta) clonazepam 1 mg tablet 1 mg PO TID #270 tabs 10/18/22 11/12/22 Rx sertraline 100 mg tablet 100 mg PO DAILY #90 tabs 10/18/22 11/12/22 Rx gabapentin 300 mg capsule 300 mg PO TID #90 caps 10/19/22 11/12/22 Rx bupropion HCl 150 mg 24 hr tablet, 150 mg PO BID #180 tabs 10/30/22 11/12/22 Rx extended release semaglutide 7 mg tablet (Rybelsus) 7 mg PO DAILY #90 tabs 10/30/22 11/12/22 Rx Exam Narrative Exam Narrative: General: Patient appears older than stated age, short stature and moderately obese, alert and oriented at least to person and place. She is in no acute distress. HEENT: Normocephalic, eyes with pupils equal and react to light symmetrically, extraocular movement tact and sclera anicteric. Oropharynx with dry mucosa. Neck: Supple without JVD. Back: Kyphotic without CVA tenderness. Lungs: Expiratory coarse crackles over both lower lung jean with inspiratory rales not clearing with cough. Slight increased expiratory phase with slight expiratory wheeze which is minimal. Fair aeration except for decreased at the bases. No intercostal retractions with inspiration. Breast: Exam deferred. Heart: Regular rate and rhythm with quiet systolic murmur left lower border intermittently. No rubs or gallops. Abdomen: Obese contour, soft and nontender to palpation with no focalizing guarding and no rebound. Bowel sounds positive in all quadrants. No palpable hepatosplenomegaly. Genitalia/rectal: Exam deferred. Extremities: Without clubbing, cyanosis or pitting edema. Joints have fair range of motion. Diffuse muscular atrophy with the appearance of deconditioning . Skin: Normal color, warm and dry with rough texture. Neuro: Cranial nerves II through XII gross intact, no focalizing motor deficits. No tremor. Psych: Flattened affect with little variation, depressed mood. Easily agitated. No abnormal thought processes. Remote and recent memory grossly intact. Results Imaging Imaging Studies: CTA Chest With Contrast CTA Abdomen With Contrast Exam date and time: 11/12/2022 9:26 PM Age: 67 years old Clinical indication: Other: Hypoxic, SOB, low o2, vomitting, diarrhea TECHNIQUE: Imaging protocol: Computed tomographic angiography of the chest with contrast. Computed tomographic angiography of the abdomen with contrast. 3D rendering (Not supervised by radiologist): MIP and/or 3D reconstructed images were created by the technologist. Radiation optimization: All CT scans at this facility use at least one of these dose optimization techniques: automated exposure control; mA and/or kV adjustment per patient size (includes targeted exams where dose is matched to clinical indication); or iterative reconstruction. Contrast material: OMNIPAQUE 350; Contrast volume: 100 ml; Contrast route: INTRAVENOUS (IV);? COMPARISON: CT CHEST PE CTA 08/14/2022 9:48 AM, CT of abdomen pelvis from March 05, 2022 FINDINGS: VASCULATURE: Pulmonary arteries: Normal. No pulmonary emboli. Aorta: Ectatic, calcified thoracic aorta is normal in caliber. High-grade stenosis in infrarenal aorta. No abdominal aortic dissection. Celiac trunk and mesenteric arteries: No occlusion or significant stenosis. Renal arteries: No occlusion or significant stenosis. Right iliac arteries: Patent, stented right common iliac artery. Left iliac arteries: Patent, stented left common iliac artery. CHEST: Lungs: Bilateral lower lobe subsegmental atelectasis and more inferiorly, dense parenchymal infiltrates with air bronchograms. Pleural spaces: No pneumothorax or pleural effusion. Heart: Cardiomegaly. No coronary artery calcification. Heart RV/LV ratio: RV/LV ratio is 0.95. Diaphragm: Small hiatal hernia. ABDOMEN AND PELVIS: Liver: 2 cm hypoenhancing area or lesion inferiorly in medial segment of left lobe measures 2 cm, unchanged. Gallbladder and bile ducts: Prior cholecystectomy. No biliary ductal dilatation. Pancreas: Unremarkable. No mass. No ductal dilation. Spleen: Parenchymal calcifications. No splenomegaly. Adrenal glands: Stable 2 cm left adrenal lesion. The right is normal in appearance. Kidneys and ureters: Unremarkable. No solid mass. No hydronephrosis. Stomach and bowel: No dilated loops of small bowel or colonic dilatation. Intraperitoneal space: No free intraperitoneal gas or ascites. Reproductive: Prior hysterectomy. Lymph nodes: No adenopathy. Bones/joints: Severe convex right scoliosis of thoracolumbar spine. Left lateral wedging of T9 vertebral body, unchanged. Soft tissues: Hazy increased density in and about fat containing supraumbilical hernia. IMPRESSION: 1. No pulmonary artery embolism demonstrated. 2. High-grade stenosis in distal abdominal aorta, status post stent placement. 3. Patent, stented common iliac arteries. 4. No high-grade mesenteric or renal arterial occlusive disease. 5. No aortic dissection. 6. Bilateral lower lobe subsegmental atelectasis and dense parenchymal consolidation. 7. Hazy increased density in and about fat containing supraumbilical hernia could be due to scarring or superimposed inflammatory or infectious process. 8. 2 cm lesion inferiorly in medial segment of left lobe of liver. Correlate with hepatic ultrasound. 9. Several non emergent findings. Exam: XR Chest Exam date and time: 11/12/2022 7:27 PM Age: 67 years old Clinical indication: Shortness of breath; Patient HX: SOB, hypoxic TECHNIQUE: Imaging protocol: Radiologic exam of the chest. Views: 1 view. COMPARISON: CT CHEST PE CTA 08/14/2022 9:48 AM FINDINGS: Lungs: Bilateral lung infiltrates. Pleural spaces: Unremarkable. No pleural effusion. No pneumothorax. Heart/Mediastinum: Unremarkable. No cardiomegaly. Bones/joints: Unremarkable. IMPRESSION: Bilateral lung infiltrates. Labs Result diagrams: 11/12/22 19:45 11/12/22 19:45 Labs: Laboratory Results - last 24 hr 11/12/22 11/12/22 11/12/22 19:45 19:45 19:45 WBC 9.63 RBC 5.67 H Hgb 17.7 H Hct 55.8 H MCV 98 H MCH 31.2 MCHC 31.7 L RDW 15.0 H Plt Count 218 MPV 10.1 Immature Gran % 0.5 Neutrophils % 61.2 Lymphocytes % 27.9 Monocytes % 8.5 Eosinophils % 1.3 Basophils % 0.6 Nucleated RBC % 0.0 Absolute Neutrophils 5.88 Absolute Lymphocytes 2.69 Absolute Monocytes 0.82 H Absolute Eosinophils 0.13 Absolute Basophils 0.06 PT INR APTT VBG pH VBG pCO2 VBG pO2 VBG HCO3 VBG Total CO2 VBG O2 Saturation VBG Base Excess Sodium 138 Potassium 4.0 Chloride 102 Carbon Dioxide 26.1 Anion Gap 9.9 BUN 35 H Creatinine 1.2 H Est GFR (CKD-EPI 2020) 49.61 Glucose 182 H Calcium 9.1 Total Bilirubin 0.3 AST 14 L ALT 15 Alkaline Phosphatase 111 Troponin I < 50 NT-Pro-B Natriuret Pep 1458 H Total Protein 8.2 Albumin 3.5 Lipase COVID-19 Source Nasopharynx SARS-CoV-2 (PCR) Negative Influenza Type A (PCR) Negative Influenza Type B (PCR) Negative RSV (PCR) Negative 11/12/22 11/12/22 11/12/22 19:45 19:45 19:45 WBC RBC Hgb Hct MCV MCH MCHC RDW Plt Count MPV Immature Gran % Neutrophils % Lymphocytes % Monocytes % Eosinophils % Basophils % Nucleated RBC % Absolute Neutrophils Absolute Lymphocytes Absolute Monocytes Absolute Eosinophils Absolute Basophils PT Cancelled INR Cancelled APTT Cancelled VBG pH 7.30 L VBG pCO2 53 H VBG pO2 36 VBG HCO3 26 VBG Total CO2 23 L VBG O2 Saturation 64 VBG Base Excess 0 Sodium Potassium Chloride Carbon Dioxide Anion Gap BUN Creatinine Est GFR (CKD-EPI 2020) Glucose Calcium Total Bilirubin AST ALT Alkaline Phosphatase Troponin I NT-Pro-B Natriuret Pep Total Protein Albumin Lipase 106 COVID-19 Source SARS-CoV-2 (PCR) Influenza Type A (PCR) Influenza Type B (PCR) RSV (PCR) 11/12/22 21:20 WBC RBC Hgb Hct MCV MCH MCHC RDW Plt Count MPV Immature Gran % Neutrophils % Lymphocytes % Monocytes % Eosinophils % Basophils % Nucleated RBC % Absolute Neutrophils Absolute Lymphocytes Absolute Monocytes Absolute Eosinophils Absolute Basophils PT 11.6 H INR 1.2 H APTT 23.1 VBG pH VBG pCO2 VBG pO2 VBG HCO3 VBG Total CO2 VBG O2 Saturation VBG Base Excess Sodium Potassium Chloride Carbon Dioxide Anion Gap BUN Creatinine Est GFR (CKD-EPI 2020) Glucose Calcium Total Bilirubin AST ALT Alkaline Phosphatase Troponin I NT-Pro-B Natriuret Pep Total Protein Albumin Lipase COVID-19 Source SARS-CoV-2 (PCR) Influenza Type A (PCR) Influenza Type B (PCR) RSV (PCR) Last Vital Signs Temp 36.6 C 11/12/22 22:07 Pulse 72 11/12/22 22:07 Resp 21 11/12/22 22:07 BP 131/82 11/12/22 22:07 Pulse Ox 98 11/12/22 22:07 Time Spent Time spent with Patient: >75 minutes Time was spent: preparing to see the patient(eg.review tests), obtaining and/or reviewing separately otained hiistory, ordering medications,tests, procedures, referring, communicating with other health summer child caregiver, indepentently interpreting results, counseling the patient and care coordination
--- NOTE | 2022-11-12 23:42 | NUR.NOTE ---
Nursing Note: PT placed on high flow NC at 10L, pt tolerating at SpO2 82%. RT at bedside Apple juice given
[2022-11-13] VITALS (24 sets, daily range): BP systolic 108–160; BP diastolic 56–81; PULSE 67–90; RESP 6–22; TEMP 36.5–37.2; O2SAT 53–92
--- NOTE | 2022-11-13 | DI.RAD_ITS ---
Exam(s) XR ABDOMEN FLAT PLATE EXAM: XR ABDOMEN FLAT PLATE CLINICAL HISTORY: Partial bowel obstruction. TECHNIQUE: 2D digital imaging was performed. COMPARISON: CR ABD FLAT UPRIGHT PA CHEST from 01/03/2012 FINDINGS: AP supine view: There are now surgical clips in the right upper quadrant which are probably related to interval bart cystectomy. Again noted are stents in the distal aorta and common iliac arteries bilaterally. There is contrast seen in the urinary bladder. There is scoliosis convex left and there is further loss of disc height on the right side of L 3-4 when compared to 10 years ago. Bowel gas pattern is nonspecific in the supine position. There appears to be some infiltrate in the lung bases bilaterally. Calcification left upper quadrant noted which appears somewhat lateral for t he kidney is probably a splenic granuloma. IMPRESSION: Nonspecific bowel gas pattern in the supine position. Other significant findings as described above. DATA REPOSITORY: RADIATION DOSE DELIVERED:
[2022-11-13 00:01] LABS: Troponin I < 50 ng/L (<or=60)
[2022-11-13] MEDS: Normal Saline 1,000 ML 100 ML IV (02:15)
[2022-11-13] MEDS: Albuterol/Ipratropium 3 ML UPD VIAL UPD ×3 (02:55→23:56)
[2022-11-13] MEDS: AMPICILLIN/SULBACTAM 3 GM in Normal Saline 100 ML IVPB ×4 (02:56→20:11)
[2022-11-13] MEDS: Normal Saline Flush 10 ML SYR IVP ×4 (02:56→20:11)
[2022-11-13] MEDS: Levothyroxine 112 MCG TAB PO (05:49)
[2022-11-13 06:50] LABS: HCT 55.3 % (36.0-46.0); HGB 17.5 g/dL (11.2-15.7); MCH 31.5 pg (27.0-33.0); MCHC 31.6 % (32.0-36.0); MCV 100 fL (80-95); Platelet Count 192 10^3/uL (130-400); RBC 5.56 10^6/uL (3.93-5.22); RDW 15.2 % (11.7-14.6); RDW-SD 56.7 fL; WBC 10.87 10^3/uL (4.4-10.8)
[2022-11-13 07:09] LABS: ALT 15 U/L (14-59); AST 16 U/L (15-37); Albumin 3.2 g/dL (3.4-5.0); Alkaline Phosphatase 102 U/L (46-116); Anion Gap 6.8 mmol/L (3-11); BUN 24 mg/dL (7-18); Bilirubin, Total 0.4 mg/dL (0.2-1.0); CO2 29.2 mmol/L (21.0-32.0); Calcium 8.8 mg/dL (8.5-10.1); Chloride 107 mmol/L (98-107); Estimated GFR 61.75 (mL/min/1.73m2); Glucose 132 mg/dL (74-106); Magnesium 2.1 mg/dL (1.8-2.4); Potassium 4.2 mmol/L (3.5-5.1); Sodium 143 mmol/L (136-145); Total Protein 7.8 g/dL (6.4-8.2)
[2022-11-13] MEDS: Albuterol 2.5 MG/3 ML INH SOLN VIAL UPD (07:45)
[2022-11-13] MEDS: clonazePAM 1 MG TAB PO ×3 (08:45→20:10)
[2022-11-13] MEDS: buPROPion-XL 150 MG TABCR PO ×2 (08:45→20:10)
[2022-11-13] MEDS: Aspirin E.C. 81 MG TABEC PO (08:45)
[2022-11-13] MEDS: Famotidine 20 MG TAB PO ×2 (08:45→20:10)
[2022-11-13] MEDS: Omeprazole 20 MG CAPCR 40 MG PO (08:46)
[2022-11-13] MEDS: Gabapentin 300 MG CAP PO ×3 (08:46→20:10)
[2022-11-13] MEDS: Meloxicam 15 MG TAB 7.5 MG PO (08:46)
[2022-11-13] MEDS: Sertraline 100 MG TAB PO (08:47)
[2022-11-13] MEDS: Enoxaparin 40 MG/0.4 ML SYR SC (08:49)
--- NOTE | 2022-11-13 09:26 | PDOC.CMIN ---
- If Service Date Differs Date of service: 11/13/22 Time of Service: 09:26 Care Management Initial Assess REASON FOR HOSPITALIZATION:: Aspiration pneumonia, acute respiratory failure PAST MEDICAL HISTORY/PAST SURGICAL HISTORY:: All Active Problems. Acute respiratory failure with hypoxia (Acute). Aspiration pneumonia (Acute). Acute respiratory failure (Acute). Hypoxemia (Acute). Hyperproteinemia (Acute). Chronic hip pain (Acute). GERD with esophagitis (Chronic). Low back pain (Acute). Pneumonia (Acute). Hip pain, bilateral (Acute). Bipolar affect, depressed (Acute). Skin tag (Acute). Phlegm in throat (Acute). Positive colorectal cancer screening using Cologuard test (Acute). I scheduled 4 appts for gen surgery. She has cancelled or refuses RCT/ etc. or goes to the appt and then gets upset. Dysphagia (Acute). Nasal mass (Acute). Dr. 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 Hyperlipidemia (Chronic). Polycythemia (Chronic). Hypothyroid (Chronic). Diabetes (Chronic). Type 2, controlled. HTN (hypertension) (Chronic). Depression (Chronic). Mixed conductive and sensorineural hearing loss (Acute 01/29/14). Mixed hearing loss, bilateral (Acute 01/19/16). Sciatica (Acute 07/01/14). Sensorineural hearing loss (Acute 01/29/14). Total perforation of right tympanic membrane (Acute 01/19/16). Medical History. Adrenal mass. Ambulatory dysfunction. Bulimia. Chronic hip pain, bilateral. Chronic low back pain. Chronic obstructive lung disease. Chronic post-traumatic stress disorder. COPD (chronic obstructive pulmonary disease). Coronary arteriosclerosis. Dehydration. Diffuse abdominal pain. Hearing loss. History of smoking. Hypokalemia. Hypomagnesemia. Hypoxia. Interstitial lung disease. Lumbar spine scoliosis. Narcotic abuse. episodic opioid dependence. Osteoporosis. Panic disorder. Peripheral vascular disease. Pneumonia. Post traumatic stress disorder. Pulmonary hypertension. Tachycardia. Tobacco abuse. Weight loss. Surgical History. History of tympanoplasty of right ear. Failed x2. S/P cholecystectomy. Spinal Surgery. Laminectomies at T12/L1 due to an angioma. Stent placement. Bilateral iliac and femoral PREVIOUS FUNCTIONAL STATUS/SOCIAL/FAMILY SUPPORTS:: Celia is a 67-year-old female who resides in assisted living at the [facility] in [place]. She has three children; two of whom are . 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 CURRENT FUNCTIONAL STATUS:: Celia was lying in her bed when CM met with her. She stated that she is feeling ok, but very sleepy. She reported that she had just been given a medication that made her feel sleepy and she was trying to get some rest. She reported that she is not on supplemental O2 at the [facility], where she lives, and does not have any interest in having it set up. CM will continue to follow. ADVANCE DIRECTIVES:: On file; Jim Guadalupe (son) is Alternate Agent. (Lilliana Murguia ( daughter) is appointed as Health Care Agent). Has patient been provided with info about the portal/API?: Yes Did the patient sign up for the portal?: No INSURANCE COVERAGE / FINANCIAL ISSUES:: [facility] CURRENT HOME/COMMUNITY SERVICES/EQUIPMENT:: Celia has a rollator walker with seat and she lives in an assisted living facility ([facility]). PRIMARY CARE PHYSICIAN:: Dr. Berrios POTENTIAL DISCHARGE NEEDS:: Coordinated return to assisted living at the [facility]. Follow up appointments. PATIENT/FAMILY EDUCATION NEEDS:: Review discharge instructions including limitations, medications, and follow up plan of care; discuss Ask Me Three and self management. ANTICIPATED BARRIERS TO DISCHARGE:: Celia is currently on 10L supplemental O2, and has declined set up of supplemental O2 in the past. TRANSPORTATION:: Via [facility]; may require wheelchair van depending on mobility. PLAN:: Celia will discharge back to the [facility] when medically cleared by provider. She will follow up with her PCP and discharge plan of care as instructed. She will be transported by [facility] and may require a wheelchair van depending on mobility. CM will continue to follow.
--- NOTE | 2022-11-13 11:00 | NUR.NOTE ---
Nursing Note: Accessed chart to determine orders for EKG and to determine whether or not one needs to be cancelled.
[2022-11-13] MEDS: Insulin Aspart 300 UNITS/3 ML PEN SC (12:16)
[2022-11-13] MEDS: LORazepam 0.5 MG TAB PO (12:25)
--- NOTE | 2022-11-13 14:02 | W.PM.PROGNOT ---
Date of Service Date of service: 11/13/22 Time of Service: 14:03 Assessment and Plan Assessment and plan (1) Aspiration pneumonia: Start date: 11/12/22 Status: Acute Assessment and plan: 67-year-old lady with recent worsening GI symptoms. CT abd/pelvis per [facility] radiologist reading showed enteritis. This would be the etiology of her emesis and subsequent aspiration. Continuing Unasyn. She is chronically on O2 supplementation and required much higher levels of oxygen and positive pressure treatment for hypoxemia and acute respiratory failure with aspiration. However, she is known to be in chronic resp failure and uses no supplemental O2 with saturations chronically in the 70's. (2) Acute respiratory failure with hypoxia: Start date: 11/12/22 Status: Acute Assessment and plan: Acute on chronic. Severe hypoxemia with patient's aspiration pneumonia. OK to have goal for O2 saturations of > 80%. (3) Chronic obstructive lung disease: Assessment and plan: Continue aggressive nebulizer treatments. No indication for steroids at this time but this could be entertained if patient continues to have severe hypoxemia with her pneumonia. (4) Polycythemia: Status: Chronic Assessment and plan: This appears chronic and patient also appears slightly dry at even though her BNP is up with a history of an echocardiogram revealing increased PA pressures in 2013. Related to her chronic hypoxemia. (5) Diabetes: Status: Chronic Assessment and plan: While inpatient we will hold usual outpatient treatment and cover with glucometer measurement short acting insulin coverage. Qualifiers: Diabetes mellitus intermediate designer insulin use: without intermediate designer use Diabetes mellitus type: type 2 (6) GERD with esophagitis: Status: Chronic Assessment and plan: Patient is on Pepcid and Prilosec which will be continued for now. (7) Enteritis: Status: Acute Assessment and plan: Thickened area of small bowel wall. Likely viral. Improving clinically. Advance diet as tolerated. Subjective Subjective Patient reports: no new complaints, feels better, tolerating a regular diet, shortness of breath (while on 10L NC) and afebrile; denies nausea or vomiting Exam Narrative Exam Narrative: General: Alert and oriented at least to person and place. She is in no acute distress. Neck: Supple without JVD. Lungs:Faint rhonchi. Nonlabored breathing. Heart: Regular rate and rhythm. S1, S2.. Abdomen: Obese contour, soft and nontender to palpation with no focalizing guarding and no rebound. Bowel sounds positive in all quadrants. Extremities: No edema or calf tenderness. Skin: no rashes/lesions. Neuro: no focalizing motor deficits. No tremor. Psych: affect now normal. Objective Last Vital Signs Temp 36.8 C 11/13/22 11:11 Pulse 76 11/13/22 11:11 Resp 18 11/13/22 11:11 BP 111/56 L 11/13/22 11:11 Pulse Ox 82 L 11/13/22 12:27 Laboratory Results - last 24 hr 11/12/22 11/12/22 11/12/22 19:45 19:45 19:45 WBC 9.63 RBC 5.67 H Hgb 17.7 H Hct 55.8 H MCV 98 H MCH 31.2 MCHC 31.7 L RDW 15.0 H Plt Count 218 MPV 10.1 Immature Gran % 0.5 Neutrophils % 61.2 Lymphocytes % 27.9 Monocytes % 8.5 Eosinophils % 1.3 Basophils % 0.6 Nucleated RBC % 0.0 Absolute Neutrophils 5.88 Absolute Lymphocytes 2.69 Absolute Monocytes 0.82 H Absolute Eosinophils 0.13 Absolute Basophils 0.06 PT INR APTT VBG pH VBG pCO2 VBG pO2 VBG HCO3 VBG Total CO2 VBG O2 Saturation VBG Base Excess Sodium 138 Potassium 4.0 Chloride 102 Carbon Dioxide 26.1 Anion Gap 9.9 BUN 35 H Creatinine 1.2 H Est GFR (CKD-EPI 2020) 49.61 Glucose 182 H Calcium 9.1 Magnesium Total Bilirubin 0.3 AST 14 L ALT 15 Alkaline Phosphatase 111 Troponin I < 50 NT-Pro-B Natriuret Pep 1458 H Total Protein 8.2 Albumin 3.5 Lipase TSH COVID-19 Source Nasopharynx SARS-CoV-2 (PCR) Negative Influenza Type A (PCR) Negative Influenza Type B (PCR) Negative RSV (PCR) Negative 11/12/22 11/12/22 11/12/22 19:45 19:45 19:45 WBC RBC Hgb Hct MCV MCH MCHC RDW Plt Count MPV Immature Gran % Neutrophils % Lymphocytes % Monocytes % Eosinophils % Basophils % Nucleated RBC % Absolute Neutrophils Absolute Lymphocytes Absolute Monocytes Absolute Eosinophils Absolute Basophils PT Cancelled INR Cancelled APTT Cancelled VBG pH 7.30 L VBG pCO2 53 H VBG pO2 36 VBG HCO3 26 VBG Total CO2 23 L VBG O2 Saturation 64 VBG Base Excess 0 Sodium Potassium Chloride Carbon Dioxide Anion Gap BUN Creatinine Est GFR (CKD-EPI 2020) Glucose Calcium Magnesium Total Bilirubin AST ALT Alkaline Phosphatase Troponin I NT-Pro-B Natriuret Pep Total Protein Albumin Lipase 106 TSH COVID-19 Source SARS-CoV-2 (PCR) Influenza Type A (PCR) Influenza Type B (PCR) RSV (PCR) 11/12/22 11/12/22 11/12/22 21:20 23:39 23:39 WBC RBC Hgb Hct MCV MCH MCHC RDW Plt Count MPV Immature Gran % Neutrophils % Lymphocytes % Monocytes % Eosinophils % Basophils % Nucleated RBC % Absolute Neutrophils Absolute Lymphocytes Absolute Monocytes Absolute Eosinophils Absolute Basophils PT 11.6 H INR 1.2 H APTT 23.1 VBG pH VBG pCO2 VBG pO2 VBG HCO3 VBG Total CO2 VBG O2 Saturation VBG Base Excess Sodium Potassium Chloride Carbon Dioxide Anion Gap BUN Creatinine Est GFR (CKD-EPI 2020) Glucose Calcium Magnesium Total Bilirubin AST ALT Alkaline Phosphatase Troponin I < 50 NT-Pro-B Natriuret Pep Total Protein Albumin Lipase TSH 1.60 COVID-19 Source SARS-CoV-2 (PCR) Influenza Type A (PCR) Influenza Type B (PCR) RSV (PCR) 11/13/22 11/13/22 06:20 06:20 WBC 10.87 H RBC 5.56 H Hgb 17.5 H Hct 55.3 H MCV 100 H MCH 31.5 MCHC 31.6 L RDW 15.2 H Plt Count 192 MPV 10.0 Immature Gran % Neutrophils % Lymphocytes % Monocytes % Eosinophils % Basophils % Nucleated RBC % Absolute Neutrophils Absolute Lymphocytes Absolute Monocytes Absolute Eosinophils Absolute Basophils PT INR APTT VBG pH VBG pCO2 VBG pO2 VBG HCO3 VBG Total CO2 VBG O2 Saturation VBG Base Excess Sodium 143 Potassium 4.2 Chloride 107 Carbon Dioxide 29.2 Anion Gap 6.8 BUN 24 H Creatinine 1.0 Est GFR (CKD-EPI 2020) 61.75 Glucose 132 H Calcium 8.8 Magnesium 2.1 Total Bilirubin 0.4 AST 16 ALT 15 Alkaline Phosphatase 102 Troponin I NT-Pro-B Natriuret Pep Total Protein 7.8 Albumin 3.2 L Lipase TSH COVID-19 Source SARS-CoV-2 (PCR) Influenza Type A (PCR) Influenza Type B (PCR) RSV (PCR) Time Spent with Patient Time Spent with Patient: 25-34 minutes Time was spent: preparing to see the patient(eg.review tests), ordering medications,tests, procedures and indepentently interpreting results
--- NOTE | 2022-11-13 14:05 | PHACLINREV_ITS ---
Pharmacy Admission Review - Admission Clinical Review (Last Reviewed 11/12/22 @ 23:54 by Priyank Temple) Acute respiratory failure with hypoxia (Acute) Aspiration pneumonia (Acute) Acute respiratory failure (Acute) Hypoxemia (Acute) alendronate sodium [From Fosamax] Adverse Reaction (Intermediate, Verified 10/30/22 11:51) Nausea Resuscitation Status DNR/DNI Height 5 ft 3 in Weight 76.43 kg - Renal Dosing Renal Dosing: BUN 24 mg/dL (7-18) H 11/13/22 06:20 Creatinine 1.0 mg/dL (0.55-1.02) 11/13/22 06:20 Medications needing adjustments: Reviewed (Crcl ~53.44 mL/min current meds okay) - Anticoagulation Anticoagulation: Hgb 17.5 g/dL (11.2-15.7) H 11/13/22 06:20 Hct 55.3 % (36.0-46.0) H 11/13/22 06:20 Plt Count 192 10^3/uL (130-400) 11/13/22 06:20 INR 1.2 (0.9-1.1) H 11/12/22 21:20 Creatinine 1.0 mg/dL (0.55-1.02) 11/13/22 06:20 DVT Prophylaxis: Reviewed (SCDs also ordered) Medications: Enoxaparin Therapeutic Anticoagulation: N/A - Opiate Usage Evaluate Pain Scale/Pains Meds: N/A - Relevant Labs Sodium 143 mmol/L (136-145) 11/13/22 06:20 Potassium 4.2 mmol/L (3.5-5.1) 11/13/22 06:20 Chloride 107 mmol/L (98-107) 11/13/22 06:20 Magnesium 2.1 mg/dL (1.8-2.4) 11/13/22 06:20 Electrolytes, C-Reactive P, ESR: Reviewed - DM Control DM Control: Glucose 132 mg/dL (74-106) H 11/13/22 06:20 Finger Stick Blood Glucose 156 Finger Stick Blood Glucose 156 Finger Stick Blood Glucose 121 Finger Stick Blood Glucose 121 DM Control: Reviewed Insulin Dosing, Diabetic Medication: Sliding scale aspart ordered. Pt's home diabetes meds (empagliflozin, glipizde ER, and semaglutide) are on hold per H&P. - Cardiac Review Cardiac Review: Troponin I < 50 ng/L (<or=60) 11/12/22 23:39 NT-Pro-B Natriuret Pep 1458 pg/mL (<300) H 11/12/22 19:45 BP, HR, EF%: Reviewed (BP has been up and down some so far this admission) - Qtc Review QTc: Reviewed (QTc 543 on admission) - IV to PO Switch IV Medications: Reviewed - Home Meds Home Med List reviewed: Reviewed Relevent Home Meds Not ordered & why?: erwin-seltzer tabs (PRN), bismuth subsa licylate (PRN), empagliflozin, glipizide, guaifenesin (PRN), semaglutide, tramadol, umeclidinium/vilanterol - Current meds Current Medication Order Review: Intervened (Discontinued DI meds that had already been given, adjusted the sig of the insulin aspart based on the med administration time policy) - Comments Comments/Follow Ups: Watch BP, BG, labs and for med changes (home meds, possible renal dose adjustments) Antibiotic Review - Pharmacy Antibiotic Review Pharmacy Antibiotic Activity: C/S review (MRSA screen pending), Reviewed, no change (unasyn ordered to cover for aspiration pnuemonia)
[2022-11-13] MEDS: Empaglifozin 25 MG TAB PO (15:51)
--- NOTE | 2022-11-13 16:15 | PT.INNT ---
Date of service: 11/13/22 Time of Service: 16:15 PT Notes Visit Reasons: Aspiration Pneumonia,Acute Hypoxic Respiratory Patient was approached for an evaluation but does not want services stating that PT is the last thing I need right now with so many things happening to my body. She adds that per Dr. Berrios she is not supposed to exercise and walk too far as she has a right hip that is scheduled for surgery. She also emphasized that she has a right to refuse services if she does not want it. Spoke with hospitalist and Nurse Davida regarding patient refusal. Thank you for the opportunity to participate in the care of this patient. Iris Murray PT, DPT, CLT [facility] [place], [place]
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
[2022-11-13] MEDS: Tiotropium/Olodaterol 10 PUFF INHALER IH (16:41)
[2022-11-13] MEDS: Atorvastatin 20 MG TAB PO (20:10)
[2022-11-13] MEDS: guaiFENesin 600 MG TABCR PO (20:10)
[2022-11-14] VITALS (16 sets, daily range): BP systolic 94–150; BP diastolic 57–87; PULSE 71–84; RESP 2–22; TEMP 36–37.2; O2SAT 82–98
[2022-11-14] MEDS: AMPICILLIN/SULBACTAM 3 GM in Normal Saline 100 ML IVPB ×4 (01:35→19:31)
[2022-11-14] MEDS: Albuterol/Ipratropium 3 ML UPD VIAL UPD ×3 (05:42→23:46)
[2022-11-14] MEDS: Levothyroxine 112 MCG TAB PO (05:42)
[2022-11-14 06:52] LABS: Abs Immature Grans 0.03 10^3/uL (0.0-0.06); Absolute Basophil Count 0.06 10^3/uL (0.0-0.2); Absolute Eosinophil Count 0.25 10^3/uL (0.0-0.7); Absolute Monocyte Count 0.63 10^3/uL (0.1-0.8); Basophils % 0.8; Eosinophils % 3.4; HCT 52.8 % (36.0-46.0); HGB 16.4 g/dL (11.2-15.7); Immature Grans % 0.4; Lymphocytes % 30.3; MCH 30.9 pg (27.0-33.0); MCHC 31.1 % (32.0-36.0); MCV 100 fL (80-95); MPV 9.9 fL (8.0-11.0); Monocytes % 8.7; Neutrophils % 56.4; Platelet Count 170 10^3/uL (130-400); RDW 14.9 % (11.7-14.6); RDW-SD 54.9 fL; WBC 7.27 10^3/uL (4.4-10.8)
[2022-11-14] MEDS: Omeprazole 20 MG CAPCR 40 MG PO (07:34)
[2022-11-14] MEDS: Tiotropium/Olodaterol 10 PUFF INHALER IH (07:55)
[2022-11-14] MEDS: Enoxaparin 40 MG/0.4 ML SYR SC (08:47)
[2022-11-14] MEDS: clonazePAM 1 MG TAB PO ×3 (08:48→19:32)
[2022-11-14] MEDS: Aspirin E.C. 81 MG TABEC PO (08:48)
[2022-11-14] MEDS: Gabapentin 300 MG CAP PO ×3 (08:48→19:32)
[2022-11-14] MEDS: Meloxicam 15 MG TAB 7.5 MG PO (08:48)
[2022-11-14] MEDS: buPROPion-XL 150 MG TABCR PO ×2 (08:48→19:32)
[2022-11-14] MEDS: Empaglifozin 25 MG TAB PO (08:49)
[2022-11-14] MEDS: guaiFENesin 600 MG TABCR PO ×2 (08:49→19:32)
[2022-11-14] MEDS: Famotidine 20 MG TAB PO ×2 (08:49→19:32)
[2022-11-14] MEDS: Normal Saline Flush 10 ML SYR IVP ×3 (08:49→19:31)
[2022-11-14] MEDS: Sertraline 100 MG TAB PO (08:49)
[2022-11-14] MEDS: Insulin Aspart 300 UNITS/3 ML PEN SC (12:30)
--- NOTE | 2022-11-14 16:23 | PGE_ITS ---
Date of Service Date of service: 11/14/22 Time of Service: 16:23 Assessment and Plan Assessment and plan (1) Aspiration pneumonia: Start date: 11/12/22 Status: Acute Assessment and plan: 67-year-old lady with recent worsening GI symptoms of nausea, then emesis. CT abd/pelvis per [facility] radiologist reading showed enteritis. This would be the etiology of her emesis and subsequent aspiration. Continuing Unasyn. Change to po antibiotic tomorrow 11/15. She is chronically on O2 supplementation and required much higher levels of oxygen and positive pressure treatment for hypoxemia and acute respiratory failure with aspiration. However, she is known to be in chronic resp failure and uses no supplemental O2 with saturations chronically in the 70's per RT. HOwever, there is some difficulty obtaining a good pleth. with either her finger or ear so there is a question of whether accurate O2 readings at her care center are being obtained. (2) Acute respiratory failure with hypoxia: Start date: 11/12/22 Status: Acute Assessment and plan: Acute on chronic. Severe hypoxemia with patient's aspiration pneumonia. See above. She refuses to return to the [facility] with O2; states she will not use it. She would only use it if she is feeling short of air and she currently denies that she is. A VBG on RA is ordered for the AM. (3) Chronic obstructive lung disease: Assessment and plan: Continue aggressive nebulizer treatments. Difficult to assess what her supplemental O2 needs are; VBG in AM. Steroids have not been initiated; no wheezing or clear exacerbation of COPD. (4) Polycythemia: Status: Chronic Assessment and plan: This appears chronic and patient also appears slightly dry at even though her BNP is up with a history of an echocardiogram revealing increased PA pressures in 2012. Related to her chronic hypoxemia. (5) Diabetes: Status: Chronic Assessment and plan: Cont Jardiance and glipizide; cover with glucometer measurement short acting insulin coverage. Qualifiers: Diabetes mellitus type: type 2 Diabetes mellitus terminal operator insulin use: without fpc use (6) GERD with esophagitis: Status: Chronic Assessment and plan: Patient is on Pepcid and Prilosec which will be continued for now. (7) Enteritis: Status: Acute Assessment and plan: Thickened area of small bowel wall. Likely viral. Improving clinically. Advanced diet as tolerated. Subjective Subjective Patient reports: no new complaints, tolerating a regular diet and afebrile; denies nausea, vomiting or shortness of breath Interval history since last seen: Cough improved. Exam Narrative Exam Narrative: General: Alert and oriented at least to person and place. She is in no acute distress. Lying supine. Neck: Supple without JVD. Lungs:Faint rhonchi. Nonlabored breathing. Heart: Regular rate and rhythm. S1, S2.. Abdomen: Obese contour, soft and nontender to palpation with no focalizing guarding and no rebound. Bowel sounds positive in all quadrants. Extremities: No edema or calf tenderness. Skin: no rashes/lesions. Neuro: no focalizing motor deficits. No tremor. Psych: affect now normal. Objective Last Vital Signs Temp 37.1 C 11/14/22 15:13 Pulse 78 11/14/22 15:13 Resp 18 11/14/22 15:13 BP 150/79 H 11/14/22 15:13 Pulse Ox 83 L 11/14/22 15:13 Laboratory Results - last 24 hr 11/14/22 06:25 WBC 7.27 RBC 5.30 H Hgb 16.4 H Hct 52.8 H MCV 100 H MCH 30.9 MCHC 31.1 L RDW 14.9 H Plt Count 170 MPV 9.9 Immature Gran % 0.4 Neutrophils % 56.4 Lymphocytes % 30.3 Monocytes % 8.7 Eosinophils % 3.4 Basophils % 0.8 Nucleated RBC % 0.0 Absolute Neutrophils 4.10 Absolute Lymphocytes 2.20 Absolute Monocytes 0.63 Absolute Eosinophils 0.25 Absolute Basophils 0.06 Time Spent with Patient Time Spent with Patient: 25-34 minutes Time was spent: preparing to see the patient(eg.review tests), ordering medications,tests, procedures, indepentently interpreting results, counseling the patient and care coordination
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
[2022-11-14] MEDS: Atorvastatin 20 MG TAB PO (19:32)
[2022-11-15] VITALS (13 sets, daily range): BP systolic 103–159; BP diastolic 68–88; PULSE 64–76; RESP 8–22; TEMP 35.6–37.3; O2SAT 74–87
[2022-11-15] MEDS: LORazepam 0.5 MG TAB PO ×2 (01:10→11:23)
[2022-11-15] MEDS: Melatonin 3 MG TAB 9 MG PO ×2 (01:10→21:09)
[2022-11-15] MEDS: Normal Saline Flush 10 ML SYR IVP ×3 (01:10→13:56)
[2022-11-15] MEDS: AMPICILLIN/SULBACTAM 3 GM in Normal Saline 100 ML IVPB ×2 (01:11→08:05)
[2022-11-15] MEDS: Levothyroxine 112 MCG TAB PO (05:14)
[2022-11-15 06:36] LABS: BE (Venous) 6 mmol/L (-2-3); HCO3 (Venous) 32 mmol/L (23-28); O2 Sat (Venous) 68 %; TCO2 (Venous) 28 mmol/L (24-29); pCO2 (Venous) 56 mmHg (41-51); pH (Venous) 7.36 (7.31-7.41); pO2 (Venous) 37 mmHg
[2022-11-15 06:51] LABS: Anion Gap 6.1 mmol/L (3-11); BUN 15 mg/dL (7-18); CO2 28.9 mmol/L (21.0-32.0); CREATININE 0.8 mg/dL (0.55-1.02); Calcium 9.5 mg/dL (8.5-10.1); Chloride 106 mmol/L (98-107); Estimated GFR 80.71 (mL/min/1.73m2); Glucose 127 mg/dL (74-106); Potassium 3.9 mmol/L (3.5-5.1); Sodium 141 mmol/L (136-145)
[2022-11-15] MEDS: clonazePAM 1 MG TAB PO ×3 (08:05→19:59)
[2022-11-15] MEDS: Enoxaparin 40 MG/0.4 ML SYR SC (08:05)
[2022-11-15] MEDS: Gabapentin 300 MG CAP PO ×3 (08:05→19:59)
[2022-11-15] MEDS: Aspirin E.C. 81 MG TABEC PO (08:05)
[2022-11-15] MEDS: Sertraline 100 MG TAB PO (08:06)
[2022-11-15] MEDS: guaiFENesin 600 MG TABCR PO ×2 (08:06→19:58)
[2022-11-15] MEDS: buPROPion-XL 150 MG TABCR PO ×2 (08:06→19:58)
[2022-11-15] MEDS: Empaglifozin 25 MG TAB PO (08:06)
[2022-11-15] MEDS: Meloxicam 15 MG TAB 7.5 MG PO (08:06)
[2022-11-15 08:10] LABS: Lab Add On Test DONE
[2022-11-15] MEDS: Famotidine 20 MG TAB PO ×2 (08:21→19:59)
[2022-11-15] MEDS: Omeprazole 20 MG CAPCR 40 MG PO (08:22)
[2022-11-15] MEDS: Tiotropium/Olodaterol 10 PUFF INHALER IH (08:28)
[2022-11-15] MEDS: Docusate Sodium 100 MG CAP PO (11:15)
[2022-11-15] MEDS: Insulin Aspart 300 UNITS/3 ML PEN SC (11:43)
[2022-11-15] MEDS: Albuterol/Ipratropium 3 ML UPD VIAL UPD ×2 (11:51→17:47)
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
--- NOTE | 2022-11-15 13:57 | W.PALLCONSUL ---
Date of service: 11/15/22 Time of Service: 13:57 History of Present Illness Narrative: Celia is a 67 year old who resides at the [facility] assisted living who is currently being treated for aspiration PNA and acute respiratory failure. She also has a Hx of COPD, current smoker, diabetes, GERD, polycythemia, depression, anxiety, Bipolar disorder, HTN, HLD. She appears to be improving overall. Palliative was consulted to discuss goals of care. The hospitalist specifically requested that Palliative discuss oxygen with her. States she will not wear O2 at the [facility] unless it is at her discretion/for comfort, not based on numbers (O2 saturation). States her O2 is usually in the 70s. She does not want staff to call the ambulance/send her to the hospital unless she is below 70s and/or having Sx. She would use O2 PRN for comfort if it was her choice to use or not. Will see if [facility] can write an order for O2 PRN for comfort to be used at her discretion. The hospitalist plans to order O2 for comfort upon discharge. Her O2 is currently 70s-80s on 2-2.5 lpm. She still wants transfer to hospital. Does not want to go back to [facility], agrees to go back but prefers to go elsewhere. She would go to [facility] or the [facility] but concerned about how much she would have to pay. She reports that she is getting around with her walker and assistance, states she is not back to baseline but she is refusing PT. She has a COLST that was completed in 2015 that states: DNR/DNI, Transfer, no feeding tube, no IV hydration or nutrition, limited additional interventions. She also has HCA named- Lilliana Murguia () and Jace Guadalupe. 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 She also has a Hx of COPD, current smoker, diabetes, GERD, polycythemia, depression, anxiety, Bipolar disorder, HTN, HLD. Palliative care was consulted to discuss goals of care, specifically to discuss oxygen therapy upon return to the [facility] level III. She has been telling staff that she will not agree to wear O2 when she gets back to the [facility]. Her O2 is currently 70s-80s on 2-2.5 lpm. She reports that her O2 saturation is chronically in the 70s. After discussion, she is agreeable to having O2 at the [facility] but she wishes to use at her discretion. She wants O2 only for comfort. This was discussed with the hospitalist and they will write for her to have O2 for comfort upon discharge. Discussed CODE status. She is a DNR/DNI, she has COLST on file. Her COLST states she wishes to be transported to the hospital, she would like this order to transfer to stay in place. She also has HCA named- Lilliana Murguia () and Jace Guadalupe. She would benefit from Palliative f/u. F/U at [facility] as needed/desired. Review of Systems Narrative: PER HPI PFSH All Active Problems (Updated 11/16/22 @ 12:21 by Lashay Sheehan NP) Goals of care, counseling/discussion (Acute) DVT prophylaxis (Acute) Discharge planning issues (Acute) Enteritis (Acute) Acute respiratory failure with hypoxia (Acute) Aspiration pneumonia (Acute) Acute respiratory failure (Acute) Hypoxemia (Acute) Hyperproteinemia (Acute) Chronic hip pain (Acute) GERD with esophagitis (Chronic) Low back pain (Acute) Pneumonia (Acute) Hip pain, bilateral (Acute) Bipolar affect, depressed (Acute) Skin tag (Acute) Phlegm in throat (Acute) Positive colorectal cancer screening using Cologuard test (Acute) I scheduled 4 appts for gen surgery. She has cancelled or refuses RCT/ etc. or goes to the appt and then gets upset Dysphagia (Acute) Nasal mass (Acute) Dr. 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 Hyperlipidemia (Chronic) Polycythemia (Chronic) Hypothyroid (Chronic) Diabetes (Chronic) Type 2, controlled HTN (hypertension) (Chronic) Depression (Chronic) Mixed conductive and sensorineural hearing loss (Acute 01/29/14) Mixed hearing loss, bilateral (Acute 01/19/16) Sciatica (Acute 07/01/14) Sensorineural hearing loss (Acute 01/29/14) Total perforation of right tympanic membrane (Acute 01/19/16) Medical History Adrenal mass Ambulatory dysfunction Bulimia Chronic hip pain, bilateral Chronic low back pain Chronic obstructive lung disease Chronic post-traumatic stress disorder COPD (chronic obstructive pulmonary disease) Coronary arteriosclerosis Dehydration Diffuse abdominal pain Hearing loss History of smoking Hypokalemia Hypomagnesemia Hypoxia Interstitial lung disease Lumbar spine scoliosis Narcotic abuse episodic opioid dependence Osteoporosis Panic disorder Peripheral vascular disease Pneumonia Post traumatic stress disorder Pulmonary hypertension Tachycardia Tobacco abuse Weight loss Surgical History History of tympanoplasty of right ear Failed x2 S/P cholecystectomy Spinal Surgery Laminectomies at T12/L1 due to an angioma Stent placement Bilateral iliac and femoral Family History Mother Heart disease Paternal Grandfather Kidney disease Social History Smoking/Tobacco Use Status: Current every day Tobacco Type: cigarettes Smoking risk assessment performed?: Yes Alcohol Intake: never Drug use: Current Sobriety Substance use type: former substance user Housing: detention Do you feel safe at home: Yes Do you feel safe in your relationship?: Yes Additional Social history: Lives at [facility]. Exam Narrative Exam Narrative: General: pleasant, middle aged female, sitting up in the hospital bed, watching TV. She is awake, alert and talkative. HEENT: normocephalic, atraumatic, EOMI, mm dry. Neck: supple. Respiratory: respirations appear even and unlabored, wearing O2. Extremities: hands are cool to touch. Results Last Vital Signs Temp 36.2 C L 11/15/22 11:01 Pulse 75 11/15/22 11:51 Resp 18 11/15/22 11:51 BP 103/68 11/15/22 11:01 Pulse Ox 78 L 11/15/22 11:40 Labs Result diagrams: 11/16/22 06:06 11/16/22 06:06 Labs: Laboratory Results - last 24 hr 11/15/22 11/15/22 11/15/22 06:25 06:25 06:25 VBG pH 7.36 VBG pCO2 56 H VBG pO2 37 VBG HCO3 32 H VBG Total CO2 28 VBG O2 Saturation 68 VBG Base Excess 6 H Sodium 141 Potassium 3.9 Chloride 106 Carbon Dioxide 28.9 Anion Gap 6.1 BUN 15 Creatinine 0.8 Est GFR (CKD-EPI 2020) 80.71 Glucose 127 H Calcium 9.5 Phosphorus 4.0 Add-On Test Request DONE
--- NOTE | 2022-11-15 16:55 | PDOC.CMPRO ---
- If Service Date Differs Date of service: 11/15/22 Time of Service: 16:55 Care Management Progress Note S/O: Celia was sitting up in her chair when CM met with her. She reported that she isn't sure how she is feeling today. She stated that she doesn't want to have her O2 saturation above the 80's, as she is concerned that this will not be good for her, as she is used to living in the 70's. She met with palliative care today. CM will continue to follow. A: Celia is a 67 year old female admitted to [facility] on 11/12/22 with aspiration pneumonia, acute hypoxic respiratory failure. P: Celia will discharge back to the [facility] when medically cleared by provider. She will follow up with her PCP and discharge plan of care as instructed. She will be transported by [facility] and may require a wheelchair van depending on mobility. CM will continue to follow.
--- NOTE | 2022-11-15 19:50 | W.PM.PROGNOT ---
Date of Service Date of service: 11/15/22 Time of Service: 14:00 Assessment and Plan Assessment and plan (1) Aspiration pneumonia: Status: Acute Assessment and plan: GI symptoms of nausea, then emesis. CT abd/pelvis per [facility] radiologist reading showed enteritis. This would be the etiology of her emesis and subsequent aspiration. Stopped Unasyn, changed to Augmentin orally twice a day. She is chronically on O2 supplementation and required much higher levels of oxygen and positive pressure treatment for hypoxemia and acute respiratory failure with aspiration. However, she is known to be in chronic resp failure and uses no supplemental O2 with saturations chronically in the 70's per RT. However, there is some difficulty obtaining a good pleth. with either her finger or ear so there is a question of whether accurate O2 readings at her care center are being obtained. (2) Acute respiratory failure with hypoxia: Status: Acute Assessment and plan: Acute on chronic. Severe hypoxemia with patient's aspiration pneumonia. See above. She refuses to return to the [facility] with O2; states she will not use it. She would only use it if she is feeling short of air and she currently denies that she is. (3) Chronic obstructive lung disease: Assessment and plan: Continue aggressive nebulizer treatments. Difficult to assess what her supplemental O2 needs are Steroids have not been initiated; no wheezing or clear exacerbation of COPD. (4) Polycythemia: Status: Chronic Assessment and plan: This appears chronic and patient also appears slightly dry at even though her BNP is up with a history of an echocardiogram revealing increased PA pressures in 2013. Related to her chronic hypoxemia. (5) Diabetes: Status: Chronic Assessment and plan: Cont Jardiance and glipizide; cover with glucometer measurement short acting insulin coverage. Qualifiers: Diabetes mellitus halfway insulin use: without halfway use Diabetes mellitus type: type 2 (6) GERD with esophagitis: Status: Chronic Assessment and plan: Patient is on Pepcid and Prilosec which will be continued for now. (7) Enteritis: Status: Acute Assessment and plan: Thickened area of small bowel wall. Likely viral. Improving clinically. Advanced diet as tolerated. Subjective Subjective Patient reports: no new complaints, shortness of breath and afebrile; denies diarrhea, nausea or vomiting Interval history since last seen: Celia does not want to wear oxygen. She continues to smoke cigarettes and prefers that over oxygen. She was seen by Palliative Care. She has no new complaints today. Exam Narrative Exam Narrative: General: Alert and oriented at least to person and place. She is in no acute distress. Lying supine. Neck: Supple without JVD. Lungs:Faint rhonchi. Nonlabored breathing. Heart: Regular rate and rhythm. S1, S2.. Abdomen: Obese contour, soft and nontender to palpation with no focalizing guarding and no rebound. Bowel sounds positive in all quadrants. Extremities: No edema or calf tenderness. Skin: no rashes/lesions. Neuro: no focalizing motor deficits. No tremor. Psych: affect now normal. Objective Last Vital Signs Temp 36.3 C L 11/15/22 19:27 Pulse 68 11/15/22 19:27 Resp 18 11/15/22 19:27 BP 143/75 H 11/15/22 19:27 Pulse Ox 86 L 11/15/22 19:27 Laboratory Results - last 24 hr 11/15/22 11/15/22 11/15/22 06:25 06:25 06:25 VBG pH 7.36 VBG pCO2 56 H VBG pO2 37 VBG HCO3 32 H VBG Total CO2 28 VBG O2 Saturation 68 VBG Base Excess 6 H Sodium 141 Potassium 3.9 Chloride 106 Carbon Dioxide 28.9 Anion Gap 6.1 BUN 15 Creatinine 0.8 Est GFR (CKD-EPI 2020) 80.71 Glucose 127 H Calcium 9.5 Phosphorus 4.0 Add-On Test Request DONE Time Spent with Patient Time Spent with Patient: 25-34 minutes Time was spent: preparing to see the patient(eg.review tests), obtaining and/or reviewing separately otained hiistory, ordering medications,tests, procedures, referring, communicating with other health home care giver, indepentently interpreting results, counseling the patient and care coordination
[2022-11-15] MEDS: Atorvastatin 20 MG TAB PO (19:59)
[2022-11-15] MEDS: Amoxicillin 875/Clav. 125 TAB PO (19:59)
[2022-11-16] VITALS (7 sets, daily range): BP systolic 99–173; BP diastolic 66–89; PULSE 69–83; RESP 1–20; TEMP 36.1–36.6; O2SAT 81–86
[2022-11-16] MEDS: LORazepam 0.5 MG TAB PO ×2 (00:34→14:18)
[2022-11-16] MEDS: Albuterol/Ipratropium 3 ML UPD VIAL UPD ×3 (00:34→13:11)
[2022-11-16] MEDS: Levothyroxine 112 MCG TAB PO (05:57)
[2022-11-16 06:44] LABS: Abs Immature Grans 0.03 10^3/uL (0.0-0.06); Absolute Basophil Count 0.05 10^3/uL (0.0-0.2); Absolute Eosinophil Count 0.26 10^3/uL (0.0-0.7); Absolute Lymphocyte Count 2.13 10^3/uL (1.2-3.4); Absolute Monocyte Count 0.62 10^3/uL (0.1-0.8); Absolute Neutrophil Count 4.72 10^3/uL (1.2-6.7); Basophils % 0.6; Eosinophils % 3.3; HCT 52.1 % (36.0-46.0); HGB 16.9 g/dL (11.2-15.7); Immature Grans % 0.4; Lymphocytes % 27.3; MCH 31.2 pg (27.0-33.0); MCHC 32.4 % (32.0-36.0); MCV 96 fL (80-95); MPV 10.2 fL (8.0-11.0); Monocytes % 7.9; Neutrophils % 60.5; Platelet Count 202 10^3/uL (130-400); RBC 5.41 10^6/uL (3.93-5.22); RDW 14.8 % (11.7-14.6); RDW-SD 52.4 fL; WBC 7.81 10^3/uL (4.4-10.8)
[2022-11-16 06:59] LABS: Anion Gap 7.5 mmol/L (3-11); BUN 18 mg/dL (7-18); CO2 27.5 mmol/L (21.0-32.0); CREATININE 0.9 mg/dL (0.55-1.02); Calcium 9.8 mg/dL (8.5-10.1); Chloride 103 mmol/L (98-107); Estimated GFR 70.07 (mL/min/1.73m2); Glucose 120 mg/dL (74-106); Magnesium 1.8 mg/dL (1.8-2.4); Potassium 3.8 mmol/L (3.5-5.1); Sodium 138 mmol/L (136-145)
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
[2022-11-16] MEDS: Docusate Sodium 100 MG CAP PO (07:35)
[2022-11-16] MEDS: Amoxicillin 875/Clav. 125 TAB PO (07:35)
[2022-11-16] MEDS: Famotidine 20 MG TAB PO (07:35)
[2022-11-16] MEDS: Omeprazole 20 MG CAPCR 40 MG PO (07:35)
[2022-11-16] MEDS: buPROPion-XL 150 MG TABCR PO (07:35)
[2022-11-16] MEDS: clonazePAM 1 MG TAB PO ×2 (07:35→14:14)
[2022-11-16] MEDS: guaiFENesin 600 MG TABCR PO (07:35)
[2022-11-16] MEDS: Gabapentin 300 MG CAP PO ×2 (07:35→14:14)
[2022-11-16] MEDS: Aspirin E.C. 81 MG TABEC PO (07:35)
[2022-11-16] MEDS: Enoxaparin 40 MG/0.4 ML SYR SC (07:36)
[2022-11-16] MEDS: Sertraline 100 MG TAB PO (07:36)
[2022-11-16] MEDS: Normal Saline Flush 10 ML SYR IVP (07:36)
[2022-11-16] MEDS: Meloxicam 15 MG TAB 7.5 MG PO (07:36)
[2022-11-16] MEDS: Empaglifozin 25 MG TAB PO (07:36)
[2022-11-16] MEDS: Tiotropium/Olodaterol 10 PUFF INHALER IH (07:42)
[2022-11-16] MEDS: Insulin Aspart 300 UNITS/3 ML PEN SC (11:49)
--- NOTE | 2022-11-16 12:51 | DSE_ITS ---
Date of service: 11/16/22 Time of Service: 12:51 DS: Diagnosis Discharge Diagnosis (1) Acute respiratory failure with hypoxia: Status: Acute (2) Aspiration pneumonia: Status: Acute (3) Hypoxemia: Status: Acute (4) GERD with esophagitis: Status: Chronic (5) Bipolar affect, depressed: Status: Acute (6) Hyperlipidemia: Status: Chronic (7) Polycythemia: Status: Chronic (8) Hypothyroid: Status: Chronic (9) Diabetes: Status: Chronic (10) HTN (hypertension): Status: Chronic (11) Anxiety disorder: Status: None (12) Depression: Status: Chronic (13) Chronic obstructive lung disease: (14) Chronic post-traumatic stress disorder: (15) Tobacco abuse: Discharge Plan Disposition Patient Disposition: Home Condition: Fair Discharge Details Reason For Visit: Aspiration Pneumonia,Acute Hypoxic Respiratory Admit Date/Time: 11/12/22 23:37 Admit Provider: Priyank Temple Attending Provider: Priyank Temple Primary Care Provider: Martínez Berrios Hospital Course Hospital Course: This is a 67-year-old female patient who resides at the [facility], who has an extensive medical history including CAD, pulmonary hypertension with peripheral vascular disease and extensive vascular interventions as seen by CT in the ED, and GI symptoms chronically with recent nausea and vomiting over the last couple of days.? She was very weak, EMS was called to transport her to the ED.? She did not have any falls and during her transport may have had aspiration with her emesis.? She was found to be severely hypoxemic with pulse oximeter in the 45% range in the ED with O2 supplementation initiated and patient responded eventually to BiPAP.?She was admitted to the hospital for antibiotics and oxygen.? She improved, however did still have an oxygen requirement.? She stated she does not want to have oxygen when she leaves and if it is ordered for her, even if she needs it, she is not going to use it.? She did not do well with exercise oximetry with SPO2 down to the low 80s.? On discharge she said she ?might use oxygen? when needed if made available at the [facility] for her.? She lives in the assisted living area.?? She was discharged with the remainder of a total of 5 day course of antibiotics and the plan for an oxygen vendor to deliver oxygen to her at the [facility].?She was told how important it is for her to quit smoking. The [facility] is aware and agreeable to this plan. She is stable and discharged. Discussed with Dr Suggs Home Meds and New Rx's Prescriptions: New amoxicillin-pot clavulanate 875-125 mg Tablet 1 tab PO BID Qty: 3 0RF Continued Fleet Bisacodyl 10 mg/30 mL enema 10 mg TN DAILY PRN (Reason: constipation) Qty: 37 2RF bupropion HCl 150 mg tablet extended release 24 hr 150 mg PO BID Qty: 180 2RF Tesha-[place] Original 325-1,916-1,000 mg tablet, effervescent 2 tab PO BID PRN (Reason: indigestion) Qty: 60 3RF bismuth subsalicylate 262 mg/15 mL suspension 524 mg PO QID PRN (Reason: diarrhea) Qty: 30 3RF docusate sodium 100 mg capsule 300 mg PO DAILY PRN (Reason: constipation) Qty: 30 3RF guaifenesin [Mucinex] 600 mg tablet extended release 12hr 600 mg PO Q12H PRN (Reason: congestion) Qty: 60 4RF loperamide 2 mg tablet 2 mg PO QID PRN (Reason: loose stool) Qty: 10 0RF Rx Instructions: Take one tablet by mouth after each loose stool not to exceed 8mg/24 hrs melatonin 10 mg tablet 10 mg PO HS PRN (Reason: sleep) Qty: 90 5RF quetiapine [Seroquel XR] 200 mg tablet extended release 24 hr 200 mg PO HS Qty: 90 12RF ondansetron 4 mg tablet,disintegrating 4 mg PO Q4H PRN (Reason: nausea and vomiting) Qty: 30 1RF atorvastatin 20 mg tablet 20 mg PO QPM Qty: 90 3RF famotidine 20 mg tablet 20 mg PO BID Qty: 180 4RF meloxicam 7.5 mg tablet 7.5 mg PO DAILY Qty: 30 5RF tramadol 50 mg tablet 100 mg PO DAILY Qty: 30 0RF aspirin 81 mg tablet,delayed release (DR/EC) 81 mg PO DAILY Qty: 90 2RF Jardiance 25 mg tablet 25 mg PO QAM Qty: 90 2RF glipizide 10 mg tablet extended release 24hr 10 mg PO DAILY Qty: 90 2RF levothyroxine 112 mcg tablet 112 mcg PO DAILY Qty: 90 2RF omeprazole 40 mg capsule,delayed release(DR/EC) 40 mg PO DAILY Qty: 90 2RF lorazepam [Ativan] 0.5 mg tablet 0.5 mg PO BID PRN (Reason: anxiety) Qty: 60 5RF Anoro Ellipta 62.5-25 mcg/actuation blister with device 1 inh inhalation Q24H Qty: 90 4RF Rx Instructions: dispense Anoro clonazepam 1 mg tablet 1 mg PO TID Qty: 270 5RF sertraline 100 mg tablet 100 mg PO DAILY Qty: 90 3RF Rx Instructions: total 175mg daily gabapentin 300 mg capsule 300 mg PO TID Qty: 90 5RF Rx Instructions: dose increase 06/04/22 Rybelsus 7 mg tablet 7 mg PO DAILY Qty: 90 3RF Rx Instructions: start after 3mg Rx finishes Boost High Protein 0.06 gram- 1 kcal/mL liquid 237 ml PO DAILY Qty: 5688 10RF Discharge Instructions Instructions: Amoxicillin/Clavulanate Potassium (By mouth), How to Stop Smoking (DC), Using Oxygen at Home (DC), Aspiration Pneumonia (DC), Pulse Oximetry (DC) Additional Instructions: Take Augmentin one pill tonight (11/16/22), one tomorrow morning and one tomorrow evening (11/17/22). Stand Alone Forms: Nursing Discharge Form Activity:: Activity as Tolerated Equipment/Supplies:: Oxygen (L/min Below) Diet:: As Tolerated Discharge Orders Discharge Orders: Discharge Order (Routine); Ordered 11/16/22 Ordered By: Kristine Bob Discharge Data Discharge Date/Time-TO BE ENTERED AT DEPARTURE: 11/16/22 15:08 DS: Summary Time Spent with Patient providing and/or coordinating discharge services: Greater than 30 minutes Status at Discharge Functional status at discharge: uses cane/walker Overall status at discharge: patient is back to baseline Mental Status: mental status grossly normal Speech and Movement: speech and movement normal Mood: congruent mood Affect: normal affect Exam Narrative Exam Narrative: General: Alert and oriented at least to person and place. She is in no acute distress. Lying supine. Neck: Supple without JVD. Lungs:Faint rhonchi. Nonlabored breathing. Heart: Regular rate and rhythm. S1, S2.. Abdomen: Obese contour, soft and nontender to palpation with no focalizing guarding and no rebound. Bowel sounds positive in all quadrants. Extremities: No edema or calf tenderness. Skin: no rashes/lesions. Neuro: no focalizing motor deficits. No tremor. Psych: affect now normal. Psych Mental Status: mental status grossly normal Speech and Movement: speech and movement normal Mood: congruent mood Affect: normal affect DS: Data Vitals/I&O Vitals and I&O: Vital Signs Temperature 36.3 C L 11/16/22 11:23 Temperature Source Tympanic 11/16/22 11:23 Pulse 73 11/16/22 11:23 Pulse Rhythm Regular 11/16/22 07:33 Pulse 71 11/13/22 00:46 Respiratory Rate 16 11/16/22 11:23 Respiratory Effort Non-Labored 11/16/22 07:33 Respiratory Depth Normal 11/16/22 07:33 Respiratory Pattern Normal 11/16/22 07:33 Blood Pressure 111/74 11/16/22 11:23 Blood Pressure Mean 72 11/13/22 00:46 Pulse Oximetry 84 L 11/16/22 11:23 Oxygen Delivery Method Nasal Cannula 11/16/22 11:23 Oxygen Flow Rate 2.5 11/16/22 11:23 Fraction of Inspired Oxygen (FIO2) 100 11/12/22 22:07 Pain Level 0 11/16/22 11:25 Comment 11/16/22 11:25 Intake & Output 11/15/22 11/16/22 11/16/22 23:59 11:59 23:59 Intake Total 724 / 1634 970 / 1210 240 / 1210 Output Total 800 / 2200 750 / 750 Balance -76 / -566 220 / 460 240 / 460 Intake: IV 4 / 314 10 / 10 Oral 720 / 1320 960 / 1200 240 / 1200 Output: Urine 800 / 2200 750 / 750 Other: Urine Color Yellow Yellow Urine Appearance Clear Clear Urine Odor None None Comment Void x1 in the bedside commode. Per pt. report, void x1 in the toilet. Voiding Methods Bedside Commode Toilet Data Completed and Pending Labs on day of discharge: Labs from last 24 hours 11/16/22 11/16/22 06:06 06:06 WBC 7.81 RBC 5.41 H Hgb 16.9 H Hct 52.1 H MCV 96 H D MCH 31.2 MCHC 32.4 RDW 14.8 H Plt Count 202 MPV 10.2 Immature Gran % 0.4 Neutrophils % 60.5 Lymphocytes % 27.3 Monocytes % 7.9 Eosinophils % 3.3 Basophils % 0.6 Nucleated RBC % 0.0 Absolute Neutrophils 4.72 Absolute Lymphocytes 2.13 Absolute Monocytes 0.62 Absolute Eosinophils 0.26 Absolute Basophils 0.05 Sodium 138 Potassium 3.8 Chloride 103 Carbon Dioxide 27.5 Anion Gap 7.5 BUN 18 Creatinine 0.9 Est GFR (CKD-EPI 2020) 70.07 Glucose 120 H Calcium 9.8 Magnesium 1.8 PFSH All Active Problems (Updated 11/17/22 @ 00:00 by LAURENCE TERRELL) Enteritis (Acute) Acute respiratory failure with hypoxia (Acute) Aspiration pneumonia (Acute) Acute respiratory failure (Acute) Hypoxemia (Acute) Hyperproteinemia (Acute) Chronic hip pain (Acute) GERD with esophagitis (Chronic) Low back pain (Acute) Pneumonia (Acute) Hip pain, bilateral (Acute) Bipolar affect, depressed (Acute) Skin tag (Acute) Phlegm in throat (Acute) Positive colorectal cancer screening using Cologuard test (Acute) I scheduled 4 appts for gen surgery. She has cancelled or refuses RCT/ etc. or goes to the appt and then gets upset Dysphagia (Acute) Nasal mass (Acute) Dr. 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 Hyperlipidemia (Chronic) Polycythemia (Chronic) Hypothyroid (Chronic) Diabetes (Chronic) Type 2, controlled HTN (hypertension) (Chronic) Depression (Chronic) Mixed conductive and sensorineural hearing loss (Acute 01/29/14) Mixed hearing loss, bilateral (Acute 01/19/16) Sciatica (Acute 07/01/14) Sensorineural hearing loss (Acute 01/29/14) Total perforation of right tympanic membrane (Acute 01/19/16) Medical History Adrenal mass Ambulatory dysfunction Bulimia Chronic hip pain, bilateral Chronic low back pain Chronic obstructive lung disease Chronic post-traumatic stress disorder COPD (chronic obstructive pulmonary disease) Coronary arteriosclerosis Dehydration Diffuse abdominal pain Hearing loss History of smoking Hypokalemia Hypomagnesemia Hypoxia Interstitial lung disease Lumbar spine scoliosis Narcotic abuse episodic opioid dependence Osteoporosis Panic disorder Peripheral vascular disease Pneumonia Post traumatic stress disorder Pulmonary hypertension Tachycardia Tobacco abuse Weight loss Surgical History History of tympanoplasty of right ear Failed x2 S/P cholecystectomy Spinal Surgery Laminectomies at T12/L1 due to an angioma Stent placement Bilateral iliac and femoral Family History Mother Heart disease Paternal Grandfather Kidney disease Social History Smoking/Tobacco Use Status: Current every day Tobacco Type: cigarettes Smoking risk assessment performed?: Yes Alcohol Intake: never Drug use: Current Sobriety Substance use type: former substance user Housing: longterm Do you feel safe at home: Yes Do you feel safe in your relationship?: Yes Additional Social history: Lives at [facility]. Time Spent with Patient Time Spent with Patient: <45 minutes Time was spent: preparing to see the patient(eg.review tests), obtaining and/or reviewing separately otained hiistory, ordering medications,tests, procedures, referring, communicating with other health child caregiver private home, indepentently interpreting results, counseling the patient and care coordination
--- NOTE | 2022-11-16 15:13 | NUR.NOTE ---
Nursing Note: At 1508 on 11/16/22, pt. was discharged back to the [facility] per provider order. Discharge instructions were reviewed with the pt. Pt. refused to have the influenza vaccine administered at this time. Valuables in the safe were returned to the pt. Valuables envelope was opened by the pt. in front of the RN; two cigarette boxes, one evaporator repairer, and one book of matches were returned to the pt. Pt. refused to wear oxygen upon discharge. Pt. refused to be evaluated by respiratory therapy prior to discharge. Pt. refused to wait in her room until [facility] arrived and refused to wait for a wheelchair before leaving the unit. Pt. ambulated from her room and on to the elevator, despite being informed that she needed to be accompanied. [facility] took the next elevator downstairs to ensure that the pt. made it outside and in to the [facility] car and to offer pt. assistance, but per the RECRUITER COORDINATOR, the pt. walked away from the [facility] when the RECRUITER COORDINATOR addressed her and offered assistance. RECRUITER COORDINATOR then returned to the unit.
--- NOTE | 2022-11-16 15:31 | NUR.NOTE ---
Nursing Note: At approximately 1315 on 11/16/22, RN entered pt.'s room to speak with pt. and during the conversation, pt. states that she is adamantly refusing to wear oxygen upon discharge. Charge nurse notified.
--- NOTE | 2022-11-16 15:49 | CMDISCH_ITS ---
- If Service Date Differs Date of service: 11/16/22 Time of Service: 15:49 LACE Index Scoring Tool - Questions: Length of Stay (in days): 4 - 6 Acuity (Admit via E.D.?): Yes Comorbidities: Diabetes w/o Complication, Chronic Pulmonary Disease E.D. Visits: 5 - Answers: Total Score: 14 Risk of Readmission: High Risk Care Management Discharge Reason for Hospitalization: Aspiration pneumonia, acute respiratory failure Discharge Plan: Celia will return to the [facility], where she resides. She met with Palliative care on this admission and agreed to have O2 set up for comfort only (self managed). Upon set up, she declined to have O2. Provider cherelle uested that the order is sent to the [employer] ([employer]) in order for her to have access to O2, if she decides to accept it. She was transported home via [facility] private vehicle. CM sent discharge summary to the [facility]. She will follow up with her PCP and discharge plan of care. She is happy to be going home. Patient/Family Education Needs: Review discharge instructions and limitations, discussion of self care needs including ask me three. Services Needed at Discharge: Transportation ([facility] private vehicle)
== END 2022-11-16 15:08 | disposition home or self-care (01) | DRG 177 ==
LOC: ER 11-13 00:05 → MS 11-13 01:15
PROVIDERS: Family Medicine; Internal Medicine; Admitting Provider Family Medicine; Emergency Provider Student in an Organized Health Care Education/Training Program; PCP Family Medicine; Visit Provider Family Medicine
DX: J69.0 Pneumonitis due to inhalation of food and vomit (principal); J96.01 Acute respiratory failure with hypoxia; J44.9 Chronic obstructive pulmonary disease, unspecified; D75.1 Secondary polycythemia; E11.9 Type 2 diabetes mellitus without complications; K21.00 Gastro-esophageal reflux disease with esophagitis, without bleeding; F31.9 Bipolar disorder, unspecified; E78.5 Hyperlipidemia, unspecified; E03.9 Hypothyroidism, unspecified; I10 Essential (primary) hypertension; F43.12 Post-traumatic stress disorder, chronic; F17.210 Nicotine dependence, cigarettes, uncomplicated; Z79.84 Long term (current) use of oral hypoglycemic drugs; I25.10 Atherosclerotic heart disease of native coronary artery without angina pectoris; I27.20 Pulmonary hypertension, unspecified; I73.9 Peripheral vascular disease, unspecified; M54.50 Low back pain, unspecified; Z99.81 Dependence on supplemental oxygen; K52.9 Noninfective gastroenteritis and colitis, unspecified
CPT/HCPCS: 36415; 71275; 74177; 80048; 80053; 82805; 83690; 85027; 87081; 87637; 93005; 94640; 96365; 99291; J1650; 71045; 74018; 83735; 83880; 84100; 84443; 84484; 85025; 85610; 85730; 93010; 99223; 99232; 99239; J0295; J3490; J7613; J7620

== ENCOUNTER 2022-11-22 15:45 | Outpatient (REF) | payer MEDICARE, MEDICAID, SELFPAY ==
[2022-11-22 14:04] LABS: Bilirubin Negative (Negative); Blood Trace-intact (Negative); Clarity Sl Cloudy (Clear); Glucose >=1000 mg/dL (Negative); Ketones Negative (Negative); Leukocyte Esterase Negative (Negative); Nitrite Negative (Negative); Urobilinogen 0.2 EU/dL (Up TO 0.2); pH 6.5 (5-8)
[2022-11-22 14:16] LABS: Bacteria Moderate HPF (Negative); C & S Indicated? Yes; Casts Negative LPF (Negative); Crystals Negative HPF (Negative); Epithelial Cells Rare HPF (Negative); Mucus Negative (Negative); RBC 0-2 HPF (0-2)
== END 2022-11-22 15:46 | disposition home or self-care (01) ==
LOC: LBN 15:45
PROVIDERS: PCP Family Medicine; Visit Provider Family Medicine
DX: R30.0 Dysuria (principal); R35.0 Frequency of micturition
CPT/HCPCS: 87077; 81003; 81015; 87086; 87186

== ENCOUNTER → 2022-12-31 12:44 | Outpatient (BNVA) | payer MEDICARE, MEDICAID, SELFPAY | PROVIDERS: PCP Family Medicine; Referring Provider Family Medicine; Visit Provider Student in an Organized Health Care Education/Training Program | DX: M25.552 Pain in left hip (principal); M70.61 Trochanteric bursitis, right hip | CPT/HCPCS: 20610; 99213; J1040 ==

== ENCOUNTER 2023-01-07 12:36 | Emergency (ER) | payer MEDICARE, MEDICAID, SELFPAY ==
[2023-01-07 12:38] VITALS: BP 129/86; PULSE 92; RESP 18; TEMP 36.6; O2SAT 94
[2023-01-07 13:50] LABS: Bilirubin Negative (Negative); Blood Trace-intact (Negative); Clarity Clear (Clear); Glucose 500 mg/dL (Negative); Ketones Negative (Negative); Leukocyte Esterase Negative (Negative); Nitrite Positive (Negative); Specific Gravity 1.025 (1.005-1.025); Urobilinogen 0.2 mg/dL (Up to 0.2); pH 5.5 (5-8)
[2023-01-07 13:56] LABS: Abs Immature Grans 0.02 10^3/uL (0.0-0.06); Absolute Basophil Count 0.05 10^3/uL (0.0-0.2); Absolute Eosinophil Count 0.06 10^3/uL (0.0-0.7); Absolute Monocyte Count 0.76 10^3/uL (0.1-0.8); Absolute Neutrophil Count 6.32 10^3/uL (1.2-6.7); Basophils % 0.6; Eosinophils % 0.7; HCT 56.8 % (36.0-46.0); HGB 18.3 g/dL (11.2-15.7); Immature Grans % 0.2; Lymphocytes % 19.1; MCH 30.7 pg (27.0-33.0); MCHC 32.2 % (32.0-36.0); MCV 95 fL (80-95); MPV 9.4 fL (8.0-11.0); Monocytes % 8.5; Neutrophils % 70.9; Platelet Count 215 10^3/uL (130-400); RBC 5.96 10^6/uL (3.93-5.22); RDW 15.4 % (11.7-14.6); RDW-SD 54.2 fL; WBC 8.91 10^3/uL (4.4-10.8)
[2023-01-07 13:59] LABS: Bacteria Moderate HPF (Negative); C & S Indicated? Yes; Casts Negative LPF (Negative); Crystals Negative HPF (Negative); Epithelial Cells Rare HPF (Negative); Mucus Negative (Negative); RBC 0-2 HPF (0-2)
[2023-01-07 14:14] LABS: Salicylate < 2.8 mg/dL (<2.8)
[2023-01-07 14:15] LABS: Acetaminophen < 2 ug/mL (10-30)
[2023-01-07 14:25] LABS: ALT 17 U/L (14-59); AST 8 U/L (15-37); Albumin 3.4 g/dL (3.4-5.0); Alkaline Phosphatase 116 U/L (46-116); BUN 22 mg/dL (7-18); Bilirubin, Total 0.4 mg/dL (0.2-1.0); CREATININE 0.8 mg/dL (0.55-1.02); Chloride 107 mmol/L (98-107); Estimated GFR 80.71 (mL/min/1.73m2); Glucose 127 mg/dL (74-106); Potassium 3.9 mmol/L (3.5-5.1); Sodium 144 mmol/L (136-145); TSH (W/Ref FT4) 0.52 uIU/mL (0.36-3.74); Total Protein 8.8 g/dL (6.4-8.2)
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
[2023-01-07 15:12] VITALS: O2SAT 95
[2023-01-07] MEDS: Cephalexin 500 MG CAP PO (15:50)
--- NOTE | 2023-01-07 16:56 | PDOC.CMSAFED ---
- If Service Date Differs Date of service: 01/07/23 Time of Service: 16:56 Care Management Safety Plan Status: Voluntary - Reason for Wait Reason for Wait: Inpatient Admission VOLUNTARY FOR INPATIENT PSYCHIATRIC STABILIZATION. Patient is appropriate in all interactions since arriving at [facility]; Pt has demonstrated appropriate coping and communication skills, has articulated his or her needs and concerns and is fully engaged during staff interactions. Celia lives at level three, assisted living at the [facility]. She arrived at the ED stating that she is suicidal due to her living conditions. 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 CM discussed creating a safety plan to return to the [facility], where she has some oversight. TRANSPORT TANK TECHNICIAN feels that her SI is directly connect to the [facility], therefore she should have inpatient psychiatric treatment prior to returning. They are also looking at care bed admissions, as there are no available beds at the psychiatric hospitals currently. She will be re evaluated tomorrow by TRANSPORT TANK TECHNICIAN. Safety plan has been established with patient, and care team, to adhere to patient goals, identify restrictions based on behavioral status, address nutrition, and determine allowed personal belongings, tools for hygiene and personal care. Determine level of activity including ambulation, level of supervision, visitors, and determine privileges based on behaviors and level of engagement by pt. SAFETY PLAN: 1. Will remain on suicide precautions. In Paper Clothes 2. 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 3. May have paper cups, plates, finger foods as well as a cardboard spoon with which to eat meals. 4. Follow [facility] Management of the Admitted Behavioral Health Patient policy. 5. Comfort bath system only, shower permitted with escort at RN discretion. 6. No personal belongings-soft items permitted at RN discretion. 7. Visitors-none at this time. 8. Activities: soft cart items approved per RN discretion. 9. Bathroom privileges with escort in the ED, available in room without limitation on M/S. 10. Phone: contact limited to family at this time, via cordless phone at RN discretion. 11. Due to VOLUNTARY status, if patient wishes to leave [facility], staff will contact [facility] Crisis Screener ([phone]) and On-Call Home Service Technician ([phone]) as soon as possible. In the event of elopement, notify [facility] Police ([phone]). Patient is currently voluntarily at [facility] and seeking inpatient admission when a bed becomes available. [facility] Frontline Qualitative Researcher will continue seeking placement. Please contact the Acupressurist Home Service Technician ([phone]) and [facility] Qualitative Researcher ([phone]) for any needed changes in the Safety Plan. Safety plan has been provided to interdepartmental care team.
--- NOTE | 2023-01-07 17:55 | ED.PROG_ITS ---
Date of service: 01/07/23 Time of Service: 17:56 Medical Decision Making pt currently calm and cooperative seeking voluntary placement, started on cephalexin for potential uti, will continue to monitor until placement found Sign Out Sign Out Data: Sign Out Comment: Patient has a history of anxiety and bipolar disorder. She is here with depression and suicidality. She is unhappy with her current living situation at the [facility]. Plan is to follow-up recommendations from [facility] crisis screener who is currently evaluating the patient. Patient was found to have positive nitrite and 5-10 WBCs on urinalysis. Plan to cover with Keflex until urine culture available. Patient received additional dose today and scheduled dosing over the next 5 days has been ordered. Last updated by Drew Chavez MD at 01/07/23 15:30 Discharge Plan Discharge Details Chief Complaint: PsychEval Primary Care Provider: Martínez Berrios ED Provider: Rogelio Connolly [place] Meds and New Rx's Prescriptions: No Action Fleet Bisacodyl 10 mg/30 mL enema 10 mg ND DAILY PRN (Reason: constipation) Qty: 37 2RF bupropion HCl 150 mg tablet extended release 24 hr 150 mg PO BID Qty: 180 2RF fluoxetine 40 mg capsule 40 mg PO DAILY Qty: 90 3RF [place] Original 325-1,916-1,000 mg tablet, effervescent 2 tab PO BID PRN (Reason: indigestion) Qty: 60 3RF bismuth subsalicylate 262 mg/15 mL suspension 524 mg PO QID PRN (Reason: diarrhea) Qty: 30 3RF docusate sodium 100 mg capsule 300 mg PO DAILY PRN (Reason: constipation) Qty: 30 3RF guaifenesin [Mucinex] 600 mg tablet extended release 12hr 600 mg PO Q12H PRN (Reason: congestion) Qty: 60 4RF loperamide 2 mg tablet 2 mg PO QID PRN (Reason: loose stool) Qty: 10 0RF Rx Instructions: Take one tablet by mouth after each loose stool not to exceed 8mg/24 hrs melatonin 10 mg tablet 10 mg PO HS PRN (Reason: sleep) Qty: 90 5RF quetiapine [Seroquel XR] 200 mg tablet extended release 24 hr 200 mg PO HS Qty: 90 12RF ondansetron 4 mg tablet,disintegrating 4 mg PO Q4H PRN (Reason: nausea and vomiting) Qty: 30 1RF atorvastatin 20 mg tablet 20 mg PO QPM Qty: 90 3RF famotidine 20 mg tablet 20 mg PO BID Qty: 180 4RF meloxicam 7.5 mg tablet 7.5 mg PO DAILY Qty: 30 5RF tramadol 50 mg tablet 100 mg PO DAILY Qty: 30 0RF aspirin 81 mg tablet,delayed release (DR/EC) 81 mg PO DAILY Qty: 90 2RF Jardiance 25 mg tablet 25 mg PO QAM Qty: 90 2RF glipizide 10 mg tablet extended release 24hr 10 mg PO DAILY Qty: 90 2RF levothyroxine 112 mcg tablet 112 mcg PO DAILY Qty: 90 2RF omeprazole 40 mg capsule,delayed release(DR/EC) 40 mg PO DAILY Qty: 90 2RF lorazepam [Ativan] 0.5 mg tablet 0.5 mg PO BID PRN (Reason: anxiety) Qty: 60 5RF Anoro Ellipta 62.5-25 mcg/actuation blister with device 1 inh inhalation Q24H Qty: 90 4RF Rx Instructions: dispense Anoro clonazepam 1 mg tablet 1 mg PO TID Qty: 270 5RF gabapentin 300 mg capsule 300 mg PO TID Qty: 90 5RF Rx Instructions: dose increase 06/04/22 Rybelsus 7 mg tablet 7 mg PO DAILY Qty: 90 3RF Rx Instructions: start after 3mg Rx finishes
--- NOTE | 2023-01-07 18:46 | PDOC.MHPN2 ---
Date of service: 01/07/23 Time of Service: 18:46 Mental Health Emergency Note Release NK release signed:: Yes Reason for Visit Client reported some frustrations with her living situation. 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 Housed: Yes Non Suicidal Self Injury Current: No History: No Safety Risk/Harm to Self or Others Current Ideation to Harm Self or Others: No Risk: Does risk to harm exist?: No Risk: Low Risk Duty to warn indicated: No Asssessment/Mental Status Appearance: Unremarkable Attitude: Cooperative Behavior: Unremarkable Speech: Normal Affect: Normal Mood: Stressed Thought process: Unremarkable Hallucinations: No Delusions: No Attention: Unremarkable Perception: Not impaired Orientation: Fully orientated Memory: Intact Insight: Good Judgement: Fair Neurovegetative Symptoms Sleep: No change Appetitie: No change Interests: No change Energy: No change Substance Use: Do you use nicotine?: No Have you used substances in the last 7 days?: No Additional Issues: Assaultive/Threatening Behavior: No Medical Concerns: No Client engaged in active self harm w/weapon: No Threatening to run away: No Child reported abuse/neglect: No Voluntarily presenting for services: No Domestic violence is a concern: No Extreme Psychosis or extreme behavior is present: No Impression Client reported feeling calmer now and [facility] No SI/HI/NSSI endorsed. Client's judgment seems sound and she demonstrates good insight into her care and needs. Safety planned home with a plan to check in with her leather case finisher tomorrow (01/08) morning. Resources Reosurces reviewed and given:: [facility] Plan/Disposition Recommended Disposition: [facility] Services [facility] Services: DIGITAL ASSOCIATE MEDIA DIRECTOR. Plan: Client is to be discharged to the [facility] with a plan to check in with her leather case finisher. Person reported agreement to plan: Yes Reports/communication Outcome discussed with: ED/Personnel
[2023-01-07 20:22] VITALS: BP 134/72; PULSE 74; RESP 26; TEMP 36.4; O2SAT 88
--- NOTE | 2023-01-10 09:08 | NUR.NOTE ---
Nursing Note: Accessed chart to look up whether or not on antibiotic.
== END 2023-01-07 20:27 | disposition home or self-care (01) ==
PROVIDERS: Student in an Organized Health Care Education/Training Program; Emergency Provider Emergency Medicine; PCP Family Medicine
DX: R45.2 Unhappiness (principal); R45.851 Suicidal ideations; F41.9 Anxiety disorder, unspecified; F31.9 Bipolar disorder, unspecified; N39.0 Urinary tract infection, site not specified
CPT/HCPCS: 80053; 87077; 99285; 80329; 81003; 81015; 84443; 85025; 87086; 87186; 99284

== ENCOUNTER 2023-04-19 12:11 | Outpatient (CLI) | payer MEDICARE, MEDICAID, SELFPAY ==
[2023-04-19 09:11] LABS: Abs Immature Grans 0.04 10^3/uL (0.0-0.06); Absolute Basophil Count 0.07 10^3/uL (0.0-0.2); Absolute Eosinophil Count 0.13 10^3/uL (0.0-0.7); Absolute Lymphocyte Count 3.43 10^3/uL (1.2-3.4); Absolute Monocyte Count 0.79 10^3/uL (0.1-0.8); Absolute Neutrophil Count 4.41 10^3/uL (1.2-6.7); Basophils % 0.8; Eosinophils % 1.5; HCT 49.9 % (36.0-46.0); HGB 16.6 g/dL (11.2-15.7); Immature Grans % 0.5; Lymphocytes % 38.7; MCH 32.5 pg (27.0-33.0); MCHC 33.3 % (32.0-36.0); MCV 98 fL (80-95); MPV 9.5 fL (8.0-11.0); Monocytes % 8.9; Neutrophils % 49.6; Platelet Count 254 10^3/uL (130-400); RDW 14.3 % (11.7-14.6); RDW-SD 52.3 fL; WBC 8.87 10^3/uL (4.4-10.8)
[2023-04-19 10:26] LABS: ALT 13 U/L (14-59); AST 12 U/L (15-37); Albumin 3.4 g/dL (3.4-5.0); Alkaline Phosphatase 98 U/L (46-116); Anion Gap 8.4 mmol/L (3-11); BUN 15 mg/dL (7-18); Bilirubin, Total 0.4 mg/dL (0.2-1.0); CO2 29.6 mmol/L (21.0-32.0); CREATININE 1.1 mg/dL (0.55-1.02); Calcium 9.3 mg/dL (8.5-10.1); Chloride 103 mmol/L (98-107); Estimated GFR 55.07 (mL/min/1.73m2); Glucose 120 mg/dL (74-106); Lipase 24 U/L (16-77); Potassium 3.4 mmol/L (3.5-5.1); Sodium 141 mmol/L (136-145); Total Protein 8.2 g/dL (6.4-8.2)
== END 2023-04-19 12:12 | disposition home or self-care (01) ==
LOC: LBO 12:11
PROVIDERS: PCP Family Medicine; Visit Provider Family Medicine
DX: R10.9 Unspecified abdominal pain; D64.9 Anemia, unspecified
CPT/HCPCS: 36415; 80053; 83690; 81003; 85025

== ENCOUNTER 2023-04-19 14:49 | Outpatient (REF) | payer MEDICARE, MEDICAID, SELFPAY ==
[2023-04-19 16:46] LABS: Bilirubin Negative (Negative); Blood Negative (Negative); Clarity Sl Cloudy (Clear); Glucose >=1000 mg/dL (Negative); Ketones Negative (Negative); Leukocyte Esterase Trace (Negative); Nitrite Negative (Negative); Specific Gravity 1.015 (1.005-1.025); Urobilinogen 0.2 mg/dL (Up to 0.2)
[2023-04-19 16:58] LABS: Bacteria Many HPF (Negative); Crystals Negative HPF (Negative); Epithelial Cells Rare HPF (Negative); Mucus Negative (Negative); RBC 0-2 HPF (0-2)
[2023-04-19 16:59] LABS: C & S Indicated? Yes
== END 2023-04-19 14:50 | disposition home or self-care (01) ==
LOC: LBN 14:49
PROVIDERS: PCP Family Medicine; Visit Provider Family Medicine
DX: R10.9 Unspecified abdominal pain (principal)
CPT/HCPCS: 87077; 81003; 81015; 87086; 87186

== ENCOUNTER 2023-04-25 12:47 | Outpatient (CLI) | payer MEDICARE, MEDICAID, SELFPAY ==
[2023-04-25 13:04] VITALS: BP 138/69; PULSE 85; RESP 20; TEMP 36.9; O2SAT 77
--- NOTE | 2023-04-25 13:41 | PDOC.PAIN ---
Date of service: 04/25/23 Time of Service: 13:51 Pain Managment Procedure Note Procedure Note Procedure Note: PROCEDURE NOTE LUMBAR EPIDURAL STEROID INJECTION Date of Service: April 25, 2023 Patient:Celia Duncan? Provider: Priyank Sage DO, MPH Celia Rg has been referred to the [facility] for a lumbar epidural steroid injection. Pre-operative diagnosis: Lumbosacral Radiculopathy Post-operative diagnosis: Same Pre-Procedure Pain: VAS= 6 /10 Comments: She last had this procedure on 07/25/2022 with >50% pain relief ro >3 months. Her A1C is 7.3. She has held Plavix and will start it back in 12 hours. Celia was interviewed and the medical record was reviewed.? There were no medical, pharmacologic, radiographic or other structural contraindications to attempting fluoroscopically guided Lumbar epidural steroid injection.? Risks, potential side effects, indications, and potential benefits of the procedure were reviewed with Celia.? Questions and concerns were addressed.? After it was clear that Celia was fully informed about the procedure, the printed consent form was signed by the patient and myself.? Celia was placed in the prone position on the fluoroscopy table and automated blood pressure cuff and pulse oximeter applied. The skin entry point for entering/approaching the epidural space for the lumbar epidural steroid injection was marked. Following thorough chlorhexadine preparation of the skin and draping and 1% lidocaine infiltration of the skin entry point and subcutaneous tissues, an 18 gauge Touhy needle was placed and advanced under fluoroscopic guidance and with loss of resistance technique into the L5-S1 epidural space. Needle tip placement and depth were aided and confirmed by fluoroscopy. There was no paresthesia or return of blood or CSF through the needle. 1 mls of Omnipaque 240 was injected with clear epidural spread confirmed with fluoroscopy. 80 mg of Depo-Medrol was? injected. This was followed by 1 ml of preservative-free normal saline to flush the steroid out of the needle. There was no unusual discomfort expressed by Celia. The needle was withdrawn without difficulty. (49 mls of Omnipaque was wasted) Celia was observed and was without hemodynamic, neurologic, or allergic reactions.? Fluoroscopic images were digitally archived. Celia's vital signs were stable throughout the procedure and were as recorded in nursing records. Follow up plans and appointments were discussed with Celia. Post procedure instruction was given as documented in nursing records and having met discharge criteria Celia was [facility]. COMMENTS: No apparent complications. Post-procedure pain: VAS= 1/10. Celia to contact [facility] as needed. If at least 50% improvement in pain and/or function for at least 3 months is achieved, this procedure can be repeated. I personally performed this entire procedure. PRIYANK SAGE DO, MPH ABPMR-subspecialty board certification in Pain Medicine [facility]
--- NOTE | 2023-04-25 13:44 | DI.RAD_ITS ---
Exam(s) XR PAIN CLINIC LUMBAR SP 2V EXAM: XR PAIN CLINIC LUMBAR SP 2V CLINICAL HISTORY: Dx: Lumbar Radiculopathy. TECHNIQUE: Fluoroscopy was provided for the referring physician for guidance with performing pain cl inic injection procedure. COMPARISON: No exams were available for comparison FINDINGS: Please see procedure note for details. Fluoro time: 14.2 seconds RADIATION DOSE DELIVERED: Ka,r=5.08 mGy
[2023-04-25] MEDS: Omnipaque 240 MG/ML 50 ML BTL IJ (13:55)
[2023-04-25] MEDS: methylPREDNISolone ACETATE 80 MG/ML VIAL IJ (13:55)
[2023-04-25 13:56] VITALS: BP 128/78; PULSE 76; RESP 17; O2SAT 84
== END 2023-04-25 12:48 | disposition home or self-care (01) ==
LOC: PC 12:47
PROVIDERS: PCP Family Medicine; Visit Provider Preventive Medicine Occupational Medicine
DX: M54.50 Low back pain, unspecified (principal); M54.17 Radiculopathy, lumbosacral region
CPT/HCPCS: 62323; 72100; J1040; Q9967

== ENCOUNTER 2023-05-28 03:53 | Outpatient (CLI) | payer MEDICARE, MEDICAID, SELFPAY ==
[2023-05-28 12:11] LABS: Potassium 3.7 mmol/L (3.5-5.1)
== END 2023-05-28 03:54 | disposition home or self-care (01) ==
LOC: LOS 03:53
PROVIDERS: PCP Family Medicine; Visit Provider Family Medicine
DX: I10 Essential (primary) hypertension (principal)
CPT/HCPCS: 36415; 84132

== ENCOUNTER 2023-06-11 09:27 | Emergency (ER) | payer MEDICARE, MEDICAID, SELFPAY ==
[2023-06-11] VITALS (18 sets, daily range): BP systolic 103–146; BP diastolic 68–92; PULSE 75–83; RESP 18–27; TEMP 36.6; O2SAT 81–93
--- NOTE | 2023-06-11 09:30 | RT.EKG_ITS ---
APPROVED REPORT Exam: Resting ECG Reason for Exam: Left sided pain Patient Location: E HR:78 bpm ECG Measurements Heart Rate [address] 163 P 60 QRSd 95 QRS 81 QT 407 T 47 QTc 463 Conclusion Sinus rhythm...normal P axis, V-rate 60- 99 sinus rhtyhm, normal axis, normal intervals, t wave inversion anterior septal leads
--- NOTE | 2023-06-11 09:44 | W.ED.GENAD ---
Discharge Plan Disposition Patient Disposition: Long Term Facility(SNF) Condition: Stable Discharge Details Clinical Impression: UTI (urinary tract infection), Hypoxemia Primary Care Provider: Martínez Berrios ED Provider: Toshia Wynn [place] Meds and New Rx's Prescriptions: New cephalexin 500 mg tablet 500 mg PO BID 7 Days Qty: 14 0RF lidocaine 5 % adhesive patch,medicated 1 patch topical DAILY Qty: 15 0RF Rx Instructions: leave on most painful area for up to 12 hrs No Action gabapentin 300 mg capsule 300 mg PO BID Qty: 60 0RF Rx Instructions: dose reduce to stop BID for one week, then q day for one week, then stop Fleet Bisacodyl 10 mg/30 mL enema [address] DAILY PRN (Reason: constipation) Qty: 37 2RF Tesha-Henderson Original 325-1,916-1,000 mg tablet, effervescent 2 tab PO BID PRN (Reason: indigestion) Qty: 60 3RF bismuth subsalicylate 262 mg/15 mL suspension 524 mg PO QID PRN (Reason: diarrhea) Qty: 30 3RF docusate sodium 100 mg capsule 300 mg PO DAILY PRN (Reason: constipation) Qty: 30 3RF guaifenesin [Mucinex] 600 mg tablet extended release 12hr 600 mg PO Q12H PRN (Reason: congestion) Qty: 60 4RF loperamide 2 mg tablet 2 mg PO QID PRN (Reason: loose stool) Qty: 10 0RF Rx Instructions: Take one tablet by mouth after each loose stool not to exceed 8mg/24 hrs ondansetron 4 mg tablet,disintegrating 4 mg PO Q4H PRN (Reason: nausea and vomiting) Qty: 30 1RF atorvastatin 20 mg tablet 20 mg PO QPM Qty: 90 3RF Jardiance 25 mg tablet 25 mg PO QAM Qty: 90 2RF Anoro Ellipta 62.5-25 mcg/actuation blister with device 1 inh inhalation Q24H Qty: 90 4RF Rx Instructions: dispense Anoro Rybelsus 7 mg tablet 7 mg PO DAILY Qty: 90 3RF Rx Instructions: start after 3mg Rx finishes Naltrexone 1.5 - 4.5 mg PO DAILY Qty: 60 2RF Rx Instructions: 1.5 mg/week x 1 week, then 3 mg/day x 2nd week, then 4.5 mg/day going forward bupropion HCl 150 mg tablet extended release 24 hr 150 mg PO BID Qty: 180 3RF melatonin 10 mg tablet 10 mg PO HS PRN (Reason: sleep) Qty: 90 5RF famotidine 20 mg tablet 20 mg PO BID Qty: 180 4RF clonazepam 1 mg tablet 1 mg PO TID Qty: 270 1RF nitrofurantoin macrocrystal [Macrodantin] 100 mg capsule 100 mg PO BID Qty: 14 0RF Rx Instructions: must administer with a meal/food glipizide 10 mg tablet extended release 24hr 10 mg PO DAILY Qty: 90 2RF levothyroxine 112 mcg tablet 112 mcg PO DAILY Qty: 90 2RF clopidogrel [Plavix] 75 mg tablet 75 mg PO DAILY Qty: 90 3RF fluoxetine 40 mg capsule 40 mg PO DAILY Qty: 90 3RF omeprazole 40 mg capsule,delayed release(DR/EC) 40 mg PO DAILY Qty: 90 2RF quetiapine [Seroquel XR] 200 mg tablet extended release 24 hr 200 mg PO HS Qty: 90 12RF buprenorphine HCl 2 mg tablet, sublingual 1 mg sublingual DAILY Qty: 15 0RF cephalexin 500 mg tablet 500 mg PO QID Qty: 28 0RF Discharge Instructions Instructions: Flank Pain (ED), Hypoxia (ED), Urinary Tract Infection in Older Adults (ED) Additional Instructions: You may need to be on more continuous home O2. I know this was previously recommended. You do have a urinary tract infection. Please take the antibiotic twice daily with yogurt or probiotic as directed. Follow up with primary care provider in 2 days. Return to ED sooner if any worsening or concerns. Increase oral fluids. Please take Tylenol with food every 4-6 hours as needed for pain and swelling. Use the lidocaine patches as prescribed. At this time you have refused a nebulizer treatment, lidocaine patch. Your magnesium was little bit low. Do not have your CT result back yet if we need to contact you we can call you regarding the result. Referrals: Martínez Berrios MD [Primary Care Provider] - 2 days Medical Decision Making 67-year-old female presents via EMS from the [facility] with a chief complaint of left-sided chest pain, left-sided abdominal pain which has been ongoing for months which is worse today. Patient is at the unassisted area of the facility and called EMS herself. She does have a history of COPD, noncompliance, aspiration pneumonia, chronic hip pain, hypertension, anxiety, depression, adrenal mass coronary artery sclerosis, narcotic abuse, pneumonia PTSD, pulmonary hypertension and weight loss. She presents via EMS with O2 room air sat in the mid 80s up to 90% on 4 L nasal cannula. Patient does not normally wear home O2 there is a question on whether patient has declined use of home O2 in the past she does report exertional dyspnea. She was recently prescribed buprenorphine on June 06 by her PCP however this is not on her MAR and patient reports that she has not been taking that. She reports she did take her regularly scheduled medications this morning. On arrival lungs are clear to auscultation diminished in the bases, work-up ordered including serial troponins, urinalysis, proBNP, VBG DuoNeb, chest x-ray. Differential diagnosis includes not limited to COPD exacerbation, pneumonia, chronic hypoxia, PE however patient is nontachycardic she does not have any increased work of breathing denies any chest pain. O2 sat 85% on approximately 3 L nasal cannula, 1015: Informed by staff toxicologist that patient is declining the nebulizer 1021: O2 sat at this time is 92% CBC is largely within normal limits or at baseline hematocrit is slightly elevated at 47.5, VBG shows a pH of 7.39, PCO2 43 PO2 36 bicarb is 26 CO2 is 23 which is low slightly, VBG O2 saturation 67% base excess is 1, CMP troponin is pending at this time. EKG shows no significant change from previous. , CMP shows slightly low potassium at 3.2, glucose 177 magnesium slightly low at 1.7 albumin 2.9, initial troponin less than 50. proBNP is 70. Patient is getting 500 cc normal saline bolus has been given Zofran. 400 mg minute magnesium oxide p.o. ordered, 40 mill colons potassium liquid p.o. ordered. 1252: Spoke with Laurie with the [facility] who reports that the patient has normally been running in the 80's and 90's, I did recommend that patient be placed on home O2 which she reports that her PCPs and her providers have tried in the past, I did relay the information that patient does have a urinary tract infection I will give her antibiotics for this. We are pending CT at this time. Expected disposition pending CT result is transport back to the [facility]. Laurie did state that they do not have transport at this time and that EMS will need to be utilized or other means. Patient declined lidocaine patch. I did speak with Laurie as noted above she reports that she is not on buprenorphine yet they are pending insurance approval at this time. We will give cephalexin 500 mg p.o. here. 1538: CT report shows mild edema of the duodenal wall, enteritis pattern noted cannot exclude early bowel obstruction developing. Colon is relatively collapsed. 1539: General surgery paged to eval the CT, patient has no vomiting has been eating and drinking and tolerating p.o. without difficulty here in the department. Plan is to discharge patient back to the [facility] pending consult with surgery. 1548: Spoke with Dr. Mcelroy who will view CT when able. She recommends clear liquids and magnesium citrate. Patient placed on care management list for PCP follow-up in 1 to 2 days. Dulcolax 10 mg rectal suppository faxed to the [facility] I did speak with Des NOE regarding recommendations for clear liquids and to collect suppositories to return if any worsening. According to Dr. Mcelroy could be an early bowel obstruction versus constipation. Des RN verbalizes understanding. This text was generated using [employer] dictation system, please disregard any oddities of phrase or misspellings. Patient given prescription for cephalexin first dose here in the department. She was given magnesium which she agreed to take. Medical Records Medical records reviewed: Yes I reviewed the patient's medical records. Lab Data Lab results reviewed: Yes I reviewed the patient's lab results. Labs: 06/11/23 11:46 Urine - Reflex from Ua Urine Culture - Pending Laboratory Tests Range/Units 06/11/23 06/11/23 06/11/23 09:50 09:50 09:50 WBC (4.4-10.8) 10^3/uL 7.15 RBC (3.93-5.22) 10^6/uL 4.85 Hgb (11.2-15.7) g/dL 15.5 Hct (36.0-46.0) % 47.5 H MCV (80-95) fL 98 H MCH (27.0-33.0) pg 32.0 MCHC (32.0-36.0) % 32.6 RDW (11.7-14.6) % 13.2 Plt Count (130-400) 10^3/uL 223 MPV (8.0-11.0) fL 9.1 Immature Gran % 0.4 Neutrophils % 64.3 Lymphocytes % 23.6 Monocytes % 10.2 Eosinophils % 1.1 Basophils % 0.4 Nucleated RBC % (0.0-0.3) % 0.0 Absolute Neutrophils (1.2-6.7) 10^3/uL 4.59 Absolute Lymphocytes (1.2-3.4) 10^3/uL 1.69 Absolute Monocytes (0.1-0.8) 10^3/uL 0.73 Absolute Eosinophils (0.0-0.7) 10^3/uL 0.08 Absolute Basophils (0.0-0.2) 10^3/uL 0.03 PT (9.3-11.0) sec INR (0.9-1.1) VBG pH (7.31-7.41) 7.39 VBG pCO2 (41-51) mmHg 43 VBG pO2 mmHg 36 VBG HCO3 (23-28) mmol/L 26 VBG Total CO2 (24-29) mmol/L 23 L VBG O2 Saturation % 67 VBG Base Excess (-2-3) mmol/L 1 Sodium (136-145) mmol/L 140 Potassium (3.5-5.1) mmol/L 3.2 L Chloride (98-107) mmol/L 104 Carbon Dioxide (21.0-32.0) mmol/L 28.2 Anion Gap (3-11) mmol/L 7.8 BUN (7-18) mg/dL 10 Creatinine (0.55-1.02) mg/dL 0.8 Est GFR (CKD-EPI 2020) (mL/min/1.73m2) 80.71 Glucose (74-106) mg/dL 177 H Calcium (8.5-10.1) mg/dL 9.2 Magnesium (1.8-2.4) mg/dL 1.7 L Total Bilirubin (0.2-1.0) mg/dL 0.4 AST (15-37) U/L 8 L ALT (14-59) U/L 12 L Alkaline Phosphatase (46-116) U/L 85 Troponin I (<or=60) ng/L < 50 NT-Pro-B Natriuret Pep (<300) pg/mL 70 Total Protein (6.4-8.2) g/dL 7.6 Albumin (3.4-5.0) g/dL 2.9 L Urine Color (Yellow) Urine Clarity (Clear) Urine pH (5-8) Ur Specific Rarden (1.005-1.025) Urine Protein (Negative) mg/dL Urine Ketones (Negative) mg/dL Urine Blood (Negative) Urine Nitrite (Negative) Urine Bilirubin (Negative) Urine Urobilinogen (Up to 0.2) mg/dL Ur Leukocyte Esterase (Negative) Urine RBC (0-2) HPF Urine WBC (0-5) HPF Ur Epithelial Cells (Negative) HPF Urine Crystals (Negative) HPF Urine Bacteria (Negative) HPF Urine Casts (Negative) LPF Urine Mucus (Negative) Ur Culture Indicated? Urine Glucose (Negative) mg/dL Urine Opiates Screen (Negative) Urine Methadone Screen (Negative) Ur Barbiturates Screen (Negative) Ur Tricyclics Screen (Negative) Ur Amphetamines Screen (Negative) U Benzodiazepines Scrn (Negative) Urine Cocaine Screen (Negative) Ur THC Screen (Negative) Range/Units 06/11/23 06/11/23 06/11/23 09:50 11:46 11:46 WBC (4.4-10.8) 10^3/uL RBC (3.93-5.22) 10^6/uL Hgb (11.2-15.7) g/dL Hct (36.0-46.0) % MCV (80-95) fL MCH (27.0-33.0) pg MCHC (32.0-36.0) % RDW (11.7-14.6) % Plt Count (130-400) 10^3/uL MPV (8.0-11.0) fL Immature Gran % Neutrophils % Lymphocytes % Monocytes % Eosinophils % Basophils % Nucleated RBC % (0.0-0.3) % Absolute Neutrophils (1.2-6.7) 10^3/uL Absolute Lymphocytes (1.2-3.4) 10^3/uL Absolute Monocytes (0.1-0.8) 10^3/uL Absolute Eosinophils (0.0-0.7) 10^3/uL Absolute Basophils (0.0-0.2) 10^3/uL PT (9.3-11.0) sec 10.8 INR (0.9-1.1) 1.1 VBG pH (7.31-7.41) VBG pCO2 (41-51) mmHg VBG pO2 mmHg VBG HCO3 (23-28) mmol/L VBG Total CO2 (24-29) mmol/L VBG O2 Saturation % VBG Base Excess (-2-3) mmol/L Sodium (136-145) mmol/L Potassium (3.5-5.1) mmol/L Chloride (98-107) mmol/L Carbon Dioxide (21.0-32.0) mmol/L Anion Gap (3-11) mmol/L BUN (7-18) mg/dL Creatinine (0.55-1.02) mg/dL Est GFR (CKD-EPI 2020) (mL/min/1.73m2) Glucose (74-106) mg/dL Calcium (8.5-10.1) mg/dL Magnesium (1.8-2.4) mg/dL Total Bilirubin (0.2-1.0) mg/dL AST (15-37) U/L ALT (14-59) U/L Alkaline Phosphatase (46-116) U/L Troponin I (<or=60) ng/L NT-Pro-B Natriuret Pep (<300) pg/mL Total Protein (6.4-8.2) g/dL Albumin (3.4-5.0) g/dL Urine Color (Yellow) Yellow Urine Clarity (Clear) Sl Cloudy Urine pH (5-8) 5.0 Ur Specific Rarden (1.005-1.025) 1.010 Urine Protein (Negative) mg/dL Negative Urine Ketones (Negative) mg/dL Negative Urine Blood (Negative) Trace-intact H Urine Nitrite (Negative) Positive H Urine Bilirubin (Negative) Negative Urine Urobilinogen (Up to 0.2) mg/dL 0.2 Ur Leukocyte Esterase (Negative) Negative Urine RBC (0-2) HPF 5-10 H Urine WBC (0-5) HPF 3-5 Ur Epithelial Cells (Negative) HPF Rare Urine Crystals (Negative) HPF Negative Urine Bacteria (Negative) HPF Many Urine Casts (Negative) LPF Negative Urine Mucus (Negative) Negative Ur Culture Indicated? Yes Urine Glucose (Negative) mg/dL >=1000 H Urine Opiates Screen (Negative) Negative Urine Methadone Screen (Negative) Negative Ur Barbiturates Screen (Negative) Negative Ur Tricyclics Screen (Negative) Positive A Ur Amphetamines Screen (Negative) Negative U Benzodiazepines Scrn (Negative) Negative Urine Cocaine Screen (Negative) Negative Ur THC Screen (Negative) Negative Range/Units 06/11/23 12:50 WBC (4.4-10.8) 10^3/uL RBC (3.93-5.22) 10^6/uL Hgb (11.2-15.7) g/dL Hct (36.0-46.0) % MCV (80-95) fL MCH (27.0-33.0) pg MCHC (32.0-36.0) % RDW (11.7-14.6) % Plt Count (130-400) 10^3/uL MPV (8.0-11.0) fL Immature Gran % Neutrophils % Lymphocytes % Monocytes % Eosinophils % Basophils % Nucleated RBC % (0.0-0.3) % Absolute Neutrophils (1.2-6.7) 10^3/uL Absolute Lymphocytes (1.2-3.4) 10^3/uL Absolute Monocytes (0.1-0.8) 10^3/uL Absolute Eosinophils (0.0-0.7) 10^3/uL Absolute Basophils (0.0-0.2) 10^3/uL PT (9.3-11.0) sec INR (0.9-1.1) VBG pH (7.31-7.41) VBG pCO2 (41-51) mmHg VBG pO2 mmHg VBG HCO3 (23-28) mmol/L VBG Total CO2 (24-29) mmol/L VBG O2 Saturation % VBG Base Excess (-2-3) mmol/L Sodium (136-145) mmol/L Potassium (3.5-5.1) mmol/L Chloride (98-107) mmol/L Carbon Dioxide (21.0-32.0) mmol/L Anion Gap (3-11) mmol/L BUN (7-18) mg/dL Creatinine (0.55-1.02) mg/dL Est GFR (CKD-EPI 2020) (mL/min/1.73m2) Glucose (74-106) mg/dL Calcium (8.5-10.1) mg/dL Magnesium (1.8-2.4) mg/dL Total Bilirubin (0.2-1.0) mg/dL AST (15-37) U/L ALT (14-59) U/L Alkaline Phosphatase (46-116) U/L Troponin I (<or=60) ng/L < 50 NT-Pro-B Natriuret Pep (<300) pg/mL Total Protein (6.4-8.2) g/dL Albumin (3.4-5.0) g/dL Urine Color (Yellow) Urine Clarity (Clear) Urine pH (5-8) Ur Specific Rarden (1.005-1.025) Urine Protein (Negative) mg/dL Urine Ketones (Negative) mg/dL Urine Blood (Negative) Urine Nitrite (Negative) Urine Bilirubin (Negative) Urine Urobilinogen (Up to 0.2) mg/dL Ur Leukocyte Esterase (Negative) Urine RBC (0-2) HPF Urine WBC (0-5) HPF Ur Epithelial Cells (Negative) HPF Urine Crystals (Negative) HPF Urine Bacteria (Negative) HPF Urine Casts (Negative) LPF Urine Mucus (Negative) Ur Culture Indicated? Urine Glucose (Negative) mg/dL Urine Opiates Screen (Negative) Urine Methadone Screen (Negative) Ur Barbiturates Screen (Negative) Ur Tricyclics Screen (Negative) Ur Amphetamines Screen (Negative) U Benzodiazepines Scrn (Negative) Urine Cocaine Screen (Negative) Ur THC Screen (Negative) HPI General Mode of arrival: EMS. Date/Time Provider Initiated Documentation: 06/11/23 10:25. Limitations to Documentation: physical limitation (Hard Of Hearing). Information obtained by: patient, EMS, RN notes reviewed and old records reviewed. HPI Narrative: 67-year-old female presents via EMS from the [facility] with a chief complaint of left-sided chest pain, left-sided abdominal pain which has been ongoing for months which is worse today. Patient is at the unassisted area of the facility and called EMS herself. She does have a history of COPD, noncompliance, aspiration pneumonia, chronic hip pain, hypertension, anxiety, depression, adrenal mass coronary artery sclerosis, narcotic abuse, pneumonia PTSD, pulmonary hypertension and weight loss. She presents via EMS with O2 room air sat in the mid 80s up to 90% on 4 L nasal cannula. Patient does not normally wear home O2 there is a question on whether patient has declined use of home O2 in the past she does report exertional dyspnea. She was recently prescribed buprenorphine on June 06 by her PCP however this is not on her MAR and patient reports that she has not been taking that. She reports she did take her regularly scheduled medications this morning. Related Data Home Medications Medication Instructions Recorded Confirmed aspirin-sod bicarb-citric acid 325 2 tab PO BID PRN indigestion #60 01/15/22 06/06/23 mg-1,916 mg-1,000 mg efferves tab tabs (Tesha-Jeannie Original) bismuth subsalicylate 262 mg/15 mL 524 mg (30 mL) PO QID PRN diarrhea 01/15/22 06/06/23 oral suspension #30 mL docusate sodium 100 mg capsule 300 mg PO DAILY PRN constipation 01/15/22 06/06/23 #30 caps guaifenesin 600 mg tablet, 600 mg PO Q12H PRN congestion #60 01/15/22 06/06/23 extended release 12 hr (Mucinex) tabs loperamide 2 mg tablet 2 mg PO QID PRN loose stool #10 01/15/22 06/06/23 tabs ondansetron 4 mg disintegrating 4 mg PO Q4H PRN nausea and 03/02/22 06/06/23 tablet vomiting #30 tabs bisacodyl 10 mg/30 mL enema (Fleet 10 mg (30 mL) CT DAILY PRN 03/22/22 06/06/23 Bisacodyl) constipation #37 mL atorvastatin 20 mg tablet 20 mg PO QPM #90 tabs 07/18/22 06/06/23 empagliflozin 25 mg tablet 25 mg PO QAM #90 tabs 09/17/22 06/06/23 (Jardiance) umeclidinium 62.5 mcg-vilanterol 1 inh inhalation Q24H #90 ea 10/17/22 06/06/23 25 mcg/actuation powdr for inhalation (Anoro Ellipta) semaglutide 7 mg tablet (Rybelsus) 7 mg PO DAILY #90 tabs 10/30/22 06/06/23 cephalexin 500 mg tablet 500 mg PO QID #28 tabs 01/07/23 06/06/23 gabapentin 300 mg capsule 300 mg PO BID #60 caps 01/28/23 06/06/23 Naltrexone 1.5 - 4.5 mg PO DAILY #60 caps 02/19/23 06/06/23 bupropion HCl 150 mg 24 hr tablet, 150 mg PO BID #180 tabs 03/26/23 06/06/23 extended release melatonin 10 mg tablet 10 mg PO HS PRN sleep #90 tabs 04/01/23 06/06/23 clonazepam 1 mg tablet 1 mg PO TID #270 tabs 04/22/23 06/06/23 famotidine 20 mg tablet 20 mg PO BID #180 tabs 04/22/23 06/06/23 nitrofurantoin macrocrystal 100 mg 100 mg PO BID UTI #14 caps 04/22/23 06/06/23 capsule (Macrodantin) clopidogrel 75 mg tablet (Plavix) 75 mg PO DAILY #90 tab-caps 06/10/23 fluoxetine 40 mg capsule 40 mg PO DAILY #90 caps 06/10/23 glipizide 10 mg tablet, extended 10 mg PO DAILY #90 tabs 06/10/23 release 24 hr levothyroxine 112 mcg tablet 112 mcg PO DAILY #90 tabs 06/10/23 omeprazole 40 mg capsule,delayed 40 mg PO DAILY #90 caps 06/10/23 release quetiapine 200 mg tablet,extended 200 mg PO HS #90 tabs 06/10/23 release 24 hr (Seroquel XR) buprenorphine HCl 2 mg sublingual 1 mg sublingual DAILY chronic pain 06/11/23 tablet #15 tabs cephalexin 500 mg tablet 500 mg PO BID 7 days #14 tabs 06/11/23 lidocaine 5 % topical patch 1 patch topical DAILY #15 ea 06/11/23 Previous Rx's Medication Instructions Recorded aspirin-sod bicarb-citric acid 325 2 tab PO BID PRN indigestion #60 01/15/22 mg-1,916 mg-1,000 mg efferves tab tabs (Tesha-Jeannie Original) bismuth subsalicylate 262 mg/15 mL 524 mg (30 mL) PO QID PRN diarrhea 01/15/22 oral suspension #30 mL docusate sodium 100 mg capsule 300 mg PO DAILY PRN constipation 01/15/22 #30 caps guaifenesin 600 mg tablet, 600 mg PO Q12H PRN congestion #60 01/15/22 extended release 12 hr (Mucinex) tabs loperamide 2 mg tablet 2 mg PO QID PRN loose stool #10 01/15/22 tabs ondansetron 4 mg disintegrating 4 mg PO Q4H PRN nausea and 03/02/22 tablet vomiting #30 tabs bisacodyl 10 mg/30 mL enema (Fleet 10 mg (30 mL) CT DAILY PRN 03/22/22 Bisacodyl) constipation #37 mL atorvastatin 20 mg tablet 20 mg PO QPM #90 tabs 07/18/22 empagliflozin 25 mg tablet 25 mg PO QAM #90 tabs 09/17/22 (Jardiance) umeclidinium 62.5 mcg-vilanterol 1 inh inhalation Q24H #90 ea 10/17/22 25 mcg/actuation powdr for inhalation (Anoro Ellipta) semaglutide 7 mg tablet (Rybelsus) 7 mg PO DAILY #90 tabs 10/30/22 cephalexin 500 mg tablet 500 mg PO QID #28 tabs 01/07/23 gabapentin 300 mg capsule 300 mg PO BID #60 caps 01/28/23 Naltrexone 1.5 - 4.5 mg PO DAILY #60 caps 02/19/23 bupropion HCl 150 mg 24 hr tablet, 150 mg PO BID #180 tabs 03/26/23 extended release melatonin 10 mg tablet 10 mg PO HS PRN sleep #90 tabs 04/01/23 clonazepam 1 mg tablet 1 mg PO TID #270 tabs 04/22/23 famotidine 20 mg tablet 20 mg PO BID #180 tabs 04/22/23 nitrofurantoin macrocrystal 100 mg 100 mg PO BID UTI #14 caps 04/22/23 capsule (Macrodantin) clopidogrel 75 mg tablet (Plavix) 75 mg PO DAILY #90 tab-caps 06/10/23 fluoxetine 40 mg capsule 40 mg PO DAILY #90 caps 06/10/23 glipizide 10 mg tablet, extended 10 mg PO DAILY #90 tabs 06/10/23 release 24 hr levothyroxine 112 mcg tablet 112 mcg PO DAILY #90 tabs 06/10/23 omeprazole 40 mg capsule,delayed 40 mg PO DAILY #90 caps 06/10/23 release quetiapine 200 mg tablet,extended 200 mg PO HS #90 tabs 06/10/23 release 24 hr (Seroquel XR) buprenorphine HCl 2 mg sublingual 1 mg sublingual DAILY chronic pain 06/11/23 tablet #15 tabs cephalexin 500 mg tablet 500 mg PO BID 7 days #14 tabs 06/11/23 lidocaine 5 % topical patch 1 patch topical DAILY #15 ea 06/11/23 Allergies Allergy/AdvReac Type Severity Reaction Status Date / Time alendronate sodium AdvReac Intermediate Nausea Verified 05/20/23 13:34 [From Fosamax] latex AdvReac Unknown Unverified 06/11/23 09:37 General Stated Complaint: Abd Prob LELA: 3 PFSH All Active Problems (Updated 06/11/23 @ 15:21 by Toshia Wynn NP) UTI (urinary tract infection) (Acute) Malaise (Acute) Tobacco abuse (Acute) Trochanteric bursitis, right hip (Acute) Advance care planning (Acute) Noncompliance (Acute) Enteritis (Acute) Acute respiratory failure with hypoxia (Acute) Aspiration pneumonia (Acute) Acute respiratory failure (Acute) Hypoxemia (Acute) Hyperproteinemia (Acute) Chronic hip pain (Acute) GERD with esophagitis (Chronic) Low back pain (Acute) Pneumonia (Acute) Hip pain, bilateral (Acute) Bipolar affect, depressed (Acute) Skin tag (Acute) Phlegm in throat (Acute) Positive colorectal cancer screening using Cologuard test (Acute) I scheduled 4 appts for gen surgery. She has cancelled or refuses RCT/ etc. or goes to the appt and then gets upset Dysphagia (Acute) Nasal mass (Acute) Dr. 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 Hyperlipidemia (Chronic) Polycythemia (Chronic) Hypothyroid (Chronic) Diabetes (Chronic) Type 2, controlled HTN (hypertension) (Chronic) Depression (Chronic) Mixed conductive and sensorineural hearing loss (Acute 01/29/14) Mixed hearing loss, bilateral (Acute 01/19/16) Sciatica (Acute 07/01/14) Sensorineural hearing loss (Acute 01/29/14) Total perforation of right tympanic membrane (Acute 01/19/16) Medical History Adrenal mass Ambulatory dysfunction Bulimia Chronic hip pain, bilateral Chronic low back pain Chronic obstructive lung disease Chronic post-traumatic stress disorder COPD (chronic obstructive pulmonary disease) Coronary arteriosclerosis Dehydration Diffuse abdominal pain Hearing loss History of smoking Hypokalemia Hypomagnesemia Hypoxia Interstitial lung disease Lumbar spine scoliosis Narcotic abuse episodic opioid dependence Osteoporosis Panic disorder Peripheral vascular disease Pneumonia Post traumatic stress disorder Pulmonary hypertension Tachycardia Weight loss Surgical History History of tympanoplasty of right ear Failed x2 S/P cholecystectomy Spinal Surgery Laminectomies at T12/L1 due to an angioma Stent placement Bilateral iliac and femoral Family History Mother Heart disease Paternal Grandfather Kidney disease Social History Smoking/Tobacco Use Status: Current every day Tobacco Type: cigarettes Smoking risk assessment performed?: Yes Alcohol Intake: never Drug use: Current Sobriety Substance use type: former substance user Housing: alf Do you feel safe at home: Yes Do you feel safe in your relationship?: Yes Exam Narrative Exam Narrative: Constitutional: Alert and oriented x3. Hard of hearing. Appears stated age. Normal body habitus. Patient appears mildly sleepy upon initial presentation she is hypoxic with O2 sat of 83% on room air. Head: Normocephalic, no trauma. Eyes: Pupils PERRL, Red reflex noted, EOM's intact. Eyelids symmetrical without lesions, discharge, or swelling. ENT: Dry mucous membranes, edentulous, posterior oropharynx within normal limits Chest: RRR, Normal S1, S2, distal pulses intact. Resp: Lungs clear to auscultation bilaterally, no wheezes, rales, or rhonchi. Abdomen: Soft, non-distended, Normoactive bowel sounds all 4 quads. Midline mass palpable abdomen is soft. Musculoskeletal: Unable to assess gait, 5/5 strength to all four extremities. Skin: No suspicious rashes or lesions. Capillary refill less than 2 sec. Neurologic: Cranial nerves II-XII intact. Alert and oriented x 3. Motor: No deficits noted. Sensory: Intact bilaterally all 4 extremities. Hematologic/Lymphatic: No ecchymosis, no lymphadenopathy. Course Vital Signs Vital signs: Vital Signs Temperature 36.6 C 06/11/23 09:28 Pulse 80 06/11/23 09:28 Respiratory Rate 18 06/11/23 09:28 Blood Pressure 134/72 06/11/23 09:28 Pulse Oximetry 88 L 06/11/23 09:28 Temperature 36.6 C 06/11/23 09:28 Temperature Source Oral 06/11/23 09:28 Pulse 80 06/11/23 09:28 Respiratory Rate 18 06/11/23 09:28 Blood Pressure 134/72 06/11/23 09:28 Blood Pressure Position Sitting 06/11/23 09:28 Pulse Oximetry 88 L 06/11/23 09:28 Oxygen Delivery Method Nasal Cannula 06/11/23 09:28 Oxygen Flow Rate 4 06/11/23 09:28 Pain Level 9 06/11/23 09:28
[2023-06-11 09:56] LABS: BE (Venous) 1 mmol/L (-2-3); HCO3 (Venous) 26 mmol/L (23-28); O2 Sat (Venous) 67 %; TCO2 (Venous) 23 mmol/L (24-29); pCO2 (Venous) 43 mmHg (41-51); pH (Venous) 7.39 (7.31-7.41); pO2 (Venous) 36 mmHg
[2023-06-11 09:59] LABS: Abs Immature Grans 0.03 10^3/uL (0.0-0.06); Absolute Basophil Count 0.03 10^3/uL (0.0-0.2); Absolute Eosinophil Count 0.08 10^3/uL (0.0-0.7); Absolute Lymphocyte Count 1.69 10^3/uL (1.2-3.4); Absolute Monocyte Count 0.73 10^3/uL (0.1-0.8); Absolute Neutrophil Count 4.59 10^3/uL (1.2-6.7); Basophils % 0.4; Eosinophils % 1.1; HCT 47.5 % (36.0-46.0); HGB 15.5 g/dL (11.2-15.7); Immature Grans % 0.4; Lymphocytes % 23.6; MCHC 32.6 % (32.0-36.0); MCV 98 fL (80-95); MPV 9.1 fL (8.0-11.0); Monocytes % 10.2; Neutrophils % 64.3; Platelet Count 223 10^3/uL (130-400); RBC 4.85 10^6/uL (3.93-5.22); RDW 13.2 % (11.7-14.6); RDW-SD 47.5 fL; WBC 7.15 10^3/uL (4.4-10.8)
[2023-06-11 10:13] LABS: INR 1.1 (0.9-1.1); Prothrombin Time 10.8 sec (9.3-11.0)
--- NOTE | 2023-06-11 10:13 | NUR.NOTE ---
Nursing Note: Pt refused breathing treatment and stated,I want to be flat, and, put the head of the bed flat so I can be comfortble. Pt thoroughly informed about medication ordered to help with breathing and comfort. Pt refused and wanted to be left alone. aware.
[2023-06-11 10:24] LABS: ALT 12 U/L (14-59); AST 8 U/L (15-37); Albumin 2.9 g/dL (3.4-5.0); Alkaline Phosphatase 85 U/L (46-116); Anion Gap 7.8 mmol/L (3-11); BUN 10 mg/dL (7-18); Bilirubin, Total 0.4 mg/dL (0.2-1.0); CO2 28.2 mmol/L (21.0-32.0); CREATININE 0.8 mg/dL (0.55-1.02); Calcium 9.2 mg/dL (8.5-10.1); Chloride 104 mmol/L (98-107); Estimated GFR 80.71 (mL/min/1.73m2); Glucose 177 mg/dL (74-106); Magnesium 1.7 mg/dL (1.8-2.4); NT-proBNP 70 pg/mL (<300); Potassium 3.2 mmol/L (3.5-5.1); Sodium 140 mmol/L (136-145); Total Protein 7.6 g/dL (6.4-8.2); Troponin I < 50 ng/L (<or=60)
[2023-06-11] MEDS: Magnesium Oxide 400 MG TAB PO (11:10)
[2023-06-11] MEDS: Potassium Chloride Liquid 20 MEQ PKT 40 MEQ PO (11:10)
--- NOTE | 2023-06-11 11:10 | DI.RAD_ITS ---
Exam(s) XR CHEST 2V PA LATERAL EXAM: XR CHEST 2V PA LATERAL CLINICAL HISTORY: Left sided pain, Hypoxia, Hx COPD. TECHNIQUE: 2D digital imaging was performed. COMPARISON: CR,XR XR PORTABLE CHEST AP from 11/12/2022 FINDINGS: 2 views: Heart size is upper normal. The mediastinum is not widened. There is persistent infiltrate in the anterior segment of the right upper lobe. Also persistent infi ltrate in the lingular segment left lung. No pleural effusions evident. Thoracolumbar scoliosis aga in noted IMPRESSION: Persistent bilateral pulmonary infiltrates. No obvious pleural effusions. DATA REPOSITORY: RADIATION DOSE DELIVERED:
--- NOTE | 2023-06-11 11:45 | DI.CT_ITS ---
Exam(s) CT ABDOMEN PELVIS W EXAM: CT ABDOMEN PELVIS W CLINICAL HISTORY: Left Flank Pain. TECHNIQUE: Imaging Protocol: Axial computed tomography images with coronal and sagittal reformatted images were created and reviewed CONTRAST MATERIAL: Intravenous: Omnipaque-350 100cc Oral: None COMPARISON: CT CT CHEST PE ABD PELVIS W from 11/12/2022 FINDINGS: VISUALIZED LUNG BASES: Dependent increased markings in the right lung base.. However, the appearance of the lung bases has improved when compared to 11/12/2022. ABDOMEN: There is no ascites. LIVER: There are no focal hepatic lesions evident. No dilated intrahepatic ducts. GALLBLADDER/BILIARY: Gallbladder surgically absent. CBD is not dilated. PANCREAS: No evidence of pancreatic mass nor dilatation of the pancreatic duct. SPLEEN: Spleen is not enlarged. No obvious intrasplenic lesions. Calcified granulomas in the spleen again noted. Splenic and portal veins are patent. ADRENALS: Right adrenal gland unremarkable. Previously described left adrenal mass is again noted an d appears unchanged. This measures approximately 2 x 2 cm. KIDNEYS:No new cysts evident. No solid renal masses. No calculi nor hydronephrosis.. ABDOMINAL AORTA: Atherosclerotic abdominal aorta with aortobifem graft again noted. Celiac and super ior mesenteric arteries are patent. Renal arteries exhibit calcified ostia but patent. LYMPH NODES:There is no retroperitoneal nor paraaortic adenopathy. ABDOMINAL WALL: There is a small midline supraumbilical fat containing hernia. This appears to have somewhat decreased in size. It does not contain bowel loops nor abnormal fluid therein. GI: The duodenum appears is mildly edematous. There are few minimally prominent small bowel loops in the central abdomen noted. These measure up to 2.6 cm. No surrounding fluid, free air, nor abscess . However, more distal small bowel loops appear relatively collapsed and the colon is relatively col lapsed. PELVIS: GI: Appendix is not EC to visualize. No obvious appendicitis.No evidence of sigmoid diverticulitis.C olon is mostly collapsed. Superior mesenteric artery is patent. LYMPH NODES: There is no intrapelvic nor inguinal adenopathy. REPRODUCTIVE: Uterus atrophic or surgically absent. No abnormal adnexal masses. No free fluid. URINARY BLADDER: No calculi nor obvious masses evident OSSEOUS: No fractures and no significant osseous lesions. IMPRESSION: 1. Compared to prior CT scan of 11/12/2022 there is again noted evidence of previous cholecystectomy and hysterectomy. There is mild edema of the duodenal wall. Enteritis pattern noted cannot exclude early bowel obstruction developing. Colon is relatively collapsed. 2. Vasculopath with bilateral aortobifem grafts which appear patent. RADIATION DOSE DELIVERED: 701.43mGy.cm Total DLP DATA REPOSITORY: All CT scans at this facility are submitted to the National Radiology Data Registry (NRDR) Dose Index Registry (DIR) with the [employer] ([employer]). RADIATION OPTIMIZATION: All CT scans at this facility use at least one of these dose optimization te chniques: automated exposure control; mA and/or kV adjustment per patient size (includes targeted exa ms where dose is matched to clinical indication); or iterative reconstruction.
[2023-06-11 11:53] LABS: Bilirubin Negative (Negative); Blood Trace-intact (Negative); Clarity Sl Cloudy (Clear); Glucose >=1000 mg/dL (Negative); Ketones Negative (Negative); Leukocyte Esterase Negative (Negative); Nitrite Positive (Negative); Urobilinogen 0.2 mg/dL (Up to 0.2)
[2023-06-11 11:58] LABS: Bacteria Many HPF (Negative); Casts Negative LPF (Negative); Crystals Negative HPF (Negative); Epithelial Cells Rare HPF (Negative); Mucus Negative (Negative)
[2023-06-11 11:59] LABS: C & S Indicated? Yes
[2023-06-11 12:09] LABS: *AMPHETAMINES SCREEN URINE Negative (Negative); *BARBITURATES SCREEN URINE Negative (Negative); *BENZODIAZEPINES SCREEN URINE Negative (Negative); Cannabinoids THC Negative (Negative); Cocaine Screen,Urine Negative (Negative); METHADONE URINE SCREEN Negative (Negative); OPIATES URINE SCREEN Negative (Negative)
[2023-06-11 12:15] LABS: Tricyclic Antidepressants Positive (Negative)
[2023-06-11 13:27] LABS: Troponin I < 50 ng/L (<or=60)
[2023-06-11] MEDS: fentaNYL 100 MCG/2 ML VIAL 25 MCG IVP (13:29)
[2023-06-11] MEDS: Cephalexin 500 MG CAP PO (13:29)
[2023-06-11] MEDS: Normal Saline Flush 10 ML SYR IVP (13:46)
[2023-06-11] MEDS: Omnipaque 350 MG/ML 100 ML BTL IJ (13:47)
[2023-06-11] MEDS: Normal Saline - Diluent 50 ML VIAL IJ (13:47)
[2023-06-11] MEDS: Cephalexin 500 MG CAP, 2 CAPS/BTL PO (15:37)
--- NOTE | 2023-06-11 16:26 | NUR.NOTE ---
Nursing Note: Referral faxed to PCP for left sided flank pain/re-evaluation ED visit. In 3 days.
--- NOTE | 2023-06-12 11:27 | NUR.NOTE ---
Nursing Note:in chart for name confirmation via [facility] consult
--- NOTE | 2023-06-12 13:18 | NUR.NOTE ---
Accessed chart to determine orders for EKG and to determine whether or not one needs to be cancelled. Nursing Note:
== END 2023-06-11 15:44 | disposition skilled nursing facility (03) ==
PROVIDERS: Emergency Provider Registered Nurse Emergency; PCP Family Medicine
DX: R10.31 Right lower quadrant pain (principal); N39.0 Urinary tract infection, site not specified; R09.02 Hypoxemia; J44.9 Chronic obstructive pulmonary disease, unspecified; I10 Essential (primary) hypertension; Z79.84 Long term (current) use of oral hypoglycemic drugs; Z79.02 Long term (current) use of antithrombotics/antiplatelets; Z79.899 Other long term (current) drug therapy
CPT/HCPCS: 80053; 80307; 82805; 87077; 93005; 71046; 74177; 81003; 81015; 83735; 83880; 84484; 85025; 85610; 87086; 87186; 93010; J3010; J3490

== ENCOUNTER 2023-06-16 11:20 | Inpatient (IN) | payer MEDICARE, MEDICAID, SELFPAY ==
[2023-06-16] VITALS (34 sets, daily range): BP systolic 76–146; BP diastolic 44–130; PULSE 67–88; RESP 13–20; TEMP 31–36.8; O2SAT 84–100
--- NOTE | 2023-06-16 11:44 | W.ED.GENAD ---
Discharge Plan Disposition Patient Disposition: Admit to [facility] Condition: Serious Discharge Details Clinical Impression: Acute respiratory failure with hypoxia Primary Care Provider: Martínez Berrios ED Provider: Asmita Glynn Meds and New Rx's Prescriptions: No Action gabapentin 300 mg capsule 300 mg PO BID Qty: 60 0RF Patient Comments: not on med list Rx Instructions: dose reduce to stop BID for one week, then q day for one week, then stop Fleet Bisacodyl 10 mg/30 mL enema 10 mg ME DAILY PRN (Reason: constipation) Qty: 37 2RF Tesha-Chidester Original 325-1,916-1,000 mg tablet, effervescent 2 tab PO BID PRN (Reason: indigestion) Qty: 60 3RF bismuth subsalicylate 262 mg/15 mL suspension 524 mg PO QID PRN (Reason: diarrhea) Qty: 30 3RF Patient Comments: not on med list docusate sodium 100 mg capsule 300 mg PO DAILY PRN (Reason: constipation) Qty: 30 3RF Patient Comments: not on med list guaifenesin [Mucinex] 600 mg tablet extended release 12hr 600 mg PO Q12H PRN (Reason: congestion) Qty: 60 4RF loperamide 2 mg tablet 2 mg PO QID PRN (Reason: loose stool) Qty: 10 0RF Rx Instructions: Take one tablet by mouth after each loose stool not to exceed 8mg/24 hrs ondansetron 4 mg tablet,disintegrating 4 mg PO Q4H PRN (Reason: nausea and vomiting) Qty: 30 1RF atorvastatin 20 mg tablet 20 mg PO QPM Qty: 90 3RF Patient Comments: not on med list Jardiance 25 mg tablet 25 mg PO QAM Qty: 90 2RF Patient Comments: not on med list Anoro Ellipta 62.5-25 mcg/actuation blister with device 1 inh inhalation Q24H Qty: 90 4RF Rx Instructions: dispense Anoro Rybelsus 7 mg tablet 7 mg PO DAILY Qty: 90 3RF Rx Instructions: start after 3mg Rx finishes Naltrexone 1.5 - 4.5 mg PO DAILY Qty: 60 2RF Rx Instructions: 1.5 mg/week x 1 week, then 3 mg/day x 2nd week, then 4.5 mg/day going forward bupropion HCl 150 mg tablet extended release 24 hr 150 mg PO BID Qty: 180 3RF melatonin 10 mg tablet 10 mg PO HS PRN (Reason: sleep) Qty: 90 5RF famotidine 20 mg tablet 20 mg PO BID Qty: 180 4RF clonazepam 1 mg tablet 1 mg PO TID Qty: 270 1RF nitrofurantoin macrocrystal [Macrodantin] 100 mg capsule 100 mg PO BID Qty: 14 0RF Rx Instructions: must administer with a meal/food glipizide 10 mg tablet extended release 24hr 10 mg PO DAILY Qty: 90 2RF levothyroxine 112 mcg tablet 112 mcg PO DAILY Qty: 90 2RF clopidogrel [Plavix] 75 mg tablet 75 mg PO DAILY Qty: 90 3RF fluoxetine 40 mg capsule 40 mg PO DAILY Qty: 90 3RF omeprazole 40 mg capsule,delayed release(DR/EC) 40 mg PO DAILY Qty: 90 2RF quetiapine [Seroquel XR] 200 mg tablet extended release 24 hr 200 mg PO HS Qty: 90 12RF Patient Comments: no longer on med list buprenorphine HCl 2 mg tablet, sublingual 1 mg sublingual DAILY Qty: 15 0RF cephalexin 500 mg tablet 500 mg PO BID 7 Days Qty: 14 0RF lidocaine 5 % adhesive patch,medicated 1 patch topical DAILY Qty: 15 0RF Patient Comments: not on med list Rx Instructions: leave on most painful area for up to 12 hrs atorvastatin 20 mg tablet 20 mg PO QAM Jardiance 25 mg tablet 25 mg PO QAM acetaminophen 650 mg Tablet 650 mg PO Q8H PRN Medical Decision Making 67yo F with hypothyroid, DM, HTN, presents via EMS from nursing facility. History from EMS, record review, and patient. Currently being treated for a UTI; this morning was not acting like her usual self. Hypoxic on arrival with sat in high 70's on 2L NC; improved to mid 80's on 6LNC and 90% on 10L NRB. Placed on HFNC with adequate sat thereafter. Hypotensive with MAP of 62, normal heart rate. Concerned for sepsis; blood and urine cultures ordered, broad spectrum IV abx, 1L IVFB (will reassess respiratory status before proceeding with further fluid resuscitations). EKG NSR, appropriate intervals, no ST segment or T wave abnormalities to suggest occlusive TX. CXR independently reviewed, no focal pneumonia or significant pneumothorax on my view, agree with radiology read below. Labs as below, CBC reassuring, CMP with borderline hypokalemia and borderline hypomagnesium. ABG with hypoxia, no CO2 retention or significant acidosis . Normal lactate. Initial troponin negative. UA consistent with known infection. CT for PE independently reviewed, no large PE, possible right pneumonia but does not appear significant enough to explain degree of hypoxia, agree with radiology read below. Flu & COVID negative. On reassessment VS improved, satting well on HFNC 60L 70%, BP improved with SBP in 130's. Discussed with hospitalist and accepted to medicine service; awaiting transfer to the floor. Imaging Data Radiologic Study: Imaging: X-Ray Radiologist's impression: IMPRESSION: 1. ? Hyperlucent right lower lung with deep right costophrenic angle. Finding could be artifactual, reflect hyperinflation or a small pneumothorax. Recommend PA and left lateral decubitus chest radiographs for further evaluation. 2. ? Persistent by bilateral airspace disease which may reflect pneumonia, atelectasis and/or chronic lung changes. Radiologic Study #2: Imaging: CT Scan Radiologist's impression: IMPRESSION: 1. ? Limited exam with no acute pulmonary emboli. 2. ? Right lung consolidation and atelectasis, not significantly changed compared to prior CT on 11/12/2022. Finding could reflect recurrent pneumonia and/or chronic lung changes. Lab Data Lab results reviewed: Yes I reviewed the patient's lab results. Labs: 06/16/23 12:13 Urine - Reflex from Ua Urine Culture - Pending 06/16/23 11:49 Blood Blood Culture - Pending 06/16/23 11:42 Blood Blood Culture - Pending Laboratory Tests Range/Units 06/16/23 06/16/23 06/16/23 11:49 11:49 11:49 WBC (4.4-10.8) 10^3/uL 7.11 RBC (3.93-5.22) 10^6/uL 4.88 Hgb (11.2-15.7) g/dL 15.9 H Hct (36.0-46.0) % 47.9 H MCV (80-95) fL 98 H MCH (27.0-33.0) pg 32.6 MCHC (32.0-36.0) % 33.2 RDW (11.7-14.6) % 13.1 Plt Count (130-400) 10^3/uL 290 MPV (8.0-11.0) fL 9.1 Immature Gran % 0.3 Neutrophils % 67.5 Lymphocytes % 24.1 Monocytes % 7.0 Eosinophils % 0.4 Basophils % 0.7 Nucleated RBC % (0.0-0.3) % 0.0 Absolute Neutrophils (1.2-6.7) 10^3/uL 4.80 Absolute Lymphocytes (1.2-3.4) 10^3/uL 1.71 Absolute Monocytes (0.1-0.8) 10^3/uL 0.50 Absolute Eosinophils (0.0-0.7) 10^3/uL 0.03 Absolute Basophils (0.0-0.2) 10^3/uL 0.05 D-Dimer (<500) ng/mlFEU 1184 H ABG Sample Site ABG pH (7.35-7.45) ABG pCO2 (35-45) mmHg ABG pO2 (80-105) mmHg ABG HCO3 (22-26) mmol/L ABG Total CO2 (23-27) mmol/L ABG O2 Saturation (95-98) % ABG Base Excess (-2-3) mmol/L VBG pH VBG pCO2 VBG pO2 VBG HCO3 VBG Total CO2 VBG O2 Saturation VBG Base Excess VBG Lactate (0.6-1.4) mmol/L Oxygen Liter Flow L Sodium (136-145) mmol/L 137 Potassium (3.5-5.1) mmol/L 3.4 L Chloride (98-107) mmol/L 100 Carbon Dioxide (21.0-32.0) mmol/L 26.6 Anion Gap (3-11) mmol/L 10.4 BUN (7-18) mg/dL 11 Creatinine (0.55-1.02) mg/dL 1.0 Est GFR (CKD-EPI 2020) (mL/min/1.73m2) 61.75 Glucose (74-106) mg/dL 95 Calcium (8.5-10.1) mg/dL 9.8 Magnesium (1.8-2.4) mg/dL 1.7 L Total Bilirubin (0.2-1.0) mg/dL 0.4 AST (15-37) U/L 16 ALT (14-59) U/L 17 Alkaline Phosphatase (46-116) U/L 92 Troponin I (<or=60) ng/L < 50 Total Protein (6.4-8.2) g/dL 8.4 H Albumin (3.4-5.0) g/dL 3.4 Urine Color (Yellow) Urine Clarity (Clear) Urine pH (5-8) Ur Specific [place] (1.005-1.025) Urine Protein (Negative) mg/dL Urine Ketones (Negative) mg/dL Urine Blood (Negative) Urine Nitrite (Negative) Urine Bilirubin (Negative) Urine Urobilinogen (Up to 0.2) mg/dL Ur Leukocyte Esterase (Negative) Urine RBC (0-2) HPF Urine WBC (0-5) HPF Ur Epithelial Cells (Negative) HPF Urine Crystals (Negative) HPF Urine Bacteria (Negative) HPF Urine Casts (Negative) LPF Urine Mucus (Negative) Ur Culture Indicated? Urine Glucose (Negative) mg/dL Range/Units 06/16/23 06/16/23 06/16/23 11:51 12:05 12:13 WBC (4.4-10.8) 10^3/uL RBC (3.93-5.22) 10^6/uL Hgb (11.2-15.7) g/dL Hct (36.0-46.0) % MCV (80-95) fL MCH (27.0-33.0) pg MCHC (32.0-36.0) % RDW (11.7-14.6) % Plt Count (130-400) 10^3/uL MPV (8.0-11.0) fL Immature Gran % Neutrophils % Lymphocytes % Monocytes % Eosinophils % Basophils % Nucleated RBC % (0.0-0.3) % Absolute Neutrophils (1.2-6.7) 10^3/uL Absolute Lymphocytes (1.2-3.4) 10^3/uL Absolute Monocytes (0.1-0.8) 10^3/uL Absolute Eosinophils (0.0-0.7) 10^3/uL Absolute Basophils (0.0-0.2) 10^3/uL D-Dimer (<500) ng/mlFEU ABG Sample Site Right Radial ABG pH (7.35-7.45) 7.37 ABG pCO2 (35-45) mmHg 43 ABG pO2 (80-105) mmHg 54 L ABG HCO3 (22-26) mmol/L 25 ABG Total CO2 (23-27) mmol/L 22 L ABG O2 Saturation (95-98) % 87 L ABG Base Excess (-2-3) mmol/L -1 VBG pH Cancelled VBG pCO2 Cancelled VBG pO2 Cancelled VBG HCO3 Cancelled VBG Total CO2 Cancelled VBG O2 Saturation Cancelled VBG Base Excess Cancelled VBG Lactate (0.6-1.4) mmol/L Oxygen Liter Flow L 12 Sodium (136-145) mmol/L Potassium (3.5-5.1) mmol/L Chloride (98-107) mmol/L Carbon Dioxide (21.0-32.0) mmol/L Anion Gap (3-11) mmol/L BUN (7-18) mg/dL Creatinine (0.55-1.02) mg/dL Est GFR (CKD-EPI 2020) (mL/min/1.73m2) Glucose (74-106) mg/dL Calcium (8.5-10.1) mg/dL Magnesium (1.8-2.4) mg/dL Total Bilirubin (0.2-1.0) mg/dL AST (15-37) U/L ALT (14-59) U/L Alkaline Phosphatase (46-116) U/L Troponin I (<or=60) ng/L Total Protein (6.4-8.2) g/dL Albumin (3.4-5.0) g/dL Urine Color (Yellow) Yellow Urine Clarity (Clear) Clear Urine pH (5-8) 5.5 Ur Specific [place] (1.005-1.025) 1.025 Urine Protein (Negative) mg/dL Trace H Urine Ketones (Negative) mg/dL Trace H Urine Blood (Negative) Trace-lysed H Urine Nitrite (Negative) Negative Urine Bilirubin (Negative) Negative Urine Urobilinogen (Up to 0.2) mg/dL 0.2 Ur Leukocyte Esterase (Negative) Small H Urine RBC (0-2) HPF 3-5 H Urine WBC (0-5) HPF 20-50 H Ur Epithelial Cells (Negative) HPF Negative Urine Crystals (Negative) HPF Negative Urine Bacteria (Negative) HPF Few Urine Casts (Negative) LPF Negative Urine Mucus (Negative) Negative Ur Culture Indicated? Yes Urine Glucose (Negative) mg/dL 500 H Range/Units 06/16/23 13:00 WBC (4.4-10.8) 10^3/uL RBC (3.93-5.22) 10^6/uL Hgb (11.2-15.7) g/dL Hct (36.0-46.0) % MCV (80-95) fL MCH (27.0-33.0) pg MCHC (32.0-36.0) % RDW (11.7-14.6) % Plt Count (130-400) 10^3/uL MPV (8.0-11.0) fL Immature Gran % Neutrophils % Lymphocytes % Monocytes % Eosinophils % Basophils % Nucleated RBC % (0.0-0.3) % Absolute Neutrophils (1.2-6.7) 10^3/uL Absolute Lymphocytes (1.2-3.4) 10^3/uL Absolute Monocytes (0.1-0.8) 10^3/uL Absolute Eosinophils (0.0-0.7) 10^3/uL Absolute Basophils (0.0-0.2) 10^3/uL D-Dimer (<500) ng/mlFEU ABG Sample Site ABG pH (7.35-7.45) ABG pCO2 (35-45) mmHg ABG pO2 (80-105) mmHg ABG HCO3 (22-26) mmol/L ABG Total CO2 (23-27) mmol/L ABG O2 Saturation (95-98) % ABG Base Excess (-2-3) mmol/L VBG pH VBG pCO2 VBG pO2 VBG HCO3 VBG Total CO2 VBG O2 Saturation VBG Base Excess VBG Lactate (0.6-1.4) mmol/L 0.9 Oxygen Liter Flow L Sodium (136-145) mmol/L Potassium (3.5-5.1) mmol/L Chloride (98-107) mmol/L Carbon Dioxide (21.0-32.0) mmol/L Anion Gap (3-11) mmol/L BUN (7-18) mg/dL Creatinine (0.55-1.02) mg/dL Est GFR (CKD-EPI 2020) (mL/min/1.73m2) Glucose (74-106) mg/dL Calcium (8.5-10.1) mg/dL Magnesium (1.8-2.4) mg/dL Total Bilirubin (0.2-1.0) mg/dL AST (15-37) U/L ALT (14-59) U/L Alkaline Phosphatase (46-116) U/L Troponin I (<or=60) ng/L Total Protein (6.4-8.2) g/dL Albumin (3.4-5.0) g/dL Urine Color (Yellow) Urine Clarity (Clear) Urine pH (5-8) Ur Specific [place] (1.005-1.025) Urine Protein (Negative) mg/dL Urine Ketones (Negative) mg/dL Urine Blood (Negative) Urine Nitrite (Negative) Urine Bilirubin (Negative) Urine Urobilinogen (Up to 0.2) mg/dL Ur Leukocyte Esterase (Negative) Urine RBC (0-2) HPF Urine WBC (0-5) HPF Ur Epithelial Cells (Negative) HPF Urine Crystals (Negative) HPF Urine Bacteria (Negative) HPF Urine Casts (Negative) LPF Urine Mucus (Negative) Ur Culture Indicated? Urine Glucose (Negative) mg/dL HPI General Mode of arrival: EMS. Date/Time Provider Initiated Documentation: 06/16/23 11:39. Limitations to Documentation: altered mental status. Information obtained by: patient, EMS and old records reviewed. HPI Narrative: 67yo F with hypothyroid, DM, HTN, presents via EMS from nursing facility. History from EMS, record review, and patient. Currently being treated for a UTI. This morning was altered, agitated, not at her baseline according to facility staff. Patient denies pain or complaints. No fevers, chills, nausea, vomiting, chest pain, shortness of breath, abdominal pain, dysuria, flank pain, or other concerns. Related Data Home Medications Medication Instructions Recorded Confirmed aspirin-sod bicarb-citric acid 325 2 tab PO BID PRN indigestion #60 01/15/22 06/16/23 mg-1,916 mg-1,000 mg efferves tab tabs (Tesha-Jeannie Original) bismuth subsalicylate 262 mg/15 mL 524 mg (30 mL) PO QID PRN diarrhea 01/15/22 06/06/23 oral suspension #30 mL docusate sodium 100 mg capsule 300 mg PO DAILY PRN constipation 01/15/22 06/06/23 #30 caps guaifenesin 600 mg tablet, 600 mg PO Q12H PRN congestion #60 01/15/22 06/16/23 extended release 12 hr (Mucinex) tabs loperamide 2 mg tablet 2 mg PO QID PRN loose stool #10 01/15/22 06/16/23 tabs ondansetron 4 mg disintegrating 4 mg PO Q4H PRN nausea and 03/02/22 06/16/23 tablet vomiting #30 tabs bisacodyl 10 mg/30 mL enema (Fleet 10 mg (30 mL) ME DAILY PRN 03/22/22 06/16/23 Bisacodyl) constipation #37 mL atorvastatin 20 mg tablet 20 mg PO QPM #90 tabs 07/18/22 06/06/23 empagliflozin 25 mg tablet 25 mg PO QAM #90 tabs 09/17/22 06/06/23 (Jardiance) umeclidinium 62.5 mcg-vilanterol 1 inh inhalation Q24H #90 ea 10/17/22 06/16/23 25 mcg/actuation powdr for inhalation (Anoro Ellipta) semaglutide 7 mg tablet (Rybelsus) 7 mg PO DAILY #90 tabs 10/30/22 06/16/23 gabapentin 300 mg capsule 300 mg PO BID #60 caps 01/28/23 06/06/23 Naltrexone 1.5 - 4.5 mg PO DAILY #60 caps 02/19/23 06/06/23 bupropion HCl 150 mg 24 hr tablet, 150 mg PO BID #180 tabs 03/26/23 06/16/23 extended release melatonin 10 mg tablet 10 mg PO HS PRN sleep #90 tabs 04/01/23 06/16/23 clonazepam 1 mg tablet 1 mg PO TID #270 tabs 04/22/23 06/16/23 famotidine 20 mg tablet 20 mg PO BID #180 tabs 04/22/23 06/16/23 nitrofurantoin macrocrystal 100 mg 100 mg PO BID UTI #14 caps 04/22/23 06/16/23 capsule (Macrodantin) clopidogrel 75 mg tablet (Plavix) 75 mg PO DAILY #90 tab-caps 06/10/23 06/16/23 fluoxetine 40 mg capsule 40 mg PO DAILY #90 caps 06/10/23 06/16/23 glipizide 10 mg tablet, extended 10 mg PO DAILY #90 tabs 06/10/23 06/16/23 release 24 hr levothyroxine 112 mcg tablet 112 mcg PO DAILY #90 tabs 06/10/23 06/16/23 omeprazole 40 mg capsule,delayed 40 mg PO DAILY #90 caps 06/10/23 06/16/23 release quetiapine 200 mg tablet,extended 200 mg PO HS #90 tabs 06/10/23 06/16/23 release 24 hr (Seroquel XR) buprenorphine HCl 2 mg sublingual 1 mg sublingual DAILY chronic pain 06/11/23 06/16/23 tablet #15 tabs cephalexin 500 mg tablet 500 mg PO BID 7 days #14 tabs 06/12/23 06/16/23 lidocaine 5 % topical patch 1 patch topical DAILY Pain #15 ea 06/12/23 06/16/23 acetaminophen 650 mg tablet 650 mg PO Q8H PRN 06/16/23 06/16/23 atorvastatin 20 mg tablet 20 mg PO QAM 06/16/23 06/16/23 empagliflozin 25 mg tablet 25 mg PO QAM 06/16/23 06/16/23 (Jardiance) Previous Rx's Medication Instructions Recorded aspirin-sod bicarb-citric acid 325 2 tab PO BID PRN indigestion #60 01/15/22 mg-1,916 mg-1,000 mg efferves tab tabs (Tesha-Jeannie Original) bismuth subsalicylate 262 mg/15 mL 524 mg (30 mL) PO QID PRN diarrhea 01/15/22 oral suspension #30 mL docusate sodium 100 mg capsule 300 mg PO DAILY PRN constipation 01/15/22 #30 caps guaifenesin 600 mg tablet, 600 mg PO Q12H PRN congestion #60 01/15/22 extended release 12 hr (Mucinex) tabs loperamide 2 mg tablet 2 mg PO QID PRN loose stool #10 01/15/22 tabs ondansetron 4 mg disintegrating 4 mg PO Q4H PRN nausea and 03/02/22 tablet vomiting #30 tabs bisacodyl 10 mg/30 mL enema (Fleet 10 mg (30 mL) ME DAILY PRN 03/22/22 Bisacodyl) constipation #37 mL atorvastatin 20 mg tablet 20 mg PO QPM #90 tabs 07/18/22 empagliflozin 25 mg tablet 25 mg PO QAM #90 tabs 09/17/22 (Jardiance) umeclidinium 62.5 mcg-vilanterol 1 inh inhalation Q24H #90 ea 10/17/22 25 mcg/actuation powdr for inhalation (Anoro Ellipta) semaglutide 7 mg tablet (Rybelsus) 7 mg PO DAILY #90 tabs 10/30/22 gabapentin 300 mg capsule 300 mg PO BID #60 caps 01/28/23 Naltrexone 1.5 - 4.5 mg PO DAILY #60 caps 02/19/23 bupropion HCl 150 mg 24 hr tablet, 150 mg PO BID #180 tabs 03/26/23 extended release melatonin 10 mg tablet 10 mg PO HS PRN sleep #90 tabs 04/01/23 clonazepam 1 mg tablet 1 mg PO TID #270 tabs 04/22/23 famotidine 20 mg tablet 20 mg PO BID #180 tabs 04/22/23 nitrofurantoin macrocrystal 100 mg 100 mg PO BID UTI #14 caps 04/22/23 capsule (Macrodantin) clopidogrel 75 mg tablet (Plavix) 75 mg PO DAILY #90 tab-caps 06/10/23 fluoxetine 40 mg capsule 40 mg PO DAILY #90 caps 06/10/23 glipizide 10 mg tablet, extended 10 mg PO DAILY #90 tabs 06/10/23 release 24 hr levothyroxine 112 mcg tablet 112 mcg PO DAILY #90 tabs 06/10/23 omeprazole 40 mg capsule,delayed 40 mg PO DAILY #90 caps 06/10/23 release quetiapine 200 mg tablet,extended 200 mg PO HS #90 tabs 06/10/23 release 24 hr (Seroquel XR) buprenorphine HCl 2 mg sublingual 1 mg sublingual DAILY chronic pain 06/11/23 tablet #15 tabs cephalexin 500 mg tablet 500 mg PO BID 7 days #14 tabs 06/12/23 lidocaine 5 % topical patch 1 patch topical DAILY Pain #15 ea 06/12/23 Allergies Allergy/AdvReac Type Severity Reaction Status Date / Time alendronate sodium AdvReac Intermediate Nausea Verified 05/20/23 13:34 [From Fosamax] latex AdvReac Unknown Unverified 06/11/23 09:37 General Stated Complaint: AMS/LOC LELA: 2 Review of Systems Narrative: see HPI PFSH All Active Problems (Updated 06/16/23 @ 14:38 by Asmita Glynn MD) UTI (urinary tract infection) (Acute) Acute respiratory failure with hypoxia (Acute) Malaise (Acute) Tobacco abuse (Acute) Trochanteric bursitis, right hip (Acute) Advance care planning (Acute) Noncompliance (Acute) Enteritis (Acute) Acute respiratory failure with hypoxia (Acute) Aspiration pneumonia (Acute) Acute respiratory failure (Acute) Hypoxemia (Acute) Hyperproteinemia (Acute) Chronic hip pain (Acute) GERD with esophagitis (Chronic) Low back pain (Acute) Pneumonia (Acute) Hip pain, bilateral (Acute) Bipolar affect, depressed (Acute) Skin tag (Acute) Phlegm in throat (Acute) Positive colorectal cancer screening using Cologuard test (Acute) I scheduled 4 appts for gen surgery. She has cancelled or refuses RCT/ etc. or goes to the appt and then gets upset Dysphagia (Acute) Nasal mass (Acute) Dr. 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 Hyperlipidemia (Chronic) Polycythemia (Chronic) Hypothyroid (Chronic) Diabetes (Chronic) Type 2, controlled HTN (hypertension) (Chronic) Depression (Chronic) Mixed conductive and sensorineural hearing loss (Acute 01/29/14) Mixed hearing loss, bilateral (Acute 01/19/16) Sciatica (Acute 07/01/14) Sensorineural hearing loss (Acute 01/29/14) Total perforation of right tympanic membrane (Acute 01/19/16) Medical History Adrenal mass Ambulatory dysfunction Bulimia Chronic hip pain, bilateral Chronic low back pain Chronic obstructive lung disease Chronic post-traumatic stress disorder COPD (chronic obstructive pulmonary disease) Coronary arteriosclerosis Dehydration Diffuse abdominal pain Hearing loss History of smoking Hypokalemia Hypomagnesemia Hypoxia Interstitial lung disease Lumbar spine scoliosis Narcotic abuse episodic opioid dependence Osteoporosis Panic disorder Peripheral vascular disease Pneumonia Post traumatic stress disorder Pulmonary hypertension Tachycardia Weight loss Surgical History History of tympanoplasty of right ear Failed x2 S/P cholecystectomy Spinal Surgery Laminectomies at T12/L1 due to an angioma Stent placement Bilateral iliac and femoral Family History Mother Heart disease Paternal Grandfather Kidney disease Social History Smoking/Tobacco Use Status: Current every day Tobacco Type: cigarettes Smoking risk assessment performed?: Yes Alcohol Intake: never Drug use: Current Sobriety Substance use type: former substance user Housing: fpc Do you feel safe at home: Yes Do you feel safe in your relationship?: Yes Additional Social history: patient currently lives at the [facility] says she is not happy there Exam Narrative Exam Narrative: General: Alert, well appearing, well nourished, in no acute distress. Head: Normocephalic, atraumatic Neck: Trachea midline, Neck supple. ENT: MMM. No oropharygeal lesions or exudate. Cardiac: RRR, no murmurs appreciated Resp: No respiratory distress. Scattered coarse rhonchi bilaterally. Abd: Soft, non-distended, nontender : No suprapubic tenderness. No CVA tenderness. Extremities: No deformities. No peripheral edema. Neurologic: Alert. Moves all extremities freely against gravity Course Vital Signs Vital signs: Vital Signs Temperature 36.8 C 06/16/23 11:21 Pulse 88 06/16/23 11:21 Respiratory Rate 16 06/16/23 11:21 Blood Pressure 76/44 L 06/16/23 11:21 Pulse Oximetry 88 L 06/16/23 11:21 Temperature 36.8 C 06/16/23 11:21 Pulse 88 06/16/23 11:21 Respiratory Rate 16 06/16/23 11:21 Blood Pressure 76/44 L 06/16/23 11:21 Blood Pressure Position Supine 06/16/23 11:21 Pulse Oximetry 88 L 06/16/23 11:21 Oxygen Delivery Method Nasal Cannula 06/16/23 11:21 Oxygen Flow Rate 6 06/16/23 11:21 Lab/Test Results Lab/Test Results: 06/16/23 11:41 Blood Blood Culture - Pending 06/16/23 11:41 Blood Blood Culture - Pending
--- NOTE | 2023-06-16 11:45 | DI.RAD_ITS ---
Exam(s) XR PORTABLE CHEST AP EXAM: XR PORTABLE CHEST AP CLINICAL HISTORY: hypoxia TECHNIQUE: 2D digital imaging was performed of the chest. One image was obtained. An AP view was ob tained. COMPARISON: CR,XR XR PORTABLE CHEST AP from 11/12/2022 CR XR CHEST 2V PA LATERAL from 06/11/2023 FINDINGS: MEDIASTINUM: Normal. HEART: Stable. PULMONARY VASCULATURE: Atherosclerosis and tortuosity of the thoracic aorta. LUNGS: There are bilateral airspace opacities again seen, right greater than left. They appear uncha nged compared to the prior examination. There is a hyperlucent region in the right lung base in the costophrenic angle. PLEURAL SPACE: No pleural effusion or pneumothorax. BONE:Within normal limits for the patient's age. OTHER FINDINGS:Normal. IMPRESSION: 1. Increased hyper lucency in the right lung base laterally compared to the prior examination. This could be artifactual however hyperinflation or small pneumothorax should be considered. CT scan of t he chest should be considered for further evaluation. 2. Persistent bilateral pulmonary infiltrates. DATA REPOSITORY: RADIATION DOSE DELIVERED:
[2023-06-16] MEDS: PIPERACILLIN/TAZO 3.375 GM in Normal Saline 50 ML IVPB ×2 (11:50→21:41)
[2023-06-16] MEDS: Normal Saline 1,000 ML 1000 ML IV (11:54)
[2023-06-16 11:58] LABS: Abs Immature Grans 0.02 10^3/uL (0.0-0.06); Absolute Basophil Count 0.05 10^3/uL (0.0-0.2); Absolute Eosinophil Count 0.03 10^3/uL (0.0-0.7); Absolute Lymphocyte Count 1.71 10^3/uL (1.2-3.4); Basophils % 0.7; Eosinophils % 0.4; HCT 47.9 % (36.0-46.0); HGB 15.9 g/dL (11.2-15.7); Immature Grans % 0.3; Lymphocytes % 24.1; MCH 32.6 pg (27.0-33.0); MCHC 33.2 % (32.0-36.0); MCV 98 fL (80-95); MPV 9.1 fL (8.0-11.0); Neutrophils % 67.5; Platelet Count 290 10^3/uL (130-400); RBC 4.88 10^6/uL (3.93-5.22); RDW 13.1 % (11.7-14.6); RDW-SD 46.8 fL; WBC 7.11 10^3/uL (4.4-10.8)
[2023-06-16] MEDS: LINEZOLID 600 MG/300 ML BAG 300 MG IVPB (12:00)
[2023-06-16 12:06] LABS: BE -1 mmol/L (-2-3); HCO3 25 mmol/L (22-26); pCO2 43 mmHg (35-45); pH 7.37 (7.35-7.45); pO2 54 mmHg (80-105); sO2 87 % (95-98); tCO2 22 mmol/L (23-27)
[2023-06-16 12:08] LABS: FIO2L 12 L; Site Right Radial
--- NOTE | 2023-06-16 12:16 | DI.VRAD_ITS ---
Addendum created by Reji Norwood MD on 06/16/2023 12:19:19 PM EDT: THIS REPORT CONTAINS FINDINGS THAT MAY BE CRITICAL TO PATIENT CARE. The findings were verbally communicated via telephone conference with SHIRA Hernández at 12:19 PM EDT on 06/16/2023. The findings were acknowledged and understood. Initial report created on 06/16/2023 12:16:13 PM EDT: PROCEDURE INFORMATION: Exam: XR Chest Exam date and time: 06/16/2023 11:59 AM Age: 67 years old Clinical indication: Other: Hypoxia TECHNIQUE: Imaging protocol: Radiologic exam of the chest. Views: 1 view. COMPARISON: CR XR CHEST 2V PA LATERAL 06/11/2023 11:03 AM FINDINGS: Lungs: Scattered airspace opacities throughout the right greater than left lung, similar to prior. Hyperlucent right lower lung. Pleural spaces: Lucent and deep right costophrenic angle. Blunting of the left costophrenic angle. Heart/Mediastinum: Unremarkable. No cardiomegaly. Bones/joints: Severe scoliosis. IMPRESSION: 1. Hyperlucent right lower lung with deep right costophrenic angle. Finding could be artifactual, reflect hyperinflation or a small pneumothorax. Recommend PA and left lateral decubitus chest radiographs for further evaluation. 2. Persistent by bilateral airspace disease which may reflect pneumonia, atelectasis and/or chronic lung changes. Dictated and Authenticated by: Reji Norwood MD. Ordering:PERNELL Tian MD
[2023-06-16 12:24] LABS: ALT 17 U/L (14-59); AST 16 U/L (15-37); Albumin 3.4 g/dL (3.4-5.0); Alkaline Phosphatase 92 U/L (46-116); Anion Gap 10.4 mmol/L (3-11); BUN 11 mg/dL (7-18); Bilirubin, Total 0.4 mg/dL (0.2-1.0); CO2 26.6 mmol/L (21.0-32.0); Calcium 9.8 mg/dL (8.5-10.1); Chloride 100 mmol/L (98-107); Estimated GFR 61.75 (mL/min/1.73m2); Glucose 95 mg/dL (74-106); Magnesium 1.7 mg/dL (1.8-2.4); Potassium 3.4 mmol/L (3.5-5.1); Sodium 137 mmol/L (136-145); Total Protein 8.4 g/dL (6.4-8.2); Troponin I < 50 ng/L (<or=60)
[2023-06-16 12:25] LABS: Bilirubin Negative (Negative); Blood Trace-lysed (Negative); Clarity Clear (Clear); Glucose 500 mg/dL (Negative); Ketones Trace mg/dL (Negative); Leukocyte Esterase Small (Negative); Nitrite Negative (Negative); Specific Gravity 1.025 (1.005-1.025); Urobilinogen 0.2 mg/dL (Up to 0.2); pH 5.5 (5-8)
--- NOTE | 2023-06-16 12:25 | RESPIRATORY ---
HHF system for low PAO2. Initiated at 34 degrees / 60L flow / 70% FiO2. Otherwise normal ABG on arrival to ED. COPD protocol, target SpO2 88-92%. Patient does not use O2 at baseline.
[2023-06-16 12:30] LABS: D-Dimer 1184 ng/mlFEU (<500)
--- NOTE | 2023-06-16 12:30 | DI.CT_ITS ---
Exam(s) CT CHEST PE CTA EXAM: CT CHEST PE CTA CLINICAL HISTORY: hypoxia, elevated dimer. TECHNIQUE: Imaging Protocol: Axial CT angiography was performed with multi-slice acquisition and mu lti-planar and/or 3D reconstructions. CONTRAST MATERIAL: Intravenous: Omnipaque 350 contrast volume:70 mL COMPARISON: CT CT CHEST PE ABD PELVIS W from 11/12/[address] ABDOMEN PELVIS W from 06/11/2023 CR,XR XR PORTABLE CHEST AP from 06/16/2023 FINDINGS: The examination is limited due to patient motion artifact. Tracheobronchial tree: Patent where visualized. Pulmonary parenchyma: Similar areas of consolidation and atelectasis are seen in the right lung. The re are small areas of atelectasis seen on the left. Emphysematous changes are present in the lungs. No architectural distortion. Pulmonary Arteries: No evidence of filling defect to suggest pulmonary emboli. There is limited visua lization of the subsegmental pulmonary arteries due to motion artifact. Mediastinum and Princess: There are stable prominent mediastinal lymph nodes. The largest is a right par atracheal lymph node measuring 1.5 x 1.3 cm. There is a small hiatal hernia. Visualized thyroid gland: Unremarkable. Pleura: No effusion or pneumothorax. Heart: Cardiomegaly. Mild coronary artery calcification. No pericardial effusion. Aorta: Thoracic aorta non-dilated. No evidence of dissection. Atherosclerosis. Upper abdomen: Status post cholecystectomy. Splenic granulomas. Soft tissues: Unremarkable. Bones: Within normal limits for the patient's age.Stable mild compression of a mid thoracic vertebral body. There is a reverse S-type thoraco lumbar scoliosis. IMPRESSION: 1. Limited examination due to the patient motion artifact. No acute pulmonary emboli are seen as marco cribed above. 2. Findings in the right lung appears stable with areas of consolidation and atelectasis. This may r epresent recurrent pneumonia and/or chronic lung changes. RADIATION DOSE DELIVERED: 404.08mGy.cm Total DLP DATA REPOSITORY: All CT scans at this facility are submitted to the National Radiology Data Registry (NRDR) Dose Index Registry (DIR) with the [employer] (ACR). RADIATION OPTIMIZATION: All CT scans at this facility use at least one of these dose optimization te chniques: automated exposure control; mA and/or kV adjustment per patient size (includes targeted exa ms where dose is matched to clinical indication); or iterative reconstruction.
[2023-06-16 12:41] LABS: Bacteria Few HPF (Negative); C & S Indicated? Yes; Casts Negative LPF (Negative); Crystals Negative HPF (Negative); Epithelial Cells Negative HPF (Negative); Mucus Negative (Negative); WBC 20-50 HPF (0-5)
[2023-06-16 13:04] LABS: Lactate 0.9 mmol/L (0.6-1.4)
[2023-06-16] MEDS: Normal Saline Flush 10 ML SYR IVP ×2 (13:55→18:32)
[2023-06-16] MEDS: Omnipaque 350 MG/ML 100 ML BTL IJ (13:56)
[2023-06-16] MEDS: Normal Saline - Diluent 50 ML VIAL IJ (13:56)
--- NOTE | 2023-06-16 14:30 | RT.EKG_ITS ---
APPROVED REPORT Exam: Resting ECG Reason for Exam: hypoxic Patient Location: E HR:71 bpm ECG Measurements Heart Rate 71 AXIS CA 177 P 59 QRSd 107 QRS 84 QT 442 T 60 QTc 481 Conclusion Sinus rhythm.. V-rate 60- [address] segment or T wave abnormalities to suggest occlusive SC
--- NOTE | 2023-06-16 14:45 | DI.VRAD_ITS ---
PROCEDURE INFORMATION: Exam: CTA Chest With Contrast Exam date and time: 06/16/2023 2:18 PM Age: 67 years old Clinical indication: Other: Hypoxia, elevated d dimer TECHNIQUE: Imaging protocol: Computed tomographic angiography of the chest with contrast. Exam focused on the arteries. 3D rendering (Not supervised by radiologist): MIP and/or 3D reconstructed images were created by the technologist. Radiation optimization: All CT scans at this facility use at least one of these dose optimization techniques: automated exposure control; mA and/or kV adjustment per patient size (includes targeted exams where dose is matched to clinical indication); or iterative reconstruction. Contrast material: OMNI 350; Contrast volume: 70 ml; Contrast route: INTRAVENOUS (IV); COMPARISON: CT CHEST PE ABD PELVIS W 11/12/2022 9:26 PM FINDINGS: Limitations: Images are moderately degraded by respiratory motion artifact. Pulmonary arteries: No main, branch, lobar or segmental pulmonary artery filling defects. Limited evaluation of the subsegmental pulmonary arteries due to respiratory motion artifact. Aorta: Moderate atherosclerotic calcification of the aorta. No aortic dissection. Lungs: Consolidation and atelectasis throughout the right lung, similar to prior. Subsegmental lingular atelectasis. Dependent left lower lobe atelectasis. Pulmonary emphysema. Pleural spaces: No pneumothorax. No pleural effusion. Heart: Unremarkable. No cardiomegaly. No pericardial effusion. Lymph nodes: Prominent mediastinal lymph nodes, similar to prior. Index anterior right paratracheal node measures 1.5 x 1.3 cm. Diaphragm: Small hiatal hernia. Adrenal glands: 2.1 cm left adrenal adenoma. Bones/joints: Scoliosis. Degenerative changes of the spine. Chronic T9 compression deformity, unchanged. Soft tissues: Unremarkable. IMPRESSION: 1. Limited exam with no acute pulmonary emboli. 2. Right lung consolidation and atelectasis, not significantly changed compared to prior CT on 11/12/2022. Finding could reflect recurrent pneumonia and/or chronic lung changes. Dictated and Authenticated by: Reji Norwood MD. Ordering:PERNELL Tian MD
[2023-06-16 15:25] LABS: Troponin I < 50 ng/L (<or=60)
[2023-06-16 15:28] LABS: COVID-19 PCR Negative (Negative); Influenza A PCR Negative (Negative); Influenza B PCR Negative (Negative); RSV PCR Negative (Negative)
[2023-06-16 15:30] LABS: Source Nasopharynx
--- NOTE | 2023-06-16 18:28 | HPE_ITS ---
Date of service: 06/16/23 Time of Service: 18:28 Assessment and Plan Assessment and plan (1) UTI (urinary tract infection): Status: Acute Assessment and plan: Grew E.Coli. Now on Zosyn for a questionable pneumonia. (2) Acute respiratory failure with hypoxia: Status: Acute Assessment and plan: Titrate O2 as needed. Cont antibiotics but the questionable infiltrate appears out of line with the degree of hypoxia she is exhibiting. (3) Bipolar affect, depressed: Status: Acute Assessment and plan: On Fluoxetine and buproprion (4) Hypomagnesemia: Assessment and plan: Replete and monitor. (5) Interstitial lung disease: Assessment and plan: Cont home tiotropium / olodaterol Schedule Duonebs and prn albuterol. (6) Diabetes: Status: Chronic Assessment and plan: Cont Jardiance. Monitor. Qualifiers: Diabetes mellitus terminal superintendent insulin use: without terminal superintendent use Diabetes mellitus type: type 2 (7) HTN (hypertension): Status: Chronic Assessment and plan: No antihypertensives currently Monitor. (8) COPD (chronic obstructive pulmonary disease): Assessment and plan: As above. (9) Tobacco abuse: Status: Acute Assessment and plan: Nicoderm patch History of Present Illness History of Present Illness Chief Complaint: Altered mental status Narrative: This is a 67 yo female resident of the [facility]. She has a PMH of schizophrenia, Bipolar disorder, tobacco abuse, HTN, HLD, DM2, mixed hearing loss, previous acute resp failure, Pneumonia. She was noted to have altered mentation and agitation. She has been on macrobid for a UTI. She was found to be hypoxic with an O2 saturation in the upper 70's when placed on 2L NC. Subsequently placed on 10 NRB with saturation of 90%. She was then changed to high flow O2 system. No EKG findings of concern. CXR w/o focal pneumonia, pneumothorax. CBC reassuring. Mildly low K and Mg. CT of chest w/o P.E. Possible right pneumonia. Flu and Covid neg. Given a dose of linezolid and Zosyn initiated in the ED. Zosyn continued upon admission Review of Systems All systems reviewed & are unremarkable except as noted in HPI and below PFSH All Active Problems UTI (urinary tract infection) (Acute) Acute respiratory failure with hypoxia (Acute) Malaise (Acute) Tobacco abuse (Acute) Trochanteric bursitis, right hip (Acute) Advance care planning (Acute) Noncompliance (Acute) Enteritis (Acute) Acute respiratory failure with hypoxia (Acute) Aspiration pneumonia (Acute) Acute respiratory failure (Acute) Hypoxemia (Acute) Hyperproteinemia (Acute) Chronic hip pain (Acute) GERD with esophagitis (Chronic) Low back pain (Acute) Pneumonia (Acute) Hip pain, bilateral (Acute) Bipolar affect, depressed (Acute) Skin tag (Acute) Phlegm in throat (Acute) Positive colorectal cancer screening using Cologuard test (Acute) I scheduled 4 appts for gen surgery. She has cancelled or refuses RCT/ etc. or goes to the appt and then gets upset Dysphagia (Acute) Nasal mass (Acute) Dr. 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 Hyperlipidemia (Chronic) Polycythemia (Chronic) Hypothyroid (Chronic) Diabetes (Chronic) Type 2, controlled HTN (hypertension) (Chronic) Depression (Chronic) Mixed conductive and sensorineural hearing loss (Acute 01/29/14) Mixed hearing loss, bilateral (Acute 01/19/16) Sciatica (Acute 07/01/14) Sensorineural hearing loss (Acute 01/29/14) Total perforation of right tympanic membrane (Acute 01/19/16) Medical History Adrenal mass Ambulatory dysfunction Bulimia Chronic hip pain, bilateral Chronic low back pain Chronic obstructive lung disease Chronic post-traumatic stress disorder COPD (chronic obstructive pulmonary disease) Coronary arteriosclerosis Dehydration Diffuse abdominal pain Hearing loss History of smoking Hypokalemia Hypomagnesemia Hypoxia Interstitial lung disease Lumbar spine scoliosis Narcotic abuse episodic opioid dependence Osteoporosis Panic disorder Peripheral vascular disease Pneumonia Post traumatic stress disorder Pulmonary hypertension Tachycardia Weight loss Surgical History History of tympanoplasty of right ear Failed x2 S/P cholecystectomy Spinal Surgery Laminectomies at T12/L1 due to an angioma Stent placement Bilateral iliac and femoral Family History Mother Heart disease Paternal Grandfather Kidney disease Social History Smoking/Tobacco Use Status: Current every day Tobacco Type: cigarettes Smoking risk assessment performed?: Yes Alcohol Intake: never Drug use: Current Sobriety Substance use type: former substance user Housing: care home Do you feel safe at home: Yes Do you feel safe in your relationship?: Yes Additional Social history: patient currently lives at the [place] says she is not happy there Meds Allergies and Home Medications Allergies Allergy/AdvReac Type Severity Reaction Status Date / Time alendronate sodium AdvReac Intermediate Nausea Verified 05/20/23 13:34 [From Fosamax] latex AdvReac Unknown Unverified 06/11/23 09:37 Home Medications Medication Instructions Recorded Confirmed Type aspirin-sod bicarb-citric acid 325 2 tab PO BID PRN indigestion #60 01/15/22 06/16/23 Rx mg-1,916 mg-1,000 mg efferves tab tabs (Tesha-[place] Original) bismuth subsalicylate 262 mg/15 mL 524 mg (30 mL) PO QID PRN diarrhea 01/15/22 06/06/23 Rx oral suspension #30 mL docusate sodium 100 mg capsule 300 mg PO DAILY PRN constipation 01/15/22 06/06/23 Rx #30 caps guaifenesin 600 mg tablet, 600 mg PO Q12H PRN congestion #60 01/15/22 06/16/23 Rx extended release 12 hr (Mucinex) tabs loperamide 2 mg tablet 2 mg PO QID PRN loose stool #10 01/15/22 06/16/23 Rx tabs ondansetron 4 mg disintegrating 4 mg PO Q4H PRN nausea and 03/02/22 06/16/23 Rx tablet vomiting #30 tabs bisacodyl 10 mg/30 mL enema (Fleet 10 mg (30 mL) [place] DAILY PRN 03/22/22 06/16/23 Rx Bisacodyl) constipation #37 mL atorvastatin 20 mg tablet 20 mg PO QPM #90 tabs 07/18/22 06/06/23 Rx empagliflozin 25 mg tablet 25 mg PO QAM #90 tabs 09/17/22 06/06/23 Rx (Jardiance) umeclidinium 62.5 mcg-vilanterol 1 inh inhalation Q24H #90 ea 10/17/22 06/16/23 Rx 25 mcg/actuation powdr for inhalation (Anoro Ellipta) semaglutide 7 mg tablet (Rybelsus) 7 mg PO DAILY #90 tabs 10/30/22 06/16/23 Rx gabapentin 300 mg capsule 300 mg PO BID #60 caps 01/28/23 06/06/23 Rx Naltrexone 1.5 - 4.5 mg PO DAILY #60 caps 02/19/23 06/06/23 Rx bupropion HCl 150 mg 24 hr tablet, 150 mg PO BID #180 tabs 03/26/23 06/16/23 Rx extended release melatonin 10 mg tablet 10 mg PO HS PRN sleep #90 tabs 04/01/23 06/16/23 Rx clonazepam 1 mg tablet 1 mg PO TID #270 tabs 04/22/23 06/16/23 Rx famotidine 20 mg tablet 20 mg PO BID #180 tabs 04/22/23 06/16/23 Rx nitrofurantoin macrocrystal 100 mg 100 mg PO BID UTI #14 caps 04/22/23 06/16/23 Rx capsule (Macrodantin) clopidogrel 75 mg tablet (Plavix) 75 mg PO DAILY #90 tab-caps 06/10/23 06/16/23 Rx fluoxetine 40 mg capsule 40 mg PO DAILY #90 caps 06/10/23 06/16/23 Rx glipizide 10 mg tablet, extended 10 mg PO DAILY #90 tabs 06/10/23 06/16/23 Rx release 24 hr levothyroxine 112 mcg tablet 112 mcg PO DAILY #90 tabs 06/10/23 06/16/23 Rx omeprazole 40 mg capsule,delayed 40 mg PO DAILY #90 caps 06/10/23 06/16/23 Rx release quetiapine 200 mg tablet,extended 200 mg PO HS #90 tabs 06/10/23 06/16/23 Rx release 24 hr (Seroquel XR) buprenorphine HCl 2 mg sublingual 1 mg sublingual DAILY chronic pain 06/11/23 06/16/23 Rx tablet #15 tabs cephalexin 500 mg tablet 500 mg PO BID 7 days #14 tabs 06/12/23 06/16/23 Rx lidocaine 5 % topical patch 1 patch topical DAILY Pain #15 ea 06/12/23 06/16/23 Rx acetaminophen 650 mg tablet 650 mg PO Q8H PRN 06/16/23 06/16/23 History atorvastatin 20 mg tablet 20 mg PO QAM 06/16/23 06/16/23 History empagliflozin 25 mg tablet 25 mg PO QAM 06/16/23 06/16/23 History (Jardiance) Exam Narrative Exam Narrative: General: Alert, hard of hearing. Interactive and cooperative. Head: Normocephalic, atraumatic Neck: Trachea midline, Neck supple. ENT: MMM. No oropharygeal lesions or exudate. Cardiac: RRR, no murmurs appreciated Resp: Scattered coarse rhonchi bilaterally. Nonlabored breathing. Abd: Soft, non-distended, nontender Extremities: No deformities. No peripheral edema. Neurologic: Alert. Moves all extremities freely against gravity Psych: Affect appropriate. Results Labs 06/17/23 06:45 06/17/23 06:45 Labs: Laboratory Results - last 24 hr 06/16/23 06/16/23 06/16/23 11:49 11:49 11:49 WBC 7.11 RBC 4.88 Hgb 15.9 H Hct 47.9 H MCV 98 H MCH 32.6 MCHC 33.2 RDW 13.1 Plt Count 290 MPV 9.1 Immature Gran % 0.3 Neutrophils % 67.5 Lymphocytes % 24.1 Monocytes % 7.0 Eosinophils % 0.4 Basophils % 0.7 Nucleated RBC % 0.0 Absolute Neutrophils 4.80 Absolute Lymphocytes 1.71 Absolute Monocytes 0.50 Absolute Eosinophils 0.03 Absolute Basophils 0.05 D-Dimer 1184 H ABG Sample Site ABG pH ABG pCO2 ABG pO2 ABG HCO3 ABG Total CO2 ABG O2 Saturation ABG Base Excess VBG pH VBG pCO2 VBG pO2 VBG HCO3 VBG Total CO2 VBG O2 Saturation VBG Base Excess VBG Lactate Oxygen Liter Flow Sodium 137 Potassium 3.4 L Chloride 100 Carbon Dioxide 26.6 Anion Gap 10.4 BUN 11 Creatinine 1.0 Est GFR (CKD-EPI 2020) 61.75 Glucose 95 Calcium 9.8 Magnesium 1.7 L Total Bilirubin 0.4 AST 16 ALT 17 Alkaline Phosphatase 92 Troponin I < 50 Total Protein 8.4 H Albumin 3.4 Urine Color Urine Clarity Urine pH Ur Specific [place] Urine Protein Urine Ketones Urine Blood Urine Nitrite Urine Bilirubin Urine Urobilinogen Ur Leukocyte Esterase Urine RBC Urine WBC Ur Epithelial Cells Urine Crystals Urine Bacteria Urine Casts Urine Mucus Ur Culture Indicated? Urine Glucose COVID-19 Source SARS-CoV-2 (PCR) Influenza Type A (PCR) Influenza Type B (PCR) RSV (PCR) 06/16/23 06/16/23 06/16/23 11:51 12:05 12:13 WBC RBC Hgb Hct MCV MCH MCHC RDW Plt Count MPV Immature Gran % Neutrophils % Lymphocytes % Monocytes % Eosinophils % Basophils % Nucleated RBC % Absolute Neutrophils Absolute Lymphocytes Absolute Monocytes Absolute Eosinophils Absolute Basophils D-Dimer ABG Sample Site Right Radial ABG pH 7.37 ABG pCO2 43 ABG pO2 54 L ABG HCO3 25 ABG Total CO2 22 L ABG O2 Saturation 87 L ABG Base Excess -1 VBG pH Cancelled VBG pCO2 Cancelled VBG pO2 Cancelled VBG HCO3 Cancelled VBG Total CO2 Cancelled VBG O2 Saturation Cancelled VBG Base Excess Cancelled VBG Lactate Oxygen Liter Flow 12 Sodium Potassium Chloride Carbon Dioxide Anion Gap BUN Creatinine Est GFR (CKD-EPI 2020) Glucose Calcium Magnesium Total Bilirubin AST ALT Alkaline Phosphatase Troponin I Total Protein Albumin Urine Color Yellow Urine Clarity Clear Urine pH 5.5 Ur Specific [place] 1.025 Urine Protein Trace H Urine Ketones Trace H Urine Blood Trace-lysed H Urine Nitrite Negative Urine Bilirubin Negative Urine Urobilinogen 0.2 Ur Leukocyte Esterase Small H Urine RBC 3-5 H Urine WBC 20-50 H Ur Epithelial Cells Negative Urine Crystals Negative Urine Bacteria Few Urine Casts Negative Urine Mucus Negative Ur Culture Indicated? Yes Urine Glucose 500 H COVID-19 Source SARS-CoV-2 (PCR) Influenza Type A (PCR) Influenza Type B (PCR) RSV (PCR) 06/16/23 06/16/23 06/16/23 13:00 14:46 14:50 WBC RBC Hgb Hct MCV MCH MCHC RDW Plt Count MPV Immature Gran % Neutrophils % Lymphocytes % Monocytes % Eosinophils % Basophils % Nucleated RBC % Absolute Neutrophils Absolute Lymphocytes Absolute Monocytes Absolute Eosinophils Absolute Basophils D-Dimer ABG Sample Site ABG pH ABG pCO2 ABG pO2 ABG HCO3 ABG Total CO2 ABG O2 Saturation ABG Base Excess VBG pH VBG pCO2 VBG pO2 VBG HCO3 VBG Total CO2 VBG O2 Saturation VBG Base Excess VBG Lactate 0.9 Oxygen Liter Flow Sodium Potassium Chloride Carbon Dioxide Anion Gap BUN Creatinine Est GFR (CKD-EPI 2020) Glucose Calcium Magnesium Total Bilirubin AST ALT Alkaline Phosphatase Troponin I < 50 Total Protein Albumin Urine Color Urine Clarity Urine pH Ur Specific [place] Urine Protein Urine Ketones Urine Blood Urine Nitrite Urine Bilirubin Urine Urobilinogen Ur Leukocyte Esterase Urine RBC Urine WBC Ur Epithelial Cells Urine Crystals Urine Bacteria Urine Casts Urine Mucus Ur Culture Indicated? Urine Glucose COVID-19 Source Nasopharynx SARS-CoV-2 (PCR) Negative Influenza Type A (PCR) Negative Influenza Type B (PCR) Negative RSV (PCR) Negative Last Vital Signs Temp 36.4 C L 06/16/23 17:11 Pulse 76 06/16/23 17:11 Resp 16 06/16/23 17:11 BP 111/76 06/16/23 17:11 Pulse Ox 93 06/16/23 17:11 Time Spent Time spent with Patient: 40-54 minutes Time was spent: preparing to see the patient(eg.review tests), obtaining and/or reviewing separately otained hiistory, ordering medications,tests, procedures, referring, communicating with other health home child care provider, indepentently interpreting results and care coordination
[2023-06-16] MEDS: MAGNESIUM SULFATE 2 GM/50 ML BAG IVPB (18:30)
[2023-06-16 18:49] LABS: Lab Add On Test DONE
[2023-06-16 19:14] LABS: NT-proBNP 263 pg/mL (<300)
[2023-06-16] MEDS: clonazePAM 1 MG TAB PO (20:28)
[2023-06-16] MEDS: buPROPion-XL 150 MG TABCR PO (20:28)
[2023-06-16] MEDS: Enoxaparin 40 MG/0.4 ML SYR SC (20:28)
[2023-06-16] MEDS: Acetaminophen 325 MG TAB PO (20:28)
[2023-06-16] MEDS: Famotidine 20 MG TAB PO (20:28)
--- NOTE | 2023-06-16 22:27 | NUR.NOTE ---
Pt is 67 yo female , DNR/DNI. Pt had refused to wear her high flow oxygen and keeps taking off her tele/heart monitor electrodes and pulse socks.. attempt to educate pt , but she gets agitated and does not follow commands. RT tried to talk to the pt and educate her and was unsuccessful. informed the charge nurse . Pt acknowledged and understood fully about her disease process and the negative outcomes of her not being compliance with her oxygen therapy and tele monitor.
[2023-06-16] MEDS: Albuterol/Ipratropium 3 ML UPD VIAL UPD (23:11)
[2023-06-17] VITALS (13 sets, daily range): BP systolic 104–123; BP diastolic 69–77; PULSE 66–95; RESP 1–22; TEMP 31–36.9; O2SAT 54–94
[2023-06-17] MEDS: Albuterol/Ipratropium 3 ML UPD VIAL UPD ×2 (03:17→09:52)
[2023-06-17] MEDS: PIPERACILLIN/TAZO 3.375 GM in Normal Saline 50 ML IVPB (04:01)
[2023-06-17 07:06] LABS: Abs Immature Grans 0.03 10^3/uL (0.0-0.06); Absolute Basophil Count 0.04 10^3/uL (0.0-0.2); Absolute Eosinophil Count 0.13 10^3/uL (0.0-0.7); Absolute Lymphocyte Count 3.16 10^3/uL (1.2-3.4); Absolute Monocyte Count 0.77 10^3/uL (0.1-0.8); Absolute Neutrophil Count 4.63 10^3/uL (1.2-6.7); Basophils % 0.5; Eosinophils % 1.5; HCT 44.8 % (36.0-46.0); HGB 14.7 g/dL (11.2-15.7); Immature Grans % 0.3; Lymphocytes % 36.1; MCHC 32.8 % (32.0-36.0); MCV 97 fL (80-95); MPV 9.1 fL (8.0-11.0); Monocytes % 8.8; Neutrophils % 52.8; Platelet Count 314 10^3/uL (130-400); RDW 13.2 % (11.7-14.6); RDW-SD 46.5 fL; WBC 8.76 10^3/uL (4.4-10.8)
[2023-06-17 07:20] LABS: Anion Gap 5.9 mmol/L (3-11); BUN 5 mg/dL (7-18); CO2 28.1 mmol/L (21.0-32.0); CREATININE 0.8 mg/dL (0.55-1.02); Calcium 9.1 mg/dL (8.5-10.1); Chloride 103 mmol/L (98-107); Estimated GFR 80.71 (mL/min/1.73m2); Glucose 64 mg/dL (74-106); Magnesium 2.1 mg/dL (1.8-2.4); Potassium 3.5 mmol/L (3.5-5.1); Sodium 137 mmol/L (136-145)
[2023-06-17] MEDS: buPROPion-XL 150 MG TABCR PO ×2 (09:39→19:37)
[2023-06-17] MEDS: Clopidogrel 75 MG TAB PO (09:40)
[2023-06-17] MEDS: Empaglifozin 25 MG TAB PO (09:40)
[2023-06-17] MEDS: Famotidine 20 MG TAB PO ×3 (09:40→20:24)
[2023-06-17] MEDS: FLUoxetine 20 MG CAP 40 MG PO (09:40)
[2023-06-17] MEDS: Omeprazole 20 MG CAPCR 40 MG PO (09:40)
[2023-06-17] MEDS: clonazePAM 1 MG TAB PO ×3 (09:40→19:37)
[2023-06-17] MEDS: Levothyroxine 112 MCG TAB PO (09:41)
--- NOTE | 2023-06-17 10:13 | INITIAL_ITS ---
Date of service: 06/17/23 Time of Service: 10:13 Care Management Initial Assmt Initial Assessment REASON FOR HOSPITALIZATION:: Pneumonia, hypoxic respiratory failure PREVIOUS FUNCTIONAL STATUS/SOCIAL/FAMILY SUPPORTS:: Celia is a 67-year-old female who resides in assisted living at the [facility] in [place]. She has three children; two of whom are . 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 CURRENT FUNCTIONAL STATUS:: Celia is currently refusing the majority of medical interventions recommended for her. CM spoke with Laurie, director at [facility] at the [facility] who shared concerns about the facility's ability to manage her care needs. Awaiting respiratory recommendations as well as patient willingness to follow through to determine discharge planning considerations. ADVANCE DIRECTIVES:: On file; Jim Guadalupe (son) as agent Has patient been provided with info about the portal/API?: Yes Did the patient sign up for the portal?: No CODE STATUS:: DNR/DNI INSURANCE COVERAGE / FINANCIAL ISSUES:: [facility] CURRENT HOME/COMMUNITY SERVICES/EQUIPMENT:: Celia has a rollator walker with seat and she lives in an assisted living facility ([facility]). PRIMARY CARE PHYSICIAN:: Martínez Berrios POTENTIAL DISCHARGE NEEDS:: Coordinated return to the [facility] PATIENT/FAMILY EDUCATION NEEDS:: Review discharge instructions, discuss Ask Me Three. ANTICIPATED BARRIERS TO DISCHARGE:: None identified. TRANSPORTATION:: Via [facility]; may require wheelchair van depending on mobility. PLAN:: Celia will discharge back to the [facility] when medically cleared by provider. She will follow up with her PCP and discharge plan of care as inst ructed. She will be transported by [facility] and may require a wheelchair van depending on mobility. CM continues to follow. 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) UTI (urinary tract infection) (Acute) Acute respiratory failure with hypoxia (Acute) Malaise (Acute) Tobacco abuse (Acute) Trochanteric bursitis, right hip (Acute) Advance care planning (Acute) Noncompliance (Acute) Enteritis (Acute) Acute respiratory failure with hypoxia (Acute) Aspiration pneumonia (Acute) Acute respiratory failure (Acute) Hypoxemia (Acute) Hyperproteinemia (Acute) Chronic hip pain (Acute) GERD with esophagitis (Chronic) Low back pain (Acute) Pneumonia (Acute) Hip pain, bilateral (Acute) Skin tag (Acute) Phlegm in throat (Acute) Positive colorectal cancer screening using Cologuard test (Acute) I scheduled 4 appts for gen surgery. She has cancelled or refuses RCT/ etc. or goes to the appt and then gets upset Dysphagia (Acute) Nasal mass (Acute) Dr. 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 Hyperlipidemia (Chronic) Polycythemia (Chronic) Hypothyroid (Chronic) Diabetes (Chronic) Type 2, controlled HTN (hypertension) (Chronic) Depression (Chronic) Mixed conductive and sensorineural hearing loss (Acute 01/29/14) Mixed hearing loss, bilateral (Acute 01/19/16) Sciatica (Acute 07/01/14) Sensorineural hearing loss (Acute 01/29/14) Total perforation of right tympanic membrane (Acute 01/19/16) Medical History Adrenal mass Ambulatory dysfunction Bulimia Chronic hip pain, bilateral Chronic low back pain Chronic obstructive lung disease Chronic post-traumatic stress disorder COPD (chronic obstructive pulmonary disease) Coronary arteriosclerosis Dehydration Diffuse abdominal pain Hearing loss History of smoking Hypokalemia Hypomagnesemia Hypoxia Interstitial lung disease Lumbar spine scoliosis Narcotic abuse episodic opioid dependence Osteoporosis Panic disorder Peripheral vascular disease Pneumonia Post traumatic stress disorder Pulmonary hypertension Tachycardia Weight loss Surgical History History of tympanoplasty of right ear Failed x2 S/P cholecystectomy Spinal Surgery Laminectomies at T12/L1 due to an angioma Stent placement Bilateral iliac and femoral Family History Mother Heart disease Paternal Grandfather Kidney disease Social History Smoking/Tobacco Use Status: Current every day Tobacco Type: cigarettes Smoking risk assessment performed?: Yes Alcohol Intake: never Drug use: Current Sobriety Substance use type: former substance user Housing: assisted living facility Do you feel safe at home: Yes Do you feel safe in your relationship?: Yes Additional Social history: patient currently lives at the [facility] says she is not happy there
--- NOTE | 2023-06-17 10:22 | NUR.NOTE ---
Pt refused lovenox stating I already take Plavix, I don't want anything extra. insurance compliance analyst notified. Nursing Note:
[2023-06-17] MEDS: Tiotropium/Olodaterol 10 PUFF INHALER 2 PUFF IH (10:52)
--- NOTE | 2023-06-17 12:36 | NUR.NOTE ---
Pt did not recieve buprinorpherine this AM, not available in pyxis. Pharmacy notified, stated they will bring dose up to the floor. auxiliary power equipment operator notified. Pt also refusing IV insertion. Pt appears intermittently confused, stating you're in on it too? to RN. auxiliary power equipment operator notified of psych consult recommendation. Will continue to monitor. Nursing Note:
[2023-06-17] MEDS: Buprenorphine 2 MG SUBLINGUAL TABLET 1 MG SL (13:19)
[2023-06-17] MEDS: OLANZapine 5 MG TAB PO (14:19)
[2023-06-17] MEDS: Nicotine 21 MG/24 HR PATCH TD (17:22)
[2023-06-17] MEDS: Haloperidol 5 MG/ML VIAL 4 MG IM (17:32)
--- NOTE | 2023-06-17 18:59 | W.PM.PROGNOT ---
Date of Service Date of service: 06/17/23 Time of Service: 18:59 Assessment and Plan Assessment and plan (1) UTI (urinary tract infection): Status: Acute Assessment and plan: Grew E.Coli. on 06/11. According to her assisted living facility, [facility], records she was on Macrobid. Her repeat culture at time of this admission also growin E. Coli. Was on Zosyn for a questionable pneumonia but lost IV and refused another IV placement. Augmentin initiated. However, needs UTI coverage for E.Coli. Unfortunately she has become combative and trying to leave; giveing IM haldol, benadryl and ativan. She will not likely be able to take oral meds tonight. (2) Acute respiratory failure with hypoxia: Status: Acute Assessment and plan: She refuses to consistently wear supplemental O2. At one point in time today she allowed RT to check her saturations and she required 5L O2 to maintain a saturation of 90%. Planned to start prednisone but given her current state she would refuse and will likely be somnolent after giving her the above IM medications to prevent harm to herself or others. Will administer IM solu-medrol 125mg x 1. (3) COPD (chronic obstructive pulmonary disease): Assessment and plan: As above. (4) Bipolar affect, depressed: Status: Acute Assessment and plan: On Fluoxetine and buproprion Also has dx of schizophrenia and has had visual hallucinations today. Gave zyprexa 5mg po x 1 this afternoon. She became more agitated later and IM haldol/diphenhydramine/Ativan administered. Geodon 20mg BID was scheduled but likely she won't start that tonight. (5) Hypomagnesemia: Assessment and plan: Replete and monitor. (6) Interstitial lung disease: Assessment and plan: Cont home tiotropium / olodaterol Schedule Duonebs and prn albuterol. (7) Diabetes: Status: Chronic Assessment and plan: Cont Jardiance. Monitor. Qualifiers: Diabetes mellitus type: type 2 Diabetes mellitus custodial insulin use: without auto bumper mechanic use (8) HTN (hypertension): Status: Chronic Assessment and plan: No antihypertensives currently Monitor. (9) Tobacco abuse: Status: Acute Assessment and plan: Nicoderm patch (10) Discharge planning issues: Status: Acute Assessment and plan: She lives in assisted living at the [facility]. Barriers to return: 1: Supplemental O2 needs d/t significant hypoxia. She is a heavy smoker. If she requires supplemental O2 upon d/c, the danger of her smoking with O2 flowing would be present. Also, though, she has not shown here that she will be compliant and use the supp. O2. 2. Behavior: agitation, psychosis. Requiring chemical restraint to prevent harm to herself and others. She pulled her crocker catheter out with the balloon not deflated. Consider [facility] transfer. Subjective Subjective Patient reports: afebrile; denies vomiting Interval history since last seen: Pt was generally cooperative early in the day then after discussing d/c she became angry and walked down the rosen with her belongings (using a walker). She pulled her crocker out. Had previously lost her IV access and refused another IV placement. She has consistently removed her telemetry leads and her nasal cannula. Exam Narrative Exam Narrative: General: Alert, hard of hearing. Interactive and cooperative initially in the AM. Then became agitated/angry and accusatory toward staff. ENT: MMM. No oropharygeal lesions or exudate. Cardiac: RRR, no murmurs appreciated Resp: Scattered coarse rhonchi bilaterally. Nonlabored breathing. Abd: Soft, non-distended, nontender Extremities: No deformities. No peripheral edema. Neurologic: Alert. Moves all extremities freely against gravity Psych: Affect appropriate initially, then angry. Objective Last Vital Signs Temp 36.9 C 06/17/23 07:46 Pulse 92 H 06/17/23 12:05 Resp 20 06/17/23 09:58 BP 105/69 06/17/23 12:05 Pulse Ox 90 L 06/17/23 13:03 Laboratory Results - last 24 hr 06/16/23 06/17/23 06/17/23 11:49 06:45 06:45 WBC 8.76 RBC 4.60 Hgb 14.7 Hct 44.8 MCV 97 H MCH 32.0 MCHC 32.8 RDW 13.2 Plt Count 314 MPV 9.1 Immature Gran % 0.3 Neutrophils % 52.8 Lymphocytes % 36.1 Monocytes % 8.8 Eosinophils % 1.5 Basophils % 0.5 Nucleated RBC % 0.0 Absolute Neutrophils 4.63 Absolute Lymphocytes 3.16 Absolute Monocytes 0.77 Absolute Eosinophils 0.13 Absolute Basophils 0.04 Sodium 137 Potassium 3.5 Chloride 103 Carbon Dioxide 28.1 Anion Gap 5.9 BUN 5 L Creatinine 0.8 Est GFR (CKD-EPI 2020) 80.71 Glucose 64 L Calcium 9.1 Magnesium 2.1 NT-Pro-B Natriuret Pep 263 Time Spent with Patient Time Spent with Patient: 35-49 minutes Time was spent: preparing to see the patient(eg.review tests), obtaining and/or reviewing separately otained hiistory, ordering medications,tests, procedures, referring, communicating with other health respiratory care instructor, indepentently interpreting results, counseling the patient and care coordination
[2023-06-17] MEDS: methylPREDNISolone SUCC 125 MG VIAL IM (19:34)
[2023-06-17] MEDS: Amoxicillin 875/Clav. 125 TAB PO (19:37)
[2023-06-17] MEDS: Enoxaparin 40 MG/0.4 ML SYR SC (19:38)
[2023-06-17] MEDS: LORazepam 2 MG/ML VIAL IM (19:45)
[2023-06-17] MEDS: Haloperidol 5 MG/ML VIAL 10 MG IM (19:45)
[2023-06-17] MEDS: diphenhydrAMINE 50 MG/ML VIAL IM (19:45)
[2023-06-17] MEDS: Water,Injection,Sterile 10 ML VIAL (20:24)
--- NOTE | 2023-06-17 21:08 | NUR.NOTE ---
Nursing Note: During change of shift report, pt left room with walker without oxygen therapy and despite numerous staff attempts to reorient patient to hospital environment, pt resistive to care/refused to return to room. Pt insistent to leave, stating: I was told I could go. I'm going home. I'm not staying here with you. I want a cigarette. Pt stood in front of elevator, then lowered self to kneel on the floor. Pt further escalated to yelling, refusing staff assistance to wheelchair/to stand. CC notified, made aware. Pt assisted by staff/security to wheelchair, moved to room 227 for closer monitoring. One time dose haloperidol, Ativan, and diphehydramine administered IM per DEC. Bed alarm set, nasal cannula in place, call contreras within reach.
[2023-06-18] VITALS (12 sets, daily range): BP systolic 147; BP diastolic 77; PULSE 72–94; RESP 4–16; TEMP 35.3; O2SAT 90–93
[2023-06-18] MEDS: Albuterol/Ipratropium 3 ML UPD VIAL UPD ×3 (03:30→15:31)
--- NOTE | 2023-06-18 05:32 | IN_ITS ---
Date of service: 06/18/23 Time of Service: 15:26 PT Notes Visit Reasons: Pneumonia,Hypoxic Respiratory Failure Physical Therapy Inpatient Initial Evaluation Date: 06/17/2023 Referring Doctor: Kai Myers MD PT Orders: PT CONSULT: Exacerbation Chronic Cond Precautions: Fall. Standard. Activity as tolerated. Patient Profile/Admitting Diagnosis: Celia is a 67-year-old female admitted for management of UTI, acute respiratory failure with hypoxia, hypomagnesemia, and of comorbid conditions listed below. PM below.HX: All Active Problems? UTI (urinary tract infection) (Acute) Acute respiratory failure with hypoxia (Acute) Malaise (Acute) Tobacco abuse (Acute) Trochanteric bursitis, right hip (Acute) Advance care planning (Acute) Noncompliance (Acute) Enteritis (Acute) Acute respiratory failure with hypoxia (Acute) Aspiration pneumonia (Acute) Acute respiratory failure (Acute) Hypoxemia (Acute) Hyperproteinemia (Acute) Chronic hip pain (Acute) GERD with esophagitis (Chronic) Low back pain (Acute) Pneumonia (Acute) Hip pain, bilateral (Acute) Bipolar affect, depressed (Acute) Skin tag (Acute) Phlegm in throat (Acute) Positive colorectal cancer screening using Cologuard test (Acute) -Scheduled 4 appts for gen surgery. ? She has cancelled or refuses RCT/ etc. or goes to the appt and then gets upset Dysphagia (Acute) Nasal mass (Acute) Dr. 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 Hyperlipidemia (Chronic) Polycythemia (Chronic) Hypothyroid (Chronic) Diabetes (Chronic) Type 2, controlledHTN (hypertension) (Chronic) Depression (Chronic) Mixed conductive and sensorineural hearing loss (Acute 01/29/14) Mixed hearing loss, bilateral (Acute 01/19/16) Sciatica (Acute 07/01/14) Sensorineural hearing loss (Acute 01/29/14) Total perforation of right tympanic membrane (Acute 01/19/16) Medical History? Adrenal mass Ambulatory dysfunction Bulimia Chronic hip pain, bilateral Chronic low back pain Chronic obstructive lung disease Chronic post-traumatic stress disorder COPD (chronic obstructive pulmonary disease) Coronary arteriosclerosis Dehydration Diffuse abdominal pain Hearing loss History of smoking Hypokalemia Hypomagnesemia Hypoxia Interstitial lung disease Lumbar spine scoliosis Narcotic abuse episodic opioid dependence Osteoporosis Panic disorder Peripheral vascular disease Pneumonia Post traumatic stress disorder Pulmonary hypertension Tachycardia Weight loss Surgical History? History of tympanoplasty of right ear Failed x2 S/P cholecystectomy Spinal Surgery Laminectomies at T12/L1 due to an angioma Stent placement Bilateral iliac and femoral Social History/Home Situation: Lives at the level II facility at the [facility] Equipment Owned/DME: [employer] Subjective: Suspicious about all hospital staff working with her. Responses not appropriate 75% of the time even when questions were written for her. Thought that this provider had just had beer to drink but states that it is okay as she has drank at work in the past. With encouragement, placed her oxygen cannula back on. Objective: General Observation: Restless. First was sleepy and required several attempts by this provider to wake her up but then when she opened her eyes, could not stay put. Mental Status: Alert and oriented as to person. Had difficulty paying attention, focusing, and responding appropriately. Pain: None reported Vital Signs: Closely monitored by nursing staff ROM: Right Upper Extremity: Shoulder Flexion WFL. Shoulder abduction WFL. Elbow flexion WFL. Wrist flexion WFL. Functional opening and closing of hand WFL. Left Upper Extremity: Shoulder Flexion WFL. Shoulder abduction WFL. Elbow flexion WFL. Wrist flexion WFL. Functional opening and closing of hand WFL. Right Lower Extremity: Hip flexion WFL. Hip abduction WFL. Knee flexion WFL. Ankle dorsiflexion WFL. Ankle plantarflexion WFL. Left Lower Extremity: Hip flexion WFL. Hip abduction WFL. Knee flexion WFL. Ankle dorsiflexion WFL. Ankle plantarflexion WFL. Strength: Right Upper Extremity: Grossly 4-/5 Left Upper Extremity: Grossly 4-/5 Right Lower Extremity: Grossly 3+/5 Left Lower Extremity: Grossly 4-/5 Bed Mobility/Transfers: Rolling independent Supine to sit independent Sit to supine independent Sit to stand independent Stand to sit independent Bed to reclining chair supervision Reclining chair to bed supervision Gait: Refused to walk with PT however wanted to use the bathroom and just stood up and walked without needing her FWW. Removed her oxygen cannula despite strong encouragement of PT to put it on. Held onto wall quickly but was able to walk to the bathroom with no loss of balance. Appeared mildly short of breath. Balance: Static Sitting: Normal Dynamic Sitting: Normal Static Standing: Good Dynamic Standing: Fair Special Tests: Mobility Limitations Standardized Measure [facility] AM-PAC 6 clicks Basic Mobility Inpatient Short Form: Raw Score: 23 CMS Score: 11% deficit Informed Consent/Education: Patient was instructed in purpose of PT consult and plan of care. Doubtful that she would want to stay here long. Assessment: Difficult to engage in session. May benefit from writing to send message across during conversation/session as patient is very hard of hearing. Poor prognosis but will attempt to see if patient can walk in hallway with AD without desaturating. Patient presents with clinical signs and symptoms consistent with current/admitting diagnoses that have resulted to mobility limitations, gait instability, generalized weakness, and overall ADL decline as demonstrated by the following impairment level findings: 1. Decreased strength to B UE/LE major muscle groups 2. Impaired sitting/standing balance 3. Impaired activity tolerance 4. Shortness of breath 6. Difficult conversation Impairments are contributing to the following functional limitations: 1. Difficulty with ambulation without assistive device and physical assistance 2. Increased completion time for mobility ADL performance 3. Increased risk for falls 4. Difficulty with managing steps alone safely Patient is assessed as a [id number] moderate complexity based on the following: History: 67-year-old female with past medical history as indicated above Examination: Demonstrable impairment in strength, balance, and mobility level with underlying impairments and functional limitations as exhibited above as well as deficit score of 11% utilizing the [facility] Mobility Inpatient Short Form Presentation: Evolving Decision Makin moderate complexity Goals: Goals X1 week 1. Bed-Chair independent with FWW 2. Chair-Bed independent with FWW 3. Independent gait on level surface with use of FWW for at least 300 feet without report of pain nor dyspnea 4. Independent with home exercise program 5. Good static and dynamic standing balance/tolerance Plan of Care/Treatment Plan: 1/day, 7 days/week x 1 week. Plan of care has been reviewed with the BILINGUAL TEACHER AIDE providing the service under Physical Therapy direction. Initiate Physical Therapy intervention for pain management as needed, strengthening, bed mobility, transfers, gait, stairs, balance training, and use of assistive device. DISCHARGE RECOMMENDATIONS: [] Home with no services [] [] Home with services [specify] [] Home with outpatient PT [] [] SNF for continued rehabilitation [] [] Residential Care [] [] SNF versus LTC based on ability to participate and progress [] [X] Return to Level II facility when medically cleared. Continue PT at facility. TREATMENT CODE/TIME: 26761 x 24 minutes (1 unit) beginning at 15:26 PM. Thank you for the opportunity to participate in the care of this patient. Iris Murray PT, DPT, CLT [facility] [place], [place]
--- NOTE | 2023-06-18 06:47 | PUCON_ITS ---
General Date Of Service Date of service: 06/18/23 Time of Service: 06:47 Reason for Consult: Respiratory Failure Assessment and Plan Assessment and plan (1) Acute respiratory failure with hypoxia: Status: Acute (2) Combined pulmonary fibrosis and emphysema (CPFE): Status: Acute (3) Consolidation of right upper lobe of lung: Status: Acute Assessment and plan: This is a 67 yo admitted for a UTI and hypoxic respiratory failure, that is chronic. She has refused supplemental O2 therapy as an outpatient and has been refusing it as an inpatient as well. She does have COPD and CPFE with a significant diffusion deficit seen in 2012, which I am sure has worsened given her continued smoking. Her baseline SpO2 as an outpatient ranges from 78%- 87%.She is maintained on Anoro as an outpatient. The RUL consolidation is c oncerning as there has not been a change since 07/2022 when it was initially discovered and treated as a pneumonia. This could represent chronic fibrotic changes, however malignancy cannot be ruled out. I am unable to feel confident regarding possible LAD with the current CT scan. Ultimately, I would recommend a bronchoscopy with BAL, however he O2 requirement are too high that I feel this is an unsafe procedure to complete at [facility], and I am unsure whether she would even agree to this. I do think obtaining a PET/CT is the best step forward. She is not consentable at the moment but she did agree to see me as an outpatient and get a PET scan as far as I could tell. RUL consolidation - PET/CT recommended - fu with me in clinic - appointment will be made CPFE with COPD - continue Anoro - recommend short prednisone course given mental health diagnoses: 40mg pred for 5 days Chronic hypoxic respiratory failure - recommend supplemental O2 for sats 88-92% History of Present Illness Narrative: This is a 67 yo with significant mental health issues admitted for a UTI and hypoxic respiratory failure. She resides at the [facility]. Her hypoxia on admission was significant to the 70's. Per documentation she has been refusing to wear supplemental O2, despite needed up to 5LPM to maintain sats of 90%. She refused medical therapy for this as well, but was given IM solu-medrol yesterday. She is a smoker and she is a palliative care patient. In reviewing outpatient documentation she has chronic hypoxic respiratory failure and has consistently refused supplemental O2. Her baseline outpatient SpO2 is 80%-87%. She has had PFT's completed in 2012, which do show moderate COPD (GOLD 2) as well as a significant diffusion deficit (23%): Spirometry Date FEV1/FVC LLN FEV1 % LLN FVC % LLN Comments 07/28/13 63 65 1.74 69 2.10 2.76 85 2.71 Date TLC % LLN RV % DLCO LLN sGaw % Pressures 07/28/13 4.22 86 3.92 1.26 66 5.34 18.33 0.21 103 She does not have a white count, no fevers and she did have an ABG that simply showed low PaO2. Her chest CT was negative for PE. She does have combined pulmonary fibrosis and emphysema but does have a RUL infiltrate. When compared to 07/2022 the RUL infiltrate was present at that time. When looking at a CT from 11/2021, the infiltrate was not there, or there but much smaller. I cannot see that this has been worked up as an outpatient, but in 07/2022 she was admitted for pneumonia and treated for this but no follow up CT to ensure resolution was completed. Today, she was pleasant. She was answering questions but with responses that were unrelated to the questions asked. She believed I was offering her a ride home and that someone else had offered her a ride home as well. I asked about her breathing and discussed her need for oxygen but she again her responses were unrelated to the discussion. She said she was open to wearing oxygen at home now. Review of Systems Unobtainable due to mental condition [facility] All Active Problems (Updated 06/18/23 @ 07:01 by Julia Willett MD) Consolidation of right upper lobe of lung (Acute) 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) Discharge planning issues (Acute) UTI (urinary tract infection) (Acute) Acute respiratory failure with hypoxia (Acute) Malaise (Acute) Tobacco abuse (Acute) Trochanteric bursitis, right hip (Acute) Advance care planning (Acute) Noncompliance (Acute) Enteritis (Acute) Acute respiratory failure with hypoxia (Acute) Aspiration pneumonia (Acute) Acute respiratory failure (Acute) Hypoxemia (Acute) Hyperproteinemia (Acute) Chronic hip pain (Acute) GERD with esophagitis (Chronic) Low back pain (Acute) Pneumonia (Acute) Hip pain, bilateral (Acute) Bipolar affect, depressed (Acute) Skin tag (Acute) Phlegm in throat (Acute) Positive colorectal cancer screening using Cologuard test (Acute) I scheduled 4 appts for gen surgery. She has cancelled or refuses RCT/ etc. or goes to the appt and then gets upset Dysphagia (Acute) Nasal mass (Acute) Dr. 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 Hyperlipidemia (Chronic) Polycythemia (Chronic) Hypothyroid (Chronic) Diabetes (Chronic) Type 2, controlled HTN (hypertension) (Chronic) Depression (Chronic) Mixed conductive and sensorineural hearing loss (Acute 01/29/14) Mixed hearing loss, bilateral (Acute 01/19/16) Sciatica (Acute 07/01/14) Sensorineural hearing loss (Acute 01/29/14) Total perforation of right tympanic membrane (Acute 01/19/16) Medical History Adrenal mass Ambulatory dysfunction Bulimia Chronic hip pain, bilateral Chronic low back pain Chronic obstructive lung disease Chronic post-traumatic stress disorder COPD (chronic obstructive pulmonary disease) Coronary arteriosclerosis Dehydration Diffuse abdominal pain Hearing loss History of smoking Hypokalemia Hypomagnesemia Hypoxia Interstitial lung disease Lumbar spine scoliosis Narcotic abuse episodic opioid dependence Osteoporosis Panic disorder Peripheral vascular disease Pneumonia Post traumatic stress disorder Pulmonary hypertension Tachycardia Weight loss Surgical History History of tympanoplasty of right ear Failed x2 S/P cholecystectomy Spinal Surgery Laminectomies at T12/L1 due to an angioma Stent placement Bilateral iliac and femoral Family History Mother Heart disease Paternal Grandfather Kidney disease Social History Smoking/Tobacco Use Status: Current every day Tobacco Type: cigarettes Smoking risk assessment performed?: Yes Alcohol Intake: never Drug use: Current Sobriety Substance use type: former substance user Housing: prison Do you feel safe at home: Yes Do you feel safe in your relationship?: Yes Additional Social history: patient currently lives at the [place] says she is not happy there Visit Medication and Allergies Active Medications Generic Name Dose Route Start Last Admin Trade Name Freq PRN Reason Stop Dose Admin Acetaminophen 0 mg 06/16/23 15:50 06/16/23 20:28 Acetaminophen 325 Mg Tab PO 650 mg Q4H PRN PRN Administration Albuterol Sulfate 2.5 mg 06/16/23 16:01 Albuterol 2.5 Mg/3 Ml Inh Soln Vial UPD Q2H PRN PRN Albuterol/Ipratropium 3 ml 06/16/23 22:00 06/18/23 03:30 Albuterol/Ipratropium 3 Ml Upd Vial UPD 3 ml Q6H DANI Administration Amoxicillin/Clavulanate Potassium 1 tab 06/17/23 20:00 06/17/23 19:37 Amoxicillin 875/Clav. 125 Tab PO 1 tab BID DANI Administration Bisacodyl 10 mg 06/17/23 07:22 Bisacodyl 10 Mg Supp HI DAILY PRN PRN constipation Buprenorphine HCl 1 mg 06/17/23 08:30 06/17/23 08:30 Buprenorphine 2 Mg Sublingual Tablet SL Not Given DAILY DANI Bupropion HCl 150 mg 06/16/23 20:00 06/17/23 19:37 Bupropion-Xl 150 Mg Tabcr PO 150 mg BID DANI Administration Clonazepam 1 mg 06/16/23 20:00 06/17/23 19:37 Clonazepam 1 Mg Tab PO 1 mg TID DANI Administration Clopidogrel Bisulfate 75 mg 06/17/23 08:30 06/17/23 09:40 Clopidogrel 75 Mg Tab PO 75 mg DAILY DANI Administration Empagliflozin 25 mg 06/17/23 08:30 06/17/23 09:40 Empaglifozin 25 Mg Tab PO 25 mg QAM DANI Administration Enoxaparin Sodium 40 mg 06/16/23 20:00 06/17/23 19:38 Enoxaparin 40 Mg/0.4 Ml Syr SC 40 mg BID DANI Administration Famotidine 20 mg 06/17/23 20:00 06/17/23 20:24 Famotidine 20 Mg Tab PO 20 mg DAILY DANI Administration Fluoxetine HCl 40 mg 06/17/23 08:30 06/17/23 09:40 Fluoxetine 20 Mg Cap PO 40 mg DAILY DANI Administration Sodium Chloride 500 mls @ 0 mls/hr 06/17/23 07:27 Saline 500ml Bag IV PRN PRN As Directed IV Miscellaneous Supplies 1 each 06/17/23 07:30 Iv Access IV DIRECTED [facility] Levothyroxine Sodium 112 mcg 06/17/23 08:30 06/17/23 09:41 Levothyroxine 112 Mcg Tab PO 112 mcg DAILY DANI Administration Nicotine 21 mg 06/17/23 08:30 06/17/23 17:22 Nicotine 21 Mg/24 Hr Patch TD 21 mg DAILY DANI Administration Nicotine 2 mg 06/17/23 19:23 Nicotine 2 Mg Gum CH Q4H PRN PRN Omeprazole 40 mg 06/17/23 07:30 06/17/23 09:40 Omeprazole 20 Mg Capcr PO 40 mg DAILY@0730 DANI Administration Ondansetron HCl 4 mg 06/17/23 07:25 Ondansetron O.D.T. 4 Mg Tabef PO Q4H PRN PRN nausea and vomiting Patient's Own 1 each 06/17/23 08:30 06/17/23 09:42 Medication ( PO Not Given Semaglutide [ DAILY [facility] Rybelsus] 7 Mg Tablet) Polyethylene Glycol 17 gm 06/16/23 15:50 Polyethylene Glycol 3350 17 Gm Packet PO DAILY PRN PRN Constipation Sodium Chloride 0 ml 06/17/23 07:27 Normal Saline Flush 10 Ml Syr IVP PRN PRN Tiotropium [place]/Olodaterol 2 puff 06/17/23 08:30 06/17/23 10:52 Tiotropium/Olodaterol 10 Puff Inhaler IH 2 puffs Q24H DANI Administration Ziprasidone 20 mg 06/17/23 20:00 06/17/23 20:23 Ziprasidone 20 Mg Cap PO Not Given BID DANI Allergies alendronate sodium [From Fosamax] Adverse Reaction (Intermediate, Verified 05/20/23 13:34) Nausea latex Adverse Reaction (Unknown, Unverified 06/11/23 09:37) Exam Narrative Exam Narrative: Gen: NAD, normal respiratory effort, well-nourished HENT: PERRL, hard of hearing Chest: No respiratory distress, normal appearance of chest, some faint bilateral crackles Heart: regular rate and rhythym, no murmurs, rubs or gallops Abdomen: Non-distended, soft, non tender Extremities: No clubbing, edema, cyanosis, rashes Neuro: Non focal Psych: cooperative, pleasant, tangential thinking, responses not appropriate to questions Results Last Vital Signs Temp 36.5 C 06/17/23 20:08 Pulse 82 06/18/23 06:10 Resp 18 06/17/23 20:08 BP 123/74 06/17/23 20:08 Pulse Ox 90 L 06/18/23 06:10 Labs 06/17/23 06:45 06/17/23 06:45 Labs: Laboratory Results - last 24 hr 06/17/23 06/17/23 06:45 06:45 WBC 8.76 RBC 4.60 Hgb 14.7 Hct 44.8 MCV 97 H MCH 32.0 MCHC 32.8 RDW 13.2 Plt Count 314 MPV 9.1 Immature Gran % 0.3 Neutrophils % 52.8 Lymphocytes % 36.1 Monocytes % 8.8 Eosinophils % 1.5 Basophils % 0.5 Nucleated RBC % 0.0 Absolute Neutrophils 4.63 Absolute Lymphocytes 3.16 Absolute Monocytes 0.77 Absolute Eosinophils 0.13 Absolute Basophils 0.04 Sodium 137 Potassium 3.5 Chloride 103 Carbon Dioxide 28.1 Anion Gap 5.9 BUN 5 L Creatinine 0.8 Est GFR (CKD-EPI 2020) 80.71 Glucose 64 L Calcium 9.1 Magnesium 2.1
[2023-06-18] MEDS: buPROPion-XL 150 MG TABCR PO ×2 (07:31→21:29)
[2023-06-18] MEDS: Omeprazole 20 MG CAPCR 40 MG PO (07:31)
[2023-06-18] MEDS: Clopidogrel 75 MG TAB PO (07:32)
[2023-06-18] MEDS: Ziprasidone 20 MG CAP PO ×3 (07:32→21:30)
[2023-06-18] MEDS: Amoxicillin 875/Clav. 125 TAB PO ×2 (07:32→21:29)
[2023-06-18] MEDS: Buprenorphine 2 MG SUBLINGUAL TABLET 1 MG SL (07:32)
[2023-06-18] MEDS: FLUoxetine 20 MG CAP 40 MG PO (07:32)
[2023-06-18] MEDS: Levothyroxine 112 MCG TAB PO (07:32)
[2023-06-18] MEDS: Famotidine 20 MG TAB PO (07:33)
[2023-06-18] MEDS: Empaglifozin 25 MG TAB PO (07:34)
[2023-06-18] MEDS: Nicotine 21 MG/24 HR PATCH TD (07:34)
[2023-06-18] MEDS: clonazePAM 1 MG TAB PO ×3 (07:34→21:29)
[2023-06-18] MEDS: Enoxaparin 40 MG/0.4 ML SYR SC (07:41)
[2023-06-18] MEDS: predniSONE 20 MG TAB 40 MG PO (07:44)
[2023-06-18] MEDS: Tiotropium/Olodaterol 10 PUFF INHALER 2 PUFF IH (07:46)
--- NOTE | 2023-06-18 14:18 | CMPROGNOTE_ITS ---
Care Management Progress Note Progress Note Text Progress Note Text: S/O: Celia remains inpatient, medications continue to be adjusted, anticipate at this time, Celia will likely return to [facility] Level 2 or SNF, dependent on recommendations for discharge. CM continues to follow. A: 63 year old female admitted to [facility] 05/25/23 P: Anticipate Celia will return home to the assisted living center at the [facility], with continued stabilization. CM continues to follow.
--- NOTE | 2023-06-18 16:09 | PTTR_ITS ---
Date of service: 06/18/23 Time of Service: 15:46 PT Notes Visit Reasons: Pneumonia,Hypoxic Respiratory Failure Inpatient Physical Therapy Treatment Note [facility] Date: 06/18/23 PRECAUTIONS: Fall, standard, activity as tolerated. SUBJECTIVE: Patient expresses concern about her discharge plan, states she feels better now that several agencies are going to help her. OBJECTIVE: Supine in bed with bed alarm active. Agreeable to therapy. ? PAIN: None reported. States the only thing that bothers her is her breathing. VITALS: SaO2 84% on 5L supplemental O2 via high flow nasal cannula. SaO2 improves to 92% after ther ex. ? BED MOBILITY/TRANSFERS? Rolling L/R: independent Supine-sit: independent ? Sit-supine: independent ? Sit-stand: independent ? Stand-sit: independent ? Bed-Chair: SBA ? Chair-bed: SBA Provided skilled cues and instruction on performance and technique throughout. ? Therapeutic Exercises ([id number]): Direct one-on-one instruction in therapeutic exercises to develop strength, endurance, range of motion and flexibility. ? Exercises: * Sit to stands x10 unsupported * LAQ's x10 * heel raises x10 * toe raises x10 * hip ab/adduction x10 ASSESSMENT:? Patient appears pleasant and agreeable PLAN: Continue global strengthening per plan of care until patient is medically cleared for discharge. TREATMENT CODE/TIME: 15 minutes beginning at 15:46
--- NOTE | 2023-06-18 16:14 | PGE_ITS ---
Date of Service Date of service: 06/18/23 Time of Service: 16:14 Assessment and Plan Assessment and plan (1) UTI (urinary tract infection): Status: Acute Assessment and plan: Grew E.Coli. on 06/11. According to her assisted living facility, [facility], records she was on Macrobid. Her repeat culture at time of this admission also growin E. Coli. Was on Zosyn for a questionable pneumonia but lost IV and refused another IV placement. Augmentin initiated. However, needs UTI coverage for E.Coli. Today she is appropriate and cooperative. Will change antibiotic to cefpodoxime to cover her UTI. Dr Willett consulted and the CT finding of a RUL consolidation is more concerning for a potential malignancy though it could be fibrotic changes. It has been present since 07/2022. (2) Acute respiratory failure with hypoxia: Status: Acute Assessment and plan: She is now compliant with her supplemental O2 / nasal cannula. O2 saturation goal of 88-92%. (3) COPD (chronic obstructive pulmonary disease): Assessment and plan: Cont Anoro. Prednisone 40mg for 5 days; today is day 2 of steroid. (4) Bipolar affect, depressed: Status: Acute Assessment and plan: On Fluoxetine and buproprion Also has dx of schizophrenia and had visual hallucinations yesterday. Gave zyprexa 5mg po x 1 yesterday. She became more agitated later and IM haldol/diphenhydramine/Ativan administered. Geodon 20mg BID was scheduled but likely she won't start that tonight. (5) Hypomagnesemia: Assessment and plan: Replete and monitor. (6) Interstitial lung disease: Assessment and plan: Cont home tiotropium / olodaterol Schedule Duonebs and prn albuterol. (7) Diabetes: Status: Chronic Assessment and plan: Cont Jardiance. Monitor. Qualifiers: Diabetes mellitus intermediate insulin use: without press tender long goods use Diabetes mellitus type: type 2 (8) HTN (hypertension): Status: Chronic Assessment and plan: No antihypertensives currently Monitor. (9) Tobacco abuse: Status: Acute Assessment and plan: Nicoderm patch (10) Discharge planning issues: Status: Acute Assessment and plan: She lives in assisted living at the [facility]. Barriers to return: 1: Supplemental O2 needs d/t significant hypoxia. She is a heavy smoker. If she requires supplemental O2 upon d/c, the danger of her smoking with O2 flowing would be present. Also, though, she has not shown here that she will be compliant and use the supp. O2. 2. Behavior: agitation, psychosis. Requiring chemical restraint to prevent harm to herself and others. She pulled her crocker catheter out with the balloon not deflated. Care managers in touch with the [facility] and considering admission to [facility]. Subjective Subjective Patient reports: no new complaints, tolerating a regular diet and afebrile; denies nausea, vomiting or shortness of breath Interval history since last seen: Celia is doing much better today; cooperative. She is keeping her NC in place and taking her medications. Exam Narrative Exam Narrative: General: Alert, hard of hearing. Lying in bed with her nasal cannula in place. Interactive and cooperative. ENT: MMM. Cardiac: RRR, no murmurs appreciated Resp: Scattered coarse rhonchi bilaterally. Nonlabored breathing. Abd: Soft, non-distended, nontender Extremities: No deformities. No peripheral edema. Neurologic: Alert. Moves all extremities freely against gravity Psych: Affect appropriate. Tangential thinking. Objective Last Vital Signs Temp 35.3 C L 06/18/23 12:24 Pulse 72 06/18/23 15:37 Resp 16 06/18/23 15:37 BP 147/77 H 06/18/23 12:24 Pulse Ox 93 06/18/23 15:37 Time Spent with Patient Time Spent with Patient: 25-34 minutes Time was spent: preparing to see the patient(eg.review tests), obtaining and/or reviewing separately otained hiistory, ordering medications,tests, procedures, referring, communicating with other health care aide, indepentently interpreting results, counseling the patient and care coordination
--- NOTE | 2023-06-18 16:59 | TELEP.MEDR_ITS ---
Date of service: 06/18/23 Time of Service: 17:00 Telepharmacy Home Med Rec Allergies Allergies: alendronate sodium [From Fosamax] Adverse Reaction (Intermediate, Verified 05/20/23 13:34) Nausea latex Adverse Reaction (Unknown, Unverified 06/11/23 09:37) Interview Person Interviewed: * No interview, home med list update from facility MAR Quality Quality of Interview/Accuracy of Medication List: Excellent Sources Sources used to compile medication list: Other (NICOLE (Lester)) Changes made to Home Medication List: ADDITIONS: * none DELETIONS: * Gabapentin * Naltrexone * Macrobid CHANGES: * Bisacodyl suppository MA daily Additional Notes Additional Notes: * Keflex (500mg PO BID)- 7 day course started 06/13/23 * Buprenorphine- being prescribed for chronic pain Recommended Changes Recommended Changes(reason for recommendation): * none Attestation: The home medication list is now updated to the best of my knowledge and is ready to be reconciled by the provider. Please contact the TelePharmacy Medication Reconciliation Pharmacist at for any questions.
--- NOTE | 2023-06-18 16:59 | TELEP.MEDREC ---
Date of service: 06/18/23 Time of Service: 17:00 Telepharmacy Home Med Rec Allergies Allergies: alendronate sodium [From Fosamax] Adverse Reaction (Intermediate, Verified 05/20/23 13:34) Nausea latex Adverse Reaction (Unknown, Unverified 06/11/23 09:37) Interview Person Interviewed: No interview, home med list update from facility MAR Quality Quality of Interview/Accuracy of Medication List: Excellent Sources Sources used to compile medication list: Other (NICOLE ([facility])) Changes made to Home Medication List: ADDITIONS: none DELETIONS: Gabapentin Naltrexone Macrobid CHANGES: Bisacodyl suppository HI daily Additional Notes Additional Notes: Keflex (500mg PO BID)- 7 day course started 06/13/23 Buprenorphine- being prescribed for chronic pain Recommended Changes Recommended Changes(reason for recommendation): none Attestation: The home medication list is now updated to the best of my knowledge and is ready to be reconciled by the provider. Please contact the TelePharmacy Medication Reconciliation Pharmacist at for any questions.
[2023-06-18] MEDS: LORazepam 2 MG/ML VIAL IM (20:56)
[2023-06-18] MEDS: Atorvastatin 20 MG TAB PO (21:31)
[2023-06-19] VITALS (8 sets, daily range): BP systolic 106–156; BP diastolic 67–84; PULSE 61–98; RESP 1–20; TEMP 36.1–36.8; O2SAT 90–95
[2023-06-19] MEDS: LORazepam 2 MG/ML VIAL IM (06:47)
[2023-06-19] MEDS: Omeprazole 20 MG CAPCR 40 MG PO (07:21)
[2023-06-19 07:33] LABS: Anion Gap 11.2 mmol/L (3-11); BUN 15 mg/dL (7-18); CO2 26.8 mmol/L (21.0-32.0); CREATININE 0.9 mg/dL (0.55-1.02); Calcium 10.1 mg/dL (8.5-10.1); Chloride 101 mmol/L (98-107); Estimated GFR 70.07 (mL/min/1.73m2); Glucose 120 mg/dL (74-106); Potassium 3.8 mmol/L (3.5-5.1); Sodium 139 mmol/L (136-145)
[2023-06-19] MEDS: Ziprasidone 20 MG CAP PO ×2 (09:00→20:05)
[2023-06-19] MEDS: Empaglifozin 25 MG TAB PO (09:00)
[2023-06-19] MEDS: Famotidine 20 MG TAB PO (09:00)
[2023-06-19] MEDS: buPROPion-XL 150 MG TABCR PO ×2 (09:00→20:05)
[2023-06-19] MEDS: Clopidogrel 75 MG TAB PO (09:00)
[2023-06-19] MEDS: clonazePAM 1 MG TAB PO ×3 (09:00→20:05)
[2023-06-19] MEDS: Amoxicillin 875/Clav. 125 TAB PO (09:01)
[2023-06-19] MEDS: predniSONE 20 MG TAB 40 MG PO (09:01)
[2023-06-19] MEDS: FLUoxetine 20 MG CAP 40 MG PO (09:01)
[2023-06-19] MEDS: Levothyroxine 112 MCG TAB PO (09:01)
[2023-06-19] MEDS: Bisacodyl 10 MG SUPP PR (09:01)
[2023-06-19] MEDS: Enoxaparin 40 MG/0.4 ML SYR SC (09:01)
[2023-06-19] MEDS: Nicotine 21 MG/24 HR PATCH TD (09:02)
--- NOTE | 2023-06-19 12:39 | CMPROGNOTE_ITS ---
Date of service: 06/19/23 Time of Service: 12:39 Care Management Progress Note Progress Note Text Progress Note Text: S/O: Celia remains inpatient, [facility] referral pending. CM continues to follow. CM spoke with Bethany; CUSTOMER SERVICE SECURITY OFFICER CM at [facility] who reports Celia is diagnosed with Personality Dx, unspecified (Bethany reports baseline behavior consistent with BPD presentation) and PTSD-severe. She reports Celia's medications are primarily prescribed by Martínez Berrios at [facility] and Celia does not have medication management through her CUSTOMER SERVICE SECURITY OFFICER services. Bethany reports Celia is not diagnosed with schizophrenia or bi-polar disorder-CM notified Hospitalist of Bethany's reports during interdisciplinary rounds. CM worked with MD and pharmacy yesterday to have [facility] Medication reconciliation ordered. Per [facility] staff, Celia is believed to be drug seeker and has hidden lidocaine patches in her room post discharge from [facility] prior. Per [facility] staff, Celia was started on a new prescription of subutex last week and her behaviors have notably increased since the medication change. Celia is currently refusing medical interventions including oxygen, MD requests crisis screening coordiantion; CM called and spoke to the crisis screener who stated CUSTOMER SERVICE SECURITY OFFICER would screen patient, and crisis would become involved if needed. Awaiting screening and recommendations. A: 63 year old female admitted to [facility] 05/25/23 P: Undetermined plan at this time. CM continues to follow.?
[2023-06-19] MEDS: Tiotropium/Olodaterol 10 PUFF INHALER 2 PUFF IH (14:14)
--- NOTE | 2023-06-19 15:11 | PT.INNT ---
PT Notes Visit Reasons: Pneumonia,Hypoxic Respiratory Failure Pt refused treatment this afternoon.
[2023-06-19] MEDS: Albuterol/Ipratropium 3 ML UPD VIAL UPD ×2 (16:58→21:17)
--- NOTE | 2023-06-19 18:05 | PGE_ITS ---
Date of Service Date of service: 06/19/23 Time of Service: 18:05 Assessment and Plan Assessment and plan (1) UTI (urinary tract infection): Status: Acute Assessment and plan: Due to E. Coli, present on admission. Due to sensitivities, I am changing abx to cefpodoxime to see if this will make a difference in her behaviors/ mental status. The psychotic episodes described to me are less likely related to the UTI, but we will monitor mental status now on this Antibiotic. (2) Psychotic episode: Status: Acute Assessment and plan: Mental health consulted. I did not observe these behaviors today, but she has been on geodon. She does not appear to be retaining CO2. I wonder if her difficulty hearing is contributing to behaviors/answers. At this point, I am not prepared to comment on their etiology, other than I do not think that they are related to steroids as they preceded the steroid use, and it is extremely unlikely that her UTI would cause this. Home use of the subutex could have been contributing. Await mental health recommendations. (3) Acute respiratory failure with hypoxia: Status: Acute Assessment and plan: It is not clear to me if this is acute or chronic respiratory failure. Today she is on 5L of O2 by NM. She is now compliant with oxygen. We might be able to wean it down. (4) COPD (chronic obstructive pulmonary disease): Assessment and plan: Continue Anoro. Prednisone 40mg for 5 days. Today is day 3. (5) Interstitial lung disease: Assessment and plan: As above (6) Bipolar affect, depressed: Status: Suspected Assessment and plan: On Fluoxetine and buproprion. [facility] denies h/o bipolar an schizophrenia; I am not sure where this information came from. Await mental health evaluation. Continue geodon. (7) Hypomagnesemia: Assessment and plan: Recheck in am. (8) Diabetes: Status: Chronic Assessment and plan: Continue Jardiance. Monitor. 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 No change in tx. (10) Tobacco abuse: Status: Acute Assessment and plan: Continue Nicotine patch (11) Discharge planning issues: Status: Acute Assessment and plan: DNR/DNI Await mental health evaluation recommendations. If she is to return to the [facility], would need to go to the SNF level of care. (12) DVT prophylaxis: Status: Acute Assessment and plan: Sc enoxaparin Subjective Subjective Interval history since last seen: Ms Valdez has episodes when she refuses to wear oxygen. When I came to see her, she was asleep with the oxygen on. I had a hard time waking her up to verbal stimuli (TETLIN), but she woke up easily to touch. Denies CP, SOB, endorses chronic pain in R hip. Denies other symptoms. I'm fine. Evaluated by mental health, but their findings are not known to me. She would like to go to the [facility] tomorrow. She is on 5L of O2 by NC saturating 95%. Exam Narrative Exam Narrative: General: middle-aged female with 5L of O2 by NC on, asleep, easily arousable to touch, very TETLIN HEENT: EOMI, MMM Heart: RRR, no m/r/g Lungs: CTAB Abdomen: soft, nontender, nonditsended Extremities: no edema BLEs, apparent scar tissue R inner thigh. Objective Last Vital Signs Temp 36.8 C 06/19/23 15:40 Pulse 78 06/19/23 17:03 Resp 18 06/19/23 17:03 BP 120/75 06/19/23 15:40 Pulse Ox 95 06/19/23 17:03 Laboratory Results - last 24 hr 06/19/23 06:45 Sodium 139 Potassium 3.8 Chloride 101 Carbon Dioxide 26.8 Anion Gap 11.2 H BUN 15 Creatinine 0.9 Est GFR (CKD-EPI 2020) 70.07 Glucose 120 H Calcium 10.1 Time Spent with Patient Time Spent with Patient: 25-34 minutes Time was spent: preparing to see the patient(eg.review tests), obtaining and/or reviewing separately otained hiistory, ordering medications,tests, procedures, referring, communicating with other health healthcare network pricing consultant, indepentently interpreting results, counseling the patient and care coordination
[2023-06-19] MEDS: Cefpodoxime 200 MG TAB PO (19:03)
[2023-06-19] MEDS: Atorvastatin 20 MG TAB PO (20:05)
[2023-06-20] MEDS: LORazepam 2 MG/ML VIAL 1 MG IM/IV (02:38)
[2023-06-20] MEDS: Tiotropium/Olodaterol 10 PUFF INHALER 2 PUFF IH (07:44)
[2023-06-20 07:45] VITALS: O2SAT 97
[2023-06-20] MEDS: Omeprazole 20 MG CAPCR 40 MG PO (07:56)
[2023-06-20] MEDS: clonazePAM 1 MG TAB PO ×2 (07:56→14:00)
[2023-06-20] MEDS: Famotidine 20 MG TAB PO (07:57)
[2023-06-20] MEDS: Nicotine 21 MG/24 HR PATCH TD (07:57)
[2023-06-20] MEDS: Bisacodyl 10 MG SUPP PR (07:57)
[2023-06-20] MEDS: FLUoxetine 20 MG CAP 40 MG PO (07:57)
[2023-06-20] MEDS: buPROPion-XL 150 MG TABCR PO (07:57)
[2023-06-20] MEDS: Levothyroxine 112 MCG TAB PO (07:57)
[2023-06-20] MEDS: predniSONE 20 MG TAB 40 MG PO (07:57)
[2023-06-20] MEDS: Clopidogrel 75 MG TAB PO (07:57)
[2023-06-20] MEDS: Empaglifozin 25 MG TAB PO (07:57)
[2023-06-20] MEDS: Ziprasidone 20 MG CAP PO (07:57)
[2023-06-20] MEDS: Enoxaparin 40 MG/0.4 ML SYR SC (07:58)
--- NOTE | 2023-06-20 08:49 | PT.INTREAT ---
PT Notes Visit Reasons: Pneumonia,Hypoxic Respiratory Failure Inpatient Physical Therapy Treatment Note [facility] Date: 06/20/23 PRECAUTIONS: Fall. Standard. Activity as tolerated. SUBJECTIVE: Wondering when she is going back to the [facility]. Complained of mild limp on the right due to chronic pain in the hip. Looking for coffee. OBJECTIVE: Oxygen cannula not in plce but agreed to be placed back on when asked to. PAIN: Mild pain in right hip that has been causing mild antalgic gait. VITALS: SaO2 88% and above with oxygen supplementation. BED MOBILITY/TRANSFERS: Reinforced safe use of AD and movement sequence for activites below.? Rolling L/R: independent Supine-sit: independent Sit-supine: independent Sit-stand: independent with FWW Stand-sit: independent with FWW Bed-Chair: SBA with FWW Chair-bed: SBA with FWW Gait: Provided moderate cueing for AD management, safe gait pattern to minimize ain report in R hip, and correct technique during directional changes. Covered 200 feet with FWW requiring stand by assist and moderate to maximal cueing for safety. ASSESSMENT:? Requires the use of FWW and oxygen supplementation for all mobility ADL performance to reduce fall risk and for energy conservation. PLAN: Continue global strengthening per plan of care until patient is medically cleared for discharge. D/C RECOMMENDATIONS: Return to SNF when medically cleared. TREATMENT CODE/TIME: 50334 x 27 minutes beginning at 8:19 AM.
[2023-06-20 09:00] VITALS: O2SAT 64
[2023-06-20] MEDS: Cefpodoxime 200 MG TAB PO (09:47)
[2023-06-20 10:01] LABS: Abs Immature Grans 0.05 10^3/uL (0.0-0.06); Absolute Basophil Count 0.02 10^3/uL (0.0-0.2); Absolute Eosinophil Count 0.04 10^3/uL (0.0-0.7); Absolute Lymphocyte Count 1.66 10^3/uL (1.2-3.4); Absolute Monocyte Count 0.59 10^3/uL (0.1-0.8); Absolute Neutrophil Count 7.47 10^3/uL (1.2-6.7); Basophils % 0.2; Eosinophils % 0.4; HCT 48.2 % (36.0-46.0); HGB 16.3 g/dL (11.2-15.7); Immature Grans % 0.5; Lymphocytes % 16.9; MCHC 33.8 % (32.0-36.0); MCV 98 fL (80-95); MPV 9.1 fL (8.0-11.0); Platelet Count 328 10^3/uL (130-400); RBC 4.94 10^6/uL (3.93-5.22); RDW 13.7 % (11.7-14.6); RDW-SD 47.9 fL; WBC 9.83 10^3/uL (4.4-10.8)
[2023-06-20 10:11] LABS: Anion Gap 13.5 mmol/L (3-11); BUN 15 mg/dL (7-18); CO2 23.5 mmol/L (21.0-32.0); Calcium 10.3 mg/dL (8.5-10.1); Chloride 102 mmol/L (98-107); Estimated GFR 61.75 (mL/min/1.73m2); Glucose 164 mg/dL (74-106); Magnesium 1.8 mg/dL (1.8-2.4); Potassium 3.6 mmol/L (3.5-5.1); Sodium 139 mmol/L (136-145)
[2023-06-20] MEDS: LORazepam 1 MG TAB PO (12:37)
--- NOTE | 2023-06-20 13:51 | W.PM.DS.N ---
Date of service: 06/20/23 Time of Service: 13:51 DS: Diagnosis Discharge Diagnosis (1) UTI (urinary tract infection): Status: Acute (2) Psychotic episode: Status: Acute (3) Acute respiratory failure with hypoxia: Status: Acute (4) COPD (chronic obstructive pulmonary disease): (5) Interstitial lung disease: (6) Bipolar affect, depressed: Status: Suspected (7) Hypomagnesemia: (8) Diabetes: Status: Chronic (9) HTN (hypertension): Status: Chronic (10) Tobacco abuse: Status: Acute Discharge Plan Disposition Patient Disposition: Home Condition: Stable Discharge Details Reason For Visit: Pneumonia,Hypoxic Respiratory Failure Admit Date/Time: 06/16/23 15:45 Admit Provider: Kai Merritt Attending Provider: Kai Merritt Primary Care Provider: Martínez Berrios Hospital Course Hospital Course: This is a 67-year-old female patient past medical history significant for bipolar disorder hypertension anxiety depression hearing loss who presented to the emergency department with acute hypoxic respiratory failure thought to have pneumonia. Work-up also was concerning for urinary tract infection which she had been treated outpatient with Macrobid. She was admitted to the medical surgical unit for treatment of her hypoxic respiratory failure now with oxygen requirement, which she mostly refused to wear. She was given Zyvox and Zosyn in the emergency department and Zosyn was continued inpatient. Her hospital course was complicated with behavioral disturbance versus encephalopathy versus acute psychotic episode. She was evaluated by mental health and their assessment was that this was medical and not psychiatric. Despite this, it seemed psychiatric as she was paranoid, so she was started on Geodon with so improvement in her symptoms. She also continued treatment for her urinary tract infection/resp infection. Urine culture grew e coli which was sensitive to the cephalosporins. Her respiratory stabilized, she was noncompliant with oxygen use in the hospital, and refused walk testing and use on day of discharge.. She continued to have some outburst but remained oriented to person and alert and able to communicate accurate history and her behaviors. She responded to oral ativan. medically she is stable and will be discharged on cefpodoxime for 5 more days to complete a 10 day course. she will also complete a steroid burst. Should she remain behavioral after returning home, outpatient care team should consider admission to [facility] if patient agreeable, for outpatient psychiatric stabilization. There have been no suicidal or homicidal ideation and patient is stable to return home. She did initially want to leave AGAINST MEDICAL ADVICE but I was agreeable to discharge her to home as she appeared at her baseline and medically stable. She was not suicidal or homicidal and I did not think it was reasonable to chemically restrain her to keep her here after mental health had cleared her with the idea that she may settle down once returning home. Discussed with DR Suggs Home Meds and New Rx's Prescriptions: New cefpodoxime 200 mg Tablet 200 mg PO BID PC Qty: 10 0RF prednisone 20 mg Tablet 40 mg PO DAILY Qty: 10 0RF ziprasidone HCl 20 mg Capsule 20 mg PO BID Qty: 60 0RF Continued Tesha-Hardin Original 325-1,916-1,000 mg tablet, effervescent 2 tab PO BID PRN (Reason: indigestion) Qty: 60 3RF guaifenesin [Mucinex] 600 mg tablet extended release 12hr 600 mg PO Q12H PRN (Reason: congestion) Qty: 60 4RF loperamide 2 mg tablet 2 mg PO QID PRN (Reason: loose stool) Qty: 10 0RF Rx Instructions: Take one tablet by mouth after each loose stool not to exceed 8mg/24 hrs ondansetron 4 mg tablet,disintegrating 4 mg PO Q4H PRN (Reason: nausea and vomiting) Qty: 30 1RF Anoro Ellipta 62.5-25 mcg/actuation blister with device 1 inh inhalation Q24H Qty: 90 4RF Rx Instructions: dispense Anoro Rybelsus 7 mg tablet 7 mg PO DAILY Qty: 90 3RF Rx Instructions: start after 3mg Rx finishes bupropion HCl 150 mg tablet extended release 24 hr 150 mg PO BID Qty: 180 3RF melatonin 10 mg tablet 10 mg PO HS PRN (Reason: sleep) Qty: 90 5RF famotidine 20 mg tablet 20 mg PO BID Qty: 180 4RF clonazepam 1 mg tablet 1 mg PO TID Qty: 270 1RF glipizide 10 mg tablet extended release 24hr 10 mg PO DAILY Qty: 90 2RF levothyroxine 112 mcg tablet 112 mcg PO DAILY Qty: 90 2RF clopidogrel [Plavix] 75 mg tablet 75 mg PO DAILY Qty: 90 3RF fluoxetine 40 mg capsule 40 mg PO DAILY Qty: 90 3RF omeprazole 40 mg capsule,delayed release(DR/EC) 40 mg PO DAILY Qty: 90 2RF atorvastatin 20 mg tablet 20 mg PO HS Jardiance 25 mg tablet 25 mg PO QAM acetaminophen 650 mg Tablet 650 mg PO Q8H PRN bisacodyl 10 mg Suppository 10 mg OH DAILY Discontinued buprenorphine HCl 2 mg tablet, sublingual 1 mg sublingual DAILY Qty: 15 0RF cephalexin 500 mg tablet 500 mg PO BID 7 Days Qty: 14 0RF No Action bismuth subsalicylate 262 mg/15 mL suspension 524 mg PO QID PRN (Reason: diarrhea) Qty: 30 3RF Patient Comments: not on med list docusate sodium 100 mg capsule 300 mg PO DAILY PRN (Reason: constipation) Qty: 30 3RF Patient Comments: not on med list quetiapine [Seroquel XR] 200 mg tablet extended release 24 hr 200 mg PO HS Qty: 90 12RF Patient Comments: no longer on med list lidocaine 5 % adhesive patch,medicated 1 patch topical DAILY Qty: 15 0RF Patient Comments: not on med list Rx Instructions: leave on most painful area for up to 12 hrs Discharge Instructions Instructions: Urinary Tract Infection in Women (DC) Stand Alone Forms: Nursing Discharge Form Referrals: Martínez Berrios MD [Primary Care Provider] - Activity:: Activity as Tolerated Equipment/Supplies:: No Equipment Needed Diet:: As Tolerated Discharge Orders Discharge Orders: Discharge Order (Routine); Ordered 06/20/23 Ordered By: Stephie Bonilla Discharge Data Discharge Date/Time-TO BE ENTERED AT DEPARTURE: 06/20/23 14:58 DS: Summary Time Spent with Patient providing and/or coordinating discharge services: Greater than 30 minutes Status at Discharge Functional status at discharge: independent ambulation Overall status at discharge: patient is progressing back to baseline Mental Status: other Speech and Movement: other (hear of hearing) Mood: anxious mood and other Affect: anxious affect Exam Const General: comfortable and no acute distress Nutritional Appearance: average body habitus Orientation: alert, awake and oriented x3 HENMT Head: normal to inspection, normocephalic and atraumatic Mouth: oral mucosae normal Chest Chest: normal inspection of the chest Resp Effort & Inspection: normal respiratory effort Cardio Rate: regular rate GI Inspection: normal to inspection Neuro General: patient alert and patient awake Psych Mental Status: other Speech and Movement: other (hear of hearing) Mood: anxious mood and other Affect: anxious affect Attitude: belligerent (improved after ativan) Thought Process: perseverating (about leaving, making attempts to get on elevator) Thought Content: phobias (paranoia ) Insight: limited Judgment: limited DS: Data Vitals/I&O Vitals and I&O: Vital Signs Temperature 36.5 C 06/19/23 19:25 Temperature Source Tympanic 06/19/23 19:25 Pulse 94 H 06/19/23 21:25 Pulse Rhythm Regular 06/19/23 23:17 Pulse 78 06/16/23 16:17 Respiratory Rate 16 06/19/23 21:25 Respiratory Effort Normal, Non-Labored 06/19/23 23:17 Respiratory Depth Shallow 06/19/23 23:17 Respiratory Pattern Normal 06/19/23 23:17 Blood Pressure 156/84 H 06/19/23 19:25 Blood Pressure Mean 88 06/16/23 16:17 Blood Pressure Position Supine 06/16/23 11:21 Pulse Oximetry 97 06/20/23 07:45 Oxygen Delivery Method High Flow Nasal Cannula 06/20/23 07:45 Oxygen Flow Rate 3 06/20/23 07:45 Fraction of Inspired Oxygen (FIO2) 91 06/18/23 16:41 Pain Level 0 06/19/23 19:25 Comment pT refused VS at this time 06/17/23 11:20 Intake & Output 06/19/23 06/20/23 06/20/23 23:59 11:59 23:59 Other: Urine Appearance Clear Comment pt used toilet Voiding Methods Toilet Data Completed and Pending Labs on day of discharge: Labs from last 24 hours 06/20/23 06/20/23 09:50 09:50 WBC 9.83 RBC 4.94 Hgb 16.3 H Hct 48.2 H MCV 98 H MCH 33.0 MCHC 33.8 RDW 13.7 Plt Count 328 MPV 9.1 Immature Gran % 0.5 Neutrophils % 76.0 Lymphocytes % 16.9 Monocytes % 6.0 Eosinophils % 0.4 Basophils % 0.2 Nucleated RBC % 0.0 Absolute Neutrophils 7.47 H Absolute Lymphocytes 1.66 Absolute Monocytes 0.59 Absolute Eosinophils 0.04 Absolute Basophils 0.02 Sodium 139 Potassium 3.6 Chloride 102 Carbon Dioxide 23.5 Anion Gap 13.5 H BUN 15 Creatinine 1.0 Est GFR (CKD-EPI 2020) 61.75 Glucose 164 H Calcium 10.3 H Magnesium 1.8 Preliminary micro results at discharge 06/16/23 11:49 Blood Culture - Preliminary Blood NO GROWTH 72 HOURS 06/16/23 11:42 Blood Culture - Preliminary Blood NO GROWTH 72 HOURS PFSH All Active Problems (Updated 06/20/23 @ 18:55 by Marilee Suggs MD) Episode of confusion (Acute) Hypoxia (Acute) Hypotension (Acute) AMS (altered mental status) (Acute) DVT prophylaxis (Acute) Psychotic episode (Acute) Consolidation of right upper lobe of lung (Acute) 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) Discharge planning issues (Acute) UTI (urinary tract infection) (Acute) Acute respiratory failure with hypoxia (Acute) Malaise (Acute) Tobacco abuse (Acute) Trochanteric bursitis, right hip (Acute) Advance care planning (Acute) Noncompliance (Acute) Enteritis (Acute) Acute respiratory failure with hypoxia (Acute) Aspiration pneumonia (Acute) Acute respiratory failure (Acute) Hypoxemia (Acute) Hyperproteinemia (Acute) Chronic hip pain (Acute) GERD with esophagitis (Chronic) Low back pain (Acute) Pneumonia (Acute) Hip pain, bilateral (Acute) Skin tag (Acute) Phlegm in throat (Acute) Positive colorectal cancer screening using Cologuard test (Acute) I scheduled 4 appts for gen surgery. She has cancelled or refuses RCT/ etc. or goes to the appt and then gets upset Dysphagia (Acute) Nasal mass (Acute) Dr. 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 Hyperlipidemia (Chronic) Polycythemia (Chronic) Hypothyroid (Chronic) Diabetes (Chronic) Type 2, controlled HTN (hypertension) (Chronic) Depression (Chronic) Mixed conductive and sensorineural hearing loss (Acute 01/29/14) Mixed hearing loss, bilateral (Acute 01/19/16) Sciatica (Acute 07/01/14) Sensorineural hearing loss (Acute 01/29/14) Total perforation of right tympanic membrane (Acute 01/19/16) Medical History Adrenal mass Ambulatory dysfunction Bulimia Chronic hip pain, bilateral Chronic low back pain Chronic obstructive lung disease Chronic post-traumatic stress disorder COPD (chronic obstructive pulmonary disease) Coronary arteriosclerosis Dehydration Diffuse abdominal pain Hearing loss History of smoking Hypokalemia Hypomagnesemia Hypoxia Interstitial lung disease Lumbar spine scoliosis Narcotic abuse episodic opioid dependence Osteoporosis Panic disorder Peripheral vascular disease Pneumonia Post traumatic stress disorder Pulmonary hypertension Tachycardia Weight loss Surgical History History of tympanoplasty of right ear Failed x2 S/P cholecystectomy Spinal Surgery Laminectomies at T12/L1 due to an angioma Stent placement Bilateral iliac and femoral Family History Mother Heart disease Paternal Grandfather Kidney disease Social History Smoking/Tobacco Use Status: Current every day Tobacco Type: cigarettes Smoking risk assessment performed?: Yes Alcohol Intake: never Drug use: Current Sobriety Substance use type: former substance user Housing: long-term Do you feel safe at home: Yes Do you feel safe in your relationship?: Yes Additional Social history: patient currently lives at the [facility] says she is not happy there Time Spent with Patient Time Spent with Patient: 45-69 minutes Time was spent: preparing to see the patient(eg.review tests), ordering medications,tests, procedures, referring, communicating with other health child day care center worker, indepentently interpreting results and care coordination
--- NOTE | 2023-06-20 14:17 | PCNE_ITS ---
Date of service: 06/20/23 Time of Service: 14:17 History of Present Illness Narrative: I attempted to see Celia for Palliative consult, however, she was unable to engage in the visit at this time due to confusion. She had a nurse sitting with her/observing her at the time. She was not oriented to place, time or situation. She thought she was in [place]. She verbalized that she was afraid to be left alone. She is also very [place]. The plan was to see another patient and return to attempt to see Celia again, however, she was discharged before I was able to get back to her room. This is a NO CHARGE visit. PFSH All Active Problems (Updated 06/22/23 @ 18:37 by Kristine Bob NP) Hypoxia (Chronic) AMS (altered mental status) (Acute) Consolidation of right upper lobe of lung (Acute) 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) UTI (urinary tract infection) (Acute) Acute respiratory failure with hypoxia (Acute) Malaise (Acute) Tobacco abuse (Acute) Trochanteric bursitis, right hip (Acute) Advance care planning (Acute) Noncompliance (Acute) Enteritis (Acute) Acute respiratory failure with hypoxia (Acute) Aspiration pneumonia (Acute) Acute respiratory failure (Acute) Hypoxemia (Acute) Hyperproteinemia (Acute) Chronic hip pain (Acute) GERD with esophagitis (Chronic) Low back pain (Acute) Pneumonia (Acute) Hip pain, bilateral (Acute) Skin tag (Acute) Phlegm in throat (Acute) Positive colorectal cancer screening using Cologuard test (Acute) I scheduled 4 appts for gen surgery. She has cancelled or refuses RCT/ etc. or goes to the appt and then gets upset Dysphagia (Acute) Nasal mass (Acute) Dr. 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 Hyperlipidemia (Chronic) Polycythemia (Chronic) Hypothyroid (Chronic) Diabetes (Chronic) Type 2, controlled HTN (hypertension) (Chronic) Depression (Chronic) Mixed conductive and sensorineural hearing loss (Acute 01/29/14) Mixed hearing loss, bilateral (Acute 01/19/16) Sciatica (Acute 07/01/14) Sensorineural hearing loss (Acute 01/29/14) Total perforation of right tympanic membrane (Acute 03/31/16) Medical History Adrenal mass Ambulatory dysfunction Bulimia Chronic hip pain, bilateral Chronic low back pain Chronic obstructive lung disease Chronic post-traumatic stress disorder COPD (chronic obstructive pulmonary disease) Coronary arteriosclerosis Dehydration Diffuse abdominal pain Hearing loss History of smoking Hypokalemia Hypomagnesemia Hypoxia Interstitial lung disease Lumbar spine scoliosis Narcotic abuse episodic opioid dependence Osteoporosis Panic disorder Peripheral vascular disease Pneumonia Post traumatic stress disorder Pulmonary hypertension Tachycardia Weight loss Surgical History History of tympanoplasty of right ear Failed x2 S/P cholecystectomy Spinal Surgery Laminectomies at T12/L1 due to an angioma Stent placement Bilateral iliac and femoral Family History Mother Heart disease Paternal Grandfather Kidney disease Social History Smoking/Tobacco Use Status: Current every day Tobacco Type: cigarettes Smoking risk assessment performed?: Yes Alcohol Intake: never Drug use: Current Sobriety Substance use type: former substance user Housing: assisted living facility Do you feel safe at home: Yes Do you feel safe in your relationship?: Yes Additional Social history: patient currently lives at the [facility] says she is not happy there Results Last Vital Signs Temp 36.5 C 06/19/23 19:25 Pulse 94 H 06/19/23 21:25 Resp 16 06/19/23 21:25 BP 156/84 H 06/19/23 19:25 Pulse Ox 97 06/20/23 07:45 Labs 06/20/23 09:50 06/20/23 09:50 Labs: Laboratory Results - last 24 hr 06/20/23 06/20/23 09:50 09:50 WBC 9.83 RBC 4.94 Hgb 16.3 H Hct 48.2 H MCV 98 H MCH 33.0 MCHC 33.8 RDW 13.7 Plt Count 328 MPV 9.1 Immature Gran % 0.5 Neutrophils % 76.0 Lymphocytes % 16.9 Monocytes % 6.0 Eosinophils % 0.4 Basophils % 0.2 Nucleated RBC % 0.0 Absolute Neutrophils 7.47 H Absolute Lymphocytes 1.66 Absolute Monocytes 0.59 Absolute Eosinophils 0.04 Absolute Basophils 0.02 Sodium 139 Potassium 3.6 Chloride 102 Carbon Dioxide 23.5 Anion Gap 13.5 H BUN 15 Creatinine 1.0 Est GFR (CKD-EPI 2020) 61.75 Glucose 164 H Calcium 10.3 H Magnesium 1.8
--- NOTE | 2023-06-20 14:26 | PDOC.CMDIS ---
Date of service: 06/20/23 Time of Service: 14:27 LACE Index Scoring Tool Questions: Length of Stay (in days): 4 - 6 Was the patient admitted via the E.D.?: Yes Comorbidities: Diabetes w/o Complication E.D. Visits: 3 Answers: Total Score: 11 Risk of Readmission: High Risk Care Management Discharge Plan Reason for Hospitalization: Pneumonia, hypoxic respiratory failure Discharge Plan: Celia signed an AMA form, CM sat with her and discussed recommendations for her care; this was difficult as Celia is very hard of hearing, though ultimately successful. Celia verbalized just wanting to return to the [facility]. She stated she met with her correctional case manager Bethany from [facility] yesterday who came to visit. She reported multiple times to this internal communications writer that she had signed a form so she could leave so she didn't understand why she could not go. CM encouraged Celia to wait for a ride from [facility], and for PATIENT SERVICES ASSISTANT to finish discharge. PATIENT SERVICES ASSISTANT met with Celia and felt she was likely at her baseline to return to Level 3 at the [facility]. Geodon and Ativan initiated with good effect during this hospitalization, per provider; anticipate possible new med orders. Celia will transport via [facility]. CM reviewed discharge plan with [facility] RECORD CLERK (who reported they had not completed their assessment but felt Celia's symptoms were medical related to her UTI. Devi was medically cleared prior to [facility] screening. CM also reviewed with Teresa, social worker masters at the [facility] who shared concerns that Celia would re-present to the ED because her assisted living counterparts were anxious about her returning, as her behavior over the last week prior to admission was erratic. Patient/Family Education Needs: Review AMA, discharge considerations, patient rights; Celia consistently advocated for returning home to the [facility]. Services Needed at Discharge: Transportation
--- NOTE | 2023-06-22 08:22 | PT.INDS ---
PT Notes Visit Reasons: Pneumonia,Hypoxic Respiratory Failure Physical Therapy Inpatient Discharge Summary Date: 06/22/23 Treatment Dates: 06/17/2023 - 06/20/23 Referring Doctor: Kai Myers MD PT Orders: PT CONSULT: Exacerbation Chronic Cond Precautions: Fall. Standard. Activity as tolerated. Patient Profile/Admitting Diagnosis: Celia is a 67-year-old female admitted for management of UTI, acute respiratory failure with hypoxia, hypomagnesemia, and of comorbid conditions listed below. She participated in 3 sessions of PT intervention over the course of 4 days prior to returning to the [facility]. PM below.HX: All Active Problems? UTI (urinary tract infection) (Acute) Acute respiratory failure with hypoxia (Acute) Malaise (Acute) Tobacco abuse (Acute) Trochanteric bursitis, right hip (Acute) Advance care planning (Acute) Noncompliance (Acute) Enteritis (Acute) Acute respiratory failure with hypoxia (Acute) Aspiration pneumonia (Acute) Acute respiratory failure (Acute) Hypoxemia (Acute) Hyperproteinemia (Acute) Chronic hip pain (Acute) GERD with esophagitis (Chronic) Low back pain (Acute) Pneumonia (Acute) Hip pain, bilateral (Acute) Bipolar affect, depressed (Acute) Skin tag (Acute) Phlegm in throat (Acute) Positive colorectal cancer screening using Cologuard test (Acute) -Scheduled 4 appts for gen surgery. ? She has cancelled or refuses RCT/ etc. or goes to the appt and then gets upset Dysphagia (Acute) Nasal mass (Acute) Dr. 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 Hyperlipidemia (Chronic) Polycythemia (Chronic) Hypothyroid (Chronic) Diabetes (Chronic) Type 2, controlledHTN (hypertension) (Chronic) Depression (Chronic) Mixed conductive and sensorineural hearing loss (Acute 01/29/14) Mixed hearing loss, bilateral (Acute 01/19/16) Sciatica (Acute 07/01/14) Sensorineural hearing loss (Acute 01/29/14) Total perforation of right tympanic membrane (Acute 01/19/16) Medical History? Adrenal mass Ambulatory dysfunction Bulimia Chronic hip pain, bilateral Chronic low back pain Chronic obstructive lung disease Chronic post-traumatic stress disorder COPD (chronic obstructive pulmonary disease) Coronary arteriosclerosis Dehydration Diffuse abdominal pain Hearing loss History of smoking Hypokalemia Hypomagnesemia Hypoxia Interstitial lung disease Lumbar spine scoliosis Narcotic abuse episodic opioid dependence Osteoporosis Panic disorder Peripheral vascular disease Pneumonia Post traumatic stress disorder Pulmonary hypertension Tachycardia Weight loss Surgical History? History of tympanoplasty of right ear Failed x2 S/P cholecystectomy Spinal Surgery Laminectomies at T12/L1 due to an angioma Stent placement Bilateral iliac and femoral Social History/Home Situation: Lives at the level II facility at the [facility] Equipment Owned/DME: 4WW Subjective: none obtained Objective: ROM: Right Upper Extremity: Shoulder Flexion WFL. Shoulder abduction WFL. Elbow flexion WFL. Wrist flexion WFL. Functional opening and closing of hand WFL. Left Upper Extremity: Shoulder Flexion WFL. Shoulder abduction WFL. Elbow flexion WFL. Wrist flexion WFL. Functional opening and closing of hand WFL. Right Lower Extremity: Hip flexion WFL. Hip abduction WFL. Knee flexion WFL. Ankle dorsiflexion WFL. Ankle plantarflexion WFL. Left Lower Extremity: Hip flexion WFL. Hip abduction WFL. Knee flexion WFL. Ankle dorsiflexion WFL. Ankle plantarflexion WFL. Strength: Right Upper Extremity: Grossly 4-/5 Left Upper Extremity: Grossly 4-/5 Right Lower Extremity: Grossly 3+/5 Left Lower Extremity: Grossly 4-/5 BED MOBILITY/TRANSFERS:? Reinforced safe use of AD and movement sequence for activites below.? Rolling L/R: independent Supine-sit: independent Sit-supine: independent Sit-stand: independent with FWW Stand-sit: independent with FWW Bed-Chair: SBA with FWW Chair-bed: SBA with FWW Gait: Provided moderate cueing for AD management,? safe gait pattern to minimize ain report in R hip,? and correct technique during directional changes.? Covered 200 feet with FWW requiring stand by assist and moderate to maximal cueing for safety. Balance: Static Sitting: Normal Dynamic Sitting: Normal Static Standing: Good Dynamic Standing: Fair Assessment: Patient participated in 3 sessions of PT intervention over the course of 4 days prior to returning to the [facility]. She did make gains in activity tolerance, with ability to ambulate 200' without JIMENEZ. Discharge from PT services. Goals: Goals X1 week 1. Bed-Chair independent with FWW (MET) 2. Chair-Bed independent with FWW (MET) 3. Independent gait on level surface with use of FWW for at least 300 feet without report of pain nor dyspnea (MET) 4. Independent with home exercise program (NOT MET) 5. Good static and dynamic standing balance/tolerance (NOT MET) Plan of Care/Treatment Plan: D/C from PT in acute care setting DISCHARGE RECOMMENDATIONS: [X] Return to Level II facility when medically cleared. Continue PT at facility. TREATMENT CODE/TIME: none Thank you for the opportunity to participate in the care of this patient. Margoth Connor PT, DPT [facility] [place], [place]
== END 2023-06-20 14:58 | disposition home or self-care (01) | DRG 193 ==
LOC: ER 16:05 → MS 17:04
PROVIDERS: Internal Medicine; Admitting Provider Family Medicine; Emergency Provider Student in an Organized Health Care Education/Training Program; PCP Family Medicine; Visit Provider Family Medicine
DX: J18.1 Lobar pneumonia, unspecified organism (principal); J96.01 Acute respiratory failure with hypoxia; N39.0 Urinary tract infection, site not specified; F31.30 Bipolar disorder, current episode depressed, mild or moderate severity, unspecified; G93.40 Encephalopathy, unspecified; J18.9 Pneumonia, unspecified organism; E83.42 Hypomagnesemia; E11.9 Type 2 diabetes mellitus without complications; J84.10 Pulmonary fibrosis, unspecified; J44.9 Chronic obstructive pulmonary disease, unspecified; I10 Essential (primary) hypertension; B96.20 Unspecified Escherichia coli [E. coli] as the cause of diseases classified elsewhere; F17.210 Nicotine dependence, cigarettes, uncomplicated; F20.9 Schizophrenia, unspecified; E78.5 Hyperlipidemia, unspecified; E87.6 Hypokalemia; K21.00 Gastro-esophageal reflux disease with esophagitis, without bleeding; M54.40 Lumbago with sciatica, unspecified side; G89.29 Other chronic pain; I25.10 Atherosclerotic heart disease of native coronary artery without angina pectoris; E03.9 Hypothyroidism, unspecified; D75.1 Secondary polycythemia; H90.6 Mixed conductive and sensorineural hearing loss, bilateral; Z66 Do not resuscitate
CPT/HCPCS: 36415; 71275; 80048; 80053; 82805; 87040; 87077; 87081; 87426; 87637; 93005; 94640; 96365; 97110; 97162; 97530; 99285; J1650; 36600; 71045; 81003; 81015; 83605; 83735; 83880; 84484; 85025; 85379; 87086; 87186; 93010; 94664; 94760; 99223; 99232; 99233; 99239; J1200; J1630; J2020; J2060; J2543; J2930; J3490; J7512; J7620

== ENCOUNTER 2023-06-20 16:50 | Observation (INO) | payer MEDICARE, MEDICAID, SELFPAY ==
[2023-06-20] VITALS (32 sets, daily range): BP systolic 80–180; BP diastolic 55–113; PULSE 78–104; RESP 1–25; TEMP 36.1–36.9; O2SAT 80–98
--- NOTE | 2023-06-20 | DI.CT_ITS ---
Exam(s) CT HEAD WO EXAM: CT HEAD WO CLINICAL HISTORY: AMS. TECHNIQUE: Imaging Protocol: Axial computed tomography images with coronal and sagittal reformatted images were created and reviewed COMPARISON: None FINDINGS: Ventricles and Extra axial spaces: Normal in size and morphology for the patient's age. Hemorrhage: None. Cerebral parenchyma: No evidence of acute infarct or mass. Minimal white matter changes of small ve ssel disease. Midline shift: None. Brainstem/Cerebellum: Normal. Calvarium: Normal. Visualized Paranasal sinuses/Mastoids: Clear. Soft Tissues: Unremarkable. IMPRESSION: No acute intracranial process. RADIATION DOSE DELIVERED: 681.75mGy.cm Total DLP DATA REPOSITORY: All CT scans at this facility are submitted to the National Radiology Data Registry (NRDR) Dose Index Registry (DIR) with the [employer] (A[employer]). RADIATION OPTIMIZATION: All CT scans at this facility use at least one of these dose optimization te chniques: automated exposure control; mA and/or kV adjustment per patient size (includes targeted exa ms where dose is matched to clinical indication); or iterative reconstruction.
--- NOTE | 2023-06-20 | DI.CT_ITS ---
Exam(s) CT CHEST PE CTA EXAM: CT CHEST PE CTA CLINICAL HISTORY: acute on chronic hypoxic respiratory failure. TECHNIQUE: Imaging Protocol: Axial CT angiography was performed with multi-slice acquisition and mu lti-planar reconstructions as well as axial, coronal and sagittal MIP reconstructions. CONTRAST MATERIAL: Intravenous: Omnipaque 350 Contrast volume:100 ml COMPARISON: CT CT CHEST PE CTA from 06/16/2023 CR XR PORTABLE CHEST AP from 06/20/2023 FINDINGS: The exam is limited by respiratory motion. Pulmonary Arteries: No evidence of filling defect to suggest pulmonary emboli. Pulmonary arteries a re prominent, consistent with pulmonary hypertension. Tracheobronchial tree: Patent where visualized. Mediastinum and Princess: No dominant adenopathy or fluid collection. Pulmonary parenchyma: Underlying emphysematous and fibrotic changes. No change in right upper lobe i nfiltrate and consolidation anteriorly. Underlying honeycombed appearance. Dependent changes at the lung bases. Pleura: No effusion or pneumothorax. Heart: The heart is not dilated. No coronary artery calcifications are seen. Aorta: Thoracic aorta non-dilated. No aneurysm. No dissection. Moderate atherosclerotic calcific ations. Upper abdomen: Small hiatal hernia. Bones: Severe scoliosis. Tubes, Catheters, and Lines: None IMPRESSION: No evidence of pulmonary embolism. Stable appearance of right upper lobe infiltrate and atelectasis versus consolidation.. RADIATION DOSE DELIVERED: 413.09mGy.cm Total DLP DATA REPOSITORY: All CT scans at this facility are submitted to the National Radiology Data Registry (NRDR) Dose Index Registry (DIR) with the [employer] (ACR). RADIATION OPTIMIZATION: All CT scans at this facility use at least one of these dose optimization te chniques: automated exposure control; mA and/or kV adjustment per patient size (includes targeted exa ms where dose is matched to clinical indication); or iterative reconstruction.
--- NOTE | 2023-06-20 17:06 | ED.GENADUL_ITS ---
Discharge Plan Disposition Patient Disposition: Admit to [facility] Discharge Details Chief Complaint: AMS/LOC Clinical Impression: Hypoxia, Hypotension, AMS (altered mental status) Primary Care Provider: Martínez Berrios ED Provider: Kai Salomon [place] Meds and New Rx's Prescriptions: No Action Vinicio Original 325-1,916-1,000 mg tablet, effervescent 2 tab PO BID PRN (Reason: indigestion) Qty: 60 3RF bismuth subsalicylate 262 mg/15 mL suspension 524 mg PO QID PRN (Reason: diarrhea) Qty: 30 3RF Patient Comments: not on med list docusate sodium 100 mg capsule 300 mg PO DAILY PRN (Reason: constipation) Qty: 30 3RF Patient Comments: not on med list guaifenesin [Mucinex] 600 mg tablet extended release 12hr 600 mg PO Q12H PRN (Reason: congestion) Qty: 60 4RF loperamide 2 mg tablet 2 mg PO QID PRN (Reason: loose stool) Qty: 10 0RF Rx Instructions: Take one tablet by mouth after each loose stool not to exceed 8mg/24 hrs ondansetron 4 mg tablet,disintegrating 4 mg PO Q4H PRN (Reason: nausea and vomiting) Qty: 30 1RF Anoro Ellipta 62.5-25 mcg/actuation blister with device 1 inh inhalation Q24H Qty: 90 4RF Rx Instructions: dispense Anoro Rybelsus 7 mg tablet 7 mg PO DAILY Qty: 90 3RF Rx Instructions: start after 3mg Rx finishes bupropion HCl 150 mg tablet extended release 24 hr 150 mg PO BID Qty: 180 3RF melatonin 10 mg tablet 10 mg PO HS PRN (Reason: sleep) Qty: 90 5RF famotidine 20 mg tablet 20 mg PO BID Qty: 180 4RF clonazepam 1 mg tablet 1 mg PO TID Qty: 270 1RF glipizide 10 mg tablet extended release 24hr 10 mg PO DAILY Qty: 90 2RF levothyroxine 112 mcg tablet 112 mcg PO DAILY Qty: 90 2RF clopidogrel [Plavix] 75 mg tablet 75 mg PO DAILY Qty: 90 3RF fluoxetine 40 mg capsule 40 mg PO DAILY Qty: 90 3RF omeprazole 40 mg capsule,delayed release(DR/EC) 40 mg PO DAILY Qty: 90 2RF quetiapine [Seroquel XR] 200 mg tablet extended release 24 hr 200 mg PO HS Qty: 90 12RF Patient Comments: no longer on med list lidocaine 5 % adhesive patch,medicated 1 patch topical DAILY Qty: 15 0RF Patient Comments: not on med list Rx Instructions: leave on most painful area for up to 12 hrs atorvastatin 20 mg tablet 20 mg PO HS Jardiance 25 mg tablet 25 mg PO QAM acetaminophen 650 mg Tablet 650 mg PO Q8H PRN bisacodyl 10 mg Suppository 10 mg TN DAILY cefpodoxime 200 mg Tablet 200 mg PO BID PC Qty: 10 0RF prednisone 20 mg Tablet 40 mg PO DAILY Qty: 10 0RF ziprasidone HCl 20 mg Capsule 20 mg PO BID Qty: 60 0RF Medical Decision Making 67-year-old female history of COPD, recent diagnosis of pneumonia and UTI, discharged AGAINST MEDICAL ADVICE this morning. Patient upon returning to the [facility] was noted by staff to be altered compared to her baseline mental status, patient transported by EMS to the emergency department for further evaluation. Patient is confused, believes it is 2002 believes she is in [place]. Is alert to self. Following commands but requiring greater assistance with ambulation. Patient noted to be tachycardic, and hypoxic to the 80s, placed on nasal cannula. Quiet lungs bilaterally however moving air and speaking in full sentences. Chronic appearing ecchymosis to bilateral lower extremities. Fentanyl patch removed from patient's arm. Patient requiring 6 L nasal cannula to maintain oxygenation at 91%. High clinical suspicion for CO2 narcosis in the setting of COPD. 17: 41 patient noted to be hypoxic and hypotensive as low as 70s systolic, fluid bolus has been initiated. Patient receiving nebs and dexamethasone. Patient to be admitted for further medical management. HPI General Date/Time Provider Initiated Documentation: 06/20/23 16:57 . HPI Narrative: 67-year-old female history of COPD, recent admission for COPD exacerbation, UTI, discharged AGAINST MEDICAL ADVICE this morning despite altered mental status diagnosis, after returning to the [facility] staff quickly realized that she was not at her baseline and called EMS to have her return to the emergency department for evaluation. Patient noted to be tachycardic and hypoxic on arrival. Placed on nasal cannula. Patient believes it is 2002 and believes she has a [place]. Related Data Home Medications Medication Instructions Recorded Confirmed aspirin-sod bicarb-citric acid 325 2 tab PO BID PRN indigestion #60 01/15/22 06/18/23 mg-1,916 mg-1,000 mg efferves tab tabs (Tesha-Jeannie Original) bismuth subsalicylate 262 mg/15 mL 524 mg (30 mL) PO QID PRN diarrhea 01/15/22 06/18/23 oral suspension #30 mL docusate sodium 100 mg capsule 300 mg PO DAILY PRN constipation 01/15/22 #30 caps guaifenesin 600 mg tablet, 600 mg PO Q12H PRN congestion #60 01/15/22 06/18/23 extended release 12 hr (Mucinex) tabs loperamide 2 mg tablet 2 mg PO QID PRN loose stool #10 01/15/22 06/18/23 tabs ondansetron 4 mg disintegrating 4 mg PO Q4H PRN nausea and 03/02/22 06/18/23 tablet vomiting #30 tabs umeclidinium 62.5 mcg-vilanterol 1 inh inhalation Q24H #90 ea 10/17/22 06/18/23 25 mcg/actuation powdr for inhalation (Anoro Ellipta) semaglutide 7 mg tablet (Rybelsus) 7 mg PO DAILY #90 tabs 10/30/22 06/18/23 bupropion HCl 150 mg 24 hr tablet, 150 mg PO BID #180 tabs 03/26/23 06/18/23 extended release melatonin 10 mg tablet 10 mg PO HS PRN sleep #90 tabs 04/01/23 06/18/23 clonazepam 1 mg tablet 1 mg PO TID #270 tabs 04/22/23 06/18/23 famotidine 20 mg tablet 20 mg PO BID #180 tabs 04/22/23 06/18/23 clopidogrel 75 mg tablet (Plavix) 75 mg PO DAILY #90 tab-caps 06/10/23 06/18/23 fluoxetine 40 mg capsule 40 mg PO DAILY #90 caps 06/10/23 06/18/23 glipizide 10 mg tablet, extended 10 mg PO DAILY #90 tabs 06/10/23 06/18/23 release 24 hr levothyroxine 112 mcg tablet 112 mcg PO DAILY #90 tabs 06/10/23 06/18/23 omeprazole 40 mg capsule,delayed 40 mg PO DAILY #90 caps 06/10/23 06/18/23 release quetiapine 200 mg tablet,extended 200 mg PO HS #90 tabs 06/10/23 06/18/23 release 24 hr (Seroquel XR) lidocaine 5 % topical patch 1 patch topical DAILY Pain #15 ea 06/12/23 06/18/23 acetaminophen 650 mg tablet 650 mg PO Q8H PRN 06/16/23 06/18/23 atorvastatin 20 mg tablet 20 mg PO HS 06/16/23 06/18/23 empagliflozin 25 mg tablet 25 mg PO QAM 06/16/23 06/18/23 (Jardiance) bisacodyl 10 mg rectal suppository 10 mg TN DAILY 06/18/23 06/18/23 cefpodoxime 200 mg tablet 200 mg PO BID PC #10 tabs 06/20/23 prednisone 20 mg tablet 40 mg PO DAILY #10 tabs 06/20/23 ziprasidone HCl 20 mg capsule 20 mg PO BID #60 caps 06/20/23 Previous Rx's Medication Instructions Recorded aspirin-sod bicarb-citric acid 325 2 tab PO BID PRN indigestion #60 01/15/22 mg-1,916 mg-1,000 mg efferves tab tabs (Tesha-Carlos Original) bismuth subsalicylate 262 mg/15 mL 524 mg (30 mL) PO QID PRN diarrhea 01/15/22 oral suspension #30 mL docusate sodium 100 mg capsule 300 mg PO DAILY PRN constipation 01/15/22 #30 caps guaifenesin 600 mg tablet, 600 mg PO Q12H PRN congestion #60 01/15/22 extended release 12 hr (Mucinex) tabs loperamide 2 mg tablet 2 mg PO QID PRN loose stool #10 01/15/22 tabs ondansetron 4 mg disintegrating 4 mg PO Q4H PRN nausea and 03/02/22 tablet vomiting #30 tabs umeclidinium 62.5 mcg-vilanterol 1 inh inhalation Q24H #90 ea 10/17/22 25 mcg/actuation powdr for inhalation (Anoro Ellipta) semaglutide 7 mg tablet (Rybelsus) 7 mg PO DAILY #90 tabs 10/30/22 bupropion HCl 150 mg 24 hr tablet, 150 mg PO BID #180 tabs 03/26/23 extended release melatonin 10 mg tablet 10 mg PO HS PRN sleep #90 tabs 04/01/23 clonazepam 1 mg tablet 1 mg PO TID #270 tabs 04/22/23 famotidine 20 mg tablet 20 mg PO BID #180 tabs 04/22/23 clopidogrel 75 mg tablet (Plavix) 75 mg PO DAILY #90 tab-caps 06/10/23 fluoxetine 40 mg capsule 40 mg PO DAILY #90 caps 06/10/23 glipizide 10 mg tablet, extended 10 mg PO DAILY #90 tabs 06/10/23 release 24 hr levothyroxine 112 mcg tablet 112 mcg PO DAILY #90 tabs 06/10/23 omeprazole 40 mg capsule,delayed 40 mg PO DAILY #90 caps 06/10/23 release quetiapine 200 mg tablet,extended 200 mg PO HS #90 tabs 06/10/23 release 24 hr (Seroquel XR) lidocaine 5 % topical patch 1 patch topical DAILY Pain #15 ea 06/12/23 cefpodoxime 200 mg tablet 200 mg PO BID PC #10 tabs 06/20/23 prednisone 20 mg tablet 40 mg PO DAILY #10 tabs 06/20/23 ziprasidone HCl 20 mg capsule 20 mg PO BID #60 caps 06/20/23 Allergies Allergy/AdvReac Type Severity Reaction Status Date / Time alendronate sodium AdvReac Intermediate Nausea Verified 05/20/23 13:34 [From Fosamax] latex AdvReac Unknown Unverified 06/11/23 09:37 General LELA: 2 Review of Systems Narrative: Review of Systems Constitutional: negative Eyes: negative ENT: negative Cardiovascular: negative Respiratory: negative Gastrointestinal: negative : negative Musculoskeletal: negative Skin: negative Neurologic: Altered mental status Psych: negative PFSH All Active Problems (Updated 06/20/23 @ 17:43 by Kai Salomon MD) Hypoxia (Acute) Hypotension (Acute) AMS (altered mental status) (Acute) DVT prophylaxis (Acute) Psychotic episode (Acute) Consolidation of right upper lobe of lung (Acute) 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) Discharge planning issues (Acute) UTI (urinary tract infection) (Acute) Acute respiratory failure with hypoxia (Acute) Malaise (Acute) Tobacco abuse (Acute) Trochanteric bursitis, right hip (Acute) Advance care planning (Acute) Noncompliance (Acute) Enteritis (Acute) Acute respiratory failure with hypoxia (Acute) Aspiration pneumonia (Acute) Acute respiratory failure (Acute) Hypoxemia (Acute) Hyperproteinemia (Acute) Chronic hip pain (Acute) GERD with esophagitis (Chronic) Low back pain (Acute) Pneumonia (Acute) Hip pain, bilateral (Acute) Skin tag (Acute) Phlegm in throat (Acute) Positive colorectal cancer screening using Cologuard test (Acute) I scheduled 4 appts for gen surgery. She has cancelled or refuses RCT/ etc. or goes to the appt and then gets upset Dysphagia (Acute) Nasal mass (Acute) Dr. 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 Hyperlipidemia (Chronic) Polycythemia (Chronic) Hypothyroid (Chronic) Diabetes (Chronic) Type 2, controlled HTN (hypertension) (Chronic) Depression (Chronic) Mixed conductive and sensorineural hearing loss (Acute 01/29/14) Mixed hearing loss, bilateral (Acute 01/19/16) Sciatica (Acute 07/01/14) Sensorineural hearing loss (Acute 01/29/14) Total perforation of right tympanic membrane (Acute 01/19/16) Medical History Adrenal mass Ambulatory dysfunction Bulimia Chronic hip pain, bilateral Chronic low back pain Chronic obstructive lung disease Chronic post-traumatic stress disorder COPD (chronic obstructive pulmonary disease) Coronary arteriosclerosis Dehydration Diffuse abdominal pain Hearing loss History of smoking Hypokalemia Hypomagnesemia Hypoxia Interstitial lung disease Lumbar spine scoliosis Narcotic abuse episodic opioid dependence Osteoporosis Panic disorder Peripheral vascular disease Pneumonia Post traumatic stress disorder Pulmonary hypertension Tachycardia Weight loss Surgical History History of tympanoplasty of right ear Failed x2 S/P cholecystectomy Spinal Surgery Laminectomies at T12/L1 due to an angioma Stent placement Bilateral iliac and femoral Family History Mother Heart disease Paternal Grandfather Kidney disease Social History Smoking/Tobacco Use Status: Current every day Tobacco Type: cigarettes Smoking risk assessment performed?: Yes Alcohol Intake: never Drug use: Current Sobriety Substance use type: former substance user Housing: shelter Do you feel safe at home: Yes Do you feel safe in your relationship?: Yes Additional Social history: patient currently lives at the [facility] says she is not happy there Exam Narrative Exam Narrative: Physical Examination General: alert, awake, cooperative, resting comfortably, no acute distress HEENT: normocephalic, atraumatic; PERRL, EOM intact, conjunctiva normal; no nasal discharge; dry oral mucosa Neck: supple, trachea midline; full ROM Chest: normal to inspection Respiratory: normal respiratory effort, speaking in full sentences, clear to auscultation, no wheezing, rales or rhonchi Cardiac: Tachycardia, regular rhythm, S1S2 intact, no murmurs rubs or gallops GI: abdomen soft, non-tender, non-distended; no palpable mass or hepatosplenomegaly Skin: no lesions, rashes or trauma appreciated Neuro: Patient is alert to self, believes it is 2003, believes she has a [place], moving all extremities, needing extensive assistance with ambulation Extremities: Chronic appearing ecchymosis to lower extremities Psych: Appropriate mood and affect
--- NOTE | 2023-06-20 17:15 | DI.RAD_ITS ---
Exam(s) XR PORTABLE CHEST AP EXAM: XR PORTABLE CHEST AP CLINICAL HISTORY: ams, copd TECHNIQUE: 2D digital imaging was performed. COMPARISON: CR XR CHEST 2V PA LATERAL from 06/11/2023 CR,XR XR PORTABLE CHEST AP from 06/16/[address] CHEST PE CTA from 06/16/2023 FINDINGS: LUNGS: Area of atelectasis versus consolidation is again noted in the right mid lung field. Right up per lobe adjacent infiltrate with underlying honeycombing. Increased densities also seen at right me dial lung base. No pleural abnormality seen. HEART: Enlarged. AORTA: Normal diameter. Tortuous. BONES: Unremarkable for age. Prominent scoliosis. Soft tissues: Unremarkable. IMPRESSION: Stable area of atelectasis/scarring and infiltrate in the right mid lung field. DATA REPOSITORY: RADIATION DOSE DELIVERED:
[2023-06-20 17:23] LABS: Abs Immature Grans 0.04 10^3/uL (0.0-0.06); Absolute Basophil Count 0.02 10^3/uL (0.0-0.2); Absolute Lymphocyte Count 1.66 10^3/uL (1.2-3.4); Absolute Monocyte Count 0.62 10^3/uL (0.1-0.8); Absolute Neutrophil Count 6.13 10^3/uL (1.2-6.7); BE (Venous) 0 mmol/L (-2-3); Basophils % 0.2; HCO3 (Venous) 25 mmol/L (23-28); HCT 50.7 % (36.0-46.0); Immature Grans % 0.5; Lymphocytes % 19.6; MCH 32.6 pg (27.0-33.0); MCHC 33.5 % (32.0-36.0); MCV 97 fL (80-95); MPV 9.1 fL (8.0-11.0); Monocytes % 7.3; Neutrophils % 72.4; O2 Sat (Venous) 88 %; Platelet Count 349 10^3/uL (130-400); RBC 5.22 10^6/uL (3.93-5.22); RDW 13.7 % (11.7-14.6); RDW-SD 47.8 fL; TCO2 (Venous) 21 mmol/L (24-29); WBC 8.47 10^3/uL (4.4-10.8); pCO2 (Venous) 37 mmHg (41-51); pH (Venous) 7.43 (7.31-7.41); pO2 (Venous) 56 mmHg
[2023-06-20] MEDS: Albuterol/Ipratropium 3 ML UPD VIAL 9 ML UPD (17:24)
[2023-06-20] MEDS: Dexamethasone 10 MG/ML VIAL IVP (17:24)
[2023-06-20] MEDS: Normal Saline 1,000 ML 1000 ML IV (17:30)
[2023-06-20 17:49] LABS: ALT 22 U/L (14-59); AST 29 U/L (15-37); Albumin 3.7 g/dL (3.4-5.0); Alkaline Phosphatase 89 U/L (46-116); Anion Gap 13.1 mmol/L (3-11); BUN 17 mg/dL (7-18); Bilirubin, Total 0.4 mg/dL (0.2-1.0); CO2 24.9 mmol/L (21.0-32.0); Calcium 10.4 mg/dL (8.5-10.1); Chloride 102 mmol/L (98-107); Estimated GFR 61.75 (mL/min/1.73m2); Glucose 142 mg/dL (74-106); Potassium 3.6 mmol/L (3.5-5.1); Sodium 140 mmol/L (136-145); Total Protein 8.6 g/dL (6.4-8.2)
--- NOTE | 2023-06-20 17:59 | W.PM.HP.N ---
Date of service: 06/20/23 Time of Service: 17:59 Assessment and Plan Assessment and plan (1) Hypotension: Status: Acute Assessment and plan: Etiology of this is unclear right now, but does have evidence of lactic acidosis. She is dehydrated as evidenced by hemoconcentration and hypercalcemia and is receiving IVF. It's possible that this is side of effect of lorazepam she had received earlier today. I am also not sure about the accuracy of the BP in the ER as the BP cuff I found on her was definitely too large for her. I did request that an appropriately sized cuff be used. Sepsis is not ruled out, but procalcitonin of <0.1 is making it a lot less likely. She does have a known UTI, for which she is on ceftriaxone now. I do not think she has a new acute respiratory process. I did order a CTA of the chest to get a better look. Will monitor in the ICU and trend lactates. (2) Episode of confusion: Status: Acute Assessment and plan: CT head is ordered and pending. In setting of not wearing oxygen, it is possible that this was contributing to confusion, but this has completely resolved by the time of my evaluation. We cannot legally force the patient to wear her oxygen. I think these episodes also have a psychiatric component given her very persistent paranoia during her last admission and on her exam today. I disagree with the mental health findings. I think psychiatry/mental health should be involved in her medication management. Some of the confusion could have to do with difficulty hearing as well. (3) Hypoxia: Status: Chronic Assessment and plan: Await CTA of the chest. Procalcitonin being negative argues against a PNA. She is still on her steroid burst, which we will continue. (4) UTI (urinary tract infection): Status: Acute Assessment and plan: Due to E. Coli, present on last admission. We will repeat UA/C&S, but for now continue ceftriaxone which should adequately cover the E. Coli. (5) Psychotic episode: Status: Acute Assessment and plan: Mental health consulted. What I observed today was paranoid ideation/psychotic behavior. When the patient arrived to the ER acutely hypoxic, she likely was also encephalopathic indeed, but this is not the case right now. (6) COPD (chronic obstructive pulmonary disease): Assessment and plan: Continue Anoro. Prednisone 40mg for 5 days. Today is day 4. (7) Interstitial lung disease: Assessment and plan: As above (8) Bipolar affect, depressed: Status: Suspected Assessment and plan: On Fluoxetine and buproprion. [facility] denies h/o bipolar an schizophrenia; I am not sure where this information came from. She was cleared by mental health earlier today. She is clearly paranoid on my exam today. Will need a mental health re-evaluation prior to discharge. I do not think that her medical condition is triggering her behaviors. Continue little macias. (9) Hypomagnesemia: Assessment and plan: Recheck in am. (10) Diabetes: Status: Chronic Assessment and plan: Continue Jardiance, glipizide. Monitor. Qualifiers: Diabetes mellitus type: type 2 Diabetes mellitus manager terminal insulin use: without manager terminal use (11) HTN (hypertension): Status: Chronic Assessment and plan: BPs low. Not on antihypertensive therapy. (12) Tobacco abuse: Status: Acute Assessment and plan: Continue Nicotine patch (13) Discharge planning issues: Status: Acute Assessment and plan: DNR/DNI We will reconsult mental health once her BP stabilizes and acute etiologies for her hypotension have been addressed. We question her ability to make medical decisions and a capacity evaluation might be in order; however, even patients without capacity have the right to refuse medical therapies such as oxygen in the state of [place]. Critical Care Time 60 minutes. (14) DVT prophylaxis: Status: Acute Assessment and plan: Sc enoxaparin History of Present Illness History of Present Illness Chief Complaint: Sent back from the [facility] for altered mental status Narrative: Ms Rg is a 67 year old female with PMHx of chronic hypoxic respiratory failure, but noncompliance with oxygen, on 2L of O2 by ND earlier today, COPD, pulmonary fibrosis, NIDDM2, tobacco abuse, questions of bipolar d/o and schizophrenia (diagnoses not confirmed by [facility]) who had left [facility] earlier today essentially AMA after an admission for a UTI, COPD exacerbation, but also psychotic behaviors, having been cleared by mental health for discharge, but was sent back to [facility] ED shortly after arrival to the [facility] facility because she was thought to be altered. On arrival to the ER, the patient was reportedly hypoxic requiring 6L of O2 and hypotensive. Unfortunately, No vital signs are available for my review in the computer system, but on my exam her O2 sat was 92% on 4L of O2 and SBP was in the 90s having received about 200 cc of IVF. She has also received a nebulizer treatment. ER provider's impression was that the patient was encephalopathic. By the time of my arrival to the bedside, the patient is A&Ox2 (forgetful about the date), is [place], but answers questions appropriately and is cooperative, appears to be at her baseline - just like when I saw her last night except she does not know the date. According to the ER provider, she did not recognize the people at the assisted living when she was briefly there. The patient did mention thinking that it was [employer] that brought her to the hospital and also expressed that she was zapped a few days ago, but could not share with me the details of that event because it will be a court case and I was told not to talk about it. Review of Systems All systems reviewed & are unremarkable except as noted in HPI and below PFSH All Active Problems (Updated 06/20/23 @ 19:03 by Marilee Suggs MD) Episode of confusion (Acute) Hypoxia (Chronic) Hypotension (Acute) AMS (altered mental status) (Acute) DVT prophylaxis (Acute) Psychotic episode (Acute) Consolidation of right upper lobe of lung (Acute) 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) Discharge planning issues (Acute) UTI (urinary tract infection) (Acute) Acute respiratory failure with hypoxia (Acute) Malaise (Acute) Tobacco abuse (Acute) Trochanteric bursitis, right hip (Acute) Advance care planning (Acute) Noncompliance (Acute) Enteritis (Acute) Acute respiratory failure with hypoxia (Acute) Aspiration pneumonia (Acute) Acute respiratory failure (Acute) Hypoxemia (Acute) Hyperproteinemia (Acute) Chronic hip pain (Acute) GERD with esophagitis (Chronic) Low back pain (Acute) Pneumonia (Acute) Hip pain, bilateral (Acute) Skin tag (Acute) Phlegm in throat (Acute) Positive colorectal cancer screening using Cologuard test (Acute) I scheduled 4 appts for gen surgery. She has cancelled or refuses RCT/ etc. or goes to the appt and then gets upset Dysphagia (Acute) Nasal mass (Acute) Dr. 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 Hyperlipidemia (Chronic) Polycythemia (Chronic) Hypothyroid (Chronic) Diabetes (Chronic) Type 2, controlled HTN (hypertension) (Chronic) Depression (Chronic) Mixed conductive and sensorineural hearing loss (Acute 01/29/14) Mixed hearing loss, bilateral (Acute 01/19/16) Sciatica (Acute 07/01/14) Sensorineural hearing loss (Acute 01/29/14) Total perforation of right tympanic membrane (Acute 01/19/16) Medical History Adrenal mass Ambulatory dysfunction Bulimia Chronic hip pain, bilateral Chronic low back pain Chronic obstructive lung disease Chronic post-traumatic stress disorder COPD (chronic obstructive pulmonary disease) Coronary arteriosclerosis Dehydration Diffuse abdominal pain Hearing loss History of smoking Hypokalemia Hypomagnesemia Hypoxia Interstitial lung disease Lumbar spine scoliosis Narcotic abuse episodic opioid dependence Osteoporosis Panic disorder Peripheral vascular disease Pneumonia Post traumatic stress disorder Pulmonary hypertension Tachycardia Weight loss Surgical History History of tympanoplasty of right ear Failed x2 S/P cholecystectomy Spinal Surgery Laminectomies at T12/L1 due to an angioma Stent placement Bilateral iliac and femoral Family History Mother Heart disease Paternal Grandfather Kidney disease Social History Smoking/Tobacco Use Status: Current every day Tobacco Type: cigarettes Smoking risk assessment performed?: Yes Alcohol Intake: never Drug use: Current Sobriety Substance use type: former substance user Housing: senior living Do you feel safe at home: Yes Do you feel safe in your relationship?: Yes Additional Social history: patient currently lives at the [facility] says she is not happy there Meds Allergies and Home Medications Allergies Allergy/AdvReac Type Severity Reaction Status Date / Time alendronate sodium AdvReac Intermediate Nausea Verified 05/20/23 13:34 [From Fosamax] latex AdvReac Unknown Unverified 06/11/23 09:37 Home Medications Medication Instructions Recorded Confirmed Type aspirin-sod bicarb-citric acid 325 2 tab PO BID PRN indigestion #60 01/15/22 06/18/23 Rx mg-1,916 mg-1,000 mg efferves tab tabs (Vinicio Original) bismuth subsalicylate 262 mg/15 mL 524 mg (30 mL) PO QID PRN diarrhea 01/15/22 06/18/23 Rx oral suspension #30 mL docusate sodium 100 mg capsule 300 mg PO DAILY PRN constipation 01/15/22 06/18/23 Rx #30 caps guaifenesin 600 mg tablet, 600 mg PO Q12H PRN congestion #60 01/15/22 06/18/23 Rx extended release 12 hr (Mucinex) tabs loperamide 2 mg tablet 2 mg PO QID PRN loose stool #10 01/15/22 06/18/23 Rx tabs ondansetron 4 mg disintegrating 4 mg PO Q4H PRN nausea and 03/02/22 06/18/23 Rx tablet vomiting #30 tabs umeclidinium 62.5 mcg-vilanterol 1 inh inhalation Q24H #90 ea 10/17/22 06/18/23 Rx 25 mcg/actuation powdr for inhalation (Anoro Ellipta) semaglutide 7 mg tablet (Rybelsus) 7 mg PO DAILY #90 tabs 10/30/22 06/18/23 Rx bupropion HCl 150 mg 24 hr tablet, 150 mg PO BID #180 tabs 03/26/23 06/18/23 Rx extended release melatonin 10 mg tablet 10 mg PO HS PRN sleep #90 tabs 04/01/23 06/18/23 Rx clonazepam 1 mg tablet 1 mg PO TID #270 tabs 04/22/23 06/18/23 Rx famotidine 20 mg tablet 20 mg PO BID #180 tabs 04/22/23 06/18/23 Rx clopidogrel 75 mg tablet (Plavix) 75 mg PO DAILY #90 tab-caps 06/10/23 06/18/23 Rx fluoxetine 40 mg capsule 40 mg PO DAILY #90 caps 06/10/23 06/18/23 Rx glipizide 10 mg tablet, extended 10 mg PO DAILY #90 tabs 06/10/23 06/18/23 Rx release 24 hr levothyroxine 112 mcg tablet 112 mcg PO DAILY #90 tabs 06/10/23 06/18/23 Rx omeprazole 40 mg capsule,delayed 40 mg PO DAILY #90 caps 06/10/23 06/18/23 Rx release quetiapine 200 mg tablet,extended 200 mg PO HS #90 tabs 06/10/23 06/18/23 Rx release 24 hr (Seroquel XR) lidocaine 5 % topical patch 1 patch topical DAILY Pain #15 ea 06/12/23 06/18/23 Rx acetaminophen 650 mg tablet 650 mg PO Q8H PRN 06/16/23 06/18/23 History atorvastatin 20 mg tablet 20 mg PO HS 06/16/23 06/18/23 History empagliflozin 25 mg tablet 25 mg PO QAM 06/16/23 06/18/23 History (Jardiance) bisacodyl 10 mg rectal suppository 10 mg NE DAILY 06/18/23 06/18/23 History cefpodoxime 200 mg tablet 200 mg PO BID PC #10 tabs 06/20/23 Rx prednisone 20 mg tablet 40 mg PO DAILY #10 tabs 06/20/23 Rx ziprasidone HCl 20 mg capsule 20 mg PO BID #60 caps 06/20/23 Rx Exam Narrative Exam Narrative: General: Calm appearing somewhat paranoid middle-aged female who is on 4L of O2, no evidence of dyspnea/tachypnea/cyanosis, has just finished her nebulizer treatment Neurological: A&Ox2, [place], no obvious focal deficits Psychiatric: Expresses paranoid ideation ([employer], being zapped but not being able to tell me about the episode) Skin: Visible skin intact HEENT: Atraumatic, normocephalic, EOMI, MMM, no goiter or JVD Cardiovascular: RRR, no m/r/g Lungs: CTAB (post nebulizer treatment) Gastrointestinal: soft, nontender, nondistended Genitourinary: deferred Extremities: no edema BLEs, + clubbing of fingers/toes, +1 pedal pulses B Results Imaging Additional studies: CXR: Stable area of atelectasis/scarring and infiltrate in the right mid lung field. EKG, CT head, CTA chest pending Labs 06/20/23 17:15 06/20/23 17:15 Labs: Laboratory Results - last 24 hr 06/20/23 06/20/23 06/20/23 17:15 17:15 17:15 WBC 8.47 RBC 5.22 Hgb 17.0 H Hct 50.7 H MCV 97 H MCH 32.6 MCHC 33.5 RDW 13.7 Plt Count 349 MPV 9.1 Immature Gran % 0.5 Neutrophils % 72.4 Lymphocytes % 19.6 Monocytes % 7.3 Eosinophils % 0.0 Basophils % 0.2 Nucleated RBC % 0.0 Absolute Neutrophils 6.13 Absolute Lymphocytes 1.66 Absolute Monocytes 0.62 Absolute Eosinophils 0.00 Absolute Basophils 0.02 VBG pH 7.43 H VBG pCO2 37 L VBG pO2 56 VBG HCO3 25 VBG Total CO2 21 L VBG O2 Saturation 88 VBG Base Excess 0 Sodium 140 Potassium 3.6 Chloride 102 Carbon Dioxide 24.9 Anion Gap 13.1 H BUN 17 Creatinine 1.0 Est GFR (CKD-EPI 2020) 61.75 Glucose 142 H Calcium 10.4 H Total Bilirubin 0.4 AST 29 ALT 22 Alkaline Phosphatase 89 Total Protein 8.6 H Albumin 3.7 Last Vital Signs Resp 20 06/20/23 17:25 Time Spent Time spent with Patient: 55-74 minutes Time was spent: preparing to see the patient(eg.review tests), obtaining and/or reviewing separately otained hiistory, ordering medications,tests, procedures, referring, communicating with other health career development coordinator, indepentently interpreting results, counseling the patient and care coordination
[2023-06-20 18:10] LABS: Lab Add On Test DONE
[2023-06-20 18:36] LABS: NT-proBNP 234 pg/mL (<300); Troponin I < 50 ng/L (<or=60)
[2023-06-20 18:46] LABS: Lactate 2.8 mmol/L (0.6-1.4)
[2023-06-20 18:50] LABS: COVID-19 PCR Negative (Negative); Influenza A PCR Negative (Negative); Influenza B PCR Negative (Negative); RSV PCR Negative (Negative)
[2023-06-20 18:54] LABS: Ammonia < 10 umol/L (11-32)
[2023-06-20 18:57] LABS: Source Nasopharynx
[2023-06-20 18:59] LABS: Procalcitonin < 0.1 ng/mL
[2023-06-20] MEDS: Normal Saline - Diluent 50 ML VIAL IJ (19:05)
[2023-06-20] MEDS: Omnipaque 350 MG/ML 100 ML BTL IJ (19:06)
[2023-06-20] MEDS: Normal Saline Flush 10 ML SYR IVP ×2 (19:07→20:37)
--- NOTE | 2023-06-20 19:21 | DI.VRAD_ITS ---
PROCEDURE INFORMATION: Exam: CTA Chest With Contrast Exam date and time: 06/20/2023 7:02 PM Age: 67 years old Clinical indication: Other: Acute on chronic hypoxic respiratory failure TECHNIQUE: Imaging protocol: Computed tomographic angiography of the chest with contrast. Exam focused on the arteries. 3D rendering (Not supervised by radiologist): MIP and/or 3D reconstructed images were created by the technologist. Radiation optimization: All CT scans at this facility use at least one of these dose optimization techniques: automated exposure control; mA and/or kV adjustment per patient size (includes targeted exams where dose is matched to clinical indication); or iterative reconstruction. Contrast material: OMNI 350; Contrast volume: 100 ml; Contrast route: INTRAVENOUS (IV); COMPARISON: CT CHEST PE CTA 06/16/2023 2:18 PM FINDINGS: Pulmonary arteries: Normal. No pulmonary emboli. Aorta: Moderate scattered atherosclerotic calcification throughout the aorta. No evidence of aortic aneurysm or dissection. Moderate atherosclerotic calcification throughout the aorta. No evidence of aortic aneurysm or dissection. Lungs: There is moderate right upper lobe consolidation, similar to previous. Mild dependent infiltrate versus atelectasis noted in the bilateral lower lobes. Pleural spaces: Unremarkable. No pneumothorax. No pleural effusion. Heart: Unremarkable. No cardiomegaly. No pericardial effusion. Lymph nodes: Unremarkable. No enlarged lymph nodes. Adrenal glands: Partially visualized left adrenal mass, as described on prior studies. Right adrenal gland appears unremarkable. Stomach and bowel: Small hiatal hernia containing a portion of the gastric fundus. Bones/joints: Severe dextroscoliosis of the thoracic spine with left lateral wedge compression of the T9 vertebral body. Soft tissues: Unremarkable. IMPRESSION: 1. No evidence of pulmonary embolus 2. Chronic appearing right upper lobe atelectasis and dependent atelectasis versus infiltrate in the bilateral lower lobes. 3. Severe thoracic scoliosis with a chronic left lateral wedge compression of T9. No acute fracture. 4. Partially visualized left adrenal mass as described on prior studies. Note that this is incompletely imaged on the current study and therefore possible interval change can not be ascertained. Dictated and Authenticated by: Rigoberto Olivas MD. Ordering:MAYA Hunt MD
--- NOTE | 2023-06-20 19:46 | DI.VRAD_ITS ---
PROCEDURE INFORMATION: Exam: CT Head Without Contrast Exam date and time: 06/20/2023 6:54 PM Age: 67 years old Clinical indication: Other: AMS TECHNIQUE: Imaging protocol: Computed tomography of the head without contrast. Radiation optimization: All CT scans at this facility use at least one of these dose optimization techniques: automated exposure control; mA and/or kV adjustment per patient size (includes targeted exams where dose is matched to clinical indication); or iterative reconstruction. COMPARISON: CR XR cervical spine comp 4-5V 09/08/2018 9:50 AM FINDINGS: Brain: Normal. No hemorrhage. Unremarkable white matter. No mass effect. Cerebral ventricles: No ventriculomegaly. Paranasal sinuses: Visualized sinuses are unremarkable. No fluid levels. Mastoid air cells: Visualized mastoid air cells are well aerated. Bones/joints: Unremarkable. No acute fracture. Soft tissues: Unremarkable. IMPRESSION: No acute intracranial abnormality. Dictated and Authenticated by: Rogelio Carias MD. Ordering:MAYA Hunt MD
[2023-06-20 20:12] LABS: Lactate 1.5 mmol/L (0.6-1.4)
[2023-06-20 20:32] LABS: Troponin I < 50 ng/L (<or=60)
[2023-06-20] MEDS: Normal Saline 500 ML 30 ML IV (20:38)
[2023-06-20] MEDS: Ziprasidone 20 MG CAP PO (20:38)
[2023-06-20] MEDS: clonazePAM 1 MG TAB PO (20:38)
[2023-06-20] MEDS: buPROPion-XL 150 MG TABCR PO (20:38)
[2023-06-20] MEDS: cefTRIAXone 2 GM/50 ML BAG IVPB (20:38)
--- NOTE | 2023-06-20 20:38 | NUR.NOTE ---
Nursing Note: RN was given a verbal order to pull IM haldhol. RN pulled the medication and it was not administered to the patient due to a change in behavior
[2023-06-20] MEDS: Atorvastatin 20 MG TAB PO (21:20)
[2023-06-20] MEDS: Lactated Ringers 1,000 ML 125 ML IV (21:22)
[2023-06-20] MEDS: Insulin Aspart 300 UNITS/3 ML PEN SC (22:20)
[2023-06-20] MEDS: Albuterol/Ipratropium 3 ML UPD VIAL UPD (23:30)
[2023-06-21] VITALS (17 sets, daily range): BP systolic 139–154; BP diastolic 69–102; PULSE 78–103; RESP 1–28; TEMP 36.4–37.2; O2SAT 86–96
[2023-06-21] MEDS: Albuterol/Ipratropium 3 ML UPD VIAL UPD ×3 (05:53→18:12)
[2023-06-21] MEDS: Levothyroxine 112 MCG TAB PO (06:03)
[2023-06-21 07:06] LABS: Abs Immature Grans 0.02 10^3/uL (0.0-0.06); Absolute Lymphocyte Count 1.19 10^3/uL (1.2-3.4); Absolute Monocyte Count 0.49 10^3/uL (0.1-0.8); Absolute Neutrophil Count 4.56 10^3/uL (1.2-6.7); HCT 45.8 % (36.0-46.0); HGB 15.2 g/dL (11.2-15.7); Immature Grans % 0.3; MCH 32.3 pg (27.0-33.0); MCHC 33.2 % (32.0-36.0); MCV 97 fL (80-95); MPV 9.3 fL (8.0-11.0); Monocytes % 7.8; Neutrophils % 72.9; Platelet Count 288 10^3/uL (130-400); RBC 4.71 10^6/uL (3.93-5.22); RDW 13.5 % (11.7-14.6); RDW-SD 48.5 fL; WBC 6.26 10^3/uL (4.4-10.8)
[2023-06-21 07:21] LABS: Anion Gap 11.5 mmol/L (3-11); BUN 14 mg/dL (7-18); CO2 24.5 mmol/L (21.0-32.0); CREATININE 0.7 mg/dL (0.55-1.02); Calcium 9.7 mg/dL (8.5-10.1); Chloride 103 mmol/L (98-107); Estimated GFR 94.73 (mL/min/1.73m2); Glucose 111 mg/dL (74-106); Magnesium 1.8 mg/dL (1.8-2.4); Potassium 3.8 mmol/L (3.5-5.1); Sodium 139 mmol/L (136-145)
[2023-06-21] MEDS: FLUoxetine 20 MG CAP 40 MG PO (08:04)
[2023-06-21] MEDS: Empaglifozin 25 MG TAB PO (08:04)
[2023-06-21] MEDS: Omeprazole 20 MG CAPCR 40 MG PO (08:04)
[2023-06-21] MEDS: buPROPion-XL 150 MG TABCR PO ×2 (08:04→19:23)
[2023-06-21] MEDS: predniSONE 20 MG TAB 40 MG PO (08:05)
[2023-06-21] MEDS: Ziprasidone 20 MG CAP PO ×2 (08:05→19:22)
[2023-06-21] MEDS: Clopidogrel 75 MG TAB PO (08:05)
[2023-06-21] MEDS: clonazePAM 1 MG TAB PO ×3 (08:05→19:22)
[2023-06-21] MEDS: Tiotropium/Olodaterol 10 PUFF INHALER 2 PUFF IH (08:23)
[2023-06-21 09:05] LABS: Bilirubin Negative (Negative); Blood Negative (Negative); Clarity Clear (Clear); Glucose 500 mg/dL (Negative); Ketones 15 mg/dL (Negative); Leukocyte Esterase Small (Negative); Nitrite Negative (Negative); Urobilinogen 0.2 mg/dL (Up to 0.2)
--- NOTE | 2023-06-21 09:24 | CMPROGNOTE_ITS ---
Date of service: 06/17/23 Time of Service: 15:40 Care Management Progress Note Progress Note Text Progress Note Text: S/O: Celia remains inpatient, medications continue to be adjusted, anticipate at this time, Celia will likely return to [facility] 2 or SNF, dependent on recommendations for discharge. CM continues to follow. A: 63 year old female admitted to [facility] 05/25/23 P: Anticipate Celia will return home to the assisted living center at the [facility], with continued stabilization. CM continues to follow.?
[2023-06-21 09:29] LABS: Bacteria Few HPF (Negative); C & S Indicated? Yes; Casts Negative LPF (Negative); Crystals Negative HPF (Negative); Epithelial Cells Negative HPF (Negative); Mucus Negative (Negative); Other Cells Few Renal (Negative); RBC Negative HPF (0-2)
--- NOTE | 2023-06-21 10:13 | W.PM.PROGNOT ---
Date of Service Date of service: 06/21/23 Time of Service: 10:15 Assessment and Plan Assessment and plan (1) Hypotension: Status: Resolved Assessment and plan: D/c IVF and [facility]. I think she was dehydrated, but this has now resolved. Not septic. She does have a known UTI, for which she is on ceftriaxone now, but this was not what drove her BPs down yesterday. (2) Episode of confusion: Status: Resolved Assessment and plan: CT head negative. In setting of not wearing oxygen, it is possible that this was contributing to confusion, but this has completely resolved by the time of my evaluation. We cannot legally force the patient to wear her oxygen. I think these episodes also have a psychiatric component given her very persistent paranoia during her last admission and on her exam today. I disagree with the mental health findings. I think psychiatry/mental health should be involved in her medication management. We have discussed placement in a [facility] facility. Some of the confusion could have to do with difficulty hearing as well. (3) Hypoxia: Status: Chronic Assessment and plan: CTA negative. Finish a 5 day burst of steroids. (4) UTI (urinary tract infection): Status: Acute Assessment and plan: Due to E. Coli, present on last admission. Continue ceftriaxone which should adequately cover the E. Coli. (5) Psychotic episode: Status: Acute Assessment and plan: Mental health consulted and again found the patient to not be EE'able. This does not negative psychiatric issues, just that she is not a risk to herself (while cooperative w/ oxygen) and not a risk to others. When the patient arrived to the ER acutely hypoxic, she likely was also encephalopathic indeed, but this is not the case right now. (6) COPD (chronic obstructive pulmonary disease): Assessment and plan: Continue Anoro. Finish prednisone burst. (7) Interstitial lung disease: Assessment and plan: As above (8) Bipolar affect, depressed: Status: Suspected Assessment and plan: On Fluoxetine and buproprion. [facility] denies h/o bipolar an schizophrenia; I am not sure where this information came from. SHe has a h/o being hospitalized in several psychiatric hospitals. She was cleared by mental health again. She is paranoid on exams with me. I do not think that her medical condition is triggering her behaviors. Continue little macias. (9) Hypomagnesemia: Assessment and plan: Recheck in am. (10) Diabetes: Status: Chronic Assessment and plan: Continue Jardiance, glipizide. Monitor. 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 No ton antihypertensive therapy. I suspect BP will get better once steroids are discontinued. (12) Tobacco abuse: Status: Acute Assessment and plan: Continue Nicotine patch (13) Discharge planning issues: Status: Resolved Assessment and plan: DNR/DNI Medically cleared and cleared by mental health. Seeking [facility] placement. (14) DVT prophylaxis: Status: Resolved Assessment and plan: Sc enoxaparin Subjective Subjective Interval history since last seen: Celia stated that she feels well. Her breathing is good. We discussed that she should wear oxygen, that it is helping her feel well. She verbalized understanding. Denies dizziness, CP, SOB, n/v. on 1 L of O2 this am saturating in the 90s. She thinks she is in someone's home and does not know the date. Exam Narrative Exam Narrative: General: Calm cooperative middle-aged female who is on 1L of O2, no evidence of dyspnea/tachypnea/cyanosis, A&Ox1 HEENT: EOMI, MMM Cardiovascular: RRR, no m/r/g Lungs: CTAB (post nebulizer treatment) Gastrointestinal: soft, nontender, nondistended Extremities: no edema BLEs, + clubbing of fingers/toes, +1 pedal pulses B Objective Last Vital Signs Temp 36.4 C L 06/21/23 04:00 Pulse 89 06/21/23 07:28 Resp 18 06/21/23 05:53 BP 151/80 H 06/21/23 07:28 Pulse Ox 88 L 06/21/23 08:55 Laboratory Results - last 24 hr 06/20/23 06/20/23 06/20/23 17:15 17:15 17:15 WBC 8.47 RBC 5.22 Hgb 17.0 H Hct 50.7 H MCV 97 H MCH 32.6 MCHC 33.5 RDW 13.7 Plt Count 349 MPV 9.1 Immature Gran % 0.5 Neutrophils % 72.4 Lymphocytes % 19.6 Monocytes % 7.3 Eosinophils % 0.0 Basophils % 0.2 Nucleated RBC % 0.0 Absolute Neutrophils 6.13 Absolute Lymphocytes 1.66 Absolute Monocytes 0.62 Absolute Eosinophils 0.00 Absolute Basophils 0.02 VBG pH 7.43 H VBG pCO2 37 L VBG pO2 56 VBG HCO3 25 VBG Total CO2 21 L VBG O2 Saturation 88 VBG Base Excess 0 VBG Lactate Sodium 140 Potassium 3.6 Chloride 102 Carbon Dioxide 24.9 Anion Gap 13.1 H BUN 17 Creatinine 1.0 Est GFR (CKD-EPI 2020) 61.75 Glucose 142 H Calcium 10.4 H Magnesium Total Bilirubin 0.4 AST 29 ALT 22 Alkaline Phosphatase 89 Ammonia Troponin I NT-Pro-B Natriuret Pep Total Protein 8.6 H Albumin 3.7 Procalcitonin Urine Color Urine Clarity Urine pH Ur Specific [place] Urine Protein Urine Ketones Urine Blood Urine Nitrite Urine Bilirubin Urine Urobilinogen Ur Leukocyte Esterase Urine RBC Urine WBC Ur Epithelial Cells Urine Crystals Urine Bacteria Urine Casts Urine Mucus Urine Other Ur Culture Indicated? Urine Glucose COVID-19 Source SARS-CoV-2 (PCR) Influenza Type A (PCR) Influenza Type B (PCR) RSV (PCR) Add-On Test Request 06/20/23 06/20/23 06/20/23 17:15 17:15 18:05 WBC RBC Hgb Hct MCV MCH MCHC RDW Plt Count MPV Immature Gran % Neutrophils % Lymphocytes % Monocytes % Eosinophils % Basophils % Nucleated RBC % Absolute Neutrophils Absolute Lymphocytes Absolute Monocytes Absolute Eosinophils Absolute Basophils VBG pH VBG pCO2 VBG pO2 VBG HCO3 VBG Total CO2 VBG O2 Saturation VBG Base Excess VBG Lactate Sodium Potassium Chloride Carbon Dioxide Anion Gap BUN Creatinine Est GFR (CKD-EPI 2020) Glucose Calcium Magnesium Total Bilirubin AST ALT Alkaline Phosphatase Ammonia Troponin I < 50 NT-Pro-B Natriuret Pep 234 Total Protein Albumin Procalcitonin < 0.1 Urine Color Urine Clarity Urine pH Ur Specific [place] Urine Protein Urine Ketones Urine Blood Urine Nitrite Urine Bilirubin Urine Urobilinogen Ur Leukocyte Esterase Urine RBC Urine WBC Ur Epithelial Cells Urine Crystals Urine Bacteria Urine Casts Urine Mucus Urine Other Ur Culture Indicated? Urine Glucose COVID-19 Source Nasopharynx SARS-CoV-2 (PCR) Negative Influenza Type A (PCR) Negative Influenza Type B (PCR) Negative RSV (PCR) Negative Add-On Test Request 06/20/23 06/20/23 06/20/23 18:33 18:33 20:01 WBC RBC Hgb Hct MCV MCH MCHC RDW Plt Count MPV Immature Gran % Neutrophils % Lymphocytes % Monocytes % Eosinophils % Basophils % Nucleated RBC % Absolute Neutrophils Absolute Lymphocytes Absolute Monocytes Absolute Eosinophils Absolute Basophils VBG pH VBG pCO2 VBG pO2 VBG HCO3 VBG Total CO2 VBG O2 Saturation VBG Base Excess VBG Lactate 2.8 H* 1.5 H Sodium Potassium Chloride Carbon Dioxide Anion Gap BUN Creatinine Est GFR (CKD-EPI 2020) Glucose Calcium Magnesium Total Bilirubin AST ALT Alkaline Phosphatase Ammonia < 10 L Troponin I NT-Pro-B Natriuret Pep Total Protein Albumin Procalcitonin Urine Color Urine Clarity Urine pH Ur Specific [place] Urine Protein Urine Ketones Urine Blood Urine Nitrite Urine Bilirubin Urine Urobilinogen Ur Leukocyte Esterase Urine RBC Urine WBC Ur Epithelial Cells Urine Crystals Urine Bacteria Urine Casts Urine Mucus Urine Other Ur Culture Indicated? Urine Glucose COVID-19 Source SARS-CoV-2 (PCR) Influenza Type A (PCR) Influenza Type B (PCR) RSV (PCR) Add-On Test Request 06/20/23 06/20/23 06/20/23 20:01 23:47 Unknown WBC RBC Hgb Hct MCV MCH MCHC RDW Plt Count MPV Immature Gran % Neutrophils % Lymphocytes % Monocytes % Eosinophils % Basophils % Nucleated RBC % Absolute Neutrophils Absolute Lymphocytes Absolute Monocytes Absolute Eosinophils Absolute Basophils VBG pH VBG pCO2 VBG pO2 VBG HCO3 VBG Total CO2 VBG O2 Saturation VBG Base Excess VBG Lactate Cancelled Sodium Potassium Chloride Carbon Dioxide Anion Gap BUN Creatinine Est GFR (CKD-EPI 2020) Glucose Calcium Magnesium Total Bilirubin AST ALT Alkaline Phosphatase Ammonia Troponin I < 50 NT-Pro-B Natriuret Pep Total Protein Albumin Procalcitonin Urine Color Urine Clarity Urine pH Ur Specific [place] Urine Protein Urine Ketones Urine Blood Urine Nitrite Urine Bilirubin Urine Urobilinogen Ur Leukocyte Esterase Urine RBC Urine WBC Ur Epithelial Cells Urine Crystals Urine Bacteria Urine Casts Urine Mucus Urine Other Ur Culture Indicated? Urine Glucose COVID-19 Source SARS-CoV-2 (PCR) Influenza Type A (PCR) Influenza Type B (PCR) RSV (PCR) Add-On Test Request DONE 06/21/23 06/21/23 06/21/23 06:15 06:15 08:30 WBC 6.26 RBC 4.71 Hgb 15.2 Hct 45.8 MCV 97 H MCH 32.3 MCHC 33.2 RDW 13.5 Plt Count 288 MPV 9.3 Immature Gran % 0.3 Neutrophils % 72.9 Lymphocytes % 19.0 Monocytes % 7.8 Eosinophils % 0.0 Basophils % 0.0 Nucleated RBC % 0.0 Absolute Neutrophils 4.56 Absolute Lymphocytes 1.19 L Absolute Monocytes 0.49 Absolute Eosinophils 0.00 Absolute Basophils 0.00 VBG pH VBG pCO2 VBG pO2 VBG HCO3 VBG Total CO2 VBG O2 Saturation VBG Base Excess VBG Lactate Sodium 139 Potassium 3.8 Chloride 103 Carbon Dioxide 24.5 Anion Gap 11.5 H BUN 14 Creatinine 0.7 Est GFR (CKD-EPI 2020) 94.73 Glucose 111 H Calcium 9.7 Magnesium 1.8 Total Bilirubin AST ALT Alkaline Phosphatase Ammonia Troponin I NT-Pro-B Natriuret Pep Total Protein Albumin Procalcitonin Urine Color Yellow Urine Clarity Clear Urine pH 7.0 Ur Specific [place] 1.010 Urine Protein Negative Urine Ketones 15 H Urine Blood Negative Urine Nitrite Negative Urine Bilirubin Negative Urine Urobilinogen 0.2 Ur Leukocyte Esterase Small H Urine RBC Negative Urine WBC 5-10 Ur Epithelial Cells Negative Urine Crystals Negative Urine Bacteria Few Urine Casts Negative Urine Mucus Negative Urine Other Few Renal Ur Culture Indicated? Yes Urine Glucose 500 H COVID-19 Source SARS-CoV-2 (PCR) Influenza Type A (PCR) Influenza Type B (PCR) RSV (PCR) Add-On Test Request Time Spent with Patient Time Spent with Patient: 25-34 minutes Time was spent: preparing to see the patient(eg.review tests), obtaining and/or reviewing separately otained hiistory, ordering medications,tests, procedures, referring, communicating with other health director critical care, indepentently interpreting results, counseling the patient and care coordination
--- NOTE | 2023-06-21 11:13 | NUR.NOTE ---
Addendum entered by Penelope Harris 06/21/23 12:09: In reviewing the ED EKG outstanding list, the EKG ordered in the ED under Dr. Suggs does not have an image associated with the order. The order was cancelled and an email was sent to Dr. Suggs to notify her of this. Original Note: Accessed pt chart to determine status of EKG order.Nursing Note:
--- NOTE | 2023-06-21 13:36 | W.PALLCONSUL ---
Date of service: 06/21/23 Time of Service: 13:36 History of Present Illness Narrative: Celia was seen in her hospital room. Palliative was consulted to help establish if she has capacity to make medical decisions. She was evaluated by [facility], with whom she has a long-standing relationship. They feel she is near baseline. Their assessment revealed that she is A&O x3, MME score: 24, should not be held against her will. She is in the ICU at [facility]. Orientation: she is oriented to place, she states she is at [facility] in [place], [place]. she is oriented to time, she is able to state it is Saturday, June 21, 2023. She is able to state her name, . She states she was adopted when she was a baby. She states, I have already done this test. She cannot recall the events that lead to her being admitted to the hospital, however, she did receive medications yesterday that may have affected this. When questioned why she wears oxygen, she states, Oh! I have OCD... I mean COPD. She states her oxygen tubing falls off in her sleep. She also admits to taking it off at times when she does not feel like wearing it. She states it is, a pain to wear O2 and bring the tank around with her. She admits that she was upset yesterday and had a hard time controlling herself. She states she is agreeable to going back to the [facility] - but then states she has gone back and forth between the [facility] and [place]. I am not sure if that is true- I believe she is a [facility] resident. She states she has been to [facility] and she has also been to the [facility] (the [facility] She explained that her daughter, Marybeth, was murdered in he 20s by her boyfriend of 6 months. Her daughter, Lilliana, also at 23 years old. Her son, Jace Guadalupe, lives in [place]. She said her son does not use cell phones or internet because he is worried about the FBI monitoring him. 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 and has multiple comorbidities. She has bipolar disorder listed but [facility] denies that this is in her record. Palliative was consulted to assist with establishing if she has capacity to make medical decisions. She was seen by [facility] who felt she was alert and oriented, scored 24 on MME and did not feel she was appropriate for EE. She is followed by [facility]. At the time of my visit, she was A&O, however, some hx that she provided was questionable. When assessing capacity or lack thereof, there needs to be a specific question. It appears that her ability to make good decisions likely waxes and wanes. It depends on what the question is and what her mental status is at the time. It would be helpful to have input from providers that routinely care for her. It appears that she may need a higher level of care for her safety. If these concerns persist, consider [facility] placement. Review of Systems Narrative: She is eating and drinking and tolerating her diet. She does not feel SOB. [facility] All Active Problems (Updated 06/25/23 @ 00:07 by LAURENCE TERRELL) Consolidation of right upper lobe of lung (Acute) 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) Acute respiratory failure with hypoxia (Acute) Malaise (Acute) Tobacco abuse (Acute) Trochanteric bursitis, right hip (Acute) Advance care planning (Acute) Noncompliance (Acute) Enteritis (Acute) Acute respiratory failure with hypoxia (Acute) Aspiration pneumonia (Acute) Acute respiratory failure (Acute) Hypoxemia (Acute) Hyperproteinemia (Acute) Chronic hip pain (Acute) GERD with esophagitis (Chronic) Low back pain (Acute) Pneumonia (Acute) Hip pain, bilateral (Acute) Skin tag (Acute) Phlegm in throat (Acute) Positive colorectal cancer screening using Cologuard test (Acute) I scheduled 4 appts for gen surgery. She has cancelled or refuses RCT/ etc. or goes to the appt and then gets upset Dysphagia (Acute) Nasal mass (Acute) Dr. 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 Hyperlipidemia (Chronic) Polycythemia (Chronic) Hypothyroid (Chronic) Diabetes (Chronic) Type 2, controlled HTN (hypertension) (Chronic) Depression (Chronic) Mixed conductive and sensorineural hearing loss (Acute 01/29/14) Mixed hearing loss, bilateral (Acute 01/19/16) Sciatica (Acute 07/01/14) Sensorineural hearing loss (Acute 01/29/14) Total perforation of right tympanic membrane (Acute 01/19/16) Medical History Adrenal mass Ambulatory dysfunction Bulimia Chronic hip pain, bilateral Chronic low back pain Chronic obstructive lung disease Chronic post-traumatic stress disorder COPD (chronic obstructive pulmonary disease) Coronary arteriosclerosis Dehydration Diffuse abdominal pain Hearing loss History of smoking Hypokalemia Hypomagnesemia Hypoxia Interstitial lung disease Lumbar spine scoliosis Narcotic abuse episodic opioid dependence Osteoporosis Panic disorder Peripheral vascular disease Pneumonia Post traumatic stress disorder Pulmonary hypertension Tachycardia Weight loss Surgical History History of tympanoplasty of right ear Failed x2 S/P cholecystectomy Spinal Surgery Laminectomies at T12/L1 due to an angioma Stent placement Bilateral iliac and femoral Family History Mother Heart disease Paternal Grandfather Kidney disease Social History Smoking/Tobacco Use Status: Current every day Tobacco Type: cigarettes Smoking risk assessment performed?: Yes Alcohol Intake: never Drug use: Current Sobriety Substance use type: former substance user Housing: assisted living facility Do you feel safe at home: Yes Do you feel safe in your relationship?: Yes Additional Social history: patient currently lives at the [facility] says she is not happy there Exam Narrative Exam Narrative: General: very pleasant female, sitting up on the bed in the ICU. She is alert and oriented to person, place and time. Some of the Hx that she provides is questionable. Tearful at times when talking about her daughters. HEENT: normocephalic, atraumatic, EOMI, mmm. Neck: supple, no JVD. Cardiovascular: heart sounds regular. Respiratory: appears mildly SOB while talking at times. Lungs with few scattered wheezes noted throughout. She is wearing O2 via nc. GI: +bs, abd soft, nondistended, nontender on palpation. Extremities: moves all 4 extremities, sitting up on the bed, repositions frequently. Results Last Vital Signs Temp 36.4 C L 06/21/23 04:00 Pulse 96 H 06/21/23 11:53 Resp 18 06/21/23 11:53 BP 151/80 H 06/21/23 07:28 Pulse Ox 95 06/21/23 11:53 Labs 06/24/23 06:20 06/24/23 06:20 Labs: Laboratory Results - last 24 hr 06/20/23 06/20/23 06/20/23 17:15 17:15 17:15 WBC 8.47 RBC 5.22 Hgb 17.0 H Hct 50.7 H MCV 97 H MCH 32.6 MCHC 33.5 RDW 13.7 Plt Count 349 MPV 9.1 Immature Gran % 0.5 Neutrophils % 72.4 Lymphocytes % 19.6 Monocytes % 7.3 Eosinophils % 0.0 Basophils % 0.2 Nucleated RBC % 0.0 Absolute Neutrophils 6.13 Absolute Lymphocytes 1.66 Absolute Monocytes 0.62 Absolute Eosinophils 0.00 Absolute Basophils 0.02 VBG pH 7.43 H VBG pCO2 37 L VBG pO2 56 VBG HCO3 25 VBG Total CO2 21 L VBG O2 Saturation 88 VBG Base Excess 0 VBG Lactate Sodium 140 Potassium 3.6 Chloride 102 Carbon Dioxide 24.9 Anion Gap 13.1 H BUN 17 Creatinine 1.0 Est GFR (CKD-EPI 2020) 61.75 Glucose 142 H Calcium 10.4 H Magnesium Total Bilirubin 0.4 AST 29 ALT 22 Alkaline Phosphatase 89 Ammonia Troponin I NT-Pro-B Natriuret Pep Total Protein 8.6 H Albumin 3.7 Procalcitonin Urine Color Urine Clarity Urine pH Ur Specific [place] Urine Protein Urine Ketones Urine Blood Urine Nitrite Urine Bilirubin Urine Urobilinogen Ur Leukocyte Esterase Urine RBC Urine WBC Ur Epithelial Cells Urine Crystals Urine Bacteria Urine Casts Urine Mucus Urine Other Ur Culture Indicated? Urine Glucose COVID-19 Source SARS-CoV-2 (PCR) Influenza Type A (PCR) Influenza Type B (PCR) RSV (PCR) Add-On Test Request 06/20/23 06/20/23 06/20/23 17:15 17:15 18:05 WBC RBC Hgb Hct MCV MCH MCHC RDW Plt Count MPV Immature Gran % Neutrophils % Lymphocytes % Monocytes % Eosinophils % Basophils % Nucleated RBC % Absolute Neutrophils Absolute Lymphocytes Absolute Monocytes Absolute Eosinophils Absolute Basophils VBG pH VBG pCO2 VBG pO2 VBG HCO3 VBG Total CO2 VBG O2 Saturation VBG Base Excess VBG Lactate Sodium Potassium Chloride Carbon Dioxide Anion Gap BUN Creatinine Est GFR (CKD-EPI 2020) Glucose Calcium Magnesium Total Bilirubin AST ALT Alkaline Phosphatase Ammonia Troponin I < 50 NT-Pro-B Natriuret Pep 234 Total Protein Albumin Procalcitonin < 0.1 Urine Color Urine Clarity Urine pH Ur Specific [place] Urine Protein Urine Ketones Urine Blood Urine Nitrite Urine Bilirubin Urine Urobilinogen Ur Leukocyte Esterase Urine RBC Urine WBC Ur Epithelial Cells Urine Crystals Urine Bacteria Urine Casts Urine Mucus Urine Other Ur Culture Indicated? Urine Glucose COVID-19 Source Nasopharynx SARS-CoV-2 (PCR) Negative Influenza Type A (PCR) Negative Influenza Type B (PCR) Negative RSV (PCR) Negative Add-On Test Request 06/20/23 06/20/23 06/20/23 18:33 18:33 20:01 WBC RBC Hgb Hct MCV MCH MCHC RDW Plt Count MPV Immature Gran % Neutrophils % Lymphocytes % Monocytes % Eosinophils % Basophils % Nucleated RBC % Absolute Neutrophils Absolute Lymphocytes Absolute Monocytes Absolute Eosinophils Absolute Basophils VBG pH VBG pCO2 VBG pO2 VBG HCO3 VBG Total CO2 VBG O2 Saturation VBG Base Excess VBG Lactate 2.8 H* 1.5 H Sodium Potassium Chloride Carbon Dioxide Anion Gap BUN Creatinine Est GFR (CKD-EPI 2020) Glucose Calcium Magnesium Total Bilirubin AST ALT Alkaline Phosphatase Ammonia < 10 L Troponin I NT-Pro-B Natriuret Pep Total Protein Albumin Procalcitonin Urine Color Urine Clarity Urine pH Ur Specific [place] Urine Protein Urine Ketones Urine Blood Urine Nitrite Urine Bilirubin Urine Urobilinogen Ur Leukocyte Esterase Urine RBC Urine WBC Ur Epithelial Cells Urine Crystals Urine Bacteria Urine Casts Urine Mucus Urine Other Ur Culture Indicated? Urine Glucose COVID-19 Source SARS-CoV-2 (PCR) Influenza Type A (PCR) Influenza Type B (PCR) RSV (PCR) Add-On Test Request 06/20/23 06/20/23 06/20/23 20:01 23:47 Unknown WBC RBC Hgb Hct MCV MCH MCHC RDW Plt Count MPV Immature Gran % Neutrophils % Lymphocytes % Monocytes % Eosinophils % Basophils % Nucleated RBC % Absolute Neutrophils Absolute Lymphocytes Absolute Monocytes Absolute Eosinophils Absolute Basophils VBG pH VBG pCO2 VBG pO2 VBG HCO3 VBG Total CO2 VBG O2 Saturation VBG Base Excess VBG Lactate Cancelled Sodium Potassium Chloride Carbon Dioxide Anion Gap BUN Creatinine Est GFR (CKD-EPI 2020) Glucose Calcium Magnesium Total Bilirubin AST ALT Alkaline Phosphatase Ammonia Troponin I < 50 NT-Pro-B Natriuret Pep Total Protein Albumin Procalcitonin Urine Color Urine Clarity Urine pH Ur Specific [place] Urine Protein Urine Ketones Urine Blood Urine Nitrite Urine Bilirubin Urine Urobilinogen Ur Leukocyte Esterase Urine RBC Urine WBC Ur Epithelial Cells Urine Crystals Urine Bacteria Urine Casts Urine Mucus Urine Other Ur Culture Indicated? Urine Glucose COVID-19 Source SARS-CoV-2 (PCR) Influenza Type A (PCR) Influenza Type B (PCR) RSV (PCR) Add-On Test Request DONE 06/21/23 06/21/23 06/21/23 06:15 06:15 08:30 WBC 6.26 RBC 4.71 Hgb 15.2 Hct 45.8 MCV 97 H MCH 32.3 MCHC 33.2 RDW 13.5 Plt Count 288 MPV 9.3 Immature Gran % 0.3 Neutrophils % 72.9 Lymphocytes % 19.0 Monocytes % 7.8 Eosinophils % 0.0 Basophils % 0.0 Nucleated RBC % 0.0 Absolute Neutrophils 4.56 Absolute Lymphocytes 1.19 L Absolute Monocytes 0.49 Absolute Eosinophils 0.00 Absolute Basophils 0.00 VBG pH VBG pCO2 VBG pO2 VBG HCO3 VBG Total CO2 VBG O2 Saturation VBG Base Excess VBG Lactate Sodium 139 Potassium 3.8 Chloride 103 Carbon Dioxide 24.5 Anion Gap 11.5 H BUN 14 Creatinine 0.7 Est GFR (CKD-EPI 2020) 94.73 Glucose 111 H Calcium 9.7 Magnesium 1.8 Total Bilirubin AST ALT Alkaline Phosphatase Ammonia Troponin I NT-Pro-B Natriuret Pep Total Protein Albumin Procalcitonin Urine Color Yellow Urine Clarity Clear Urine pH 7.0 Ur Specific [place] 1.010 Urine Protein Negative Urine Ketones 15 H Urine Blood Negative Urine Nitrite Negative Urine Bilirubin Negative Urine Urobilinogen 0.2 Ur Leukocyte Esterase Small H Urine RBC Negative Urine WBC 5-10 Ur Epithelial Cells Negative Urine Crystals Negative Urine Bacteria Few Urine Casts Negative Urine Mucus Negative Urine Other Few Renal Ur Culture Indicated? Yes Urine Glucose 500 H COVID-19 Source SARS-CoV-2 (PCR) Influenza Type A (PCR) Influenza Type B (PCR) RSV (PCR) Add-On Test Request
--- NOTE | 2023-06-21 13:46 | PDOC.MHCN ---
Date of service: 06/21/23 Time of Service: 13:46 Mental Health Emergency Note Release [facility] release signed:: Yes Reason for Visit The client is a 67 year old, female who has been residing at the [facility] as a level 3 renter. 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 The client had been hospitalized on 06.16.23 for acute Hypoxia and a UTI. She was being treated and medically cleared on 06.20.23. The client was assessed by her cases worker, Bethany on 06/20 and per Bethany's documentation she believed the client's mental status was related to her UTI and pneumonia which the hospitalist disagreed with as she had been being treated for her UTI while in the hospital. The client left [place] from [facility] as she did not want to stay any longer. Upon returning back to the [facility] she became disoriented again and was again returned back to [facility] for admission again. A new assessment was requested. This clinician did this assessment face to face at bedside. 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 ) Hallucinations: No Delusions: No Attention: Other (Issues with attention are directly related to hearing impairment. ) Perception: Not impaired Orientation: Disoriented in Situation Memory: Impaired in: Recent Insight: Poor Judgement: Fair Neurovegetative Symptoms Sleep: No change Appetitie: Decrease Interests: No change Energy: No change Libido: Not applicable Substance Use: Do you use nicotine?: Yes Have you used substances in the last 7 days?: No Additional Issues: Assaultive/Threatening Behavior: No Medical Concerns: No Client engaged in active self harm w/weapon: No Threatening to run away: No Child reported abuse/neglect: No Voluntarily presenting for services: Yes Domestic violence is a concern: No Extreme Psychosis or extreme behavior is present: No Impression The client is a 67 year old, female who has been residing at the [facility] as a level 3 renter. 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 The client had been hospitalized on 06.16.23 for acute Hypoxia and a UTI. She was being treated and medically cleared on 06.20.23. The client was assessed by her cases worker, Bethany on 06/20 and per Bethany's documentation she believed the client's mental status was related to her UTI and pneumonia which the hospitalist disagreed with as she had been being treated for her UTI while in the hospital. The client left [facility] from [facility] as she did not want to stay any longer. Upon returning back to the [facility] she became disoriented again and was again returned back to [facility] for admission again. A new assessment was requested. The client presented today lying in bed watching TV. She turned around to meet with this clinician. She reported that she was unsure why she was there do I have cancer? She said I know I have diabetes A and B. She reported that she lives at [facility] as well as [facility] and could not identify how she is able to do that. She also stated What kind of operation am I having? It's cancer isn't it? She stated a couple of times she was getting antsy and wanted to leave. The client made good eye contact and was cooperative and friendly through the assessment. She engaged in completing the MMSE and scored a 23/30. Although, it is appropriate to note that any verbal cues that were given she struggled with due to hearing issues. She at one point when offered a blank piece of paper to take in her right hand, fold in half and place it on the floor, said where do you want me to sign? This direction was repeated several times in fairness to the disability however the client could not complete this task. In addition she was asked to follow the written instructions on the piece of paper to close your eyes and she could not do this until the instructions were repeated to her several times. She was oriented times 4 however, used the white board to locate the date. She could not answer the season. Memory recall was 2/3. and copying the design she could not do. It is fair to say that her capacity to care for herself is at risk however, there is not enough for a EE at this time to suggest decompensation so much so that she places herself or others at risk and she is also denying SI or HI. Resources Reosurces reviewed and given:: [facility] Plan/Disposition Recommended Disposition: [facility] Services [facility] Services: Psychiatric Evaluation. Plan: This clinician has outreached to her psychiatry team to see if the client can get her in to have a psychiatric evaluation as he has not had one in 2 years and she has had a change in her mental status. Care management will look at [facility] as an option. The hospitalist will put in a referral to Palliative care as she questions the client's capacity to make decision to not wear her O2. Person reported agreement to plan: Yes Reports/communication Outcome discussed with: ED/Personnel
--- NOTE | 2023-06-21 15:41 | INITIAL_ITS ---
Date of service: 06/21/23 Time of Service: 15:41 Care Management Initial Assmt Initial Assessment REASON FOR HOSPITALIZATION:: Lack of coordinated service planning by providers in the community; hypoxia (resolved in ED), dehydration. PREVIOUS FUNCTIONAL STATUS/SOCIAL/FAMILY SUPPORTS:: Resides at [facility] Level 3. The facility is closing and needs to find placement for their residents by 09/19/23. CURRENT FUNCTIONAL STATUS:: Refer to additional assessments including MD, [facility] Crisis and Palliative. ADVANCE DIRECTIVES:: [facility] on File Has patient been provided with info about the portal/API?: No Did the patient sign up for the portal?: No INSURANCE COVERAGE / FINANCIAL ISSUES:: [facility] CURRENT HOME/COMMUNITY SERVICES/EQUIPMENT:: Level 3 at [facility] DUMPER through [facility] Medication management through PCP PRIMARY CARE PHYSICIAN:: [facility] POTENTIAL DISCHARGE NEEDS:: Assessments for further evaluations. PATIENT/FAMILY EDUCATION NEEDS:: Review discharge instructions, discuss Ask Me Three. ANTICIPATED BARRIERS TO DISCHARGE:: Her residence does not feel they can meet her needs. TRANSPORTATION:: Via [facility]. PLAN:: Anticipate Celia will return home to the [place] [id number] where she resides, and transport via [facility]. CM continues to follow. 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) UTI (urinary tract infection) (Acute) Acute respiratory failure with hypoxia (Acute) Malaise (Acute) Tobacco abuse (Acute) Trochanteric bursitis, right hip (Acute) Advance care planning (Acute) Noncompliance (Acute) Enteritis (Acute) Acute respiratory failure with hypoxia (Acute) Aspiration pneumonia (Acute) Acute respiratory failure (Acute) Hypoxemia (Acute) Hyperproteinemia (Acute) Chronic hip pain (Acute) GERD with esophagitis (Chronic) Low back pain (Acute) Pneumonia (Acute) Hip pain, bilateral (Acute) Skin tag (Acute) Phlegm in throat (Acute) Positive colorectal cancer screening using Cologuard test (Acute) I scheduled 4 appts for gen surgery. She has cancelled or refuses RCT/ etc. or goes to the appt and then gets upset Dysphagia (Acute) Nasal mass (Acute) Dr. 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 Hyperlipidemia (Chronic) Polycythemia (Chronic) Hypothyroid (Chronic) Diabetes (Chronic) Type 2, controlled HTN (hypertension) (Chronic) Depression (Chronic) Mixed conductive and sensorineural hearing loss (Acute 01/29/14) Mixed hearing loss, bilateral (Acute 01/19/16) Sciatica (Acute 07/01/14) Sensorineural hearing loss (Acute 01/29/14) Total perforation of right tympanic membrane (Acute 01/19/16) Medical History Adrenal mass Ambulatory dysfunction Bulimia Chronic hip pain, bilateral Chronic low back pain Chronic obstructive lung disease Chronic post-traumatic stress disorder COPD (chronic obstructive pulmonary disease) Coronary arteriosclerosis Dehydration Diffuse abdominal pain Hearing loss History of smoking Hypokalemia Hypomagnesemia Hypoxia Interstitial lung disease Lumbar spine scoliosis Narcotic abuse episodic opioid dependence Osteoporosis Panic disorder Peripheral vascular disease Pneumonia Post traumatic stress disorder Pulmonary hypertension Tachycardia Weight loss Surgical History History of tympanoplasty of right ear Failed x2 S/P cholecystectomy Spinal Surgery Laminectomies at T12/L1 due to an angioma Stent placement Bilateral iliac and femoral Family History Mother Heart disease Paternal Grandfather Kidney disease Social History Smoking/Tobacco Use Status: Current every day Tobacco Type: cigarettes Smoking risk assessment performed?: Yes Alcohol Intake: never Drug use: Current Sobriety Substance use type: former substance user Housing: assisted living facility Do you feel safe at home: Yes Do you feel safe in your relationship?: Yes Additional Social history: patient currently lives at the [facility] says she is not happy there
[2023-06-21] MEDS: Insulin Aspart 300 UNITS/3 ML PEN SC (17:03)
[2023-06-21] MEDS: LORazepam 2 MG/ML VIAL 1 MG IVP (19:27)
[2023-06-21] MEDS: cefTRIAXone 2 GM/50 ML BAG IVPB (20:01)
--- NOTE | 2023-06-21 22:00 | NUR.NOTE ---
At 1915 this contract writer and Elza RN were called to assist patient as she left the unit with intention to elope. patient proceeded to yell for help, stated that staff was trying to kill her and she didn't want to .Security was called to stand by and this contract writer and staff assisted patient to wheel chair with reassurance and in depth reorientation. Staff then lifted patient to bed and provided HS meds and continued reassurance and reorientation. Patient agreed to take HS meds in addition to prn lorazepam. VSS, plan of care continued
[2023-06-22 01:10] VITALS: O2SAT 87
[2023-06-22 01:13] VITALS: BP 181/96; PULSE 118; O2SAT 95
[2023-06-22] MEDS: Acetaminophen 325 MG TAB PO (03:23)
[2023-06-22] MEDS: Levothyroxine 112 MCG TAB PO (06:12)
[2023-06-22] MEDS: Omeprazole 20 MG CAPCR 40 MG PO (07:37)
[2023-06-22] MEDS: buPROPion-XL 150 MG TABCR PO ×2 (07:37→19:28)
[2023-06-22] MEDS: Clopidogrel 75 MG TAB PO (07:37)
[2023-06-22] MEDS: clonazePAM 1 MG TAB PO ×3 (07:37→19:28)
[2023-06-22] MEDS: Empaglifozin 25 MG TAB PO (07:37)
[2023-06-22] MEDS: FLUoxetine 20 MG CAP 40 MG PO (07:37)
[2023-06-22] MEDS: Ziprasidone 20 MG CAP PO ×2 (07:37→19:28)
[2023-06-22 07:53] VITALS: BP 101/80; PULSE 92; RESP 18; TEMP 36.6; O2SAT 94
[2023-06-22] MEDS: Tiotropium/Olodaterol 10 PUFF INHALER 2 PUFF IH (07:56)
[2023-06-22 07:57] LABS: Abs Immature Grans 0.03 10^3/uL (0.0-0.06); Absolute Basophil Count 0.03 10^3/uL (0.0-0.2); Absolute Eosinophil Count 0.03 10^3/uL (0.0-0.7); Absolute Neutrophil Count 5.35 10^3/uL (1.2-6.7); Basophils % 0.3; Eosinophils % 0.3; HCT 50.1 % (36.0-46.0); HGB 16.9 g/dL (11.2-15.7); Immature Grans % 0.3; Lymphocytes % 30.6; MCH 32.6 pg (27.0-33.0); MCHC 33.7 % (32.0-36.0); MCV 97 fL (80-95); Monocytes % 9.8; Neutrophils % 58.7; Platelet Count 323 10^3/uL (130-400); RBC 5.19 10^6/uL (3.93-5.22); RDW 13.6 % (11.7-14.6); RDW-SD 47.9 fL; WBC 9.14 10^3/uL (4.4-10.8)
[2023-06-22 08:16] LABS: Anion Gap 13.3 mmol/L (3-11); BUN 16 mg/dL (7-18); CO2 23.7 mmol/L (21.0-32.0); Chloride 101 mmol/L (98-107); Estimated GFR 61.75 (mL/min/1.73m2); Glucose 177 mg/dL (74-106); Magnesium 1.9 mg/dL (1.8-2.4); Potassium 3.2 mmol/L (3.5-5.1); Sodium 138 mmol/L (136-145)
[2023-06-22] MEDS: Insulin Aspart 300 UNITS/3 ML PEN SC ×3 (08:24→20:11)
[2023-06-22] MEDS: Potassium Chloride 20 MEQ TABCR 40 MEQ PO (09:03)
[2023-06-22 12:39] VITALS: RESP 8; O2SAT 91
[2023-06-22] MEDS: Albuterol/Ipratropium 3 ML UPD VIAL UPD ×3 (12:39→23:09)
[2023-06-22 15:45] VITALS: BP 93/65; PULSE 102; RESP 19; TEMP 37.1; O2SAT 87
[2023-06-22 17:43] VITALS: PULSE 106; O2SAT 92
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
[2023-06-22] MEDS: Melatonin 3 MG TAB 9 MG PO (19:28)
[2023-06-22] MEDS: Enoxaparin 40 MG/0.4 ML SYR SC (19:28)
[2023-06-22] MEDS: Cefpodoxime 200 MG TAB PO (19:28)
[2023-06-22] MEDS: LORazepam 2 MG/ML VIAL 1 MG IVP (19:36)
[2023-06-22] MEDS: Nicotine 14 MG/24 HR PATCH TD (19:36)
[2023-06-22] MEDS: Atorvastatin 20 MG TAB PO (20:11)
[2023-06-23] VITALS (7 sets, daily range): BP systolic 101–124; BP diastolic 73–90; PULSE 66–109; RESP 7–18; TEMP 36.2–37.1; O2SAT 91–99
[2023-06-23] MEDS: Levothyroxine 112 MCG TAB PO (05:29)
[2023-06-23] MEDS: Albuterol/Ipratropium 3 ML UPD VIAL UPD ×3 (05:29→23:12)
[2023-06-23 07:28] LABS: Anion Gap 8.8 mmol/L (3-11); BUN 18 mg/dL (7-18); CO2 27.2 mmol/L (21.0-32.0); CREATININE 1.2 mg/dL (0.55-1.02); Chloride 105 mmol/L (98-107); Estimated GFR 49.61 (mL/min/1.73m2); Glucose 159 mg/dL (74-106); Potassium 3.6 mmol/L (3.5-5.1); Sodium 141 mmol/L (136-145)
[2023-06-23] MEDS: FLUoxetine 20 MG CAP 40 MG PO (07:48)
[2023-06-23] MEDS: buPROPion-XL 150 MG TABCR PO ×2 (07:48→20:08)
[2023-06-23] MEDS: Omeprazole 20 MG CAPCR 40 MG PO (07:48)
[2023-06-23] MEDS: Empaglifozin 25 MG TAB PO (07:49)
[2023-06-23] MEDS: Clopidogrel 75 MG TAB PO (07:49)
[2023-06-23] MEDS: Ziprasidone 20 MG CAP PO ×2 (07:49→20:07)
[2023-06-23] MEDS: clonazePAM 1 MG TAB PO ×3 (07:49→20:08)
[2023-06-23] MEDS: Cefpodoxime 200 MG TAB PO ×2 (07:49→20:07)
[2023-06-23] MEDS: Insulin Aspart 300 UNITS/3 ML PEN SC ×2 (07:55→11:55)
[2023-06-23] MEDS: Tiotropium/Olodaterol 10 PUFF INHALER 2 PUFF IH (08:10)
[2023-06-23] MEDS: Nicotine 14 MG/24 HR PATCH TD (16:47)
--- NOTE | 2023-06-23 17:47 | W.PM.PROGNOT ---
Date of Service Date of service: 06/23/23 Time of Service: 17:47 Assessment and Plan Assessment and plan (1) UTI (urinary tract infection): Status: Acute Assessment and plan: Continue cefpodoxime (2) COPD (chronic obstructive pulmonary disease): Assessment and plan: Continue Anoro. Finish prednisone burst. (3) Interstitial lung disease: Assessment and plan: As above (4) Hypoxia: Status: Chronic Assessment and plan: CTA negative. Finish a 5 day burst of steroids. Oxygen to keep sat > 88% (5) Bipolar affect, depressed: Status: Suspected Assessment and plan: On Fluoxetine and buproprion. She has a h/o being hospitalized in several psychiatric hospitals. Continue geodon, klonopin. Pleaseant, cooperative, conversant. (6) Diabetes: Status: Chronic Assessment and plan: Continue Jardiance, glipizide. Monitor. 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 Seeking natalia-psych placement v back to assisted living (9) DVT prophylaxis: Status: Resolved Assessment and plan: Sc enoxaparin (10) Psychotic episode: Status: Resolved (11) Episode of confusion: Status: Resolved Assessment and plan: Awake and alert today, no confusion, she knows where she is, who she is, why she is here, oxygen is on, no shortness of breath SPO2 > 90% on 2 lpm. She is conversant. Pleasant, follows commands. She is eating and drinking adequatley. (12) Hypotension: Status: Resolved (13) Hypomagnesemia: Assessment and plan: resolved 1.9 Subjective Subjective Patient reports: no new complaints, feels better, tolerating a regular diet, voiding w/o difficulty, bowel movement and afebrile; denies diarrhea, nausea or vomiting Interval history since last seen: Awake and alert, sitting on the side of the bed, legs crossed infront of her. She is smiling and conversant. Pleasant, no complaints, states she is ready to go back to the [facility]. She will have completed abx tomorrow and should be able to return if all goes well overnight. Exam Narrative Exam Narrative: General: Calm cooperative, pleasant HEENT: EOMI, MMM Cardiovascular: RRR, no m/r/g Lungs: CTAB Gastrointestinal: soft, nontender, nondistended Extremities: no edema BLEs, + clubbing of fingers/toes, +1 bilat pedal pulses Objective Last Vital Signs Temp 36.6 C 06/23/23 15:33 Pulse 109 H 06/23/23 15:33 Resp 16 06/23/23 15:33 BP 124/90 06/23/23 15:33 Pulse Ox 97 06/23/23 15:33 Laboratory Results - last 24 hr 06/23/23 06:25 Sodium 141 Potassium 3.6 Chloride 105 Carbon Dioxide 27.2 Anion Gap 8.8 BUN 18 Creatinine 1.2 H Est GFR (CKD-EPI 2020) 49.61 Glucose 159 H Calcium 10.0 Magnesium 2.0 Time Spent with Patient Time Spent with Patient: 35-49 minutes Time was spent: preparing to see the patient(eg.review tests), ordering medications,tests, procedures, referring, communicating with other health acute care physical therapist, indepentently interpreting results, counseling the patient and care coordination
[2023-06-23] MEDS: Atorvastatin 20 MG TAB PO (20:07)
[2023-06-23] MEDS: Enoxaparin 40 MG/0.4 ML SYR SC (20:08)
[2023-06-23] MEDS: Melatonin 3 MG TAB 9 MG PO (22:17)
[2023-06-24 05:35] VITALS: BP 93/67; PULSE 83; RESP 16; TEMP 36.7; O2SAT 93
[2023-06-24] MEDS: Levothyroxine 112 MCG TAB PO (05:39)
[2023-06-24 05:43] VITALS: BP 98/79
[2023-06-24 05:45] VITALS: PULSE 83; RESP 16; RESP 8; O2SAT 95
[2023-06-24] MEDS: Albuterol/Ipratropium 3 ML UPD VIAL UPD (05:45)
[2023-06-24 05:59] VITALS: PULSE 86; RESP 16; RESP 7; O2SAT 96
[2023-06-24] MEDS: Tiotropium/Olodaterol 10 PUFF INHALER 2 PUFF IH (07:53)
[2023-06-24 07:54] LABS: Abs Immature Grans 0.05 10^3/uL (0.0-0.06); Absolute Basophil Count 0.05 10^3/uL (0.0-0.2); Absolute Eosinophil Count 0.12 10^3/uL (0.0-0.7); Absolute Lymphocyte Count 4.68 10^3/uL (1.2-3.4); Absolute Monocyte Count 1.03 10^3/uL (0.1-0.8); Absolute Neutrophil Count 4.32 10^3/uL (1.2-6.7); Basophils % 0.5; Eosinophils % 1.2; HCT 54.2 % (36.0-46.0); HGB 17.6 g/dL (11.2-15.7); Immature Grans % 0.5; Lymphocytes % 45.7; MCH 32.3 pg (27.0-33.0); MCHC 32.5 % (32.0-36.0); MCV 99 fL (80-95); MPV 9.9 fL (8.0-11.0); Neutrophils % 42.1; Platelet Count 277 10^3/uL (130-400); RBC 5.45 10^6/uL (3.93-5.22); RDW 13.7 % (11.7-14.6); RDW-SD 50.2 fL; WBC 10.25 10^3/uL (4.4-10.8)
[2023-06-24 08:00] VITALS: O2SAT 94
[2023-06-24] MEDS: buPROPion-XL 150 MG TABCR PO (08:07)
[2023-06-24] MEDS: Ziprasidone 20 MG CAP PO (08:07)
[2023-06-24] MEDS: clonazePAM 1 MG TAB PO (08:08)
[2023-06-24] MEDS: Bisacodyl 10 MG SUPP PR (08:08)
[2023-06-24] MEDS: Clopidogrel 75 MG TAB PO (08:08)
[2023-06-24] MEDS: Empaglifozin 25 MG TAB PO (08:08)
[2023-06-24] MEDS: Omeprazole 20 MG CAPCR 40 MG PO (08:08)
[2023-06-24] MEDS: FLUoxetine 20 MG CAP 40 MG PO (08:08)
[2023-06-24] MEDS: Cefpodoxime 200 MG TAB PO (08:08)
[2023-06-24 08:11] LABS: Anion Gap 8.8 mmol/L (3-11); BUN 22 mg/dL (7-18); CO2 28.2 mmol/L (21.0-32.0); CREATININE 1.1 mg/dL (0.55-1.02); Chloride 103 mmol/L (98-107); Estimated GFR 55.07 (mL/min/1.73m2); Glucose 126 mg/dL (74-106); Potassium 3.7 mmol/L (3.5-5.1); Sodium 140 mmol/L (136-145)
--- NOTE | 2023-06-24 08:38 | DSE_ITS ---
Date of service: 06/24/23 Time of Service: 08:38 DS: Diagnosis Discharge Diagnosis (1) UTI (urinary tract infection): Status: Acute (2) COPD (chronic obstructive pulmonary disease): (3) Interstitial lung disease: (4) Hypoxia: Status: Chronic (5) Bipolar affect, depressed: Status: Suspected (6) Diabetes: Status: Chronic (7) Tobacco abuse: Status: Acute (8) Discharge planning issues: Status: Resolved (9) DVT prophylaxis: Status: Resolved (10) Psychotic episode: Status: Resolved (11) Episode of confusion: Status: Resolved (12) Hypotension: Status: Resolved (13) Hypomagnesemia: Discharge Plan Disposition Patient Disposition: Home Condition: Good Discharge Details Reason For Visit: Acute on Chronic Hypoxic Respirtory Failure,Hypote Admit Date/Time: 06/20/23 17:49 Admit Provider: Marilee Suggs Attending Provider: Marilee Suggs Primary Care Provider: Martínez Berrios Hospital Course Hospital Course: This is a 67 year old female with PMHx of chronic hypoxic respiratory failure, but noncompliance with oxygen, on 2L of O2 by UT, COPD, pulmonary fibrosis, NIDDM2, tobacco abuse, questions of bipolar d/o and schizophrenia (diagnoses not confirmed by [facility]) who had left [facility] on 06/20/2023 after an admission for a UTI, COPD exacerbation, but also psychotic behaviors, having been cleared by mental health for discharge, but was sent back to [facility] ED shortly after arrival to the [facility] facility because she was thought to be altered. Patient was found to have a UTI and was treated with Ceftriaxone, and then cefpodoxime orally. Adding up last admission and this admission patient has had 7 days of antibiotics, a full course. Patient is at baseline with her respiratory status and on 3 LPM of oxygen via nasal cannula, and being compliant with oxygen. Oxygen saturations have been over 88%, with the mean being 93%. She is C/A, know where she is. She is conversant, pleasant and has been eating all of her meals and drinking plenty of fluids. She has no complaints, her vital signs and lab work are stable. She is discharged back to the [facility], stable, via RCT. Home Meds and New Rx's Prescriptions: Continued Tesha-[place] Original 325-1,916-1,000 mg tablet, effervescent 2 tab PO BID PRN (Reason: indigestion) Qty: 60 3RF bismuth subsalicylate 262 mg/15 mL suspension 524 mg PO QID PRN (Reason: diarrhea) Qty: 30 3RF Patient Comments: not on med list docusate sodium 100 mg capsule 300 mg PO DAILY PRN (Reason: constipation) Qty: 30 3RF Patient Comments: not on med list guaifenesin [Mucinex] 600 mg tablet extended release 12hr 600 mg PO Q12H PRN (Reason: congestion) Qty: 60 4RF loperamide 2 mg tablet 2 mg PO QID PRN (Reason: loose stool) Qty: 10 0RF Rx Instructions: Take one tablet by mouth after each loose stool not to exceed 8mg/24 hrs ondansetron 4 mg tablet,disintegrating 4 mg PO Q4H PRN (Reason: nausea and vomiting) Qty: 30 1RF Anoro Ellipta 62.5-25 mcg/actuation blister with device 1 inh inhalation Q24H Qty: 90 4RF Rx Instructions: dispense Anoro Rybelsus 7 mg tablet 7 mg PO DAILY Qty: 90 3RF Rx Instructions: start after 3mg Rx finishes bupropion HCl 150 mg tablet extended release 24 hr 150 mg PO BID Qty: 180 3RF melatonin 10 mg tablet 10 mg PO HS PRN (Reason: sleep) Qty: 90 5RF famotidine 20 mg tablet 20 mg PO BID Qty: 180 4RF clonazepam 1 mg tablet 1 mg PO TID Qty: 270 1RF glipizide 10 mg tablet extended release 24hr 10 mg PO DAILY Qty: 90 2RF levothyroxine 112 mcg tablet 112 mcg PO DAILY Qty: 90 2RF clopidogrel [Plavix] 75 mg tablet 75 mg PO DAILY Qty: 90 3RF fluoxetine 40 mg capsule 40 mg PO DAILY Qty: 90 3RF omeprazole 40 mg capsule,delayed release(DR/EC) 40 mg PO DAILY Qty: 90 2RF quetiapine [Seroquel XR] 200 mg tablet extended release 24 hr 200 mg PO HS Qty: 90 12RF Patient Comments: no longer on med list lidocaine 5 % adhesive patch,medicated 1 patch topical DAILY Qty: 15 0RF Patient Comments: not on med list Rx Instructions: leave on most painful area for up to 12 hrs atorvastatin 20 mg tablet 20 mg PO HS Jardiance 25 mg tablet 25 mg PO QAM acetaminophen 650 mg Tablet 650 mg PO Q8H PRN bisacodyl 10 mg Suppository 10 mg NM DAILY prednisone 20 mg Tablet 40 mg PO DAILY Qty: 10 0RF ziprasidone HCl 20 mg Capsule 20 mg PO BID Qty: 60 0RF Discontinued cefpodoxime 200 mg Tablet 200 mg PO BID PC Qty: 10 0RF Discharge Instructions Instructions: COPD (Chronic Obstructive Pulmonary Disease) (DC) Additional Instructions: Use oxygen as needed. Don't smoke. Stand Alone Forms: Nursing Discharge Form Referrals: Martínez Berrios MD [Primary Care Provider] - 07/23/23 1:30 pm () Activity:: Activity as Tolerated Equipment/Supplies:: Oxygen (L/min Below) Diet:: As Tolerated Discharge Orders Discharge Orders: Discharge Order (Routine); Ordered 06/24/23 Ordered By: Kristine Bob DS: Summary Time Spent with Patient providing and/or coordinating discharge services: Greater than 30 minutes Status at Discharge Functional status at discharge: independent ambulation Overall status at discharge: patient is back to baseline Mental Status: mental status grossly normal Speech and Movement: slurred speech Mood: congruent mood Affect: normal affect Exam Narrative Exam Narrative: General: Calm cooperative, pleasant HEENT: EOMI, MMM Cardiovascular: RRR, no m/r/g Lungs: CTAB Gastrointestinal: soft, nontender, nondistended Extremities: no edema BLEs, + clubbing of fingers/toes, +1 bilat pedal pulses Psych Mental Status: mental status grossly normal Speech and Movement: slurred speech Mood: congruent mood Affect: normal affect DS: Data Vitals/I&O Vitals and I&O: Vital Signs Temperature 36.7 C 06/24/23 05:35 Temperature Source Tympanic 06/24/23 05:35 Pulse 86 06/24/23 05:59 Pulse Rhythm Regular 06/23/23 15:33 Pulse 97 H 06/21/23 00:10 Respiratory Rate 16 06/24/23 05:59 Respiratory Effort Normal 06/24/23 04:02 Respiratory Depth Normal 06/24/23 04:02 Respiratory Pattern Normal 06/24/23 04:02 Blood Pressure 98/79 L 06/24/23 05:43 Blood Pressure Mean 116 06/22/23 01:13 Blood Pressure Position Supine 06/20/23 21:38 Pulse Oximetry 94 06/24/23 08:00 Oxygen Delivery Method Nasal Cannula 06/24/23 08:00 Oxygen Flow Rate 3 06/24/23 08:00 Pain Level 0 06/24/23 05:35 Comment stats called over radio 06/22/23 15:45 Intake & Output 06/23/23 06/23/23 06/24/23 11:59 23:59 11:59 Intake Total 240 / 240 Output Total 250 / 750 500 / 750 Balance -250 / -510 -260 / -510 Weight 64.5 kg 64.6 kg Intake: Oral 240 / 240 Output: Urine 250 / 750 500 / 750 Other: Urine Color Yellow Yellow Yellow Urine Appearance Clear Cloudy Clear Urine Odor Normal Normal Comment pT voided in commode - no hat unmeasured void Voiding Methods Bedside Commode Bedside Commode Data Completed and Pending Labs on day of discharge: Labs from last 24 hours 06/24/23 06/24/23 06:20 06:20 WBC 10.25 RBC 5.45 H Hgb 17.6 H Hct 54.2 H MCV 99 H MCH 32.3 MCHC 32.5 RDW 13.7 Plt Count 277 MPV 9.9 Immature Gran % 0.5 Neutrophils % 42.1 Lymphocytes % 45.7 Monocytes % 10.0 Eosinophils % 1.2 Basophils % 0.5 Nucleated RBC % 0.0 Absolute Neutrophils 4.32 Absolute Lymphocytes 4.68 H Absolute Monocytes 1.03 H Absolute Eosinophils 0.12 Absolute Basophils 0.05 Sodium 140 Potassium 3.7 Chloride 103 Carbon Dioxide 28.2 Anion Gap 8.8 BUN 22 H Creatinine 1.1 H Est GFR (CKD-EPI 2020) 55.07 Glucose 126 H Calcium 10.0 Magnesium 2.0 Preliminary micro results at discharge 06/20/23 18:33 Blood Culture - Preliminary Blood NO GROWTH 72 HOURS 06/21/23 06:15 Blood Culture - Preliminary Blood NO GROWTH 48 HOURS PFSH All Active Problems (Updated 06/22/23 @ 18:37 by Kristine Bob NP) Hypoxia (Chronic) AMS (altered mental status) (Acute) Consolidation of right upper lobe of lung (Acute) 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) UTI (urinary tract infection) (Acute) Acute respiratory failure with hypoxia (Acute) Malaise (Acute) Tobacco abuse (Acute) Trochanteric bursitis, right hip (Acute) Advance care planning (Acute) Noncompliance (Acute) Enteritis (Acute) Acute respiratory failure with hypoxia (Acute) Aspiration pneumonia (Acute) Acute respiratory failure (Acute) Hypoxemia (Acute) Hyperproteinemia (Acute) Chronic hip pain (Acute) GERD with esophagitis (Chronic) Low back pain (Acute) Pneumonia (Acute) Hip pain, bilateral (Acute) Skin tag (Acute) Phlegm in throat (Acute) Positive colorectal cancer screening using Cologuard test (Acute) I scheduled 4 appts for gen surgery. She has cancelled or refuses RCT/ etc. or goes to the appt and then gets upset Dysphagia (Acute) Nasal mass (Acute) Dr. 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 Hyperlipidemia (Chronic) Polycythemia (Chronic) Hypothyroid (Chronic) Diabetes (Chronic) Type 2, controlled HTN (hypertension) (Chronic) Depression (Chronic) Mixed conductive and sensorineural hearing loss (Acute 01/29/14) Mixed hearing loss, bilateral (Acute 01/19/16) Sciatica (Acute 07/01/14) Sensorineural hearing loss (Acute 01/29/14) Total perforation of right tympanic membrane (Acute 01/19/16) Medical History Adrenal mass Ambulatory dysfunction Bulimia Chronic hip pain, bilateral Chronic low back pain Chronic obstructive lung disease Chronic post-traumatic stress disorder COPD (chronic obstructive pulmonary disease) Coronary arteriosclerosis Dehydration Diffuse abdominal pain Hearing loss History of smoking Hypokalemia Hypomagnesemia Hypoxia Interstitial lung disease Lumbar spine scoliosis Narcotic abuse episodic opioid dependence Osteoporosis Panic disorder Peripheral vascular disease Pneumonia Post traumatic stress disorder Pulmonary hypertension Tachycardia Weight loss Surgical History History of tympanoplasty of right ear Failed x2 S/P cholecystectomy Spinal Surgery Laminectomies at T12/L1 due to an angioma Stent placement Bilateral iliac and femoral Family History Mother Heart disease Paternal Grandfather Kidney disease Social History Smoking/Tobacco Use Status: Current every day Tobacco Type: cigarettes Smoking risk assessment performed?: Yes Alcohol Intake: never Drug use: Current Sobriety Substance use type: former substance user Housing: assisted living facility Do you feel safe at home: Yes Do you feel safe in your relationship?: Yes Additional Social history: patient currently lives at the [facility] says she is not happy there Time Spent with Patient Time Spent with Patient: 45-69 minutes Time was spent: preparing to see the patient(eg.review tests), ordering medications,tests, procedures, referring, communicating with other health palliative care specialist, indepentently interpreting results, counseling the patient and care coordination
== END 2023-06-24 09:10 | disposition home or self-care (01) ==
LOC: ER 18:35 → ICU 18:57 → MS 06-24 08:39
PROVIDERS: Nurse Practitioner Family; Admitting Provider Internal Medicine; Emergency Provider Emergency Medicine; PCP Family Medicine; Visit Provider Internal Medicine
DX: I95.9 Hypotension, unspecified (principal); N39.0 Urinary tract infection, site not specified; E86.0 Dehydration; R41.0 Disorientation, unspecified; E87.20 Acidosis, unspecified; J44.9 Chronic obstructive pulmonary disease, unspecified; J84.9 Interstitial pulmonary disease, unspecified; E83.42 Hypomagnesemia; J96.11 Chronic respiratory failure with hypoxia; I10 Essential (primary) hypertension; E11.9 Type 2 diabetes mellitus without complications; Z79.84 Long term (current) use of oral hypoglycemic drugs; Z79.899 Other long term (current) drug therapy; F17.210 Nicotine dependence, cigarettes, uncomplicated; K21.00 Gastro-esophageal reflux disease with esophagitis, without bleeding; M54.50 Low back pain, unspecified; E03.9 Hypothyroidism, unspecified; E78.5 Hyperlipidemia, unspecified; D45 Polycythemia vera; G89.29 Other chronic pain; I25.10 Atherosclerotic heart disease of native coronary artery without angina pectoris; R26.2 Difficulty in walking, not elsewhere classified; M25.552 Pain in left hip; M25.551 Pain in right hip; I27.20 Pulmonary hypertension, unspecified; M81.0 Age-related osteoporosis without current pathological fracture; F41.0 Panic disorder [episodic paroxysmal anxiety]; I73.9 Peripheral vascular disease, unspecified; B96.20 Unspecified Escherichia coli [E. coli] as the cause of diseases classified elsewhere; F22 Delusional disorders; Z66 Do not resuscitate; Z91.199 Patient's noncompliance with other medical treatment and regimen due to unspecified reason
CPT/HCPCS: 36415; 71275; 80048; 80053; 82805; 84145; 87040; 87081; 87637; 94640; 96361; 96365; 96374; 99285; J1650; 70450; 71045; 81003; 81015; 82140; 83605; 83735; 83880; 84484; 85025; 87086; 94664; 94667; 94668; 94760; 99232; 99239; 99284; 99291; G0378; J1100; J2060; J3490; J7512; J7620

== ENCOUNTER 2023-07-18 18:38 | Outpatient (REF) | payer MEDICARE, MEDICAID, SELFPAY ==
[2023-07-18 16:11] LABS: Bilirubin Negative (Negative); Blood Negative (Negative); Clarity Clear (Clear); Glucose 500 mg/dL (Negative); Ketones Negative (Negative); Leukocyte Esterase Negative (Negative); Nitrite Negative (Negative); Urobilinogen 0.2 mg/dL (Up to 0.2)
[2023-07-18 16:17] LABS: Abs Immature Grans 0.03 10^3/uL (0.0-0.06); Absolute Basophil Count 0.05 10^3/uL (0.0-0.2); Absolute Eosinophil Count 0.09 10^3/uL (0.0-0.7); Absolute Lymphocyte Count 2.84 10^3/uL (1.2-3.4); Absolute Monocyte Count 0.55 10^3/uL (0.1-0.8); Absolute Neutrophil Count 3.32 10^3/uL (1.2-6.7); Basophils % 0.7; Eosinophils % 1.3; HCT 53.3 % (36.0-46.0); HGB 17.4 g/dL (11.2-15.7); Immature Grans % 0.4; Lymphocytes % 41.3; MCH 32.2 pg (27.0-33.0); MCHC 32.6 % (32.0-36.0); MCV 99 fL (80-95); Neutrophils % 48.3; RBC 5.41 10^6/uL (3.93-5.22); RDW 13.3 % (11.7-14.6); RDW-SD 48.9 fL; WBC 6.88 10^3/uL (4.4-10.8)
[2023-07-18 16:44] LABS: Hemoglobin A1C 6.7 % (<5.7)
[2023-07-18 16:48] LABS: Diff Comment Diff Reviewed; RBC Morphology Normal
[2023-07-18 18:10] LABS: ALT 22 U/L (14-59); AST 15 U/L (15-37); Albumin 3.7 g/dL (3.4-5.0); Alkaline Phosphatase 103 U/L (46-116); Anion Gap 11.7 mmol/L (3-11); BUN 12 mg/dL (7-18); Bilirubin, Total 0.3 mg/dL (0.2-1.0); CO2 24.3 mmol/L (21.0-32.0); Chloride 104 mmol/L (98-107); Estimated GFR 61.75 (mL/min/1.73m2); Ferritin 118 ng/mL (8-252); Folate 9.9 ng/mL (8.6-20.0); Glucose 135 mg/dL (74-106); Magnesium 1.9 mg/dL (1.8-2.4); NT-proBNP 135 pg/mL (<300); Sodium 140 mmol/L (136-145); TSH (W/Ref FT4) 1.76 uIU/mL (0.36-3.74); Total Protein 7.7 g/dL (6.4-8.2); Vitamin B12 275 pg/mL (193-986)
[2023-07-18 20:00] LABS: Iron 97 ug/dL (50-170); Total Iron Binding Capacity 291 ug/dL (250-450); Transferrin Sat 33 % (15-50)
[2023-07-18 21:03] LABS: Vitamin D 25 Total 41.1 ng/mL (30-100)
[2023-07-22 09:15] LABS: Hepatitis C Ab w Rflx HCV PCR Negative (Negative)
[2023-07-22 09:39] LABS: Lyme Ab w Rflx to Lyme Confirm Negative (Negative)
[2023-07-22 09:46] LABS: Syphilis Serology (RPR) Negative (Negative)
== END 2023-07-18 18:39 | disposition home or self-care (01) ==
LOC: LBN 18:38
PROVIDERS: PCP Family Medicine; Visit Provider Nurse Practitioner Gerontology
DX: E11.9 Type 2 diabetes mellitus without complications (principal); E03.9 Hypothyroidism, unspecified; R41.0 Disorientation, unspecified; G89.4 Chronic pain syndrome
CPT/HCPCS: 80053; 82306; 86803; 81003; 82607; 82728; 82746; 83036; 83540; 83550; 83735; 83880; 84425; 84443; 85025; 86592; 86618; 87086